=== PATIENT | male | born 1965 | race Caucasian/White ===

== ENCOUNTER 2019-04-28 17:11 | Inpatient (IN) | payer SELFPAY ==
[~2019-04-28] VITALS: Ht 162.6 cm; Wt 49.2 kg
[2019-04-28] MEDS ORDERED: NS IV 1000 ML 1,000 ML IV SCH (18:00)
--- NOTE | 2019-04-28 18:10 | ED Neurological Problem ---
General Chief Complaint: Neurological Problems Stated Complaint: GENERALIZED WEAKNESS/ ELEV BP Nursing Triage Note: Patient reports numbness and weakness bilaterally in legs since last , reports patient has had altered mental status since Sunday, states patient seems unable to find her in the house even when she is standing next to him. Nursing Sepsis Screen: No Definite Risk Source: patient, family Exam Limitations: no limitations History of Present Illness Date Seen by Provider: Apr 28, 2019 Time Seen by Provider: 17:35 Initial Comments Patient was brought into the emergency room with complaint of having numbness in both lower extremities along with weakness and also has numbness in his right hand with mild weakness of the right hand. All the symptoms started on . said he is also confused since Sunday. Patient is alert and oriented 3 in the emergency room. He is a chronic smoker. Patient denies having any headache, chest pain, shortness of breath, abdominal pain or symptoms of dysuria. He denies having any back pain and denies having any recent upper respiratory infection. His numbness in the lower extremities is mainly localized to both feet and in the right upper extremity to the hand. 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 Patient is to ablate before but was not able to ambulate for the past few days so was brought to the emergency room. Timing/Duration: other (5 days ago) Severity: mild Associated Symptoms: confusion, numbness in legs/feet, weakness (in both legs and rt arm) Allergies and Home Medications Allergies Coded Allergies: No Known Drug Allergies (Unverified , 04/28/19) Review of Systems Review of Systems Constitutional: see HPI Eyes: No Symptoms Reported Ears, Nose, Mouth, Throat: no symptoms reported Respiratory: no symptoms reported; No cough, No short of breath Cardiovascular: No no symptoms reported, No chest pain Gastrointestinal: no symptoms reported Genitourinary: No no symptoms reported Musculoskeletal: muscle weakness Skin: no symptoms reported Psychiatric/Neurological: Denies Depressed, Denies Headache; Numbness, Weakness Endocrine: See HPI Past Pdncxgq-Bracab-Sdljhn Hx Patient Social History Alcohol Use: Denies Use Recreational Drug Use: No Smoking Status: Current Everyday Smoker Type Used: Cigarettes 2nd Hand Smoke Exposure: No Recent Foreign Travel: No Contact w/Someone Who Travel: No Recent Infectious Disease Expo: No Recent Hopitalizations: No Physical Abuse: No Sexual Abuse: No Mistreated: No Fear: No Seasonal Allergies Seasonal Allergies: No Past Medical History Surgeries: Yes CABG Respiratory: No Cardiac: Yes Congenital Heart Disease Neurological: No Genitourinary: No Gastrointestinal: No Musculoskeletal: No Endocrine: No HEENT: No Cancer: No Psychosocial: No Integumentary: No Physical Exam Vital Signs Vital Signs - First Documented 04/28/19 17:20 Temp 36.7 Pulse 96 Resp 18 B/P (MAP) 127/88 (101) Pulse Ox 97 O2 Delivery Room Air Capillary Refill : Less Than 3 Seconds Height, Weight, BMI Height: '" Weight: lbs. oz. kg; 18.00 BMI Method: General Appearance: no apparent distress HEENT: PERRL/EOMI, normal ENT inspection, pharynx normal Neck: full range of motion, supple Respiratory: chest non-tender, lungs clear, normal breath sounds, no respiratory distress, no accessory muscle use Cardiovascular: normal peripheral pulses, regular rate, rhythm, no edema, no gallop, no JVD, no murmur Gastrointestinal: normal bowel sounds, non tender, soft, no organomegaly, no pulsatile mass Back: no CVA tenderness, no vertebral tenderness Extremities: normal range of motion, non-tender, normal inspection, no calf tenderness, pedal edema (1+) Neurologic/Psychiatric: 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-XII nml as tested, alert, normal mood/affect, oriented x 3, motor weakness Crainal Nerves: normal hearing, normal speech, PERRL Motor/Sensory: weak motor strength RUE, weak motor strength RLE, weak motor strength LLE Skin: normal color, warm/dry Stroke NIH Stroke Scale Assessment Select: Initial Level of Consciousness: 0=Alert (0), Level of Consciousness- Questions: 0=Answers both month/age (0), LOC Commands: 0=Performs both tasks (0), Gaze: Normal (0), Visual Pereyra: 0=No visual loss (0), Facial Movement (Facial Paresis): 0=Normal symmetrical mnt (0), Motor Function-Arms Right: 1 =Drift (1), Motor Function-Arms Left: 0=No drift (0), Motor Function-Legs Right: 1=Drift (1), Motor Function-Legs Left: 1=Drift (1), Limb Ataxia: 2=Present in two limbs (2), Sensory: 0=Normal:no loss (0), Best Language: 0=No aphasia (0), Dysarthria: 0=Normal (0), Extinction & Inattention: 0=No abnormality (0), Total: 5 IV - TPa Received IV - TPa Procedure Performed?: No Progress/Results/Core Measures Results/Orders Lab Results Laboratory Tests Test 04/28/19 18:10 Range/Units White Blood Count 12.1 H 4.3-11.0 10^3/uL Red Blood Count 4.88 4.35-5.85 10^6/uL Hemoglobin 13.8 13.3-17.7 G/DL Hematocrit 42 40-54 % Mean Corpuscular Volume 87 80-99 FL Mean Corpuscular Hemoglobin 28 25-34 PG Mean Corpuscular Hemoglobin Concent 33 32-36 G/DL Red Cell Distribution Width 14.9 H 10.0-14.5 % Platelet Count 338 130-400 10^3/uL Mean Platelet Volume 9.8 7.4-10.4 FL Neutrophils (%) (Auto) 62 42-75 % Lymphocytes (%) (Auto) 26 12-44 % Monocytes (%) (Auto) 9 0-12 % Eosinophils (%) (Auto) 12 H 0-10 % Basophils (%) (Auto) 1 0-10 % Neutrophils # (Auto) 7.5 1.8-7.8 X 10^3 Lymphocytes # (Auto) 3.2 1.0-4.0 X 10^3 Monocytes # (Auto) 1.1 H 0.0-1.0 X 10^3 Eosinophils # (Auto) 0.2 0.0-0.3 10^3/uL Basophils # (Auto) 0.1 0.0-0.1 10^3/uL Sodium Level 137 135-145 MMOL/L Potassium Level 3.6 3.6-5.0 MMOL/L Chloride Level 98 98-107 MMOL/L Carbon Dioxide Level 24 21-32 MMOL/L Anion Gap 15 H 5-14 MMOL/L Blood Urea Nitrogen 20 H 7-18 MG/DL Creatinine 0.92 0.60-1.30 MG/DL Estimat Glomerular Filtration Rate > 60 BUN/Creatinine Ratio 22 Glucose Level 105 70-105 MG/DL Calcium Level 9.6 8.5-10.1 MG/DL Corrected Calcium 9.4 8.5-10.1 MG/DL Total Bilirubin 0.3 0.1-1.0 MG/DL Aspartate Amino Transf (AST/SGOT) 14 5-34 U/L Alanine Aminotransferase (ALT/SGPT) 8 0-55 U/L Alkaline Phosphatase 64 40-136 U/L Total Protein 7.8 6.4-8.2 GM/DL Albumin 4.3 3.2-4.5 GM/DL Serum Alcohol < 10 <10 MG/DL My Orders Orders - WAYNE DIANE MD Ct Head Wo (04/28/19 17:49) Cbc With Automated Diff (04/28/19 17:49) Comprehensive Metabolic Panel (04/28/19 17:49) Urinalysis (04/28/19 17:49) Alcohol (04/28/19 17:49) Drug Screen Stat (Urine) (04/28/19 17:49) Chest 1 View Ap/Pa Only (04/28/19 17:49) Ns Iv 1000 Ml (Sodium Chloride 0.9%) (04/28/19 18:00) Ed Iv/Invasive Line Start (04/28/19 18:13) Ekg Tracing (04/28/19 18:58) Aspirin Tablet (Aspirin Tablet) (04/28/19 19:15) Medications Given in ED Current Medications Medications Dose Ordered Sig/Destiny Route Start Time Stop Time Status Last Admin Dose Admin Aspirin 325 mg ONCE ONCE PO 04/28/19 19:15 04/28/19 19:16 DC 04/28/19 19:25 325 MG Vital Signs/I&O 04/28/19 17:20 Temp 36.7 Pulse 96 Resp 18 B/P (MAP) 127/88 (101) Pulse Ox 97 O2 Delivery Room Air Blood Pressure Mean: 101 Initial ECG Rhythm: Normal Sinus Initial ECG Intervals: Normal Initial ECG Impression: Nonspecific Changes Diagnostic Imaging Diagonstic Imaging: Xray (neg), CT (left thalamic infarct; old basal ganglia infarct) Consults : Consulting Physician: CHRISTOPHER DANIELS DO Consults Notes Advised to give aspirin and admit to ICU for inpatient. Departure Impression Primary Impression: Left pontine cerebrovascular accident Condition: Improved Admissions Decision to Admit Reason: Admit from ER (General) Decision to Admit/Date: Apr 28, 2019 Time/Decision to Admit Time: 19:20 Departure-Patient Inst. Decision time for Depature: 19:39 Referrals: NO,LOCAL PHYSICIAN (PCP/Family) Primary Care Physician Patient Instructions: Left-Side Stroke (DC) WAYNE DIANE MD Apr 28, 2019 18:10
--- NOTE | 2019-04-28 18:13 | Diagnostic Imaging Report ---
PROCEDURE: CT head without contrast. TECHNIQUE: Multiple contiguous axial images were obtained through the brain without the use of intravenous contrast. Auto Exposure Controls were utilized during the CT exam to meet ALARA standards for radiation dose reduction. INDICATION: Numbness and weakness in the legs since , altered mental status. COMPARISON: I have no previous for comparison. FINDINGS: There are a few convincingly old lacunar infarcts in the right basal ganglia. There is extensive periventricular white matter hypodensity, nonspecific but suggestive of chronic small vessel disease although more advanced than would be typically encountered in a patient of this age; correlate with risk factors for vasculopathy. In addition, there is a lacunar infarct in the left thalamus superiorly of uncertain acuity that may be recent. There are intracranial atherosclerotic vascular calcifications. There is no hemorrhage. No findings of cortical edema. There is no hydrocephalus. The orbits, sinuses, and calvarium appear nonacute. IMPRESSION: 1. An acuity-indeterminate left thalamic lacunar infarct present. There are old right basal ganglia lacunar infarcts. There is substantial periventricular white matter disease and intracranial atherosclerosis. No evidence for hemorrhage. No cortical edema. 2. In light of the extensive background changes of persistent clinical suspicion for an acute or an evolving infarct, consider MRI as further evaluation. Dictated by: Dictated on workstation # [id number]
--- NOTE | 2019-04-28 18:15 | Diagnostic Imaging Report ---
INDICATION: Altered mental status. COMPARISON: None. FINDINGS: Single frontal view of the chest demonstrates normal heart size and pulmonary vascularity. The lungs are well aerated and clear. No large pleural effusion or pneumothorax is seen. The visualized osseous structures show no acute abnormalities. IMPRESSION: 1. No acute cardiopulmonary process. Dictated by: Dictated on workstation # [id number]
[2019-04-28 18:19] LABS: WHITE BLOOD COUNT 12.1 10^3/uL (4.3-11.0)
[2019-04-28 18:20] LABS: BASOPHILS % (AUTO) 1 % (0-10); EOSINOPHILS % (AUTO) 12 % (0-10); HEMATOCRIT 42 % (40-54); HEMOGLOBIN 13.8 G/DL (13.3-17.7); LYMPHOCYTES % (AUTO) 26 % (12-44); MEAN CORPUSCULAR HEMOGLOBIN 28 PG (25-34); MEAN CORPUSCULAR HGB CONC 33 G/DL (32-36); MEAN CORPUSCULAR VOLUME 87 FL (80-99); MEAN PLATELET VOLUME 9.8 FL (7.4-10.4); MONOCYTES % (AUTO) 9 % (0-12); NEUTROPHILS % (AUTO) 62 % (42-75); PLATELET COUNT 338 10^3/uL (130-400); RED CELL DISTRIBUTION WIDTH 14.9 % (10.0-14.5)
[2019-04-28 18:21] LABS: BASOPHILS # (AUTO) 0.1 10^3/uL (0.0-0.1); EOSINOPHILS # (AUTO) 0.2 10^3/uL (0.0-0.3); LYMPHOCYTES # (AUTO) 3.2 X 10^3 (1.0-4.0); MONOCYTES # (AUTO) 1.1 X 10^3 (0.0-1.0); NEUTROPHILS # (AUTO) 7.5 X 10^3 (1.8-7.8)
[2019-04-28 18:45] LABS: ALANINE AMINOTRANSFERASE 8 U/L (0-55); ALKALINE PHOSPHATASE 64 U/L (40-136); BILIRUBIN,TOTAL 0.3 MG/DL (0.1-1.0); BUN/CREATININE RATIO 22; CALCIUM 9.6 MG/DL (8.5-10.1); CARBON DIOXIDE 24 MMOL/L (21-32); CHLORIDE 98 MMOL/L (98-107); CREATININE SERUM 0.92 MG/DL (0.60-1.30); GFR ESTIMATED > 60; GLUCOSE 105 MG/DL (70-105); POTASSIUM 3.6 MMOL/L (3.6-5.0); SODIUM 137 MMOL/L (135-145)
[2019-04-28 18:46] LABS: ALBUMIN 4.3 GM/DL (3.2-4.5); TOTAL PROTEIN 7.8 GM/DL (6.4-8.2)
[2019-04-28] MEDS ORDERED: ASPIRIN 325 MG (5 GR) TABLET PO ONE (19:15)
--- NOTE | 2019-04-28 19:30 | NUR ---
Normal Saline that was ordered at 18:00 was given by Gabriela. Fluids were done and disconnected when this RN went in the room at 1925.
[2019-04-28 20:03] LABS: BACTERIA,URINE NEGATIVE /HPF; BILIRUBIN,URINE NEGATIVE (NEGATIVE); CLARITY,URINE CLEAR; COLOR,URINE YELLOW; GLUCOSE, URINE (UA) NEGATIVE (NEGATIVE); KETONES,URINE NEGATIVE (NEGATIVE); LEUKOCYTE ESTERASE ,URINE NEGATIVE (NEGATIVE); NITRITE,URINE NEGATIVE (NEGATIVE); PROTEIN,URINE NEGATIVE (NEGATIVE); RBC,URINE 0-2 /HPF
[2019-04-28 20:12] LABS: AMPHETAMINE SCREEN, URINE NEGATIVE (NEGATIVE); BARBITURATE SCREEN URINE NEGATIVE (NEGATIVE); BENZODIAZEPINES SCREEN URINE NEGATIVE (NEGATIVE); CANNABINOID SCREEN, URINE NEGATIVE (NEGATIVE); COCAINE SCREEN URINE NEGATIVE (NEGATIVE); METHADONE STAT NEGATIVE (NEGATIVE); METHAMPHETAMINE SCREEN URINE S NEGATIVE (NEGATIVE); OPIATE SCREEN URINE NEGATIVE (NEGATIVE); OXYCODONE STAT NEGATIVE (NEGATIVE); PROPOXYPHENE STAT NEGATIVE (NEGATIVE); TRICYCLIC ANTIDEPRESSANTS SCRE NEGATIVE (NEGATIVE)
[2019-04-28] MEDS ORDERED: CALCIUM CARBONATE 500 MG (TUMS) TAB.CHEW PO PRN (21:00)
[2019-04-28] MEDS ORDERED: ONDANSETRON 4 MG (ZOFRAN) ORAL DISSOLVE TAB PO PRN (21:00)
[2019-04-28] MEDS ORDERED: MELATONIN 3 MG TABLET PO PRN (21:00)
[2019-04-28] MEDS ORDERED: ALPRAZolam 0.25 MG (XANAX) TAB PO PRN (21:00)
[2019-04-28] MEDS ORDERED: ACETAMINOPHEN 500 MG TAB (TYLENOL) PO PRN (21:00)
[2019-04-28] MEDS ORDERED: diphenhydrAMINE 25 MG TAB (BENADRYL) PO PRN (21:00)
[2019-04-28] MEDS ORDERED: ENOXAPARIN 40 MG/0.4 ML (LOVENOX) SYR SC SCH (21:00)
[2019-04-28] MEDS ORDERED: ONDANSETRON 4 MG/2 ML (SDV) Z0FRAN IVP PRN (21:00)
[2019-04-28] MEDS ORDERED: NICOTINE 21 MG (NICODERM) PATCH TD PRN (21:00)
[2019-04-28] MEDS ORDERED: HYDROcodone/APAP 5 MG/325 MG (LORTAB) TAB PO PRN (21:00)
[2019-04-28] MEDS ORDERED: LOPERAMIDE 2 MG (IMODIUM) TABLET PO PRN (21:00)
[2019-04-28] MEDS ORDERED: DOCUSATE SODIUM 100 MG (COLACE) CAP PO PRN (21:00)
--- NOTE | 2019-04-28 21:45 | NUR ---
ISAIAH DUNCAN admitted to room 426-1, with an admitting diagnosis of LEFT SIDED CVA, on 04/28/19 from [facility] via AMBULANCE/GURNEY, accompanied by EMT.ISAIAH DUNCAN introduced to surroundings, call light, bed controls, phone, TV, temperature control, lights, meal times, smoking policy, visitor policy, side rail policy, bathrooms and showers. Patient Rights given to patient in the handbook. ISAIAH DUNCAN verbalizes understanding that [facility] is not responsible for the loss or damage to any personal effects or valuables that are kept in the patients posession during their hospitalization.
[2019-04-28 21:48] VITALS: BP 161/84
[2019-04-28] MEDS ORDERED: NS IV 1000 ML 1,000 ML ONE (22:01)
[2019-04-28] MEDS: SENNA W/DOCUSATE (SENOKOT S) TABLET PO SCH (22:10)
[2019-04-28] MEDS: NS IV 1000 ML 1,000 ML IV SCH (22:11)
[2019-04-28] MEDS ORDERED: RT-ALBUTEROL/IPRATROPIUM 3 ML (DUONEB) VIAL INH PRN (22:15)
[2019-04-28 22:48] VITALS: BP 167/81
[2019-04-29] VITALS (8 sets, daily range): BP systolic 134–190; BP diastolic 74–99
[2019-04-29] MEDS: NS IV 1000 ML 1,000 ML IV SCH ×4 (04:56→14:43)
[2019-04-29 05:05] LABS: BASOPHILS # (AUTO) 0.1 10^3/uL (0.0-0.1); BASOPHILS % (AUTO) 1 % (0-10); EOSINOPHILS # (AUTO) 0.2 10^3/uL (0.0-0.3); EOSINOPHILS % (AUTO) 3 % (0-10); HEMATOCRIT 37 % (40-54); HEMOGLOBIN 12.2 G/DL (13.3-17.7); LYMPHOCYTES # (AUTO) 2.5 X 10^3 (1.0-4.0); LYMPHOCYTES % (AUTO) 36 % (12-44); MEAN CORPUSCULAR HEMOGLOBIN 29 PG (25-34); MEAN CORPUSCULAR HGB CONC 33 G/DL (32-36); MEAN CORPUSCULAR VOLUME 87 FL (80-99); MONOCYTES # (AUTO) 0.8 X 10^3 (0.0-1.0); MONOCYTES % (AUTO) 12 % (0-12); NEUTROPHILS # (AUTO) 3.4 X 10^3 (1.8-7.8); NEUTROPHILS % (AUTO) 49 % (42-75); PLATELET COUNT 294 10^3/uL (130-400); RED CELL DISTRIBUTION WIDTH 15.2 % (10.0-14.5); WHITE BLOOD COUNT 6.9 10^3/uL (4.3-11.0)
[2019-04-29 05:37] LABS: ALANINE AMINOTRANSFERASE 6 U/L (0-55); ALBUMIN 3.6 GM/DL (3.2-4.5); ALKALINE PHOSPHATASE 53 U/L (40-136); BILIRUBIN,TOTAL 0.3 MG/DL (0.1-1.0); BUN/CREATININE RATIO 19; CARBON DIOXIDE 23 MMOL/L (21-32); CHLORIDE 107 MMOL/L (98-107); CHOLESTEROL 164 MG/DL (< 200); CREATININE SERUM 0.77 MG/DL (0.60-1.30); GFR ESTIMATED > 60; GLUCOSE 93 MG/DL (70-105); HDL CHOLESTEROL 51 MG/DL (40-60); POTASSIUM 3.4 MMOL/L (3.6-5.0); SODIUM 140 MMOL/L (135-145); TOTAL PROTEIN 6.1 GM/DL (6.4-8.2); TRIGLYCERIDES 100 MG/DL (<150); VLDL CHOLESTEROL 20 MG/DL (5-40)
[2019-04-29] MEDS ORDERED: FLU QUADRIvalent (5+ YOA) 2019-2020 (AFLURIA) 0.5 ML IM ONE (07:00)
--- NOTE | 2019-04-29 08:52 | Diagnostic Imaging Report ---
CLINICAL INDICATION: Patient with CVA. COMPARISON: Head CT without contrast dated 04/28/2019. EXAM: Real-time carotid Doppler duplex imaging is performed bilaterally. Peak systolic velocity, ICA/CCA peak systolic ratio, spectral analysis, and vascular morphology are studied. FINDINGS: ARTERY VELOCITY Right Left CCA 1.06 m/s 1.20 m/s ICA 1.12 m/s 1.34 m/s ECA 1.40 m/s 1.28 m/s ICA/CCA 1.06 1.15 VERT.ART Antegrade Antegrade There is bilateral carotid artery atherosclerotic disease. There are no abnormal ICA/CCA ratios. IMPRESSION: There is bilateral carotid artery atherosclerotic disease with no grayscale or Doppler evidence of significant vascular stenosis. Dictated by: Dictated on workstation # [id number]
--- NOTE | 2019-04-29 08:58 | NUR ---
Inpatient rehab evaluation Received order to evaluate patient for admission to the inpatient rehab unit. PT and OT evaluations have been ordered. Will reassess after patient has been seen by therapies. Thank you for the referral.
[2019-04-29] MEDS: SENNA W/DOCUSATE (SENOKOT S) TABLET PO SCH ×3 (10:27→21:59)
[2019-04-29] MEDS: ASPIRIN E.C. 325 MG (ECOTRIN) TABLET PO SCH (10:27)
--- NOTE | 2019-04-29 11:15 | History & Physical-Hospitalist ---
History of Present Illness HPI/Chief Complaint CC: CVA HPI: This is a 54yoWM with no regular physician who presented to the [facility] ER 4 days after suffering an abrupt onset of neurological deficit which included inability to walk and loss of fine motor skills and falls at home. CT confirmed presence of CVA and will have full w/u to evaluate the source and regain function in order to return home. He does smoker. Very difficult to understand the patient due to soft speaking and unsure if this is chronic. He cannot really tell me what type of work he used to do but he did tell him he does not work. Source: patient, RN/MD Exam Limitations: clinical condition Date Seen 04/29/19 Time Seen by a Provider: 10:00 Attending Physician Terrie Goldsmith DO PCP No,Local Physician Referring Physician TERRIE GOLDSMITH DO Date of Admission Apr 28, 2019 at 19:18 Home Medications & Allergies Home Medications Reviewed patient Home Medication Reconciliation performed by pharmacy medication reconciliations machines technician and/or nursing. Patients Allergies have been reviewed. Allergies Allergies Coded Allergies No Known Drug Allergies (Zilsouvrya55/23/19) Past Emietmt-Vztrnl-Eyvhvj Hx Past Med/Social Hx: Reviewed Nursing Past Med/Soc Hx, Reviewed and Corrections made Patient Social History Marrital Status: cohabiting Alcohol Use: Denies Use Recreational Drug Use: No Smoking Status: Current Everyday Smoker Type Used: Cigarettes 2nd Hand Smoke Exposure: No Recent Foreign Travel: No Contact w/other who traveled: No Recent Hopitalizations: No Recent Infectious Disease Expo: No Seasonal Allergies Seasonal Allergies: No Past Medical History Surgeries: CABG Cardiac: Congenital Heart Disease Review of Systems Constitutional: see HPI, malaise, weakness Psychiatric/Neurological: Numbness, Tingling, Tremors, Weakness Physical Exam Physical Exam Vital Signs Vital Signs - First Documented 04/28/19 04/28/19 17:20 21:59 Temp 36.7 Pulse 96 Resp 18 B/P (MAP) 127/88 (101) Pulse Ox 97 O2 Delivery Room Air FiO2 21 Capillary Refill : Greater Than 3 Seconds Height, Weight, BMI Height: '" Weight: lbs. oz. kg; 18.60 BMI Method: General Appearance: No Apparent Distress, Chronically ill Eyes: Right Eye Normal Inspection, Right Eye PERRL HEENT: PERRL/EOMI, Normal ENT Inspection, Pharynx Normal, Moist Mucous Membrane s Neck: Full Range of Motion, Normal Inspection, Non Tender Respiratory: Chest Non Tender, Lungs Clear, No Accessory Muscle Use, No Respiratory Distress, Decreased Breath Sounds Cardiovascular: Regular Rate, Rhythm, No Edema, No Gallop, No JVD, No Murmur, Normal Peripheral Pulses Gastrointestinal: Normal Bowel Sounds, No Organomegaly, No Pulsatile Mass, Non Tender, Soft Back: Normal Inspection, No CVA Tenderness, No Vertebral Tenderness Extremity: Normal Capillary Refill, Normal Inspection, Non Tender, No Calf Tenderness, No Pedal Edema, Other (minimal decreased ROM of all extremities) Neurologic/Psychiatric: Alert, Oriented x3, Normal Mood/Affect, level vial inspector II-XII Norm as Tested, Motor Weakness (standing is compromised and cannot walk unassisted) Skin: Normal Color, Warm/Dry Lymphatic: No Adenopathy Results Results/Procedures Labs Laboratory Tests 04/28/19 18:10 04/29/19 04:40 Patient resulted labs reviewed. Assessment/Plan Admission Diagnosis Assessment: CVA Smoker Confusion Plan: PT/OT IRF? Cardiology evaluation ECHO Carotid USG Lipid profile ASA Lovenox Admission Status: Inpatient Order (span 2 midnights) Reason for Inpatient Admission: CVA Diagnosis/Problems Diagnosis/Problems (1) Left pontine cerebrovascular accident Status: Acute Clinical Quality Measures DVT/VTE Risk/Contraindication: Risk Factor Score Per Nursin RFS Level Per Nursing on Admit: 4+=Very High TERRIE GOLDSMITH DO Apr 29, 2019 11:15
--- NOTE | 2019-04-29 11:38 | Physical Therapy Evaluation ---
PT Evaluation-General Medical Diagnosis Admission Date Apr 28, 2019 at 19:18 Medical Diagnosis: CVA Onset Date: Apr 28, 2019 Therapy Diagnosis Therapy Diagnosis: decreased mobility, general weakness Precautions Precautions/Isolations: Fall Prevention, Standard Precautions Weight Bear Status Right Lower Extremity: Right Full Weight Bearing Left Lower Extremity: Left Full Weight Bearing Referral Physician: Dr. Goldsmith Reason for Referral: Evaluation/Treatment Medical History Pertinent Medical History: CABG Additional Medical History heart disease, tobacco use Current History Presented to ER with c/o (B) LE numbness, confusion. Reviewed History: Yes Social History Home: Single Level Current Living Status: Significant Other Entry Into Home: Stairs Without Railing PT Steps Into Home: 1 Prior Prior Level of Function SCALE: Activities may be completed with or without assistive devices. 6-Gezikbzwtq-bpgoyyh completes the activity by him/herself with no assistance from a helper. 5-Set-up or Clean-up Assistance-helper sets up or cleans up; patient completes activity. [place] assists only prior to or following the activity. 4-Supervision or Touching Assistance-helper provides verbal cues and/or touching/steadying and/or contact guard assistance as patient completes a ctivity. Assistance may be provided throughout the activity or intermittently. 3-Partial/Moderate Assistance-helper does LESS THAN HALF the effort. [place] lifts, holds or supports trunk or limbs, but provides less than half the effort. 2-Substantial/Maximal Assistance-helper does MORE THAN HALF the effort. [place] lifts or holds trunk or limbs and provides more than half the effort. 4-Ekskfomjh-qvhotp does ALL the effort. Patient does none of the effort to complete the activity. Or, the assistance of 2 or more helpers is required for the patient to complete the activity. If activity was not attempted, code reason: 7-Patient Refused. 9-Not Applicable-not attempted and the patient did not perform the activity before the current illness, exacerbation or injury. 10-Not Attempted due to Environmental Limitations-(lack of equipment, weather restraints, etc.). 88-Not Attempted due to Medical Conditions or Safety Concerns. Bed Mobility: 6 Transfers (B,C,W/C): 6 Gait: 6 Indoor Mobility (Ambulation): Independent Stairs: Independent Prior Devices Use: None Prior Device Use: States he has a walker and a cane but does not use device pt. is mildly confused, unsure of answers to assistive device use PT Evaluation-Current Subjective Pt. in bed, states he needs to use the bathroom. He denies pain. States he fell earlier this AM, denies injury. Pt/Family Goals home with girlfriend Objective Patient Orientation: Person Attachments: IV ROM/Strength ROM Upper Extremities WFL ROM Lower Extremities WFL Strength Upper Extremities WFL Strength Lower Extremities Grossly 4-/5 (B) Integumentary/Posture Integumentary see nursing notes Bowel Incontinence: No Bladder Incontinence: No Posture kyphotic Neuromuscular (Tone, Coordination, Reflexes) delayed Sensory Vision: Wears Glasses Hearing: Functional Sensation Right Upper Extremit: Intact Sensation Left Upper Extremity: Intact Sensation Right Lower Extremit: Intact Sensation Left Lower Extremity: Intact Sensation Lower Extremities intact per report Transfers Sit to Lying (QC): 5 Lying to Sitting/Side of Bed(Q: 5 Sit to Stand (QC): 4 Gait Does the Patient Walk?: Yes Mode of Locomotion: Walk Anticipated Mode of Locomotion: Walk Walk 150 ft (QC): 4 Distance: 150 ft Gait Assistive Device: FWW Comments/Gait Description slow, shuffled steps; needs cues for walker management and safety Balance Sitting Static: Good Sitting Dynamic: Good Standing Static: Fair Standing Dynamic: Fair Assessment/Needs Pt. is a 54 y.o. male with decreased mobility and general weakness following a CVA. Pt. is slow with movements, currently SBA with bed transfers, CGA with out of bed activity. He does need cuing for safety. Pt. would benefit from skilled PT to restore PLOF for safe return home. Rehab Potential: Good PT [facility] Goals Fci Goals PT [facility]ci Goals Time Frame: May 06, 2019 Roll Left & Right (QC): 6 Sit to Lying (QC): 6 Lying-Sitting on Side/Bed(QC): 6 Sit to Stand (QC): 6 Does the Patient Walk: Yes Walk 150 ft (QC): 6 Does the Pt use WC or Scooter?: No PT Plan Problem List Problem List: Activity Tolerance, Functional Strength, Safety, Balance, Gait, Transfer, Bed Mobility, ROM Treatment/Plan Treatment Plan: Continue Plan of Care Treatment Plan: Bed Mobility, Education, Functional Activity Flory, Functional Strength, Gait, Safety, Therapeutic Exercise, Transfers Treatment Duration: May 06, 2019 Frequency: 6 times per week Estimated Hrs Per Day: .25 hour per day Patient and/or Family Agrees t: Yes Time/GCodes Time In: 1110 Time Out: 1130 Total Billed Treatment Time: 20 Total Billed Treatment 1, CARMITA, GT 10' KAY HUGHES PT Apr 29, 2019 11:38
--- NOTE | 2019-04-29 12:01 | Occupational Therapy Eval ---
OT Evaluation-General/PLF Medical Diagnosis Admission Date Apr 28, 2019 at 19:18 Medical Diagnosis: CVA Onset Date: Apr 28, 2019 Therapy Diagnosis Therapy Diagnosis: decreased ADL skills Precautions Precautions/Isolations: Fall Prevention, Standard Precautions Referral Physician: Dr. Goldsmith Medical History Pertinent Medical History: CABG Social History Home: Single Level Current Living Status: Significant Other Entry Into Home: Stairs Without Railing Steps Into Home: 1 ADL-Prior Level of Function SCALE: Activities may be completed with or without assistive devices. 8-Kuuxgvwenv-euiefhy completes the activity by him/herself with no assistance from a helper. 5-Set-up or Clean-up Assistance-helper sets up or cleans up; patient completes activity. [place] assists only prior to or following the activity. 4-Supervision or Touching Assistance-helper provides verbal cues and/or touching/steadying and/or contact guard assistance as patient completes activity. Assistance may be provided throughout the activity or intermittently. 3-Partial/Moderate Assistance-helper does LESS THAN HALF the effort. [place] lifts, holds or supports trunk or limbs, but provides less than half the effort. 2-Substantial/Maximal Assistance-helper does MORE THAN HALF the effort. [place] lifts or holds trunk or limbs and provides more than half the effort. 9-Bwfvrbdbh-kxrwsu does ALL the effort. Patient does none of the effort to compl ete the activity. Or, the assistance of 2 or more helpers is required for the patient to complete the activity. If activity was not attempted, code reason: 7-Patient Refused. 9-Not Applicable-not attempted and the patient did not perform the activity before the current illness, exacerbation or injury. 10-Not Attempted due to Environmental Limitations-(lack of equipment, weather restraints, etc.). 88-Not Attempted due to Medical Conditions or Safety Concerns. ADL PLOF Comments Pt states he is normally able to complete self care without assist. Uses FWW for mobility. DME/Equipment: Tub/Shower OT Current Status Subjective Pt in bed, agrees to therapy. No c/o pain Mental Status/Objective Patient Orientation: Person, Place Attachments: IV Current Glasses/Contacts: Yes Hearing Aids: No Dentures/Partials: No Hand Dominance: Right Upper Extremity ROM Grossly functional Upper Extremity Coordination decreased bilaterally ADL-Treatment ADL-Current Pt supine to sit with SBA and increased time. Pt sat EOB with CGA for balance during UE assessment. Pt washed face with set up. Pt doffed/donned sock with min assist for sitting balance. Pt moves slowly and has decreased coordination. Pt sit to supine with SBA. Education provided regarding role of OT and plan of care. Pt resting in bed with needs met, bed alarm on and nurse aide present after session. Education OT Patient Education: Rehab process Teaching Recipient: Patient Teaching Methods: Discussion Response to Teaching: Reinforcement Needed OT Chcf Goals Chcf Goals Time Frame: May 13, 2019 Eating (QC): 6 Oral Hygiene (QC): 6 Toileting Hygiene (QC): 6 Shower/Bathe Self (QC): 5 Upper Body Dressing (QC): 6 Lower Body Dressing (QC): 6 On/Off Footwear (QC): 6 Additional Goals: 1-Demonstrate ADL Tasks, 2-Verbalize Understanding, 3- ImproveStrength/Flory 1=Demonstrate adherence to instructed precautions during ADL tasks. 2=Patient will verbalize/demonstrate understanding of assistive devices/modifications for ADL. 3=Patient will improve strength/tolerance for activity to enable patient to perform ADL's. OT Education/Plan Problem List/Assessment Assessment: Decreased Activ Tolerance, Decreased UE Strength, Dependent Transfers, Impaired Coordination, Impaired Funct Balance, Impaired Self-Care Skills Pt to benefit from skilled OT intervention for ADL training, transfers, strengthening, and safety education to increase level of independence and allow safe discharge plan. Discharge Recommendations Plan/Recommendations: Continue POC Treatment Plan/Plan of Care Treatment,Training & Education: Yes Patient would benefit from OT for education, treatment and training to promote independence in ADL's, mobility, safety and/or upper extremity function for ADL's. Plan of Care: ADL Retraining, Functional Mobility, UE Funct Exercise/Act, UE Neuromus Re-Ed/Coord Treatment Duration: May 13, 2019 Frequency: 5 times per week Rehab Potential: Good Time/GCodes Start Time: 11:32 Stop Time: 11:50 Total Time Billed (hr/min): 18 Billed Treatment Time 1 visit, EVMika(18minutes) VI HOLLY OT Apr 29, 2019 12:01
--- NOTE | 2019-04-29 12:11 | NUR ---
Inpatient rehab evaluation Spoke with Dr. Goldsmith regarding this referral. Patient has been accepted to the inpatient rehab unit. Anticipate admission to ARU on , 05/01/19, as there will be no therapy services available on . Thank you for the referral.
[2019-04-29] MEDS ORDERED: ACET-2267 PO (13:04)
--- NOTE | 2019-04-29 13:04 | NUR ---
SPOKE WITH PT REGARDING HIS MEDS, HOWEVER HE WAS NOT ABLE TO COMMUNICATE WHAT HE TAKES. I REACHED OUT TO HIS NENO TO GET A LIST OF HIS MEDS SHE INDICATED THAT HE DID NOT TAKE ANY PRESCRIPTION MEDS AND THE ONLY THING HE TAKES IS TYLENOL
--- NOTE | 2019-04-29 15:56 | Consultation-Cardiology ---
HPI-Cardiology Cardiology Consultation: Date of Consultation 04/29/19 Date of Admission Attending Physician Terrie Goldsmith DO Admitting Physician Luba,Local Physician Consulting Physician Ramandeep RHODES MD HPI: Time Seen by a Provider: 12:00 Chief Complaint: Possible stroke This is a 54-year-old gentleman who presents with numbness of both lower extremities and weakness of the right hand. The symptoms started a few days ago. According to the family the patient has been confused since Sunday. He is a poor historian and is very difficult to understand what he is saying. He is an active smoker. He denies any significant family history. He denies any significant post cardiac history. He is found to have an acute thalamic stroke. Old basal ganglia infarct as well. Telemetry did not show atrial fibrillation. Carotid ultrasound does not show any significant carotid disease. Review of Systems-Cardiology Review of Systems Constitutional: As described under HPI; No As described under HPI, No no symptoms reported, No chills, No fever, No lightheadedness Eyes: No As described under HPI, No no symptoms reported, No blindness, No blurred vision, No contact lenses, No drainage, No decreased acuity, No foreign body sensation, No pain, No vision change Ears/Nose/Throat: No As described under HPI, No no symptoms reported, No chronic hearing loss, No ear discharge, No ear pain, No nasal drainage, No ulcerations Respiratory: No no symptoms reported; As described under HPI; No As described under HPI, No cough, No orthopnea, No shortness of breath, No SOB with excertion Cardiovascular: No no symptoms reported; As described under HPI; No As described under HPI, No chest pain, No edema, No irregular heart rate, No lighth eadedness, No palpitations Gastrointestinal: No no symptoms reported, No As described under HPI, No abdome n distended, No abdominal pain, No blood streaked bowels, No constipation, No diarrhea, No nausea, No vomiting, No stool coloration changes Genitourinary: No As described under HPI, No burning, No dysuria, No discharge, No frequency, No flank pain, No hematuria, No urgency Skin: No rash, No skin related problems, No ulcerations Psychiatric/Neurological: As described under HPI; No anxiety, No depression, No seizure, No focal weakness, No syncope Hematologic: No bleeding abnormalities NYO-Gfopbj-Eyojxt Hx Patient Social History Marrital Status: cohabiting Alcohol Use: Denies Use Recreational Drug Use: No Smoking Status: Current Everyday Smoker Type Used: Cigarettes 2nd Hand Smoke Exposure: No Recent Foreign Travel: No Recent Infectious Disease Expo: No Hospitalization with Isolation: Denies Past Medical History PMH As described under Assessment. Allergies and Home Medications Allergies Coded Allergies: No Known Drug Allergies (Unverified , 04/28/19) Home Medications Acetaminophen 500 Mg Tablet, 1,500 MG PO Q6H PRN for PAIN-MILD (1-4), (Reported) Patient Home Medication List Home Medication List Reviewed: Yes Physical Exam-Cardiology Physical Exam Vital Signs/I&O 04/29/19 04/29/19 04/29/19 04/29/19 04:00 07:00 08:00 08:17 Pulse 78 76 88 Resp 18 18 B/P (MAP) 158/80 183/76 Pulse Ox 97 100 92 O2 Delivery Room Air 04/29/19 04/29/19 04/29/19 10:43 12:00 13:00 Temp 36.0 Pulse 73 103 109 Resp 20 B/P (MAP) 169/99 Pulse Ox 97 95 FiO2 21 04/29/19 00:00 Intake Total 1000 ml Balance 1000 ml Capillary Refill : Greater Than 3 Seconds Constitutional: appears stated age, AAO x 3; No apparent distress; well- developed, well-nourished HEENT: PERRL; No discharge; hearing is well preserved, oral hygience is good; No ulceration, No xanthelasmas are seen Neck: No carotid bruit; carotid pulses are 2 + bilaterally Respiratory: chest is bilaterally symmetric, lungs clear to auscultation Cardiovascular: regular rate-rhythm, S1 and S2 Gastrointestinal: soft, audible bowel sounds; No spleenomegaly Rectal: deferred Extremities: normal range of motion, non-tender, normal inspection; No clubbing, No cyanosis; no lower extremity edema bilateral; No significant edema Neurologic/Psychiatric: alert, oriented x 3 Skin: normal color; No rash, No ulcerations Data Review Labs Laboratory Tests 04/28/19 18:10: White Blood Count 12.1H, Red Blood Count 4.88, Hemoglobin 13.8, Hematocrit 42, Mean Corpuscular Volume 87, Mean Corpuscular Hemoglobin 28, Mean Corpuscular Hemoglobin Concent 33, Red Cell Distribution Width 14.9H, Platelet Count 338, Mean Platelet Volume 9.8, Neutrophils (%) (Auto) 62, Lymphocytes (%) (Auto) 26, Monocytes (%) (Auto) 9, Eosinophils (%) (Auto) 12H, Basophils (%) (Auto) 1, Neutrophils # (Auto) 7.5, Lymphocytes # (Auto) 3.2, Monocytes # (Auto) 1.1H, Eosinophils # (Auto) 0.2, Basophils # (Auto) 0.1, Sodium Level 137, Potassium Level 3.6, Chloride Level 98, Carbon Dioxide Level 24, Anion Gap 15H, Blood Urea Nitrogen 20H, Creatinine 0.92, Estimat Glomerular Filtration Rate > 60, BUN/Creatinine Ratio 22, Glucose Level 105, Calcium Level 9.6, Corrected Calcium 9.4, Total Bilirubin 0.3, Aspartate Amino Transf (AST/SGOT) 14, Alanine Aminotransferase (ALT/SGPT) 8, Alkaline Phosphatase 64, Total Protein 7.8, Albumin 4.3, Serum Alcohol < 10 04/28/19 19:49: Urine Color YELLOW, Urine Clarity CLEAR, Urine pH 7.0, Urine Specific Triplett 10.15, Urine Protein NEGATIVE, Urine Glucose (UA) NEGATIVE, Urine Ketones NEGATIVE, Urine Nitrite NEGATIVE, Urine Bilirubin NEGATIVE, Urine Urobilinogen 0.2, Urine Leukocyte Esterase NEGATIVE, Urine RBC (Auto) 1+H, Urine RBC 0-2, Urine WBC NONE, Urine Squamous Epithelial Cells NONE, Urine Renal Epithelial Cells NONE, Urine Crystals NONE, Urine Bacteria NEGATIVE, Urine Casts NONE, Urine Mucus NONE, Urine Culture Indicated NO, Urine Opiates Screen NEGATIVE, Urine Oxycodone Screen NEGATIVE, Urine Methadone Screen NEGATIVE, Urine Propoxyphene Screen NEGATIVE, Urine Barbiturates Screen NEGATIVE, Ur Tricyclic Antidepressants Screen NEGATIVE, Urine Phencyclidine Screen NEGATIVE, Urine Amphetamines Screen NEGATIVE, Urine Methamphetamines Screen NEGATIVE, Urine Benzodiazepines Screen NEGATIVE, Urine Cocaine Screen NEGATIVE, Urine Cannabinoids Screen NEGATIVE 04/29/19 04:40: White Blood Count 6.9, Red Blood Count 4.22L, Hemoglobin 12.2L, Hematocrit 37L, Mean Corpuscular Volume 87, Mean Corpuscular Hemoglobin 29, Mean Corpuscular Hemoglobin Concent 33, Red Cell Distribution Width 15.2H, Platelet Count 294, Mean Platelet Volume 10.0, Neutrophils (%) (Auto) 49, Lymphocytes (%) (Auto) 36, Monocytes (%) (Auto) 12, Eosinophils (%) (Auto) 3, Basophils (%) (Auto) 1, Neutrophils # (Auto) 3.4, Lymphocytes # (Auto) 2.5, Monocytes # (Auto) 0.8, Eosinophils # (Auto) 0.2, Basophils # (Auto) 0.1, Sodium Level 140, Potassium Level 3.4L, Chloride Level 107, Carbon Dioxide Level 23, Anion Gap 10, Blood Urea Nitrogen 15, Creatinine 0.77, Estimat Glomerular Filtration Rate > 60, BUN/Creatinine Ratio 19, Glucose Level 93, Calcium Level 9.0, Corrected Calcium 9.3, Total Bilirubin 0.3, Aspartate Amino Transf (AST/SGOT) 12, Alanine Aminotransferase (ALT/SGPT) 6, Alkaline Phosphatase 53, Total Protein 6.1L, Albumin 3.6, Triglycerides Level 100, Cholesterol Level 164, LDL Cholesterol Direct 90, VLDL Cholesterol 20, HDL Cholesterol 51 ECG Impression ECG Initial ECG Rhythm: Normal Sinus, PAC Comment LVH. A/P-Cardiology Assessment/Admission Diagnosis Acute CVA, LVH, Active smoking Plan Acute CVA, unclear etiology. Negative carotid ultrasound for significant carotid disease. Echocardiogram shows mildly reduce LV systolic function with no clear evidence of intracardiac shunting. Telemetry for 24 hours is negative for atrial fibrillation. Continue telemetry for total of 48 hours if no atrial fibrillation consider implantable loop recorder. Due to mildly reduce LV systolic function, coronary evaluation is recommended however due to recent stroke, invasive cardiac procedures are deferred for at least 1 month. For now continue aspirin. OT/PT. Active smoking: Smoking cessation is strongly recommended. LVH, likely due to hypertensive heart disease. Thank you for your consultation. Please call me if you have any questions. Spenser Rhodes MD, FACP, FACC, FSCAI, FHRS, CCDS Interventional Cardiology Cardiac Electrophysiology Vascular Medicine and Endovascular Interventions Clinical Quality Measures DVT/VTE Risk/Contraindication: Risk Factor Score Per Nursin RFS Level Per Nursing on Admit: 4+=Very High Ramandeep RHODES MD Apr 29, 2019 15:56
[2019-04-29] MEDS ORDERED: lisINopril 40 MG (PRINIVIL) TABLET PO SCH (16:00)
[2019-04-29] MEDS: lisINopril 20 MG (PRINIVIL) TABLET PO SCH (16:26)
[2019-04-29] MEDS: ENOXAPARIN 30 MG/0.3 ML (LOVENOX) SYR SC SCH (21:51)
[2019-04-30] VITALS (7 sets, daily range): BP systolic 117–171; BP diastolic 57–85
[2019-04-30] MEDS ORDERED: NS IV 1000 ML 1,000 ML ONE ×2 (02:21→15:22)
[2019-04-30] MEDS: NS IV 1000 ML 1,000 ML IV SCH ×2 (02:28→15:31)
[2019-04-30 05:51] LABS: BASOPHILS % (AUTO) 0 % (0-10); EOSINOPHILS # (AUTO) 0.3 10^3/uL (0.0-0.3); EOSINOPHILS % (AUTO) 3 % (0-10); HEMATOCRIT 37 % (40-54); HEMOGLOBIN 12.2 G/DL (13.3-17.7); LYMPHOCYTES # (AUTO) 2.6 X 10^3 (1.0-4.0); LYMPHOCYTES % (AUTO) 29 % (12-44); MEAN CORPUSCULAR HEMOGLOBIN 29 PG (25-34); MEAN CORPUSCULAR HGB CONC 33 G/DL (32-36); MEAN CORPUSCULAR VOLUME 87 FL (80-99); MEAN PLATELET VOLUME 10.2 FL (7.4-10.4); MONOCYTES # (AUTO) 0.9 X 10^3 (0.0-1.0); MONOCYTES % (AUTO) 10 % (0-12); NEUTROPHILS # (AUTO) 5.3 X 10^3 (1.8-7.8); NEUTROPHILS % (AUTO) 58 % (42-75); PLATELET COUNT 290 10^3/uL (130-400); RED CELL DISTRIBUTION WIDTH 15.5 % (10.0-14.5); WHITE BLOOD COUNT 9.1 10^3/uL (4.3-11.0)
[2019-04-30 06:14] LABS: ALANINE AMINOTRANSFERASE 6 U/L (0-55); ALBUMIN 3.5 GM/DL (3.2-4.5); ALKALINE PHOSPHATASE 54 U/L (40-136); BILIRUBIN,TOTAL 0.4 MG/DL (0.1-1.0); BUN/CREATININE RATIO 14; CALCIUM 8.6 MG/DL (8.5-10.1); CARBON DIOXIDE 20 MMOL/L (21-32); CHLORIDE 107 MMOL/L (98-107); CREATININE SERUM 0.73 MG/DL (0.60-1.30); GFR ESTIMATED > 60; GLUCOSE 90 MG/DL (70-105); POTASSIUM 3.3 MMOL/L (3.6-5.0); SODIUM 138 MMOL/L (135-145); TOTAL PROTEIN 6.1 GM/DL (6.4-8.2)
[2019-04-30] MEDS: lisINopril 20 MG (PRINIVIL) TABLET PO SCH (11:01)
[2019-04-30] MEDS: SENNA W/DOCUSATE (SENOKOT S) TABLET PO SCH ×2 (11:01→21:29)
[2019-04-30] MEDS: ASPIRIN E.C. 325 MG (ECOTRIN) TABLET PO SCH (11:01)
--- NOTE | 2019-04-30 13:21 | Progress Note - Hospitalist ---
Subjective HPI/CC On Admission Date Seen by Provider: Apr 30, 2019 Time Seen by Provider: 09:45 CC: CVA HPI: This is a 54yoWM with no regular physician who presented to the [facility] ER 4 days after suffering an abrupt onset of neurological deficit which included inability to walk and loss of fine motor skills and falls at home. CT confirmed presence of CVA and will have full w/u to evaluate the source and regain functi on in order to return home. He does smoker. Very difficult to understand the patient due to soft speaking and unsure if this is chronic. He cannot really tell me what type of work he used to do but he did tell him he does not work. Subjective/Events-last exam Patient sleeps most of the time Difficult to understand him because he appears to have a speech impediment prior to CVA but unsure No pain is reported Review of Systems General: Fatigue Neurological: Change in speech, Confusion Objective Exam Vital Signs Vital Signs Date Time Temp Pulse Resp B/P (MAP) Pulse Ox O2 Delivery O2 Flow Rate FiO2 04/30/19 16:20 80 20 122/59 98 04/30/19 09:53 Room Air 04/29/19 10:43 36.0 21 Capillary Refill : Less Than 3 Seconds General Appearance: No Apparent Distress, WD/WN, Chronically ill Respiratory: Lungs Clear Cardiovascular: Regular Rate, Rhythm Results/Procedures Lab Laboratory Tests 04/30/19 05:20 Patient resulted labs reviewed. Assessment/Plan Assessment and Plan Assess & Plan/Chief Complaint Assessment: CVA Smoker Confusion Partial aphasia Plan: PT/OT IRF? Cardiology evaluation ECHO Carotid USG Lipid profile ASA Lovenox Diagnosis/Problems Diagnosis/Problems (1) Left pontine cerebrovascular accident Status: Acute (2) Aphasia (3) Smoker Clinical Quality Measures DVT/VTE Risk/Contraindication: Risk Factor Score Per Nursin RFS Level Per Nursing on Admit: 4+=Very High CHRISTOPHER DANIELS DO Apr 30, 2019 13:21
--- NOTE | 2019-04-30 13:57 | Cardiology Progress Note ---
Cardiology SOAP Progress Note Subjective: Not very communicative. Objective: I&O/Vital Signs 04/30/19 04/30/19 04/30/19 04/30/19 03:50 07:00 08:32 09:53 Pulse 74 59 89 Resp 18 20 B/P (MAP) 153/75 171/85 Pulse Ox 98 99 O2 Delivery Room Air 04/30/19 04/30/19 11:14 13:00 Pulse 70 63 Resp 20 B/P (MAP) 151/73 Pulse Ox 97 04/30/19 00:00 Intake Total 2020 ml Output Total 975 ml Balance 1045 ml Constitutional: appears stated age, AAO x 3; No apparent distress; well- developed, well-nourished Respiratory: chest is bilaterally symmetric, lungs clear to auscultation Cardiovascular: regular rate-rhythm, S1 and S2 Gastrointestional: soft, audible bowel sounds; No spleenomegaly Extremities: normal range of motion, non-tender, normal inspection; No clubbing, No cyanosis; no lower extremity edema bilateral; No significant edema Neurologic/Psychiatric: alert, oriented x 3 Skin: normal color; No rash, No ulcerations Results/Procedures: Labs Laboratory Tests 04/30/19 05:20: White Blood Count 9.1, Red Blood Count 4.21L, Hemoglobin 12.2L, Hematocrit 37L, Mean Corpuscular Volume 87, Mean Corpuscular Hemoglobin 29, Mean Corpuscular Hemoglobin Concent 33, Red Cell Distribution Width 15.5H, Platelet Count 290, Mean Platelet Volume 10.2, Neutrophils (%) (Auto) 58, Lymphocytes (%) (Auto) 29, Monocytes (%) (Auto) 10, Eosinophils (%) (Auto) 3, Basophils (%) (Auto) 0, Neutrophils # (Auto) 5.3, Lymphocytes # (Auto) 2.6, Monocytes # (Auto) 0.9, Eosinophils # (Auto) 0.3, Basophils # (Auto) 0.0, Sodium Level 138, Potassium Level 3.3L, Chloride Level 107, Carbon Dioxide Level 20L, Anion Gap 11, Blood Urea Nitrogen 10, Creatinine 0.73, Estimat Glomerular Filtration Rate > 60, BUN/Creatinine Ratio 14, Glucose Level 90, Calcium Level 8.6, Corrected Calcium 9.0, Total Bilirubin 0.4, Aspartate Amino Transf (AST/SGOT) 10, Alanine Aminotransferase (ALT/SGPT) 6, Alkaline Phosphatase 54, Total Protein 6.1L, Albumin 3.5 A/P: Assessment/Dx: Acute CVA, LVH, hypertensive heart disease. Active smoking, Cardiomyopathy. Plan: Acute CVA, unclear etiology. Negative carotid ultrasound for significant carotid disease. Echocardiogram shows mildly reduce LV systolic function with n o clear evidence of intracardiac shunting. Telemetry for 24 hours is negative for atrial fibrillation. Continue telemetry for total of 48 hours if no atrial fibrillation consider implantable loop recorder. Due to mildly reduce LV systolic function, coronary evaluation is recommended however due to recent stroke, invasive cardiac procedures are deferred for at least 1 month. We can proceed with nuclear stress testing for risk stratification. For now continue aspirin. OT/PT. Cardiomyopathy, unclear whether ischemic or nonischemic. Coronary angiography cannot be done in the setting of an acute stroke for at least 30 days. Active smoking: Smoking cessation is strongly recommended. LVH, likely due to hypertensive heart disease. On lisinopril. Thank you for your consultation. Please call me if you have any questions. Spenser Rhodes MD, FACP, FACC, FSCAI, FHRS, CCDS Interventional Cardiology Cardiac Electrophysiology Vascular Medicine and Endovascular Interventions Ramandeep RHODES MD Apr 30, 2019 13:57
[2019-04-30] MEDS ORDERED: REGADENOSON 0.4 MG/5 ML SYR (LEXISCAN) IV ONE (14:00)
[2019-04-30] MEDS: ENOXAPARIN 30 MG/0.3 ML (LOVENOX) SYR SC SCH (21:29)
[2019-05-01 04:00] VITALS: BP 144/74
[2019-05-01] MEDS ORDERED: NS IV 1000 ML 1,000 ML ONE (04:44)
[2019-05-01] MEDS: NS IV 1000 ML 1,000 ML IV SCH (04:52)
[2019-05-01] MEDS ORDERED: CATHETER FLUSH 10 ML SYR IV PRN (07:30)
[2019-05-01 08:00] VITALS: BP 176/82
[2019-05-01] MEDS ORDERED: REGADENOSON 0.4 MG/5 ML SYR (LEXISCAN) IV ONE (08:36)
[2019-05-01 09:07] VITALS: BP 188/84
[2019-05-01 09:10] VITALS: BP 119/86
[2019-05-01] MEDS ORDERED: FLU QUADRIvalent (5+ YOA) 2019-2020 (AFLURIA) 0.5 ML IM ONE (10:26)
[2019-05-01] MEDS: SENNA W/DOCUSATE (SENOKOT S) TABLET PO SCH (10:26)
[2019-05-01] MEDS: ASPIRIN E.C. 325 MG (ECOTRIN) TABLET PO SCH (10:27)
[2019-05-01] MEDS: lisINopril 20 MG (PRINIVIL) TABLET PO SCH (10:27)
[2019-05-01 11:05] VITALS: BP 176/82
--- NOTE | 2019-05-01 16:53 | Cardiology Progress Note ---
Cardiology SOAP Progress Note Subjective: No cardiac complaints. Objective: I&O/Vital Signs 05/01/19 05/01/19 05/01/19 05/01/19 07:00 08:00 08:00 09:07 Temp 37.0 Pulse 66 66 66 82 Resp 18 18 18 B/P (MAP) 176/82 176/82 (113) 188/84 (118) Pulse Ox 99 99 97 O2 Delivery Room Air Room Air 05/01/19 05/01/19 05/01/19 09:10 10:10 11:05 Temp 37.0 Pulse 126 66 Resp 18 18 B/P (MAP) 119/86 (97) 176/82 Pulse Ox 97 99 O2 Delivery Room Air Room Air Room Air 05/01/19 00:00 Intake Total 580 ml Output Total 620 ml Balance -40 ml Constitutional: appears stated age, AAO x 3; No apparent distress; well- developed, well-nourished Respiratory: chest is bilaterally symmetric, lungs clear to auscultation Cardiovascular: regular rate-rhythm, S1 and S2 Gastrointestional: soft, audible bowel sounds; No spleenomegaly Extremities: normal range of motion, non-tender, normal inspection; No clubbing, No cyanosis; no lower extremity edema bilateral; No significant edema Neurologic/Psychiatric: alert, oriented x 3 Skin: normal color; No rash, No ulcerations A/P: Assessment/Dx: Acute CVA, LVH, hypertensive heart disease. Active smoking, Cardiomyopathy. Plan: Acute CVA, unclear etiology. Negative carotid ultrasound for significant carotid disease. Echocardiogram shows mildly reduce LV systolic function with no clear evidence of intracardiac shunting. Telemetry for 24 hours is negative for atrial fibrillation. Continue telemetry for total of 48 hours if no atrial fibrillation consider implantable loop recorder. Due to mildly reduce LV systolic function, coronary evaluation is recommended however due to recent stroke, invasive cardiac procedures are deferred for at least 1 month. We can proceed with nuclear stress testing for risk stratification. For now continue aspirin. OT/PT. Cardiomyopathy, unclear whether ischemic or nonischemic. Coronary angiography cannot be done in the setting of an acute stroke for at least 30 days. Active smoking: Smoking cessation is strongly recommended. LVH, likely due to hypertensive heart disease. On lisinopril. Thank you for your consultation. Please call me if you have any questions. Spenser Rhodes MD, FACP, FACC, FSCAI, FHRS, CCDS Interventional Cardiology Cardiac Electrophysiology Vascular Medicine and Endovascular Interventions Ramandeep RHODES MD May 01, 2019 16:53
--- NOTE | 2019-05-01 17:36 | Discharge Summary ---
Discharge Summary Hospital Course Problems/Dx: (1) Acute ischemic stroke Status: Acute (2) Aphasia (3) Smoker Hospital Course Date of Admission: Apr 28, 2019 at 19:18 Admission Diagnosis : Acute ischemic stroke Family Physician/Provider: LubaLocal Physician Date of Discharge: 05/01/19 Discharge Diagnosis: Acute ischemic stroke Hospital Course: Delano Hwang is a 54-year-old male who presented with acute neurologic deficits and was found to have an acute ischemic stroke. He was started on an aspirin and statin. Further evaluation was unable to reveal a source for the stroke. Cardiology was consulted and may place an implantable loop recorder. He was discharged to the inpatient rehabilitation facility for ongoing therapy. Labs and Pending Lab Test: Home Meds Active Reported Tylenol Extra Strength (Acetaminophen) 500 Mg Tablet 1,500 Mg PO Q6H PRN Assessment/Pt Instructions Take medications as prescribed. Begin taking aspirin and Lipitor. Participate in therapies at rehabilitation. Discharge Planning: <30 minutes discharge planning Discharge Instructions Discharge Diet: No Restrictions Activity as Tolerated: Yes Consultations Cardiology Discharge Physical Examination Vital Signs Vital Signs Date Time Temp Pulse Resp B/P (MAP) Pulse Ox O2 Delivery O2 Flow Rate FiO2 05/01/19 11:05 37.0 66 18 176/82 99 Room Air 04/29/19 10:43 21 General Appearance: No Apparent Distress, WD/WN Respiratory: Chest Non Tender, Lungs Clear, No Respiratory Distress Cardiovascular: Regular Rate, Rhythm, No Edema, No Murmur Gastrointestinal: Normal Bowel Sounds, Non Tender, Soft Extremity: Normal Inspection, Non Tender, No Pedal Edema Skin: Warm/Dry Allergies: Coded Allergies: No Known Drug Allergies (Unverified , 04/28/19) Discharge Summary Date of Admission Apr 28, 2019 at 19:18 Date of Discharge May 01, 2019 at 11:05 Discharge Date: May 01, 2019 Discharge Time: 11:05 Admission Diagnosis Acute ischemic stroke Consults/Procedures Consulations Cardiology Discharge Diagnosis Acute ischemic stroke (1) Acute ischemic stroke Status: Acute (2) Aphasia (3) Smoker Clinical Quality Measures DVT/VTE Risk/Contraindication: Risk Factor Score Per Nursin RFS Level Per Nursing on Admit: 4+=Very High BATOOL COBB MD May 01, 2019 17:36
== END 2019-05-01 11:05 | DRG 65 ==
LOC: ER FS 17:14 → 4TH 19:18
PROVIDERS: ADMIT Internal Medicine; ATTEND Internal Medicine
DX: I63.9 Cerebral infarction, unspecified (principal); I42.9 Cardiomyopathy, unspecified; R47.01 Aphasia; I11.9 Hypertensive heart disease without heart failure; F17.210 Nicotine dependence, cigarettes, uncomplicated; R41.82 Altered mental status, unspecified; M62.81 Muscle weakness (generalized); Z95.1 Presence of aortocoronary bypass graft; Z23 Encounter for immunization
CPT/HCPCS: 36415; 70450; 71045; 78452; 80053; 80061; 80306; 80320; 81000; 85025; 93017; 93306; 93880; 94760

== ENCOUNTER 2019-05-01 11:10 | Inpatient (IN) | payer OTHER ==
[~2019-05-01] VITALS: Ht 157.5 cm; Wt 49.5 kg
--- NOTE | 2019-05-01 10:32 | NUR ---
REVIEWED MED REC IT WAS REPORTED UPON ADMISSION TO 4TH FLOOR. NO CHANGES WERE MADE WHEN THE PATIENT DISCHARGED TO REHAB.
[~2019-05-01 11:10] MED LIST: ACET-2267 PO; BISACODYL 10 MG SUPP (DULCOLAX) PR PRN; CALCIUM CARBONATE 500 MG (TUMS) TAB.CHEW PO PRN; DOCUSATE SODIUM 100 MG (COLACE) CAP PO PRN; ENOXAPARIN 40 MG/0.4 ML (LOVENOX) SYR SC SCH; FLEET ENEMA ADULT 1 EA BTL PR PRN; LACTULOSE SYRUP 10GM/15ML (ENULOSE) 30ML UDC PO PRN; LOPERAMIDE 2 MG (IMODIUM) TABLET PO PRN; ONDANSETRON 4 MG (ZOFRAN) ORAL DISSOLVE TAB PO PRN; diphenhydrAMINE 25 MG TAB (BENADRYL) PO PRN; guaiFENesin/CODEINE (ROBITUSSIN AC) 10ML UDC PO PRN
--- NOTE | 2019-05-01 11:10 | NUR ---
Pt admitted to room 232-1, with an admitting diagnosis of S/P CVA, on 05/01/19 from 4th floor, accompanied by PT. ISAIAH DUNCAN introduced to surroundings, call light, bed controls, phone, TV, temperature control, lights, meal times, smoking policy, visitor policy, side rail policy, bathrooms and showers. Patient Rights given to patient in the handbook. ISAIAH DUNCAN verbalizes understanding that [facility] is not responsible for the loss or damage to any personal effects or valuables that are kept in the patients posession during their hospitalization. The following Patient Care Plans were discussed with the pt: Discharge Planning, Self Care Deficit, Alteration in Mobility, Potential for fall/injury. ISAIAH DUNCAN verbalizes understanding of Interdisciplinary Patient Education. Patient and/or family were informed about the Rapid Response Team and its purpose. Patient received Patient Rights Booklet, which includes Privacy Act Statement and Data Collection Information Summary. Pt working w PT upon arrival to unit.
--- NOTE | 2019-05-01 11:36 | PM&R Post Admission Assessment ---
PM&R Date of Visit: May 01, 2019 Time of Visit: 11:30 History of Present Illness Chief complaint: CVA in need of inpatient rehabilitation History of present illness: This is a 54-year-old white male who does not see doctors on a regular basis who smokes presented at the [facility] after a neurological deficit that occurred 5 days prior to ER presentation patient was found to have stroke on CT scan and had significant a aphasia and generalized weakness from stroke residual. He suffered a fall trying to get to the bathroom shortly after he arrived here via [facility]. Patient has remained stable he did undergo stress test by cardiology today which results are pending at this current time. Blood pressure remained stable. Aspirin initiated and lisinopril given for LVH on EKG and echocardiogram. Smoking cessation was counseled nicotine patch provided and carotid ultrasound and other test revealed no source of the stroke. He is having a significant difficult time walking without falls and aphasia partial type has actually improved the last 3 days. He has been placed on high-dose Lipitor to minimize risk factors. Past Axxrwmv-Tfgzdf-Qkcbkb Hx Past Med/Social Hx: Reviewed Nursing Past Med/Soc Hx, Reviewed and Corrections made Patient Social History Marrital Status: cohabiting Alcohol Use: Denies Use Smoking Status: Current Everyday Smoker Type Used: Cigarettes 2nd Hand Smoke Exposure: No Recent Hopitalizations: No Seasonal Allergies Seasonal Allergies: No Past Medical History Surgeries: CABG Cardiac: Congenital Heart Disease Neurological: Stroke (04/24) PM&R Allergy/Meds/Data Review Allergies Coded Allergies: No Known Drug Allergies (Unverified , 04/28/19) Home Medications Scheduled PRN Acetaminophen (Tylenol Extra Strength), 1,500 MG PO Q6H PRN for PAIN-MILD (1-4), (Reported) Current Medications Current Medications Reviewed Review of Systems Constitutional: see HPI, dizziness, malaise, weakness Psychiatric/Neurological: Anxiety, Depressed, Tingling, Weakness All Other Systems Reviewed Negative Unless Noted: Yes Physical Exam Physical Exam Vital Signs Capillary Refill : Height, Weight, BMI Height: '" Weight: lbs. oz. kg; 18.60 BMI Method: General Appearance: No Apparent Distress, WD/WN, Chronically ill, Thin Eyes: Bilateral Eye Normal Inspection, Bilateral Eye PERRL HEENT: PERRL/EOMI, Normal ENT Inspection, Pharynx Normal Neck: Full Range of Motion, Normal Inspection, Non Tender, Supple, Carotid Bruit Respiratory: Chest Non Tender, Lungs Clear, Normal Breath Sounds, No Accessory Muscle Use, No Respiratory Distress Cardiovascular: Regular Rate, Rhythm, No Edema, No Gallop, No JVD, No Murmur, Normal Peripheral Pulses Gastrointestinal: Normal Bowel Sounds, No Organomegaly, No Pulsatile Mass, Non Tender, Soft Back: Normal Inspection, No CVA Tenderness, No Vertebral Tenderness Extremity: Normal Capillary Refill, Normal Inspection, Normal Range of Motion, Non Tender, No Calf Tenderness, No Pedal Edema Neurologic/Psychiatric: Alert, Oriented x3, Normal Mood/Affect, podiatric surgeon II-XII Norm as Tested, Abnormal Gait, Aphasia, Disoriented, Motor Weakness (generalized right greater than left upper and lower manzanares maneuvers) Skin: Normal Color, Warm/Dry Lymphatic: No Adenopathy PM&R Medical Assessment & Plan REHAB/MEDICAL ASSESSMENT AND PLAN: REHAB IMPAIRMENT GROUP: CVA ETIOLOGIC DIAGNOSIS: CVA The comorbidities that impact the patients function and/or functional outcome by: Noncompliance, smoker REHAB PLAN: The patient is being admitted to our comprehensive inpatient rehabilitation facility and can tolerate the intensity of service consisting of at least: 180 minutes of therapy a day, 5 out of 7 days a week Rehab treatment will consist of: PT and OT will focus on regaining function from stroke, ST will focus on cognition The patient/family has a good understanding of our discharge process and will benefit from an interdisciplinary inpatient rehabilitation program. The patient has potential to make improvement and is in need of at least two of the following multidisciplinary therapies including but not limited to physical, occupational, speech, and prosthetics and orthotics. Additionally the patient will need services from respiratory, nutritional services, wound care, psyc hology, etc. (Customize this to each patient). Given the patients complex condition and risk of further medical complications, rehabilitation services cannot be safely or effectively provided at a lower level of care such as a halfway facility. BARRIERS TO DISCHARGE: Noncompliant with medical treatments in the past ESTIMATED LOS: 7 days DISPOSITION: Home RELEVANT CHANGES SINCE PREADMISSION SCREENING: I have compared the patients medical and functional status at the time of the preadmission screening and there are: no changes PROGNOSIS: Good REHABILITATION GOALS: 1. PT OT ST will focus on regaining deficit from CVA while minimizing risk factors for recurrent CVA All the above goals were reviewed with the patient and he/she is in agreement. By signing this document, I acknowledge that I have personally performed a full physical examination on this patient within 24 hours of admission to this inpatient rehabilitation facility and have determined the patient to be able to tolerate the above course of treatment at an intensive level for a reasonable period of time. I will be completing a detailed individualized Plan of Care for this patient by day #4 of the patients stay based upon the Preadmission Screen, the Post-Admission Evaluation, and the therapy evaluations. Admission Dx/Comorbidities: (1) Left pontine cerebrovascular accident Status: Acute ICD Codes: I63.50 - Cerebral infarction due to unspecified occlusion or stenosis of unspecified cerebral artery (2) Aphasia ICD Codes: R47.01 - Aphasia (3) Smoker ICD Codes: F17.200 - Nicotine dependence, unspecified, uncomplicated CHRISTOPHER DANIELS DO May 01, 2019 11:36
[2019-05-01] MEDS ORDERED: RT-ALBUTEROL/IPRATROPIUM 3 ML (DUONEB) VIAL INH PRN (11:45)
[2019-05-01] MEDS ORDERED: ACETAMINOPHEN 500 MG TAB (TYLENOL) PO PRN (11:45)
[2019-05-01] MEDS ORDERED: diphenhydrAMINE 25 MG TAB (BENADRYL) PO PRN (11:45)
[2019-05-01] MEDS ORDERED: ALPRAZolam 0.25 MG (XANAX) TAB PO PRN (11:45)
[2019-05-01] MEDS ORDERED: DOCUSATE SODIUM 100 MG (COLACE) CAP PO PRN (11:45)
[2019-05-01] MEDS ORDERED: ONDANSETRON 4 MG/2 ML (SDV) Z0FRAN IVP PRN (11:45)
[2019-05-01] MEDS ORDERED: CATHETER FLUSH 10 ML SYR IV PRN (11:45)
[2019-05-01] MEDS ORDERED: CALCIUM CARBONATE 500 MG (TUMS) TAB.CHEW PO PRN (11:45)
[2019-05-01] MEDS ORDERED: MELATONIN 3 MG TABLET PO PRN (11:45)
[2019-05-01] MEDS ORDERED: ONDANSETRON 4 MG (ZOFRAN) ORAL DISSOLVE TAB PO PRN (11:45)
[2019-05-01] MEDS ORDERED: HYDROcodone/APAP 5 MG/325 MG (LORTAB) TAB PO PRN (11:45)
[2019-05-01] MEDS ORDERED: LOPERAMIDE 2 MG (IMODIUM) TABLET PO PRN (11:45)
[2019-05-01] MEDS ORDERED: NICOTINE 21 MG (NICODERM) PATCH TD PRN (11:45)
--- NOTE | 2019-05-01 11:55 | Physical Therapy Evaluation ---
PT Evaluation-General Medical Diagnosis Admission Date May 01, 2019 at 11:10 Medical Diagnosis: CVA Onset Date: Apr 28, 2019 Therapy Diagnosis Therapy Diagnosis: impaired mobility, strength, endurance, balance Referral Physician: Terrie Goldsmith DO Reason for Referral: Evaluation/Treatment Medical History Pertinent Medical History: CABG Additional Medical History heart disease, tobacco use Reviewed History: Yes Social History Home: Single Level Current Living Status: Significant Other Entry Into Home: Stairs With Railing PT Steps Into Home: 1 Prior Prior Level of Function SCALE: Activities may be completed with or without assistive devices. 8-Rpctckasln-xubgflb completes the activity by him/herself with no assistance from a helper. 5-Set-up or Clean-up Assistance-helper sets up or cleans up; patient completes activity. [place] assists only prior to or following the activity. 4-Supervision or Touching Assistance-helper provides verbal cues and/or touching/steadying and/or contact guard assistance as patient completes activity. Assistance may be provided throughout the activity or intermittently. 3-Partial/Moderate Assistance-helper does LESS THAN HALF the effort. [place] lifts, holds or supports trunk or limbs, but provides less than half the effort. 2-Substantial/Maximal Assistance-helper does MORE THAN HALF the effort. [place] lifts or holds trunk or limbs and provides more than half the effort. 1-Ncjwrgbls-ixphzr does ALL the effort. Patient does none of the effort to complete the activity. Or, the assistance of 2 or more helpers is required for the patient to complete the activity. If activity was not attempted, code reason: 7-Patient Refused. 9-Not Applicable-not attempted and the patient did not perform the activity before the current illness, exacerbation or injury. 10-Not Attempted due to Environmental Limitations-(lack of equipment, weather restraints, etc.). 88-Not Attempted due to Medical Conditions or Safety Concerns. Bed Mobility: 6 Transfers (B,C,W/C): 6 Gait: 6 Stairs: 6 Indoor Mobility (Ambulation): Independent Stairs: Independent Patient in confused, unsure of the accuracy of his home situation and prior level of function. PT Evaluation-Current Subjective Patient in bed pre tx, agrees to PT, has no complaints of pain. Pt/Family Goals to be independent at home Objective Patient Orientation: Person, Unable to Assess, Mumbles ROM/Strength ROM Lower Extremities WNL Strength Lower Extremities 4+/5 gross BLE Neuromuscular (Tone, Coordination, Reflexes) impaired coordination when ambulating, seems to have intact peripheral vision bilaterally but has trouble tracking on the left side Sensory Vision: Hearing: Functional Sensation Right Lower Extremit: Intact Sensation Left Lower Extremity: Intact Transfers Roll Left to Right (QC): 6 Sit to Lying (QC): 6 Lying to Sitting/Side of Bed(Q: 6 Sit to Stand (QC): 3 Chair/Nny-sa-Njswi Xfer(QC): 3 Toilet Transfer: 3 Car Transfer (QC): 3 Patient performs bed mobility with independence, supine <-> sit with independence, sit <-> stand min assist, transfers min assist, car transfer min assist. Patient has trouble with balance and is often retropusive with standing, needs many cues for positioning and safety. Very impulsive. Gait Does the Patient Walk?: Yes Mode of Locomotion: Walk Anticipated Mode of Locomotion: Walk Walk 10 feet (QC): 3 Walk 50 ft with 2 Turns(QC): 3 Walk 150 ft (QC): 3 Walking 10ft/uneven surface-QC: 3 Distance: 200', 150' Gait Assistive Device: FWW Comments/Gait Description Patient can ambulate 200' with a rolling walker with min assist (including 50' with at least 2 turns of 90 degrees and 10' over an uneven surface). Patient needs assist guiding walker and with balance, many cues for direction and safety. Wheelchair Training Does the Pt Use a Wheelchair?: No Stairs 1 Step (curb) (QC): 88 4 Steps (QC): 88 12 Steps (QC): 88 Not tested at this time due to severe patient safety impairments Balance Sitting Static: Normal Sitting Dynamic: Fair Standing Static: Poor Standing Dynamic: Poor Picking up an Object (QC): 88 Treatment seated exercises x20 (AP, hip abd/add, LAQ, marching), patient was also toileted once to urinate, standing, no undressing had gown on. Assessment/Needs Patient has impaired mobility, strength, endurance, balance. Patient has impaired safety awareness and is a high fall risk. Patient in recliner post tx with nurse call, phone, tray, chair alarm on, telesitter in room, legs elevated. Rehab Potential: Fair PT Short Term Goals Short Term Goals Time Frame: May 08, 2019 Roll Left & Right: 6 Sit to lyin Lying to sitting on side of be: 6 Sit to stand: 4 Chair/iiw-yc-znawv transfer: 4 Toilet transfer: 4 Car transfer: 4 Walk 10 feet: 4 Walk 50 feet with two turns: 4 Walk 150 feet: 4 PT Food Safety Specialist Goals Food Safety Specialist Goals PT Fpc Goals Time Frame: May 22, 2019 Roll Left & Right (QC): 6 Sit to Lying (QC): 6 Lying-Sitting on Side/Bed(QC): 6 Sit to Stand (QC): 4 (SBA) Chair/Tez-wg-Obxrc Xfer(QC): 4 (SBA) Toilet Transfer (QC): 4 (SBA) Car Transfer (QC): 4 (SBA) Walk 10 feet (QC): 4 (SBA) Walk 50ft with 2 Turns (QC): 4 (SBA) Walk 150 ft (QC): 4 (SBA) Walking 10ft on Uneven Surface: 4 (SBA) 1 Step (curb) (QC): 4 (CGA) 4 Steps (QC): 4 (CGA) 12 Steps (QC): 88 Picking up an Object (QC): 88 Does the Pt use WC or Scooter?: No Type: N/A Type: N/A PT Plan Problem List Problem List: Activity Tolerance, Functional Strength, Safety, Balance, Gait, Transfer, Bed Mobility Treatment/Plan Treatment Plan: Continue Plan of Care Treatment Plan: Bed Mobility, Concurrent Therapy, Education, Functional Activity Flory, Functional Strength, Group Therapy, Gait, Safety, Therapeutic Exercise, Transfers Treatment Duration: May 22, 2019 Frequency: At least 5 of 7 days/Wk (IRF) Estimated Hrs Per Day: 1.5 hours per day Patient and/or Family Agrees t: Yes Safety Risks/Education Patient Education: Gait Training, Transfer Techniques, Correct Positioning, Safety Issues Teaching Recipient: Patient Teaching Methods: Demonstration, Discussion Response to Teaching: Reinforcement Needed Discharge Recommendations Plan Patient will perform bed mobility and transfer training, balance and endurance training, functional strengthening, stair training, gait training, and education, to improve functional mobility and independence at home. Therapy Discharge Recommendati: Other, See Comments (NH) Time/GCodes Time In: 1100 Time Out: 1200 Total Billed Treatment Time: 60 Total Billed Treatment 1 visit EVM 30' FA 15' EX 15' SHANNA HARMON PT May 01, 2019 11:55
[2019-05-01 11:58] VITALS: BP 183/74
[2019-05-01] MEDS ORDERED: NICOTINE PATCH REMOVAL TP PRN (12:15)
--- NOTE | 2019-05-01 12:47 | Occupational Therapy Eval ---
OT Evaluation-General/PLF Medical Diagnosis Admission Date May 01, 2019 at 11:10 Medical Diagnosis: CVA Onset Date: Apr 28, 2019 Therapy Diagnosis Therapy Diagnosis: Decreased ADL and functional mobility Precautions Precautions/Isolations: Standard Precautions Weight Bear Status Weight Bearing Restriction: Weight Bearing/Tolerated Referral Physician: Terrie Goldsmith DO Referral Reason: Activity Tolerance, Self Care, Evaluation/Treatment, Strengthening/ROM Medical History Pertinent Medical History: CABG Additional Medical History CABG and congenital heart disease; everyday smoker. Current History Per H&P: "HPI: This is a 54yoWM with no regular physician who presented to the [facility] ER 4 days after suffering an abrupt onset of neurological deficit which included inability to walk and loss of fine motor skills and falls at home. CT confirmed presence of CVA and will have full w/u to evaluate the source and regain function in order to return home. He does smoker. Very difficult to understand the patient due to soft speaking and unsure if this is chronic. He cannot really tell me what type of work he used to do but he did tell him he does not work." Reviewed History: Yes Social History Home: Single Level Current Living Status: Significant Other Entry Into Home: Stairs With Railing Steps Into Home: 1 ADL-Prior Level of Function SCALE: Activities may be completed with or without assistive devices. 0-Wmzvwnzzgn-gmvdrlg completes the activity by him/herself with no assistance from a helper. 5-Set-up or Clean-up Assistance-helper sets up or cleans up; patient completes activity. [place] assists only prior to or following the activity. 4-Supervision or Touching Assistance-helper provides verbal cues and/or touching/steadying and/or contact guard assistance as patient completes activity. Assistance may be provided throughout the activity or intermittently. 3-Partial/Moderate Assistance-helper does LESS THAN HALF the effort. [place] lifts, holds or supports trunk or limbs, but provides less than half the effort. 2-Substantial/Maximal Assistance-helper does MORE THAN HALF the effort. [place] lifts or holds trunk or limbs and provides more than half the effort. 3-Nlhzasbem-mcntlq does ALL the effort. Patient does none of the effort to complete the activity. Or, the assistance of 2 or more helpers is required for the patient to complete the activity. If activity was not attempted, code reason: 7-Patient Refused. 9-Not Applicable-not attempted and the patient did not perform the activity before the current illness, exacerbation or injury. 10-Not Attempted due to Environmental Limitations-(lack of equipment, weather restraints, etc.). 88-Not Attempted due to Medical Conditions or Safety Concerns. ADL PLOF Comments Pt states he was IND with all ADLs with use of FWW at home. Self Care: Independent Functional Cognition: Independent DME/Equipment Comments walk in shower, shower chair, grab bars, standard toilet. Occupation: retired OT Current Status Subjective Pt seen in room, food set out in front of pt. Pt denies pain, agreeable to OT eval/ treat. Pt oriented to person and date. Mental Status/Objective Patient Orientation: Person, Time Current Glasses/Contacts: Yes Hearing Aids: No Dentures/Partials: No Hand Dominance: Right Upper Extremity ROM WFL BUE Upper Extremity Coordination Decreased bilaterally, finger opposition Upper Extremity Sensation Agrees to tingling/ numbness within past week of bilateral hands, states "I couldn't coil tier anything." Pt unable to state whether paresthesias present currently. Upper Extremity Strength WFL bilaterally ADL-Treatment Eating (QC): 6 Oral Hygiene (QC): 9 (Pt states he does not brush teeth due to breakage and sen sitivity ) Shower/Bathe Self (QC): 3 (Cues for progression, termination. ) Upper Body Dressing (QC): 3 (Cues for positioning) Lower Body Dressing (QC): 4 (CGA in stance.) On/Off Footwear (QC): 4 (SBA edge of chair.) Toileting Hygiene (QC): 3 (CGA and mod A for thoroughness ) Other Treatments OT evaluation: 3822-8016 Pt completes evaluation in chair. Agreeable to OT eval/ treat. Pt educated on OT role and ARU expectations, pt states he would like to go home and states his can take him home soon. ARU expectations addressed again. Pt soft-spoken and does not speak with clear pronunciation. Pt oriented to person and year, unable to state dx. Pt educated over CVA dx and effects it may have on body, vision, brain. Environmental hx unsure as previous evals state pt was IND without AE, though pt now states he utilizes FWW at home. Pt tracks finger in all planes, states correct number of fingers in far L and R plane of vision. Pt denies vision changes. Pt states he needs to work on going home, unable to state goals. Full AROM within recliner chair. Pt educated on today's plan of ADL assessments, pt agrees. Pt left in room with SHAKER OPERATOR and call light in reach, all needs met. OT treatment: [id number]: Pt completes ADLs in room. Cues for problem solving and sequencing tasks. Pt stands to urinate, post-urination pt requires mod A to right self and cues for proper use of walker. Pt states he is cold, requests to turn down temperature. Pt agrees to wear ARU clothing due to dirty clothes. OT/PT cotreat: [id number] Co-treat due to pt's functional mobility status, safety awareness and need to utilize two skilled therapists. OT addressed task complet ion as PT addressed functional mobility. Pt completes ambulation to laundry room, completes with cues for safety/ positioning/ and use of washer. Pt ambulates to therapy gym. Pt left with PT in gym. Education OT Patient Education: Correct positioning, Disease process, Modified ADL techniques, Purpose of tx/functional activities, Rehab process, Safety issues, Transfer techniques, Use of adapted equipment Teaching Recipient: Patient Teaching Methods: Demonstration, Discussion Response to Teaching: Verbalize Understanding, Return Demonstration, Reinforcement Needed OT Short Term Goals Short Term Goals Upper body dressin Lower body dressin OT Solutions Specialist Goals Care Home Goals Time Frame: May 15, 2019 Eating (QC): 6 Oral Hygiene (QC): 6 Toileting Hygiene (QC): 6 Shower/Bathe Self (QC): 6 Upper Body Dressing (QC): 6 Lower Body Dressing (QC): 6 On/Off Footwear (QC): 6 Additional Goals: 1-Demonstrate ADL Tasks, 2-Verbalize Understanding, 3- ImproveStrength/Flory 1=Demonstrate adherence to instructed precautions during ADL tasks. 2=Patient will verbalize/demonstrate understanding of assistive devices/modifications for ADL. 3=Patient will improve strength/tolerance for activity to enable patient to perform ADL's. OT Education/Plan Problem List/Assessment Assessment: Decreased Activ Tolerance, Decreased Safety Aware, Decreased UE Strength, Dependent Transfers, Impaired Cognition, Impaired Coordination, Impaired Funct Balance, Impaired I ADL's, Impaired Self-Care Skills Discharge Recommendations Plan/Recommendations: Continue POC Therapy Discharge Recommendati: 24 Hour Supervision, Post Acute OT Treatment Plan/Plan of Care Treatment,Training & Education: Yes Patient would benefit from OT for education, treatment and training to promote independence in ADL's, mobility, safety and/or upper extremity function for ADL's. Plan of Care: ADL Retraining, Caregiver Training, Cognitive Retraining, Concurrent Therapy, Functional Mobility, Group Exercise/Act as Ind, UE Funct Exercise/Act, UE Neuromus Re-Ed/Coord Treatment Duration: May 15, 2019 Frequency: At least 5 of 7 days/Wk (IRF) Estimated Hrs Per Day: 1.5 hours per day Agreement: Yes Rehab Potential: Fair Time/GCodes Start Time: 12:20 (1255) Stop Time: 12:35 (1410) Total Time Billed (hr/min): 90 Billed Treatment Time 1, EVM (15), ADL 5 (90) OT evaluation: [id number] OT treatment: 8311-3515: OT/PT cotreat: [id number] LIS MARTINEZ OTR May 01, 2019 12:47
--- NOTE | 2019-05-01 13:25 | ST Cognitive Linguistic Eval ---
Speech Evaluation-General Medical Diagnosis CVA Onset Date: Apr 28, 2019 Therapy Diagnosis Therapy Diagnosis: Aphasia Referral Referring Physician: Dr. Goldsmith Medical History Pertinent Medical History: CABG Reviewed History: Yes Social History Current Living Status: Significant Other Speech PLF-Current Status Prior Level of Function Patient lives at home with his significant other where he was independent for his daily needs. Subjective Patient was compliant with the cognitive assessment. Language Eval: Auditory Comprehends Simple Yes/No Ques: Mild Indent/Objects Multiple Pereyra: Functional Ident/Pics in Multiple Pereyra: Functional Follows 1-Step Commands: Mild Follows Complex Directions: Moderate Follows General Conversations: Mild Language Eval: Verbal Language Completes Spontaneous Greeting: Functional Produces Auto, Serial Info: Mild Imitates Simple Words/Phrases: Mild Word Finding: Mild Requests Basic Needs: Mild States Basic Personal Info: Functional Expresses Complex Ideas: Moderate Objective Cognitive Domain Attention: Mild Memory: Moderate Problem Solving: Moderate Executive Functions: Moderate Visuospatial Skills: Mild Composite Severity Rating: Moderate Clock Drawing Severity Rating: Moderate Objective Formal/Standardized Tests [facility] Mental Status ([facility]) Results 05/05, Moderate Dementia level of function Speech Patient Assess Expression of Ideas/Wants: Frequently (2) Understanding Verbal Content: Sometimes Understands(2) Brief Interview-Mental Status: Yes Repetition of Three Words: Three (3) Temporal Orientation: Year: Correct (3) Temporal Orientation: Month: Accurate within 5 days(2) Temporal Orientation: Day: Incorrect or No Answer(0) Recall : Wear to say "Sock": No, could not recall (0) Recall : Color: No, could not recall (0) Recall : Bed: No, could not recall (0) Memory/Recall Ability: That he or she is in a hsp/hsp unit Speech Short Term Goals Short Term Goals Short Term Goals 1) Patient will complete memory tasks related to his daily needs at 80% or greater with minimal cues. 2) Patient will complete safety awareness tasks related to his daily needs at 80% or greater with minimal cues. 3) Patient will complete problem solving tasks related to his daily needs at 80% or greater with minimal cues. 4) Patient will complete speech production tasks to increase intelligibility at 80% or greater with minimal cues. Speech Zipper Sewing Machine Operator Goals [facility] Goals Patient will improve cognitive-communication necessary for safety and daily living tasks with minimal assist. Patient will increase his speech intelligibility to be an effective communicator of wants/needs. Speech-Plan Patient/Family Goals Patient/Family Goals: Patient plans on returning to his home post rehab. Treatment Plan Speech Therapy Treatment Plan: Continue Plan of Care Patient will receive skilled aphasia and speech therapy. Treatment Duration: May 15, 2019 Frequency: 4 times per week Estimated Hrs Per Day: .5 hour per day Rehab Potential: Fair Barriers to Learning: Patient's new onset of CVA Pt/Family Agrees to Plan: Yes Safety Risks/Education Teaching Recipient: Patient Teaching Methods: Discussion Response to Teaching: Verbalize Understanding Education Topics Provided: Safety within his room and utilization of the call light as needed Time Speech Therapy Time In: 12:35 Speech Therapy Time Out: 12:50 Total Billed Time: 15 Billed Treatment Time 1, CHRIS Lowe May 01, 2019 13:25
--- NOTE | 2019-05-01 14:40 | Physical Therapy Daily Note ---
PT Daily Note-Current Subjective Patient in room pre tx, agrees to PT, already working with OT, will co-treat for part of treatment due to poor patient mobility, safety awareness, poor balance. Appearance Patient in recliner post tx with nurse call, phone, tray, legs elevated, chair alarm on. Mental Status Patient Orientation: Person, Confused, Mumbles Transfers SCALE: Activities may be completed with or without assistive devices. 1-Fcorewrfts-vldsfwq completes the activity by him/herself with no assistance from a helper. 5-Set-up or Clean-up Assistance-helper sets up or cleans up; patient completes activity. Darby assists only prior to or following the activity. 4-Supervision or Touching Assistance-helper provides verbal cues and/or touching/steadying and/or contact guard assistance as patient completes activity. Assistance may be provided throughout the activity or intermittently. 3-Partial/Moderate Assistance-helper does LESS THAN HALF the effort. Darby lifts, holds or supports trunk or limbs, but provides less than half the effort. 2-Substantial/Maximal Assistance-helper does MORE THAN HALF the effort. Darby lifts or holds trunk or limbs and provides more than half the effort. 5-Cmweatidj-mzeeoj does ALL the effort. Patient does none of the effort to complete the activity. Or, the assistance of 2 or more helpers is required for the patient to complete the activity. If activity was not attempted, code reason: 7-Patient Refused. 9-Not Applicable-not attempted and the patient did not perform the activity before the current illness, exacerbation or injury. 10-Not Attempted due to Environmental Limitations-(lack of equipment, weather restraints, etc.). 88-Not Attempted due to Medical Conditions or Safety Concerns. Sit to Stand (QC): 3 Chair/Kzo-hh-Xfgxn Xfer(QC): 3 min assist, cues for safety and positioning Gait Training Distance: 150', 100'x2 Walk 10 feet (QC): 3 Walk 50 ft with 2 Turns(QC): 3 Walk 150 ft (QC): 3 Gait Assistive Device: FWW min assist to guide walker and for balance Exercises min assist to keep patient balance while he is in the laundry room putting his dirty clothes in the washer NuStep Minutes: 10 NuStep Workload: 4 Treatments balance training, gait training, LE strengthening Assessment Current Status: Poor Progress patient has severely poor safety awareness, high fall risk PT Short Term Goals Short Term Goals Time Frame: May 08, 2019 Roll Left & Right: 6 Sit to lyin Lying to sitting on side of be: 6 Sit to stand: 4 Chair/ttf-dk-dihbp transfer: 4 Toilet transfer: 4 Car transfer: 4 Walk 10 feet: 4 Walk 50 feet with two turns: 4 Walk 150 feet: 4 PT Network Consultant Goals Penitentiary Goals PT Network Consultant Goals Time Frame: May 22, 2019 Roll Left & Right (QC): 6 Sit to Lying (QC): 6 Lying-Sitting on Side/Bed(QC): 6 Sit to Stand (QC): 4 (SBA) Chair/Gsv-qq-Zlhmx Xfer(QC): 4 (SBA) Toilet Transfer (QC): 4 (SBA) Car Transfer (QC): 4 (SBA) Walk 10 feet (QC): 4 (SBA) Walk 50ft with 2 Turns (QC): 4 (SBA) Walk 150 ft (QC): 4 (SBA) Walking 10ft on Uneven Surface: 4 (SBA) 1 Step (curb) (QC): 4 (CGA) 4 Steps (QC): 4 (CGA) 12 Steps (QC): 88 Picking up an Object (QC): 88 Does the Pt use WC or Scooter?: No Type: N/A Type: N/A PT Plan Problem List Problem List: Activity Tolerance, Functional Strength, Safety, Balance, Gait, Transfer Treatment/Plan Treatment Plan: Continue Plan of Care Treatment Plan: Bed Mobility, Concurrent Therapy, Education, Functional Activity Flory, Functional Strength, Group Therapy, Gait, Safety, Therapeutic Exercise, Transfers Treatment Duration: May 22, 2019 Frequency: At least 5 of 7 days/Wk (IRF) Estimated Hrs Per Day: 1.5 hours per day Patient and/or Family Agrees t: Yes Safety Risks/Education Patient Education: Gait Training, Transfer Techniques, Correct Positioning, Safety Issues Teaching Recipient: Patient Teaching Methods: Demonstration, Discussion Response to Teaching: Reinforcement Needed Time/GCodes Time In: 1355 Time Out: 1425 Total Billed Treatment Time: 30 Total Billed Treatment 1 visit EX 10' FA 20' Co-treated for 15 min, PT worked on transfers, standing balance, LE strengthening, ambulation, OT worked on UE activity, assist with transfers and ambulation SHANNA HARMON PT May 01, 2019 14:40
[2019-05-01 16:16] VITALS: BP 110/77
--- NOTE | 2019-05-01 16:31 | NUR ---
RD ASSESSMENT PMHx: CVA PT INTERACTION: Pt was awake and pleasant during nutrition assessment. Note pt has AMS, per chart review. Note pt is a poor historian. Pt states current appetite is pretty good and has been for some time. Note avg PO intake of 66% x1d, per chart review. Pt states following a regular diet at home and has no issues with chewing/swallowing food. Pt states no recent issues with n/v at this time. Pt states chronic issues with constipation/diarrhea: "I have it a bunch." Pt states no recent wt changes. Note unable to determine recent wt hx, per chart review. ABNORMAL NUTRITION-RELATED LAB VALUES LOW: K 3.3; Pro 6.1 HIGH: Est. kcal needs: 1100-2613 kcal | 30-35 kcal/kg Est. Pro needs: 48-57 g Pro | 1.0-1.2 g Pro/kg PES STATEMENT: Inadequate oral intake (NI-2.1) related to loss of appetite as evidenced by pt interview | avg PO intake 66% x1d INTERVENTION: Continue with current diet order of Regular diet. Add Ensure Enlive (vary) to meals BID, for increased kcal intake. Provides 350 kcal and 13 g Pro per serving. Will continue to follow and reassess as pt needs and status change. MONITOR/EVALUATE: PO Intake; Plan of Care; Hydration Status; Weight Status; Lab Values Matthew Sethi, MS, RD, LD
[2019-05-01 18:58] LABS: BILIRUBIN,URINE NEGATIVE (NEGATIVE); CLARITY,URINE CLEAR; COLOR,URINE YELLOW; GLUCOSE, URINE (UA) NEGATIVE (NEGATIVE); KETONES,URINE NEGATIVE (NEGATIVE); LEUKOCYTE ESTERASE ,URINE NEGATIVE (NEGATIVE); NITRITE,URINE NEGATIVE (NEGATIVE); PROTEIN,URINE NEGATIVE (NEGATIVE)
[2019-05-01 19:07] LABS: BACTERIA,URINE TRACE /HPF
[2019-05-01] MEDS: POLYETHYLENE GLYCOL 17 GM (MIRALAX) PACK PO SCH (20:45)
[2019-05-01] MEDS: SENNA W/DOCUSATE (SENOKOT S) TABLET PO SCH (20:45)
[2019-05-01] MEDS: ALPRAZolam 0.25 MG (XANAX) TAB PO PRN (20:45)
[2019-05-01] MEDS: HYDROcodone/APAP 5 MG/325 MG (LORTAB) TAB PO PRN (20:45)
[2019-05-01] MEDS: MELATONIN 3 MG TABLET PO PRN (20:45)
[2019-05-01] MEDS: ENOXAPARIN 30 MG/0.3 ML (LOVENOX) SYR SC SCH (20:46)
[2019-05-01] MEDS ORDERED: DOCUSATE SODIUM 100 MG (COLACE) CAP PO SCH (21:00)
[2019-05-01] MEDS ORDERED: SENNA W/DOCUSATE (SENOKOT S) TABLET PO SCH (21:00)
[2019-05-02 05:49] LABS: BASOPHILS # (AUTO) 0.1 10^3/uL (0.0-0.1); BASOPHILS % (AUTO) 1 % (0-10); EOSINOPHILS # (AUTO) 0.3 10^3/uL (0.0-0.3); EOSINOPHILS % (AUTO) 4 % (0-10); HEMATOCRIT 35 % (40-54); HEMOGLOBIN 11.4 G/DL (13.3-17.7); LYMPHOCYTES # (AUTO) 1.8 X 10^3 (1.0-4.0); LYMPHOCYTES % (AUTO) 28 % (12-44); MEAN CORPUSCULAR HEMOGLOBIN 29 PG (25-34); MEAN CORPUSCULAR HGB CONC 33 G/DL (32-36); MEAN CORPUSCULAR VOLUME 87 FL (80-99); MEAN PLATELET VOLUME 10.4 FL (7.4-10.4); MONOCYTES # (AUTO) 0.7 X 10^3 (0.0-1.0); MONOCYTES % (AUTO) 11 % (0-12); NEUTROPHILS # (AUTO) 3.7 X 10^3 (1.8-7.8); NEUTROPHILS % (AUTO) 56 % (42-75); PLATELET COUNT 254 10^3/uL (130-400); RED CELL DISTRIBUTION WIDTH 15.5 % (10.0-14.5); WHITE BLOOD COUNT 6.6 10^3/uL (4.3-11.0)
[2019-05-02 06:00] VITALS: BP 122/77
[2019-05-02 06:22] LABS: ALANINE AMINOTRANSFERASE 8 U/L (0-55); ALBUMIN 3.4 GM/DL (3.2-4.5); ALKALINE PHOSPHATASE 51 U/L (40-136); BILIRUBIN,TOTAL 0.5 MG/DL (0.1-1.0); BUN/CREATININE RATIO 13; CALCIUM 9.2 MG/DL (8.5-10.1); CARBON DIOXIDE 21 MMOL/L (21-32); CHLORIDE 104 MMOL/L (98-107); CREATININE SERUM 0.75 MG/DL (0.60-1.30); GFR ESTIMATED > 60; GLUCOSE 92 MG/DL (70-105); POTASSIUM 3.2 MMOL/L (3.6-5.0); SODIUM 137 MMOL/L (135-145); TOTAL PROTEIN 5.8 GM/DL (6.4-8.2)
[2019-05-02] MEDS: SENNA W/DOCUSATE (SENOKOT S) TABLET PO SCH ×2 (09:23→20:53)
[2019-05-02] MEDS: ASPIRIN E.C. 325 MG (ECOTRIN) TABLET PO SCH (09:23)
[2019-05-02] MEDS: lisINopril 20 MG (PRINIVIL) TABLET PO SCH (09:23)
[2019-05-02 09:24] VITALS: BP 173/69
[2019-05-02 09:31] VITALS: BP 173/69
[2019-05-02] MEDS: POLYETHYLENE GLYCOL 17 GM (MIRALAX) PACK PO SCH ×2 (09:42→20:59)
--- NOTE | 2019-05-02 09:43 | Individualized Plan of Care ---
Individualized Plan of Care Rehab Nursing IPOC Order Admission Date May 01, 2019 at 11:10 Current Orders Orders Admission Order(Inpt,Obs,Sdc) (05/01/19:26) Vital Signs: Per Unit Policy ( 08,16,00 (05/01/19 09:26) Sánchez Javier , (05/01/19:26) Sequential Compression Device Q4H (05/01/19:) Project Structural Engineer-Inpt Rehab Con (05/01/19:) Rehab Nursing Orders-Ipoc (05/01/19:26) Physical Therapy Rehab Orders (05/01/19:) Occupational Therapy Rehab Ord (05/01/19:) Speech Therapy Rehab Orders (05/01/19:) Cbc With Automated Diff (05/02/19 06:00) Comprehensive Metabolic Panel (05/02/19 06:00) General/Regular (05/01/19 Lunch) Precautions (Aru) (05/01/19:) Rehab-Intensity Of Therapy (05/01/19:26) Initiate Admission Nursing Pro .admission (05/01/19:26) Acetaminophen Tablet (Tylenol Tablet) (05/01/19 09:30) Alprazolam Tablet (Xanax Tablet) (05/01/19 09:30) Calcium Carbonate Chew Tablet (Antacid C (05/01/19 09:30) Diphenhydramine Tablet (Benadryl Tablet) (05/01/19 09:30) Docusate Sodium Capsule (Colace Capsule) (05/01/19 21:00) Docusate Sodium Capsule (Colace Capsule) (05/01/19 09:30) Bisacodyl Suppository (Dulcolax Supposit (05/01/19 09:30) Lactulose Oral Solution (Enulose Oral So (05/01/19 09:30) Na Phos/Na Biphos Enema (Fleet Enema Mark (05/01/19 09:30) Guaifenesin/Codeine Syrup (Robitussin Ac (05/01/19 09:30) Hydrocodone/Apap 5/325 Tablet (Lortab 5 (05/01/19 09:30) Loperamide Tablet (Imodium Tablet) (05/01/19 09:30) Enoxaparin Injection (Lovenox Injection) (05/01/19 09:30) Melatonin Tablet (Melatonin Tablet) (05/01/19 09:30) Polyethylene Glycol Powder Pkt (Miralax (05/01/19 21:00) Ondansetron Oral Dissolve Tab (Zofran (05/01/19 09:30) Senna S Tablet (Senokot S Tablet) (05/01/19 21:00) Initiate Admission Nursing Pro .admission (05/01/19 09:26) Code/Resuscitation (05/01/19 09:26) Code/Resuscitation (05/01/19 11:37) Activity (05/01/19 11:37) Telemetry (05/01/19 11:37) General/Regular (05/01/19 Dinner) Alprazolam Tablet (Xanax Tablet) (05/01/19 11:45) Acetaminophen Tablet (Tylenol Tablet) (05/01/19 11:45) Albuterol/Ipra Inhalation Soln (Duoneb I (05/01/19 11:45) Aspirin Enteric Coated Tablet (Ecotrin T (05/02/19 09:00) Atorvastatin Tablet (Lipitor Tablet) (05/01/19 21:00) Calcium Carbonate Chew Tablet (Antacid C (05/01/19 11:45) Docusate Sodium Capsule (Colace Capsule) (05/01/19 11:45) Enoxaparin Injection (Lovenox Injection) (05/01/19 22:00) Hydrocodone/Apap 5/325 Tablet (Lortab 5 (05/01/19 11:45) Loperamide Tablet (Imodium Tablet) (05/01/19 11:45) Melatonin Tablet (Melatonin Tablet) (05/01/19 11:45) Nicotine Patch (Nicoderm Patch) (05/01/19 11:45) Ondansetron Injection (Zofran Injectio (05/01/19 11:45) Ondansetron Oral Dissolve Tab (Zofran (05/01/19 11:45) Senna S Tablet (Senokot S Tablet) (05/01/19 21:00) Sodium Chloride Flush (Catheter Flush Sy (05/01/19 11:45) Diphenhydramine Tablet (Benadryl Tablet) (05/01/19 11:45) Lisinopril Tablet (Zestril Tablet) (05/02/19 09:00) Consult Cardiology (05/01/19 11:37) Svn Small Volume Nebulizer (05/01/19 11:37) Svn Small Volume Nebulizer (05/01/19 11:37) Telemetry (05/01/19 11:37) Patch Removal (Patch Removal) (05/01/19 12:15) Patient Visit (05/01/19 ) Speech Sound Lang Comp (05/01/19 ) Patient Visit (05/01/19 ) Pt Eval Moderate Complexity (05/01/19 ) Exercise Therap, Ea 15 Min (05/01/19 ) Functional Activities, Ea 15 (05/01/19 ) Ua Culture If Indicated (05/01/19 17:20) Post Void Residual Assessment (05/01/19 16:11) Albuterol/Ipra Inhalation Soln (Duoneb I (05/02/19 10:00) Mat Initiate Protocol (05/02/19 09:31) Potassium Chloride (Tablet) (Klor Con Ta (05/03/19 07:00) Rehab Nursing Orders: Ongoing Assess. of Cognitive Status, Ongoing Assess. of Function Status, Bladder Management, Bladder Scan, Bladder Training, Bowel Management, Bowel Training, Disease Management & Educaiton, DVT Prophylaxis, Fall Prevention, Fluid/Electrolyte/Nutrition Mgmt, Infection Prevention, Medication Management & Education, Management of Risks & Complications, Management of Skin Intergrity, Nutrition Management, Pain Management, Patient/Family Support, Safety Management Intensity of Therapy to be met Patient to be seen: Min.3h per day/5 of 7d PT IPOC Problem List: Activity Tolerance, Functional Strength, Safety, Balance, Gait, Transfer Treatment Plan: Continue Plan of Care Bed Mobility, Concurrent Therapy, Education, Functional Activity Flory, Functional Strength, Group Therapy, Gait, Safety, Therapeutic Exercise, Transfers Treatment Duration: May 22, 2019 Frequency: At least 5 of 7 days/Wk (IRF) Estimated Hrs Per Day: 1.5 hours per day OT IPOC Problems: Decreased Activ Tolerance, Decreased Safety Aware, Decreased UE Strength, Dependent Transfers, Impaired Cognition, Impaired Coordination, Impaired Funct Balance, Impaired I ADL's, Impaired Self-Care Skills OT Treatment, Training and Edu: Yes Plan of Care: ADL Retraining, Caregiver Training, Cognitive Retraining, Concurrent Therapy, Functional Mobility, Group Exercise/Act as Ind, UE Funct Exercise/Act, UE Neuromus Re-Ed/Coord Treatment Duration: May 15, 2019 Frequency: At least 5 of 7 days/Wk (IRF) Estimated Hrs Per Day: 1.5 hours per day [facility] Speech Therapy Treatment Plan: Continue Plan of Care Treatment Duration: May 15, 2019 Frequency: 4 times per week Estimated Hrs Per Day: .5 hour per day Project Structural Engineer/Case Mgmt Project Structural Engineer/Case Managemen: Discharge Planning Dietitian/Marble Mechanic Helper Dietitian/Marble Mechanic Helper to monitor nutritional status and make changes and/or recommendations as needed and work with speech pathology on dietary upgrades as the occur. Physician IP Medical Issues being managed closely and that require the 24 hour availability of a physician: Patient with recent stroke and cachexia and cognitive deficit with smoking history and labile blood pressure will require close monitoring to prevent recurrence of stroke Medical Issues: Bowel/Bladder Function, DVT Prophylaxis, Falls Precautions, Fluid/Electrolyte/Nutrition Balance, Infection Protection, Pain Management Brief Synthesis of Preadmission Screen, Post-Admission Evaluation, and Therapy Evaluations: Physical therapy will focus on regaining function to ambulate since stroke OT will focus on regaining independence and ADL function Speech therapy will work on cognition deficit Medical Prognosis: Good Anticipated Length of Stay: 10 days CHRISTOPHER DANIELS DO May 02, 2019 09:43
--- NOTE | 2019-05-02 09:43 | PM&R Progress Note ---
Subjective HPI/CC On Admission Date Seen by Provider: May 02, 2019 Time Seen by Provider: 09:45 Subjective/Events-last exam Patient about the same Nicotine patch maintained Slums score is 05/05 Patient appears to be very thin and cachectic and withdrawn Reviewed meds and labs Tolerating aspirin and statin therapy Bowel movement was last on 05/01/19 Conferred with film maker therapy notes Checked meds and labs Review of Systems General: Fatigue Pulmonary: Dyspnea Neurological: Confusion Objective Exam Vital Signs Vital Signs Date Time Temp Pulse Resp B/P (MAP) Pulse Ox O2 Delivery O2 Flow Rate FiO2 05/02/19 09:54 98 Room Air 05/02/19 09:37 05/02/19 09:31 36.8 84 21 05/02/19 06:00 16 Capillary Refill : Less Than 3 Seconds General Appearance: No Apparent Distress, WD/WN, Chronically ill, Thin HEENT: PERRL/EOMI, Normal ENT Inspection, Pharynx Normal Neck: Full Range of Motion, Normal Inspection, Non Tender, Supple, Carotid Bruit Respiratory: Chest Non Tender, Lungs Clear, Normal Breath Sounds, No Accessory Muscle Use, No Respiratory Distress Cardiovascular: Regular Rate, Rhythm, No Edema, No Gallop, No JVD, No Murmur, Normal Peripheral Pulses Gastrointestinal: Normal Bowel Sounds, No Organomegaly, No Pulsatile Mass, Non Tender, Soft Back: Normal Inspection, No CVA Tenderness, No Vertebral Tenderness Extremity: Normal Capillary Refill, Normal Inspection, Normal Range of Motion, Non Tender, No Calf Tenderness, No Pedal Edema Neurologic/Psychiatric: Alert, Oriented x3, Normal Mood/Affect, negative notcher II-XII Norm as Tested, Abnormal Gait, Aphasia, Disoriented, Motor Weakness (generalized right greater than left upper and lower manzanares maneuvers) Skin: Normal Color, Warm/Dry Lymphatic: No Adenopathy Results/Procedures Lab Laboratory Tests 05/02/19 05:35 Patient resulted labs reviewed. FIM Transfers Therapy Code Descriptions/Definitions Functional Armstrong Measure: 0=Not Assessed/NA 4=Minimal Assistance 1=Total Assistance 5=Supervision or Setup 2=Maximal Assistance 6=Modified Armstrong 3=Moderate Assistance 7=Complete IndependenceSCALE: Activities may be completed with or without assistive devices. 9-Pqkgwaftdt-pttmdln completes the activity by him/herself with no assistance from a helper. 5-Set-up or Clean-up Assistance-helper sets up or cleans up; patient completes activity. [place] assists only prior to or following the activity. 4-Supervision or Touching Assistance-helper provides verbal cues and/or touching/steadying and/or contact guard assistance as patient completes activity. Assistance may be provided throughout the activity or intermittently. 3-Partial/Moderate Assistance-helper does LESS THAN HALF the effort. [place] lifts, holds or supports trunk or limbs, but provides less than half the effort. 2-Substantial/Maximal Assistance-helper does MORE THAN HALF the effort. [place] l ifts or holds trunk or limbs and provides more than half the effort. 1-Fqepkhqvo-pazdso does ALL the effort. Patient does none of the effort to complete the activity. Or, the assistance of 2 or more helpers is required for the patient to complete the activity. If activity was not attempted, code reason: 7-Patient Refused. 9-Not Applicable-not attempted and the patient did not perform the activity before the current illness, exacerbation or injury. 10-Not Attempted due to Environmental Limitations-(lack of equipment, weather restraints, etc.). 88-Not Attempted due to Medical Conditions or Safety Concerns. Roll Left to Right (QC): 6 Sit to Lying (QC): 6 Sit to Stand (QC): 3 Chair/Ddv-av-Htulb Xfer(QC): 3 Car Transfer (QC): 3 Gait Training Does the Patient Walk?: Yes Distance: 150', 100'x2 Walk 10 feet (QC): 3 Walk 50 ft with 2 Turns(QC): 3 Walk 150 ft (QC): 3 Walking 10ft/uneven surface-QC: 3 Gait Assistive Device: FWW Wheelchair Training Does the Pt Use a Wheelchair?: No Stair Training 1 Step (curb) (QC): 88 4 Steps (QC): 88 12 Steps (QC): 88 Balance Picking up an Object (QC): 88 ADL-Treatment Eating (QC): 6 Oral Hygiene (QC): 9 (Pt states he does not brush teeth due to breakage and sensitivity ) Shower/Bathe Self (QC): 3 (Cues for progression, termination. ) Upper Body Dressing (QC): 3 (Cues for positioning) Lower Body Dressing (QC): 4 (CGA in stance.) On/Off Footwear (QC): 4 (SBA edge of chair.) Toileting Hygiene (QC): 3 (CGA and mod A for thoroughness ) Assessment/Plan Assessment and Plan Assess & Plan/Chief Complaint Assessment: Subacute stroke presented 5 days after neurological deficit Smoker Cachexia Cognitive deficit Plan: Incentive spirometer Mat protocol Statin Aspirin Cardiology evaluation is appreciated Inpatient rehabilitation protocol (1) Left pontine cerebrovascular accident Status: Acute (2) Aphasia (3) Smoker CHRISTOPHER DANIELS DO May 02, 2019 09:43
[2019-05-02] MEDS ORDERED: RT-ALBUTEROL/IPRATROPIUM 3 ML (DUONEB) VIAL INH PRN (10:00)
--- NOTE | 2019-05-02 10:08 | NUR ---
DR DANIELS HERE TO SEE PT
--- NOTE | 2019-05-02 10:59 | Physical Therapy Daily Note ---
PT Daily Note-Current Subjective Patient in bathroom with nurse aide pre tx, agrees to PT, has no complaints of pain. Ambulated with patient back to his recliner, patient needs dressed. Patient dressed with mod assist, very slow, many cues for direction and safety needed. Appearance Patient in recliner post tx with nurse call, phone, tray, legs elevated, has chair alarm on. Mental Status Patient Orientation: Person, Confused, Mumbles Transfers SCALE: Activities may be completed with or without assistive devices. 9-Hpkdnzjyih-bwfhryp completes the activity by him/herself with no assistance from a helper. 5-Set-up or Clean-up Assistance-helper sets up or cleans up; patient completes activity. [place] assists only prior to or following the activity. 4-Supervision or Touching Assistance-helper provides verbal cues and/or touching/steadying and/or contact guard assistance as patient completes activity. Assistance may be provided throughout the activity or intermittently. 3-Partial/Moderate Assistance-helper does LESS THAN HALF the effort. [place] lifts, holds or supports trunk or limbs, but provides less than half the effort. 2-Substantial/Maximal Assistance-helper does MORE THAN HALF the effort. [place] lifts or holds trunk or limbs and provides more than half the effort. 2-Dhgsaajpr-aereye does ALL the effort. Patient does none of the effort to complete the activity. Or, the assistance of 2 or more helpers is required for the patient to complete the activity. If activity was not attempted, code reason: 7-Patient Refused. 9-Not Applicable-not attempted and the patient did not perform the activity before the current illness, exacerbation or injury. 10-Not Attempted due to Environmental Limitations-(lack of equipment, weather restraints, etc.). 88-Not Attempted due to Medical Conditions or Safety Concerns. Sit to Stand (QC): 4 Chair/Uhe-kx-Yawmk Xfer(QC): 3 Toilet Transfer (QC): 3 Patient needs min assist for transfers due to help with managing walker and cues for safety. Gait Training Distance: 200'x2 Walk 10 feet (QC): 3 Walk 50 ft with 2 Turns(QC): 3 Walk 150 ft (QC): 3 Gait Assistive Device: FWW Patient needs min assist for help guiding walker and cues for safety. Patient ambulates very slowly, has trouble initiating movement on occasion, distracts easily. Exercises NuStep Minutes: 15 NuStep Workload: 4 Treatments dressing, ambulation, LE exercise Assessment Current Status: Poor Progress Patient is a high fall risk, drifts to left when ambulating, has poor use of walker with ambulation, poor safety awareness. PT Short Term Goals Short Term Goals Time Frame: May 08, 2019 Roll Left & Right: 6 Sit to lyin Lying to sitting on side of be: 6 Sit to stand: 4 Chair/oom-ha-oupmi transfer: 4 Toilet transfer: 4 Car transfer: 4 Walk 10 feet: 4 Walk 50 feet with two turns: 4 Walk 150 feet: 4 PT Snf Goals Palletiser Operator Goals PT Snf Goals Time Frame: May 22, 2019 Roll Left & Right (QC): 6 Sit to Lying (QC): 6 Lying-Sitting on Side/Bed(QC): 6 Sit to Stand (QC): 4 (SBA) Chair/Hjp-ef-Quyfc Xfer(QC): 4 (SBA) Toilet Transfer (QC): 4 (SBA) Car Transfer (QC): 4 (SBA) Walk 10 feet (QC): 4 (SBA) Walk 50ft with 2 Turns (QC): 4 (SBA) Walk 150 ft (QC): 4 (SBA) Walking 10ft on Uneven Surface: 4 (SBA) 1 Step (curb) (QC): 4 (CGA) 4 Steps (QC): 4 (CGA) 12 Steps (QC): 88 Picking up an Object (QC): 88 Does the Pt use WC or Scooter?: No Type: N/A Type: N/A PT Plan Problem List Problem List: Activity Tolerance, Functional Strength, Safety, Balance, Gait, Transfer, Bed Mobility Treatment/Plan Treatment Plan: Continue Plan of Care Treatment Plan: Bed Mobility, Concurrent Therapy, Education, Functional Activity Flory, Functional Strength, Group Therapy, Gait, Safety, Therapeutic Exercise, Transfers Treatment Duration: May 22, 2019 Frequency: At least 5 of 7 days/Wk (IRF) Estimated Hrs Per Day: 1.5 hours per day Patient and/or Family Agrees t: Yes Safety Risks/Education Patient Education: Gait Training, Transfer Techniques, Correct Positioning, Safety Issues Teaching Recipient: Patient Teaching Methods: Demonstration, Discussion Response to Teaching: Reinforcement Needed Time/GCodes Time In: 1000 Time Out: 1100 Total Billed Treatment Time: 60 Total Billed Treatment 1 visit FA 15' EX 15' GT 30' SHANNA HARMON PT May 02, 2019 10:59
--- NOTE | 2019-05-02 12:01 | Occupational Ther Daily Note ---
OT Current Status-Daily Note Subjective Pt seen in recliner chair, agreeable to OT tx session. Pt denies pain. ADL-Treatment Therapy Code Descriptions/Definitions Functional Left Hand Measure: 0=Not Assessed/NA 4=Minimal Assistance 1=Total Assistance 5=Supervision or Setup 2=Maximal Assistance 6=Modified Left Hand 3=Moderate Assistance 7=Complete IndependenceSCALE: Activities may be completed with or without assistive devices. 7-Hpzpqyknjv-xugbtwa completes the activity by him/herself with no assistance from a helper. 5-Set-up or Clean-up Assistance-helper sets up or cleans up; patient completes activity. [place] assists only prior to or following the activity. 4-Supervision or Touching Assistance-helper provides verbal cues and/or touching/steadying and/or contact guard assistance as patient completes activity. Assistance may be provided throughout the activity or intermittently. 3-Partial/Moderate Assistance-helper does LESS THAN HALF the effort. [place] lifts, holds or supports trunk or limbs, but provides less than half the effort. 2-Substantial/Maximal Assistance-helper does MORE THAN HALF the effort. [place] lifts or holds trunk or limbs and provides more than half the effort. 1-Xonyryrzs-jeyfim does ALL the effort. Patient does none of the effort to complete the activity. Or, the assistance of 2 or more helpers is required for the patient to complete the activity. If activity was not attempted, code reason: 7-Patient Refused. 9-Not Applicable-not attempted and the patient did not perform the activity before the current illness, exacerbation or injury. 10-Not Attempted due to Environmental Limitations-(lack of equipment, weather restraints, etc.). 88-Not Attempted due to Medical Conditions or Safety Concerns. Upper Body Dressing (QC): 6 Toileting Hygiene (QC): 4 (CGA in stance after urination.) Toilet Transfer (QC): 4 (CGA in stance at FWW) Other Treatment Pt was asked if pt's visited him last night, pt states no then states he doesn't remember even if she did. Pt completes standing tolerance/ balance a ctivity at tabletop. Pt stands with FWW and collects pegs in all planes with alternating hands and places in peg board. Pt requires added time for problem solving and intiation of tasks. Pt stands ~10 minutes with no interruption. Pt requests bathroom, stands to urinate. Pt washes hands with CGA. Pt ambulates with FWW to therapy gym, cues throughout ambulation to maintain feel inside FWW and for directionality. Pt completes 15 min arm bike exercise with 25 to 10 watt resistance. Pt requires cues throughout for continuation of task, distracted by environment. Pt sit to stand with SBA, ambulates back to room with continued cues for placement inside FWW. Pt returns to recliner, call light in reach, all needs met, chair alarm on. Education OT Patient Education: Correct positioning, Exercise program, Modified ADL techniques, Purpose of tx/functional activities, Safety issues, Transfer techniques, Use of adapted equipment Teaching Recipient: Patient Teaching Methods: Demonstration, Discussion Response to Teaching: Verbalize Understanding, Return Demonstration, Reinforcement Needed OT Short Term Goals Short Term Goals Upper body dressin (met) Lower body dressin OT [facility] Goals Waitstaff Goals Time Frame: May 15, 2019 Eating (QC): 6 Oral Hygiene (QC): 6 Toileting Hygiene (QC): 6 Shower/Bathe Self (QC): 6 Upper Body Dressing (QC): 6 (met) Lower Body Dressing (QC): 6 On/Off Footwear (QC): 6 Additional Goals: 1-Demonstrate ADL Tasks, 2-Verbalize Understanding, 3- ImproveStrength/Flory 1=Demonstrate adherence to instructed precautions during ADL tasks. 2=Patient will verbalize/demonstrate understanding of assistive devices/modifications for ADL. 3=Patient will improve strength/tolerance for activity to enable patient to perform ADL's. OT Education/Plan Problem List/Assessment Assessment: Decreased Activ Tolerance, Decreased Safety Aware, Decreased UE Strength, Dependent Transfers, Impaired Cognition, Impaired Coordination, Impaired Funct Balance, Impaired I ADL's, Impaired Self-Care Skills Discharge Recommendations Plan/Recommendations: Continue POC Treatment Plan/Plan of Care Treatment,Training & Education: Yes Patient would benefit from OT for education, treatment and training to promote independence in ADL's, mobility, safety and/or upper extremity function for ADL's. Plan of Care: ADL Retraining, Caregiver Training, Cognitive Retraining, Concurrent Therapy, Functional Mobility, Group Exercise/Act as Ind, UE Funct Exercise/Act, UE Neuromus Re-Ed/Coord Treatment Duration: May 15, 2019 Frequency: At least 5 of 7 days/Wk (IRF) Estimated Hrs Per Day: 1.5 hours per day Agreement: Yes Rehab Potential: Fair Time/GCodes Start Time: 11:00 Stop Time: 12:15 Total Time Billed (hr/min): 75 Billed Treatment Time 1, ADL, EX 4 (75) LIS MARTINEZ OTR May 02, 2019 12:01
--- NOTE | 2019-05-02 12:53 | NUR ---
DR ROSS HERE TO SEE PT TODAY. NEW ORDER FOR METOPROLOL 12.5MG BID TO START.
--- NOTE | 2019-05-02 13:41 | Speech Therapy Daily Note ---
Speech Daily Progress Note Subjective Date Seen by Provider: May 02, 2019 Time Seen by Provider: 00:30 Patient was resting in bed when I entered his room. Objective Patient completed a series of fill in the blank sentences with 70% given 30% verbal cues. Patient requires extra processing time before answering presented stimuli. Assessment Assessment Current Status: Fair Progress Treatment Plan Continue Plan of Care Speech Short Term Goals Short Term Goals Short Term Goals 1) Patient will complete memory tasks related to his daily needs at 80% or greater with minimal cues. 2) Patient will complete safety awareness tasks related to his daily needs at 80% or greater with minimal cues. 3) Patient will complete problem solving tasks related to his daily needs at 80% or greater with minimal cues. 4) Patient will complete speech production tasks to increase intelligibility at 80% or greater with minimal cues. Speech Mcfp Goals Vice President Digital Strategist Goals Patient will improve cognitive-communication necessary for safety and daily living tasks with minimal assist. Patient will increase his speech intelligibility to be an effective communicator of wants/needs. Speech-Plan Patient/Family Goals Patient/Family Goals: Patient plans on returning to his home where he lives with his girlfriend. Treatment Plan Speech Therapy Treatment Plan: Continue Plan of Care Patient was alert and participated with extra processing time. Treatment Duration: May 16, 2019 Frequency: 4 times per week Estimated Hrs Per Day: .5 hour per day Rehab Potential: Fair Barriers to Learning: Patient has cognitive deficits. Pt/Family Agrees to Plan: Yes Safety Risks/Education Teaching Recipient: Patient Teaching Methods: Demonstration, Discussion Response to Teaching: Verbalize Understanding, Return Demonstration, Reinforcement Needed Education Topics Provided: Continued safety within his room and communication of wants/needs Time Speech Therapy Time In: 09:30 Speech Therapy Time Out: 10:00 Total Billed Time: 30 Billed Treatment Time 1, CHRIS Nesbitt May 02, 2019 13:41
[2019-05-02 15:58] VITALS: BP 171/81
--- NOTE | 2019-05-02 16:01 | Physical Therapy Daily Note ---
PT Daily Note-Current Subjective Pt agreeable to PT session Pain Numeric Pain Scale: 0-No Pain Appearance Pt in bed attempting to sit up and stand up at end of bed around bed rail, alarm was activated. Pt requesting to use restroom sitting and standing during tx session. At end of session, pt supine in bed with alarm activated, call light, phone and bedside table within reach. Nurse present Mental Status Patient Orientation: Person, Time, Eyes Open, [place]umbles Transfers SCALE: Activities may be completed with or without assistive devices. 9-Aqipnoznef-fynrnlo completes the activity by him/herself with no assistance from a helper. 5-Set-up or Clean-up Assistance-helper sets up or cleans up; patient completes activity. [place] assists only prior to or following the activity. 4-Supervision or Touching Assistance-helper provides verbal cues and/or touching/steadying and/or contact guard assistance as patient completes activity. Assistance may be provided throughout the activity or intermittently. 3-Partial/Moderate Assistance-helper does LESS THAN HALF the effort. [place] lifts, holds or supports trunk or limbs, but provides less than half the effort. 2-Substantial/Maximal Assistance-helper does MORE THAN HALF the effort. [place] lifts or holds trunk or limbs and provides more than half the effort. 1-Pwbqftwgo-jaoysv does ALL the effort. Patient does none of the effort to complete the activity. Or, the assistance of 2 or more helpers is required for the patient to complete the activity. If activity was not attempted, code reason: 7-Patient Refused. 9-Not Applicable-not attempted and the patient did not perform the activity before the current illness, exacerbation or injury. 10-Not Attempted due to Environmental Limitations-(lack of equipment, weather restraints, etc.). 88-Not Attempted due to Medical Conditions or Safety Concerns. Sit to Lying (QC): 4 Lying to Sitting/Side of Bed(Q: 4 Sit to Stand (QC): 4 Toilet Transfer (QC): 4 CGA to steadying assist required for safety and balance, impulsive and unsteady, difficulty maneuvering walker without A Gait Training Does the Patient Walk?: Yes Distance: 15 x2 Walk 10 feet (QC): 4 Gait Assistive Device: FWW unsteady, impulsive, leaves walker behind, decreased safety awareness, physical assist at times to maneuver walker Treatments education, safety, bed mobility, transfers, gait, toileting sofie care, doffing and donning briefs and sweats with min to mod A, functional mobility Assessment Current Status: Poor Progress PT Short Term Goals Short Term Goals Time Frame: May 08, 2019 Roll Left & Right: 6 Sit to lyin Lying to sitting on side of be: 6 Sit to stand: 4 Chair/nah-gj-kpaqw transfer: 4 Toilet transfer: 4 Car transfer: 4 Walk 10 feet: 4 Walk 50 feet with two turns: 4 Walk 150 feet: 4 PT Retirement Goals Retirement Goals PT Inventory Worker Goals Time Frame: May 22, 2019 Roll Left & Right (QC): 6 Sit to Lying (QC): 6 Lying-Sitting on Side/Bed(QC): 6 Sit to Stand (QC): 4 (SBA) Chair/Iai-yu-Dmuua Xfer(QC): 4 (SBA) Toilet Transfer (QC): 4 (SBA) Car Transfer (QC): 4 (SBA) Walk 10 feet (QC): 4 (SBA) Walk 50ft with 2 Turns (QC): 4 (SBA) Walk 150 ft (QC): 4 (SBA) Walking 10ft on Uneven Surface: 4 (SBA) 1 Step (curb) (QC): 4 (CGA) 4 Steps (QC): 4 (CGA) 12 Steps (QC): 88 Picking up an Object (QC): 88 Does the Pt use WC or Scooter?: No Type: N/A Type: N/A PT Plan Treatment/Plan Treatment Plan: Continue Plan of Care Treatment Plan: Bed Mobility, Concurrent Therapy, Education, Functional Activity Flory, Functional Strength, Group Therapy, Gait, Safety, Therapeutic Exercise, Transfers Treatment Duration: May 22, 2019 Frequency: At least 5 of 7 days/Wk (IRF) Estimated Hrs Per Day: 1.5 hours per day Patient and/or Family Agrees t: Yes Safety Risks/Education Patient Education: Gait Training, Transfer Techniques, Safety Issues Teaching Recipient: Patient Teaching Methods: Demonstration, Discussion Response to Teaching: Verbalize Understanding, Return Demonstration, Reinforcement Needed Time/GCodes Time In: 1532 Time Out: 1552 Total Billed Treatment Time: 20 Total Billed Treatment 1 visit, FA x20 min HEIDI [address] CLEANER May 02, 2019 16:00
--- NOTE | 2019-05-02 16:05 | NUR ---
ALLEVYN PLACED ON BUTTOCKS/ REDDENED/BLANCHABLE/PREVENTION/SKIN INTACT
[2019-05-02] MEDS: meTOprolol TARTRATE 25 MG (LOPRESSOR) TABLET PO SCH (16:25)
[2019-05-02] MEDS ORDERED: meTOprolol TARTRATE 25 MG (LOPRESSOR) TABLET PO NR (16:30)
--- NOTE | 2019-05-02 16:30 | NUR ---
DR ROSS ORDERED METOPROLOL FOR PT BID EARLIER WITH VISIT. ORDER PUT IN FOR FIRST DOSE AT 2100 HOURS TODAY. BP TAKEN NOW AND WAS 171/81. DR ROSS STATED I COULD GIVE 12.5MG OF METOPROLOL NOW, AND NON ADMIN THE 2100 HOUR DOSING. ORDER DONE/MEDICATION GIVEN ORDERED. WILL CONTINUE TO MONITOR.
--- NOTE | 2019-05-02 16:32 | NUR ---
SW attempted to complete initial assessment with patient; however, patient is confused. SW contacted primary contact listed, Coty Lowry ([phone]). Coty is listed as a friend; however, states she is his common law . Patient admitted to ARU from internally following CVA. Prior to hospitalization, Coty and Delano resided in a one-level home in [place], [place]. The home has one step at the entrance without railing and one step within the the home without railing. Per Coyt, patient was independent prior to CVA until 04/26 when she noticed a significant decline. Neither Coty or Delano drive, but have reliable transportation from a pentecostal friend or neighbor. Coty reports patient is estranged from his family, but does have a sister in [place], but has not spoken with her in several years. Coty does not have the contact information for his sister. Coty's son, Aj is listed as a secondary contact at [phone]. Coty reports physical disabilities of her own and cannot provide assistance to Delano at discharge, she is unsure who would be able to provide assistance, if needed. Patient does not have a PCP and is currently uninsured. If medications are prescribed, patient previously has utilized [facility]. SW reviewed typical ARU length of stay and weekly team conferences, Coty expresses no questions or concerns at this time.
--- NOTE | 2019-05-02 17:26 | Cardiology Progress Note ---
Cardiology SOAP Progress Note Subjective: No cardiac complaints. Objective: I&O/Vital Signs 05/02/19 05/02/19 05/02/19 05/02/19 06:00 06:51 09:24 09:31 Temp 36.8 36.8 Pulse 72 80 84 Resp 16 B/P (MAP) 122/77 (92) 173/69 (103) Pulse Ox 98 98 O2 Delivery Room Air Room Air FiO2 21 05/02/19 05/02/19 05/02/19 05/02/19 09:36 09:37 09:54 15:58 Temp 36.5 Pulse 75 Resp 16 B/P (MAP) 171/81 (111) Pulse Ox 98 98 97 O2 Delivery Room Air Room Air Room Air 05/02/19 00:00 Intake Total 300 ml Output Total 200 ml Balance 100 ml Constitutional: AAO x 3 Respiratory: chest is bilaterally symmetric, lungs clear to auscultation Cardiovascular: regular rate-rhythm, S1 and S2 Gastrointestional: soft, audible bowel sounds Extremities: normal inspection, no lower extremity edema bilateral Neurologic/Psychiatric: no motor/sensory deficits, alert, oriented x 3 Skin: normal color Results/Procedures: Labs Laboratory Tests 05/02/19 05:35: White Blood Count 6.6, Red Blood Count 3.99L, Hemoglobin 11.4L, Hematocrit 35L, Mean Corpuscular Volume 87, Mean Corpuscular Hemoglobin 29, Mean Corpuscular Hemoglobin Concent 33, Red Cell Distribution Width 15.5H, Platelet Count 254, Mean Platelet Volume 10.4, Neutrophils (%) (Auto) 56, Lymphocytes (%) (Auto) 28, Monocytes (%) (Auto) 11, Eosinophils (%) (Auto) 4, Basophils (%) (Auto) 1, Neutrophils # (Auto) 3.7, Lymphocytes # (Auto) 1.8, Monocytes # (Auto) 0.7, Eosinophils # (Auto) 0.3, Basophils # (Auto) 0.1, Sodium Level 137, Potassium Level 3.2L, Chloride Level 104, Carbon Dioxide Level 21, Anion Gap 12, Blood Urea Nitrogen 10, Creatinine 0.75, Estimat Glomerular Filtration Rate > 60, BUN/Creatinine Ratio 13, Glucose Level 92, Calcium Level 9.2, Corrected Calcium 9.7, Total Bilirubin 0.5, Aspartate Amino Transf (AST/SGOT) 16, Alanine Aminotransferase (ALT/SGPT) 8, Alkaline Phosphatase 51, Total Protein 5.8L, Albumin 3.4 A/P: Assessment/Dx: Acute CVA, LVH, hypertensive heart disease. Active smoking, Cardiomyopathy. Plan: Acute CVA, unclear etiology. Negative carotid ultrasound for significant [place]ckeon tid disease. Echocardiogram shows mildly reduce LV systolic function with no clear evidence of intracardiac shunting. Telemetry for 24 hours is negative for atrial fibrillation. Continue telemetry for total of 48 hours if no atrial fibrillation consider implantable loop recorder. Due to mildly reduce LV systolic function, coronary evaluation is recommended however due to recent stroke, invasive cardiac procedures are deferred for at least 1 month. We can proceed with nuclear stress testing for risk stratification. For now continue aspirin. OT/PT. Cardiomyopathy, unclear whether ischemic or nonischemic. Coronary angiography cannot be done in the setting of an acute stroke for at least 30 days. Active smoking: Smoking cessation is strongly recommended. LVH, likely due to hypertensive heart disease. On lisinopril. Plan: Plan: Acute CVA, unclear etiology. Negative carotid ultrasound for significant carotid disease. Echocardiogram shows mildly reduce LV systolic function with no clear evidence of intracardiac shunting. Telemetry for 24 hours is negative for atrial fibrillation. Continue telemetry for total of 48 hours if no atrial fibrillation consider implantable loop recorder. Due to mildly reduce LV syst olic function, coronary evaluation is recommended however due to recent stroke, invasive cardiac procedures are deferred for at least 1 month. We can proceed with nuclear stress testing for risk stratification. Nuclear stress test was done on 05/01/2019 which showed small area of apical ischemia. Patient will likely require coronary angiography probably in a month. For now continue aspirin. OT/PT. Cardiomyopathy, unclear whether ischemic or nonischemic. Coronary angiography cannot be done in the setting of an acute stroke for at least 30 days. Treat with lisinopril and beta brad. Active smoking: Smoking cessation is strongly recommended. LVH, likely due to hypertensive heart disease. On lisinopril. Thank you for your consultation. Please call me if you have any questions. Spenser Ross MD, FACP, FACC, FSCAI, FHRS, CCDS Interventional Cardiology Cardiac Electrophysiology Vascular Medicine and Endovascular Interventions Ramandeep ROSS MD May 02, 2019 17:26
--- NOTE | 2019-05-02 19:15 | NUR ---
bedside report received from VALERIO SONG, assume care of pt
[2019-05-02] MEDS: MELATONIN 3 MG TABLET PO PRN (20:53)
--- NOTE | 2019-05-02 20:55 | NUR ---
pt took Senokot 2 tabs but refused miralax, takes pills without difficulty one at a time & hob elevated, side rails up x4, bed alarm on, tele sitter on
--- NOTE | 2019-05-02 21:30 | NUR ---
had large semi formed brown stool
[2019-05-02] MEDS: ENOXAPARIN 30 MG/0.3 ML (LOVENOX) SYR SC SCH (22:10)
[2019-05-03 05:38] VITALS: BP 163/68
[2019-05-03] MEDS: KCL 10 MEQ TAB (MICRO K) PO SCH (06:51)
[2019-05-03] MEDS: POLYETHYLENE GLYCOL 17 GM (MIRALAX) PACK PO SCH ×2 (07:50→21:19)
[2019-05-03 07:58] VITALS: BP 143/73
[2019-05-03] MEDS: SENNA W/DOCUSATE (SENOKOT S) TABLET PO SCH ×2 (08:01→21:19)
[2019-05-03] MEDS: meTOprolol TARTRATE 25 MG (LOPRESSOR) TABLET PO SCH ×2 (08:01→21:13)
[2019-05-03] MEDS: lisINopril 20 MG (PRINIVIL) TABLET PO SCH (08:01)
[2019-05-03] MEDS: ASPIRIN E.C. 325 MG (ECOTRIN) TABLET PO SCH (08:01)
--- NOTE | 2019-05-03 09:00 | NUR ---
PT HAD BED BATH/BEDDING CHANGED/CLOTHES CHANGED/HAIR WASHED. IV SITE CLEAN/DRY/INTACT/PATENT/FLUSHED. PT TOLERATED WELL.
--- NOTE | 2019-05-03 09:23 | Physical Therapy Daily Note ---
PT Daily Note-Current Subjective Pt agreeable to PT session. Very quiet, not talkative, minimal answers, requiring repeat of questions at times Pain Numeric Pain Scale: 0-No Pain Appearance Pt in bed with nursing present upon arrival. At end of session, pt requesting and assisted to bed, alarm activated, call light, phone and bedside table within reach Mental Status Patient Orientation: Person, Confused, Eyes Open Attachments: [place] Transfers SCALE: Activities may be completed with or without assistive devices. 8-Lmztekhjyu-cohsvrl completes the activity by him/herself with no assistance from a helper. 5-Set-up or Clean-up Assistance-helper sets up or cleans up; patient completes activity. [place] assists only prior to or following the activity. 4-Supervision or Touching Assistance-helper provides verbal cues and/or touching/steadying and/or contact guard assistance as patient completes activity. Assistance may be provided throughout the activity or intermittently. 3-Partial/Moderate Assistance-helper does LESS THAN HALF the effort. [place] lifts, holds or supports trunk or limbs, but provides less than half the effort. 2-Substantial/Maximal Assistance-helper does MORE THAN HALF the effort. [place] lifts or holds trunk or limbs and provides more than half the effort. 9-Ikgmefxlv-nrvjfi does ALL the effort. Patient does none of the effort to complete the activity. Or, the assistance of 2 or more helpers is required for the patient to complete the activity. If activity was not attempted, code reason: 7-Patient Refused. 9-Not Applicable-not attempted and the patient did not perform the activity before the current illness, exacerbation or injury. 10-Not Attempted due to Environmental Limitations-(lack of equipment, weather restraints, etc.). 88-Not Attempted due to Medical Conditions or Safety Concerns. Roll Left & Right (QC): 6 Sit to Lying (QC): 4 Lying to Sitting/Side of Bed(Q: 4 Sit to Stand (QC): 4 very slow movements although occasional impulsiveness standing without walker and decreased safety awareness, unsteadiness upon initial stance, CGA provided for safety Gait Training Does the Patient Walk?: Yes Distance: 150 x2 Walk 10 feet (QC): 3 Walk 50 ft with 2 Turns(QC): 3 Walk 150 ft (QC): 3 Gait Persons Needed: 1 Gait Assistive Device: FWW Pt requiring assist to maneuver walker around objects to avoid running into them, unsteady at times, slow pace, skilled verb inst to increase step length Wheelchair Training Does the Pt Use a Wheelchair?: No Exercises NuStep Minutes: 10 (very slow pace, inst to improve ux engineer with RUE) NuStep Workload: 4 (seat and arms 5) Treatments education, safety, bed mobility, transfers, gait, balance, strength, functional mobility, activity tolerance Assessment slow, impulsive, decreased safety awareness, following inst ~50% of time, unsteady PT Short Term Goals Short Term Goals Time Frame: May 08, 2019 Roll Left & Right: 6 Sit to lyin Lying to sitting on side of be: 6 Sit to stand: 4 Chair/twn-cp-juuya transfer: 4 Toilet transfer: 4 Car transfer: 4 Walk 10 feet: 4 Walk 50 feet with two turns: 4 Walk 150 feet: 4 PT Care Home Goals Sharepoint Engineer Goals PT Care Home Goals Time Frame: May 22, 2019 Roll Left & Right (QC): 6 Sit to Lying (QC): 6 Lying-Sitting on Side/Bed(QC): 6 Sit to Stand (QC): 4 (SBA) Chair/Geh-ws-Aollm Xfer(QC): 4 (SBA) Toilet Transfer (QC): 4 (SBA) Car Transfer (QC): 4 (SBA) Walk 10 feet (QC): 4 (SBA) Walk 50ft with 2 Turns (QC): 4 (SBA) Walk 150 ft (QC): 4 (SBA) Walking 10ft on Uneven Surface: 4 (SBA) 1 Step (curb) (QC): 4 (CGA) 4 Steps (QC): 4 (CGA) 12 Steps (QC): 88 Picking up an Object (QC): 88 Does the Pt use WC or Scooter?: No Type: N/A Type: N/A PT Plan Treatment/Plan Treatment Plan: Continue Plan of Care Treatment Plan: Bed Mobility, Concurrent Therapy, Education, Functional Activity Flory, Functional Strength, Group Therapy, Gait, Safety, Therapeutic Exercise, Transfers Treatment Duration: May 22, 2019 Frequency: At least 5 of 7 days/Wk (IRF) Estimated Hrs Per Day: 1.5 hours per day Patient and/or Family Agrees t: Yes Safety Risks/Education Patient Education: Gait Training, Transfer Techniques, Safety Issues Teaching Recipient: Patient Teaching Methods: Demonstration, Discussion Response to Teaching: Verbalize Understanding, Return Demonstration, Reinforcement Needed Time/GCodes Time In: 838 Time Out: 901 Total Billed Treatment Time: 23 Total Billed Treatment 1 visit, GT x1 unit, EX x1 unit HEIDI HURST PTA May 03, 2019 09:23
--- NOTE | 2019-05-03 11:00 | NUR ---
DR ROSS HERE TO SEE PT. NOTIFIED HIM OF DISCREPANCY OF BP FROM RIGHT TO LEFT ARM. NO NEW ORDERS AT THIS TIME.
--- NOTE | 2019-05-03 11:48 | Cardiology Progress Note ---
Cardiology SOAP Progress Note Subjective: No cardiac complaints. Objective: I&O/Vital Signs 05/03/19 05/03/19 05/03/19 05/03/19 05:38 07:58 09:15 09:19 Temp 36.8 Pulse 73 83 Resp 18 B/P (MAP) 163/68 (99) 143/73 (96) Pulse Ox 98 98 O2 Delivery Room Air Room Air Room Air 05/03/19 00:00 Intake Total 500 ml Balance 500 ml Constitutional: AAO x 3 Respiratory: chest is bilaterally symmetric, lungs clear to auscultation Cardiovascular: regular rate-rhythm, S1 and S2 Gastrointestional: soft, audible bowel sounds Extremities: normal inspection, no lower extremity edema bilateral Neurologic/Psychiatric: no motor/sensory deficits, alert, oriented x 3 Skin: normal color A/P: Assessment/Dx: Acute CVA, LVH, hypertensive heart disease. Active smoking, Cardiomyopathy. Plan: Acute CVA, unclear etiology. Negative carotid ultrasound for significant carotid disease. Echocardiogram shows mildly reduce LV systolic function with no clear evidence of intracardiac shunting. Telemetry for 24 hours is negative for atrial fibrillation. Continue telemetry for total of 48 hours if no atrial fibrillation consider implantable loop recorder. Due to mildly reduce LV systolic function, coronary evaluation is recommended however due to recent stroke, invasive cardiac procedures are deferred for at least 1 month. We can proceed with nuclear stress testing for risk stratification. For now continue aspirin. OT/PT. Cardiomyopathy, unclear whether ischemic or nonischemic. Coronary angiography cannot be done in the setting of an acute stroke for at least 30 days. Active smoking: Smoking cessation is strongly recommended. LVH, likely due to hypertensive heart disease. On lisinopril. Plan: Plan: Acute CVA, unclear etiology. Negative carotid ultrasound for significant carotid disease. Echocardiogram shows mildly reduce LV systolic function with no clear evidence of intracardiac shunting. Telemetry for 24 hours is negative for atrial fibrillation. Continue telemetry for total of 48 hours if no atrial fibrillation consider implantable loop recorder. Due to mildly reduce LV systolic function, coronary evaluation is recommended however due to recent stroke, invasive cardiac procedures are deferred for at least 1 month. We can proceed with nuclear stress testing for risk stratification. Nuclear stress test was done on 05/01/2019 which showed small area of apical ischemia. Patient will likely require coronary angiography probably in a month. For now continue aspirin. OT/PT. Cardiomyopathy, unclear whether ischemic or nonischemic. Coronary angiography cannot be done in the setting of an acute stroke for at least 30 days. Treat with lisinopril and beta brad. Active smoking: Smoking cessation is strongly recommended. LVH, likely due to hypertensive heart disease. On lisinopril. Thank you for your consultation. Please call me if you have any questions. Spenser Rhodes MD, FACP, FACC, FSCAI, FHRS, CCDS Interventional Cardiology Cardiac Electrophysiology Vascular Medicine and Endovascular Interventions Ramandeep RHODES MD May 03, 2019 11:48
--- NOTE | 2019-05-03 12:51 | PM&R Progress Note ---
Subjective HPI/CC On Admission Date Seen by Provider: May 03, 2019 Time Seen by Provider: 13:00 Subjective/Events-last exam Patient about the same Nicotine patch maintained which seems to be helping with smoking cessation Slums score is 05/05 Patient appears to be very thin and cachectic and withdrawn Reviewed meds and labs Tolerating aspirin and statin therapy Bowel movement was last on 05/02/19 Wants to go home to his mother's Cardiology appreciated Conferred with property claims adjuster therapy notes Checked meds and labs Review of Systems General: Fatigue Neurological: Weakness, Numbness, Incoordination, Confusion Objective Exam Vital Signs Vital Signs Date Time Temp Pulse Resp B/P (MAP) Pulse Ox O2 Delivery O2 Flow Rate FiO2 05/03/19 09:19 Room Air 05/03/19 09:15 98 05/03/19 07:58 83 143/73 (96) 05/03/19 05:38 36.8 18 05/02/19 09:31 21 Capillary Refill : Less Than 3 Seconds General Appearance: No Apparent Distress, WD/WN, Chronically ill, Thin HEENT: PERRL/EOMI, Normal ENT Inspection, Pharynx Normal Neck: Full Range of Motion, Normal Inspection, Non Tender, Supple, Carotid Bruit Respiratory: Chest Non Tender, Lungs Clear, Normal Breath Sounds, No Accessory Muscle Use, No Respiratory Distress Cardiovascular: Regular Rate, Rhythm, No Edema, No Gallop, No JVD, Normal Peripheral Pulses, Systolic Murmur Gastrointestinal: Normal Bowel Sounds, No Organomegaly, No Pulsatile Mass, Non Tender, Soft Back: Normal Inspection, No CVA Tenderness, No Vertebral Tenderness Extremity: Normal Capillary Refill, Normal Inspection, Normal Range of Motion, Non Tender, No Calf Tenderness, No Pedal Edema Neurologic/Psychiatric: Alert, Oriented x3, engineering faculty member II-XII Norm as Tested, Abnormal Gait, Aphasia, Depressed Affect, Disoriented, Motor Weakness (generalized right greater than left upper and lower manzanares maneuvers) Skin: Normal Color, Warm/Dry Lymphatic: No Adenopathy Results/Procedures Lab Patient resulted labs reviewed. FIM Transfers Therapy Code Descriptions/Definitions Functional [place] Measure: 0=Not Assessed/NA 4=Minimal Assistance 1=Total Assistance 5=Supervision or Setup 2=Maximal Assistance 6=Modified [place] 3=Moderate Assistance 7=Complete IndependenceSCALE: Activities may be completed with or without assistive devices. 1-Nzohnxdovb-oxaudnu completes the activity by him/herself with no assistance from a helper. 5-Set-up or Clean-up Assistance-helper sets up or cleans up; patient completes activity. [place] assists only prior to or following the activity. 4-Supervision or Touching Assistance-helper provides verbal cues and/or touching/steadying and/or contact guard assistance as patient completes activity. Assistance may be provided throughout the activity or intermittently. 3-Partial/Moderate Assistance-helper does LESS THAN HALF the effort. [place] lifts, holds or supports trunk or limbs, but provides less than half the effort. 2-Substantial/Maximal Assistance-helper does MORE THAN HALF the effort. [place] lifts or holds trunk or limbs and provides more than half the effort. 5-Grkmjbazm-jymdej does ALL the effort. Patient does none of the effort to complete the activity. Or, the assistance of 2 or more helpers is required for the patient to complete the activity. If activity was not attempted, code reason: 7-Patient Refused. 9-Not Applicable-not attempted and the patient did not perform the activity before the current illness, exacerbation or injury. 10-Not Attempted due to Environmental Limitations-(lack of equipment, weather restraints, etc.). 88-Not Attempted due to Medical Conditions or Safety Concerns. Roll Left to Right (QC): 6 Sit to Lying (QC): 4 Sit to Stand (QC): 4 Chair/Aas-sl-Fjrrf Xfer(QC): 3 Car Transfer (QC): 3 Gait Training Does the Patient Walk?: Yes Distance: 150 x2 Walk 10 feet (QC): 3 Walk 50 ft with 2 Turns(QC): 3 Walk 150 ft (QC): 3 Walking 10ft/uneven surface-QC: 3 Gait Persons Needed: 1 Gait Assistive Device: FWW Wheelchair Training Does the Pt Use a Wheelchair?: No Stair Training 1 Step (curb) (QC): 88 4 Steps (QC): 88 12 Steps (QC): 88 Balance Picking up an Object (QC): 88 ADL-Treatment Eating (QC): 6 Oral Hygiene (QC): 9 (Pt states he does not brush teeth due to breakage and sensitivity ) Shower/Bathe Self (QC): 3 (Cues for progression, termination. ) Upper Body Dressing (QC): 6 Lower Body Dressing (QC): 4 (CGA in stance.) On/Off Footwear (QC): 4 (SBA edge of chair.) Toileting Hygiene (QC): 4 (CGA in stance after urination.) Toilet Transfer (QC): 4 (CGA in stance at FWW) Assessment/Plan Assessment and Plan Assess & Plan/Chief Complaint Assessment: Subacute stroke presented 5 days after neurological deficit Smoker Cachexia Cognitive deficit Plan: Incentive spirometer Mat protocol Statin Aspirin Cardiology evaluation is appreciated Inpatient rehabilitation protocol (1) Left pontine cerebrovascular accident Status: Acute (2) Aphasia (3) Smoker CHRISTOPHER DANIELS DO May 03, 2019 12:51
--- NOTE | 2019-05-03 13:02 | NUR ---
DR DANIELS HERE TO SEE PT
[2019-05-03 18:30] VITALS: BP 181/83
[2019-05-03 18:32] VITALS: BP 160/80
--- NOTE | 2019-05-03 19:10 | NUR ---
bedside report received from VALERIO SONG, assume care of pt
[2019-05-03 21:00] VITALS: BP 160/78
--- NOTE | 2019-05-03 21:13 | NUR ---
pt refused miralax & Senokot had 2 stools today, c/o headache pain level 5/10 on numeric scale, Tylenol 500mg given
[2019-05-03] MEDS: ACETAMINOPHEN 500 MG TAB (TYLENOL) PO PRN (21:14)
[2019-05-03] MEDS: MELATONIN 3 MG TABLET PO PRN (21:14)
--- NOTE | 2019-05-03 22:05 | NUR ---
resting quietly in bed, pain level 0/10 on flacc scale
[2019-05-03] MEDS: ENOXAPARIN 30 MG/0.3 ML (LOVENOX) SYR SC SCH (22:14)
[2019-05-04 05:51] VITALS: BP 158/70
[2019-05-04] MEDS: KCL 10 MEQ TAB (MICRO K) PO SCH (06:55)
[2019-05-04 08:00] VITALS: BP_SYST 106; BP_SYST 156; BP_DIAS 73; BP_DIAS 82
[2019-05-04] MEDS: SENNA W/DOCUSATE (SENOKOT S) TABLET PO SCH ×2 (08:40→21:06)
[2019-05-04] MEDS: ASPIRIN E.C. 325 MG (ECOTRIN) TABLET PO SCH (08:40)
[2019-05-04] MEDS: meTOprolol TARTRATE 25 MG (LOPRESSOR) TABLET PO SCH ×2 (08:40→21:06)
[2019-05-04] MEDS: lisINopril 20 MG (PRINIVIL) TABLET PO SCH (08:40)
[2019-05-04] MEDS: POLYETHYLENE GLYCOL 17 GM (MIRALAX) PACK PO SCH ×2 (08:43→21:05)
--- NOTE | 2019-05-04 11:00 | NUR ---
ORIENTED TO NAME ONLY. MAIN CONCERN HAS BEEN WORRYING ABOUT [employer] NENO. STATES SHE HAS NOT GOT IN TOUCH WITH HIM FOR A WEEK. NURSE ABLE TO TALK TO NENO'S SON TYSHAWN AND HE GOT IN TOUCH WITH NENO AND NENO CALLED PATIENT. NO OTHER CONCERNS. BP IN LEFT ARM REMAINS GREATER THAN RIGHT. SEE VITAL SIGN INTERVENTION.
--- NOTE | 2019-05-04 14:37 | Cardiology Progress Note ---
Cardiology SOAP Progress Note Subjective: No cardiac complaints. Objective: I&O/Vital Signs 05/04/19 05/04/19 05/04/19 03:16 05:51 09:00 Temp 36.8 Pulse 65 Resp 18 B/P (MAP) 158/70 (99) Pulse Ox 94 O2 Delivery Room Air Room Air Room Air 05/04/19 00:00 Intake Total 760 ml Balance 760 ml Constitutional: AAO x 3 Respiratory: chest is bilaterally symmetric, lungs clear to auscultation Cardiovascular: regular rate-rhythm, S1 and S2 Gastrointestional: soft, audible bowel sounds Extremities: normal inspection, no lower extremity edema bilateral Neurologic/Psychiatric: no motor/sensory deficits, alert, oriented x 3 Skin: normal color A/P: Assessment/Dx: Acute CVA, LVH, hypertensive heart disease. Active smoking, Cardiomyopathy. Plan: Acute CVA, unclear etiology. Negative carotid ultrasound for significant carotid disease. Echocardiogram shows mildly reduce LV systolic function with no clear evidence of intracardiac shunting. Telemetry for 24 hours is negative for atrial fibrillation. Continue telemetry for total of 48 hours if no atrial fibrillation consider implantable loop recorder. Due to mildly reduce LV systolic function, coronary evaluation is recommended however due to recent stroke, invasive cardiac procedures are deferred for at least 1 month. We can proceed with nuclear stress testing for risk stratification. For now continue aspirin. OT/PT. Cardiomyopathy, unclear whether ischemic or nonischemic. Coronary angiography cannot be done in the setting of an acute stroke for at least 30 days. Active smoking: Smoking cessation is strongly recommended. LVH, likely due to hypertensive heart disease. On lisinopril. Plan: Plan: Acute CVA, unclear etiology. Negative carotid ultrasound for significant carotid disease. Echocardiogram shows mildly reduce LV systolic function with no clear evidence of intracardiac shunting. Telemetry for 24 hours is negative for atrial fibrillation. Continue telemetry for total of 48 hours if no atrial fibrillation consider implantable loop recorder. Due to mildly reduce LV systolic function, coronary evaluation is recommended however due to recent stroke, invasive cardiac procedures are deferred for at least 1 month. We can proceed with nuclear stress testing for risk stratification. Nuclear stress test was done on 05/01/2019 which showed small area of apical ischemia. Patient will likely require coronary angiography probably in a month. For now continue aspirin. OT/PT. Cardiomyopathy, unclear whether ischemic or nonischemic. Coronary angiography cannot be done in the setting of an acute stroke for at least 30 days. Treat with lisinopril and beta brad. Active smoking: Smoking cessation is strongly recommended. LVH, likely due to hypertensive heart disease. On lisinopril. Thank you for your consultation. Please call me if you have any questions. Spenser Rhodes MD, FACP, FACC, FSCAI, FHRS, CCDS Interventional Cardiology Cardiac Electrophysiology Vascular Medicine and Endovascular Interventions Ramandeep RHODES MD May 04, 2019 14:37
--- NOTE | 2019-05-04 14:53 | PM&R Progress Note ---
Subjective HPI/CC On Admission Date Seen by Provider: May 04, 2019 Time Seen by Provider: 12:15 Subjective/Events-last exam Patient about the same, oriented x name only Nicotine patch maintained which seems to be helping with smoking cessation Slums score is 05/05 which seems to be accurate Patient appears to be very thin and cachectic and withdrawn Reviewed meds and labs Tolerating aspirin and statin therapy Bowel movements regular Wants to go home to his common-law [place] Cardiology appreciated Conferred with clam shucker therapy notes Checked meds and labs Review of Systems General: Fatigue Neurological: Confusion Objective Exam Vital Signs Vital Signs Date Time Temp Pulse Resp B/P (MAP) Pulse Ox O2 Delivery O2 Flow Rate FiO2 05/04/19 09:00 Room Air 05/04/19 08:00 88 156/82 (106) 106/73 (84) 05/04/19 05:51 36.8 18 94 05/02/19 09:31 21 Capillary Refill : Less Than 3 Seconds General Appearance: No Apparent Distress, WD/WN, Chronically ill, Thin HEENT: PERRL/EOMI, Normal ENT Inspection, Pharynx Normal Neck: Full Range of Motion, Normal Inspection, Non Tender, Supple, Carotid B ruit Respiratory: Chest Non Tender, Lungs Clear, Normal Breath Sounds, No Accessory Muscle Use, No Respiratory Distress Cardiovascular: Regular Rate, Rhythm, No Edema, No Gallop, No JVD, Normal Peripheral Pulses, Systolic Murmur Gastrointestinal: Normal Bowel Sounds, No Organomegaly, No Pulsatile Mass, Non Tender, Soft Back: Normal Inspection, No CVA Tenderness, No Vertebral Tenderness Extremity: Normal Capillary Refill, Normal Inspection, Normal Range of Motion, Non Tender, No Calf Tenderness, No Pedal Edema Neurologic/Psychiatric: Alert, Oriented x3, ad trafficker II-XII Norm as Tested, Abnormal Gait, Aphasia, Depressed Affect, Disoriented, Motor Weakness (generalized right greater than left upper and lower manzanares maneuvers) Skin: Normal Color, Warm/Dry Lymphatic: No Adenopathy Results/Procedures Lab Patient resulted labs reviewed. FIM Transfers Therapy Code Descriptions/Definitions Functional [place] Measure: 0=Not Assessed/NA 4=Minimal Assistance 1=Total Assistance 5=Supervision or Setup 2=Maximal Assistance 6=Modified [place] 3=Moderate Assistance 7=Complete IndependenceSCALE: Activities may be completed with or without assistive devices. 3-Smndyenzao-yfjcmym completes the activity by him/herself with no assistance from a helper. 5-Set-up or Clean-up Assistance-helper sets up or cleans up; patient completes activity. [place] assists only prior to or following the activity. 4-Supervision or Touching Assistance-helper provides verbal cues and/or touching/steadying and/or contact guard assistance as patient completes activity. Assistance may be provided throughout the activity or intermittently. 3-Partial/Moderate Assistance-helper does LESS THAN HALF the effort. [place] li fts, holds or supports trunk or limbs, but provides less than half the effort. 2-Substantial/Maximal Assistance-helper does MORE THAN HALF the effort. [place] lifts or holds trunk or limbs and provides more than half the effort. 8-Evnkuftzg-emtcvz does ALL the effort. Patient does none of the effort to complete the activity. Or, the assistance of 2 or more helpers is required for the patient to complete the activity. If activity was not attempted, code reason: 7-Patient Refused. 9-Not Applicable-not attempted and the patient did not perform the activity before the current illness, exacerbation or injury. 10-Not Attempted due to Environmental Limitations-(lack of equipment, weather restraints, etc.). 88-Not Attempted due to Medical Conditions or Safety Concerns. Roll Left to Right (QC): 6 Sit to Lying (QC): 4 Sit to Stand (QC): 4 Chair/Rmk-ln-Djiyn Xfer(QC): 3 Car Transfer (QC): 3 Gait Training Does the Patient Walk?: Yes Distance: 150 x2 Walk 10 feet (QC): 3 Walk 50 ft with 2 Turns(QC): 3 Walk 150 ft (QC): 3 Walking 10ft/uneven surface-QC: 3 Gait Persons Needed: 1 Gait Assistive Device: FWW Wheelchair Training Does the Pt Use a Wheelchair?: No Stair Training 1 Step (curb) (QC): 88 4 Steps (QC): 88 12 Steps (QC): 88 Balance Picking up an Object (QC): 88 ADL-Treatment Eating (QC): 6 Oral Hygiene (QC): 9 (Pt states he does not brush teeth due to breakage and sensitivity ) Shower/Bathe Self (QC): 3 (Cues for progression, termination. ) Upper Body Dressing (QC): 6 Lower Body Dressing (QC): 4 (CGA in stance.) On/Off Footwear (QC): 4 (SBA edge of chair.) Toileting Hygiene (QC): 4 (CGA in stance after urination.) Toilet Transfer (QC): 4 (CGA in stance at FWW) Assessment/Plan Assessment and Plan Assess & Plan/Chief Complaint Assessment: Subacute stroke presented 5 days after neurological deficit Smoker Cachexia Cognitive deficit Plan: Incentive spirometer Mat protocol Statin Aspirin Cardiology evaluation is appreciated Inpatient rehabilitation protocol (1) Left pontine cerebrovascular accident Status: Acute (2) Aphasia (3) Smoker (4) Cognitive deficit as late effect of cerebrovascular accident (CVA) (5) Intellectual disability CHRISTOPHER DANIELS DO May 04, 2019 14:53
--- NOTE | 2019-05-04 15:53 | NUR ---
SALINE LOCK INFILTRATED WHEN ATTEMPTED TO FLUSH. NOT ON IV MEDS OR TELEMETRY AND IV DC'D.
[2019-05-04 18:00] VITALS: BP 116/80
[2019-05-04 21:03] VITALS: BP 160/77
[2019-05-04] MEDS: MELATONIN 3 MG TABLET PO PRN (21:06)
[2019-05-04] MEDS: ENOXAPARIN 30 MG/0.3 ML (LOVENOX) SYR SC SCH (21:06)
[2019-05-04] MEDS: ACETAMINOPHEN 500 MG TAB (TYLENOL) PO PRN (21:06)
[2019-05-04] MEDS ORDERED: CATHETER FLUSH 10 ML SYR IV SCH (22:00)
[2019-05-05 03:47] VITALS: BP 109/76
[2019-05-05] MEDS: ALPRAZolam 0.25 MG (XANAX) TAB PO PRN (05:53)
[2019-05-05] MEDS: KCL 10 MEQ TAB (MICRO K) PO SCH (05:53)
[2019-05-05 07:08] LABS: BASOPHILS % (AUTO) 1 % (0-10); EOSINOPHILS # (AUTO) 0.3 10^3/uL (0.0-0.3); EOSINOPHILS % (AUTO) 5 % (0-10); HEMATOCRIT 37 % (40-54); HEMOGLOBIN 12.2 G/DL (13.3-17.7); LYMPHOCYTES # (AUTO) 1.5 X 10^3 (1.0-4.0); LYMPHOCYTES % (AUTO) 26 % (12-44); MEAN CORPUSCULAR HEMOGLOBIN 28 PG (25-34); MEAN CORPUSCULAR HGB CONC 33 G/DL (32-36); MEAN CORPUSCULAR VOLUME 86 FL (80-99); MONOCYTES # (AUTO) 0.6 X 10^3 (0.0-1.0); MONOCYTES % (AUTO) 10 % (0-12); NEUTROPHILS # (AUTO) 3.5 X 10^3 (1.8-7.8); NEUTROPHILS % (AUTO) 59 % (42-75); PLATELET COUNT 269 10^3/uL (130-400); RED CELL DISTRIBUTION WIDTH 15.5 % (10.0-14.5); WHITE BLOOD COUNT 5.9 10^3/uL (4.3-11.0)
[2019-05-05 07:29] LABS: ALANINE AMINOTRANSFERASE 21 U/L (0-55); ALBUMIN 3.7 GM/DL (3.2-4.5); ALKALINE PHOSPHATASE 55 U/L (40-136); BILIRUBIN,TOTAL 0.3 MG/DL (0.1-1.0); BUN/CREATININE RATIO 27; CALCIUM 9.3 MG/DL (8.5-10.1); CARBON DIOXIDE 21 MMOL/L (21-32); CHLORIDE 103 MMOL/L (98-107); CREATININE SERUM 0.79 MG/DL (0.60-1.30); GFR ESTIMATED > 60; GLUCOSE 97 MG/DL (70-105); POTASSIUM 3.9 MMOL/L (3.6-5.0); SODIUM 136 MMOL/L (135-145); TOTAL PROTEIN 6.5 GM/DL (6.4-8.2)
[2019-05-05] MEDS: ASPIRIN E.C. 325 MG (ECOTRIN) TABLET PO SCH (08:36)
[2019-05-05] MEDS: SENNA W/DOCUSATE (SENOKOT S) TABLET PO SCH ×2 (08:38→20:30)
[2019-05-05] MEDS: meTOprolol TARTRATE 25 MG (LOPRESSOR) TABLET PO SCH ×2 (08:40→20:31)
[2019-05-05] MEDS: lisINopril 20 MG (PRINIVIL) TABLET PO SCH (08:41)
[2019-05-05] MEDS: POLYETHYLENE GLYCOL 17 GM (MIRALAX) PACK PO SCH ×2 (09:00→20:29)
--- NOTE | 2019-05-05 09:03 | Occupational Ther Daily Note ---
OT Current Status-Daily Note Subjective Pt seen in bed, agreeable to OT tx session. Pt slow to awake, slow to speak, has slight cough this morning. Pt's nurse notified. ADL-Treatment Therapy Code Descriptions/Definitions Functional [place] Measure: 0=Not Assessed/NA 4=Minimal Assistance 1=Total Assistance 5=Supervision or Setup 2=Maximal Assistance 6=Modified [place] 3=Moderate Assistance 7=Complete IndependenceSCALE: Activities may be completed with or without assistive devices. 5-Zeupumybtb-abyzttb completes the activity by him/herself with no assistance from a helper. 5-Set-up or Clean-up Assistance-helper sets up or cleans up; patient completes activity. [place] assists only prior to or following the activity. 4-Supervision or Touching Assistance-helper provides verbal cues and/or touching/steadying and/or contact guard assistance as patient completes activity. Assistance may be provided throughout the activity or intermittently. 3-Partial/Moderate Assistance-helper does LESS THAN HALF the effort. [place] lifts, holds or supports trunk or limbs, but provides less than half the effort. 2-Substantial/Maximal Assistance-helper does MORE THAN HALF the effort. [place] lifts or holds trunk or limbs and provides more than half the effort. 7-Kiemfisla-obulor does ALL the effort. Patient does none of the effort to complete the activity. Or, the assistance of 2 or more helpers is required for the patient to complete the activity. If activity was not attempted, code reason: 7-Patient Refused. 9-Not Applicable-not attempted and the patient did not perform the activity before the current illness, exacerbation or injury. 10-Not Attempted due to Environmental Limitations-(lack of equipment, weather restraints, etc.). 88-Not Attempted due to Medical Conditions or Safety Concerns. Eating (QC): 6 Oral Hygiene (QC): 7 Bathing Location: L Arm, R Arm, L Upper Leg, R Upper Leg, L Lower Leg (including foot), R Lower Leg (including foot), Chest, Abdomen, Perineal Area Shower/Bathe Self (QC): 4 (CGA in stance, cues for sequencing and termination of task, and bottom hygiene assist) Upper Body Dressing (QC): 4 (intermittent cueing for problem solving/ placement of shirt.) Lower Body Dressing (QC): 4 (SUP due to decreased balance and ROM) On/Off Footwear: 4 (cues for positioning for easier donning/ doffing of socks. ) Toileting Hygiene (QC): 4 (CGA for urination) Toilet Transfer (QC): 3 (mod A for FWW use and righting self during transfer) Other Treatment [id number]: Pt completes awakening/ participating with mod cues. Pt supine to sit and to EOB with encouragement- increased time. Pt reaches EOB and sit to stand with CGA. Pt sits in recliner chair to complete ADLs this morning. Pt completes sponge bath, cues for initiation/ termination due to perseveration of body parts necessary. Pt completes LB dressing/ washing, will complete UB later this afternoon. Pt sits up to eat, food in front of pt, call light in reach, all needs met. [id number]: Pt completes UB bathing/ dressing task. Pt completed shower cap, cues for washing arm pits, and cues for donning of shirt. Pt perseverances on brushing hair, cues for termination. Pt completes toileting with cues for use of FWW, pt returns to recliner chair, call light in reach, all needs met, chair alarm on. Education OT Patient Education: Correct positioning, Modified ADL techniques, Rehab process, Transfer techniques Teaching Recipient: Patient Teaching Methods: Demonstration, Discussion Response to Teaching: Verbalize Understanding, Return Demonstration, Reinforcement Needed OT Short Term Goals Short Term Goals Upper body dressin (met) Lower body dressin OT Director Enterprise Sales Goals Director Enterprise Sales Goals Time Frame: May 15, 2019 Eating (QC): 6 Oral Hygiene (QC): 6 Toileting Hygiene (QC): 6 Shower/Bathe Self (QC): 6 Upper Body Dressing (QC): 6 (met) Lower Body Dressing (QC): 6 On/Off Footwear (QC): 6 Additional Goals: 1-Demonstrate ADL Tasks, 2-Verbalize Understanding, 3-Impro veStrength/Flory 1=Demonstrate adherence to instructed precautions during ADL tasks. 2=Patient will verbalize/demonstrate understanding of assistive devices/modifications for ADL. 3=Patient will improve strength/tolerance for activity to enable patient to perform ADL's. OT Education/Plan Problem List/Assessment Assessment: Decreased Activ Tolerance, Decreased Safety Aware, Decreased UE Strength, Impaired Cognition, Impaired Funct Balance, Impaired I ADL's, Impaired Self-Care Skills Discharge Recommendations Plan/Recommendations: Continue POC Treatment Plan/Plan of Care Treatment,Training & Education: Yes Patient would benefit from OT for education, treatment and training to promote independence in ADL's, mobility, safety and/or upper extremity function for ADL's. Plan of Care: ADL Retraining, Caregiver Training, Cognitive Retraining, Concurrent Therapy, Functional Mobility, Group Exercise/Act as Ind, UE Funct Exercise/Act, UE Neuromus Re-Ed/Coord Treatment Duration: May 15, 2019 Frequency: At least 5 of 7 days/Wk (IRF) Estimated Hrs Per Day: 1.5 hours per day Agreement: Yes Rehab Potential: Fair Time/GCodes Start Time: 08:00 (1050) Stop Time: 09:00 (1120) Total Time Billed (hr/min): 90 Billed Treatment Time 1, ADL 6 (90) LIS MARTINEZ OTR May 05, 2019 09:03
[2019-05-05 09:14] VITALS: BP 109/76
--- NOTE | 2019-05-05 10:50 | NUR ---
Pastoral care visit, pt provided limited response.
--- NOTE | 2019-05-05 10:53 | Physical Therapy Daily Note ---
PT Daily Note-Current Subjective Patient in recliner pre tx, agrees to PT, has no complaints of pain. Appearance Patient in recliner post tx with nurse call, phone, tray, all needs met, has legs elevated, chair alarm on, telesitter in room. Mental Status Patient Orientation: Person, Confused Transfers SCALE: Activities may be completed with or without assistive devices. 2-Pwtcfsxqst-chglgpc completes the activity by him/herself with no assistance from a helper. 5-Set-up or Clean-up Assistance-helper sets up or cleans up; patient completes activity. [place] assists only prior to or following the activity. 4-Supervision or Touching Assistance-helper provides verbal cues and/or touching/steadying and/or contact guard assistance as patient completes activity. Assistance may be provided throughout the activity or intermittently. 3-Partial/Moderate Assistance-helper does LESS THAN HALF the effort. [place] lifts, holds or supports trunk or limbs, but provides less than half the effort. 2-Substantial/Maximal Assistance-helper does MORE THAN HALF the effort. [place] lifts or holds trunk or limbs and provides more than half the effort. 9-Jlrnfpjqo-csddvd does ALL the effort. Patient does none of the effort to complete the activity. Or, the assistance of 2 or more helpers is required for the patient to complete the activity. If activity was not attempted, code reason: 7-Patient Refused. 9-Not Applicable-not attempted and the patient did not perform the activity before the current illness, exacerbation or injury. 10-Not Attempted due to Environmental Limitations-(lack of equipment, weather restraints, etc.). 88-Not Attempted due to Medical Conditions or Safety Concerns. Sit to Stand (QC): 4 Chair/Maa-hm-Acnff Xfer(QC): 4 [place] due to the need to assist with guiding walker, patient needs constant cues for safety and positioning Gait Training Does the Patient Walk?: Yes Distance: 200', 150'x2 Walk 10 feet (QC): 3 Walk 50 ft with 2 Turns(QC): 3 Walk 150 ft (QC): 3 Gait Assistive Device: FWW min assist, patient need occasional help guiding walker, constant cues for positioning in walker, safety, and direction Exercises NuStep Minutes: 15 NuStep Workload: 5 Treatments transfers, ambulation, LE strengthening Assessment Current Status: Poor Progress Patient ambulates very slowly, has poor safety awareness, fall risk. PT Short Term Goals Short Term Goals Time Frame: May 08, 2019 Roll Left & Right: 6 Sit to lyin Lying to sitting on side of be: 6 Sit to stand: 4 Chair/kqq-pb-vscev transfer: 4 Toilet transfer: 4 Car transfer: 4 Walk 10 feet: 4 Walk 50 feet with two turns: 4 Walk 150 feet: 4 PT Mcc Goals Mcc Goals PT Mcc Goals Time Frame: May 22, 2019 Roll Left & Right (QC): 6 Sit to Lying (QC): 6 Lying-Sitting on Side/Bed(QC): 6 Sit to Stand (QC): 4 (SBA) Chair/Qfc-zr-Vwviq Xfer(QC): 4 (SBA) Toilet Transfer (QC): 4 (SBA) Car Transfer (QC): 4 (SBA) Walk 10 feet (QC): 4 (SBA) Walk 50ft with 2 Turns (QC): 4 (SBA) Walk 150 ft (QC): 4 (SBA) Walking 10ft on Uneven Surface: 4 (SBA) 1 Step (curb) (QC): 4 (CGA) 4 Steps (QC): 4 (CGA) 12 Steps (QC): 88 Picking up an Object (QC): 88 Does the Pt use WC or Scooter?: No Type: N/A Type: N/A PT Plan Problem List Problem List: Activity Tolerance, Functional Strength, Safety, Balance, Gait, Transfer, Bed Mobility Treatment/Plan Treatment Plan: Continue Plan of Care Treatment Plan: Bed Mobility, Concurrent Therapy, Education, Functional Activity Flory, Functional Strength, Group Therapy, Gait, Safety, Therapeutic Exercise, Transfers Treatment Duration: May 22, 2019 Frequency: At least 5 of 7 days/Wk (IRF) Estimated Hrs Per Day: 1.5 hours per day Patient and/or Family Agrees t: Yes Safety Risks/Education Patient Education: Gait Training, Transfer Techniques, Correct Positioning, Safety Issues Teaching Recipient: Patient Teaching Methods: Demonstration, Discussion Response to Teaching: Reinforcement Needed Time/GCodes Time In: 1000 Time Out: 1100 Total Billed Treatment Time: 60 Total Billed Treatment 1 visit ex 15' GT GT 35' FA 10' SHANNA HARMON PT May 05, 2019 10:53
--- NOTE | 2019-05-05 11:05 | PM&R Progress Note ---
Subjective HPI/CC On Admission Date Seen by Provider: May 05, 2019 Time Seen by Provider: 09:00 Subjective/Events-last exam Potassium okay at 3.9 with supplement Speech therapy eval for dysphagia but nut it appears to be an intellectual in focus Will increase oral fluids since we feel he is not drinking enough Cardiology appreciated Conferred with pediatric surgeon therapy notes Checked meds and labs Review of Systems General: Fatigue Neurological: Confusion Objective Exam Vital Signs Vital Signs Date Time Temp Pulse Resp B/P (MAP) Pulse Ox O2 Delivery O2 Flow Rate FiO2 05/05/19 20:38 68 144/75 (98) 05/05/19 17:37 36.2 18 97 Room Air 05/05/19 09:14 21 Capillary Refill : Less Than 3 Seconds General Appearance: No Apparent Distress, WD/WN, Chronically ill, Thin HEENT: PERRL/EOMI, Normal ENT Inspection, Pharynx Normal Neck: Full Range of Motion, Normal Inspection, Non Tender, Supple, Carotid Bruit Respiratory: Chest Non Tender, Lungs Clear, Normal Breath Sounds, No Accessory Muscle Use, No Respiratory Distress Cardiovascular: Regular Rate, Rhythm, No Edema, No Gallop, No JVD, Normal Peripheral Pulses, Systolic Murmur Gastrointestinal: Normal Bowel Sounds, No Organomegaly, No Pulsatile Mass, Non Tender, Soft Back: Normal Inspection, No CVA Tenderness, No Vertebral Tenderness Extremity: Normal Capillary Refill, Normal Inspection, Normal Range of Motion, Non Tender, No Calf Tenderness, No Pedal Edema Neurologic/Psychiatric: Alert, Oriented x3, set and exhibit designer II-XII Norm as Tested, Abnormal Gait, Aphasia, Depressed Affect, Disoriented, Motor Weakness (generalized right greater than left upper and lower manzanares maneuvers) Skin: Normal Color, Warm/Dry Lymphatic: No Adenopathy Results/Procedures Lab Laboratory Tests 05/05/19 06:52 Patient resulted labs reviewed. FIM Transfers Therapy Code Descriptions/Definitions Functional [place] Measure: 0=Not Assessed/NA 4=Minimal Assistance 1=Total Assistance 5=Supervision or Setup 2=Maximal Assistance 6=Modified [place] 3=Moderate Assistance 7=Complete IndependenceSCALE: Activities may be completed with or without assistive devices. 3-Punqvzzbrs-xukcqqk completes the activity by him/herself with no assistance from a helper. 5-Set-up or Clean-up Assistance-helper sets up or cleans up; patient completes activity. [place] assists only prior to or following the activity. 4-Supervision or Touching Assistance-helper provides verbal cues and/or touching/steadying and/or contact guard assistance as patient completes activity. Assistance may be provided throughout the activity or intermittently. 3-Partial/Moderate Assistance-helper does LESS THAN HALF the effort. [place] lifts, holds or supports trunk or limbs, but provides less than half the effort. 2-Substantial/Maximal Assistance-helper does MORE THAN HALF the effort. [place] lifts or holds trunk or limbs and provides more than half the effort. 5-Akfxlesnu-kqtvbc does ALL the effort. Patient does none of the effort to complete the activity. Or, the assistance of 2 or more helpers is required for the patient to complete the activity. If activity was not attempted, code reason: 7-Patient Refused. 9-Not Applicable-not attempted and the patient did not perform the activity before the current illness, exacerbation or injury. 10-Not Attempted due to Environmental Limitations-(lack of equipment, weather restraints, etc.). 88-Not Attempted due to Medical Conditions or Safety Concerns. Roll Left to Right (QC): 6 Sit to Lying (QC): 4 Sit to Stand (QC): 4 Chair/Zpd-je-Sbxzw Xfer(QC): 4 Car Transfer (QC): 3 Gait Training Does the Patient Walk?: Yes Distance: 200', 150'x2 Walk 10 feet (QC): 3 Walk 50 ft with 2 Turns(QC): 3 Walk 150 ft (QC): 3 Walking 10ft/uneven surface-QC: 3 Gait Persons Needed: 1 Gait Assistive Device: FWW Wheelchair Training Does the Pt Use a Wheelchair?: No Stair Training 1 Step (curb) (QC): 88 4 Steps (QC): 88 12 Steps (QC): 88 Balance Picking up an Object (QC): 88 ADL-Treatment Eating (QC): 6 Oral Hygiene (QC): 7 Bathing Location: L Arm, R Arm, L Upper Leg, R Upper Leg, L Lower Leg (including foot), R Lower Leg (including foot), Chest, Abdomen, Perineal Area Shower/Bathe Self (QC): 4 (CGA in stance, cues for sequencing, and bottom hygiene assist) Upper Body Dressing (QC): 6 Lower Body Dressing (QC): 4 (SUP due to decreased balance and ROM) On/Off Footwear (QC): 4 (cues for positioning for easier donning/ doffing of socks. ) Toileting Hygiene (QC): 4 (CGA in stance after urination.) Toilet Transfer (QC): 4 (CGA in stance at FWW) Assessment/Plan Assessment and Plan Assess & Plan/Chief Complaint Assessment: Subacute stroke presented 5 days after neurological deficit Smoker Cachexia Cognitive deficit Plan: Incentive spirometer Mat protocol Statin Aspirin Cardiology evaluation is appreciated Inpatient rehabilitation protocol (1) Left pontine cerebrovascular accident Status: Acute (2) Aphasia (3) Smoker (4) Cognitive deficit as late effect of cerebrovascular accident (CVA) (5) Intellectual disability CHRISTOPHER DANIELS DO May 05, 2019 11:05
--- NOTE | 2019-05-05 12:28 | Speech Therapy Daily Note ---
Speech Daily Progress Note Subjective Date Seen by Provider: May 05, 2019 Time Seen by Provider: 00:30 Patient exhibited significantly improved alert level today. Objective Patient demo answering simple questions with 90% accuracy given 10% verbal cues and/or repetitions. Assessment Assessment Current Status: Good Progress Treatment Plan Continue Plan of Care Speech Short Term Goals Short Term Goals Short Term Goals 1) Patient will complete memory tasks related to his daily needs at 80% or greater with minimal cues. 2) Patient will complete safety awareness tasks related to his daily needs at 80% or greater with minimal cues. 3) Patient will complete problem solving tasks related to his daily needs at 80% or greater with minimal cues. 4) Patient will complete speech production tasks to increase intelligibility at 80% or greater with minimal cues. Speech Coding Analyst Goals Usp Goals Patient will improve cognitive-communication necessary for safety and daily living tasks with minimal assist. Patient will increase his speech intelligibility to be an effective communicator of wants/needs. Speech-Plan Patient/Family Goals Patient/Family Goals: Patient plans on returning to his home post rehab. Treatment Plan Speech Therapy Treatment Plan: Continue Plan of Care Patient's response time to questions was significantly improved today. Treatment Duration: May 16, 2019 Frequency: 4 times per week Estimated Hrs Per Day: .5 hour per day Rehab Potential: Fair Barriers to Learning: Patient's residual affects of his recent CVA Pt/Family Agrees to Plan: Yes Safety Risks/Education Teaching Recipient: Patient Teaching Methods: Demonstration, Discussion Response to Teaching: Verbalize Understanding, Return Demonstration Education Topics Provided: Continued utilization of his call light as needed Time Speech Therapy Time In: 09:30 Speech Therapy Time Out: 10:00 Total Billed Time: 30 Billed Treatment Time 1[address] May 05, 2019 12:28
--- NOTE | 2019-05-05 14:18 | Physical Therapy Daily Note ---
PT Daily Note-Current Subjective Patient in recliner pre tx, agrees to PT, has no complaints of pain. Appearance Patient in recliner post tx with nurse call, phone, tray, chair alarm on, telesitter in room. Mental Status Patient Orientation: Person, Confused, Mumbles Transfers SCALE: Activities may be completed with or without assistive devices. 2-Aefvsaqqew-nitbdzq completes the activity by him/herself with no assistance from a helper. 5-Set-up or Clean-up Assistance-helper sets up or cleans up; patient completes activity. [place] assists only prior to or following the activity. 4-Supervision or Touching Assistance-helper provides verbal cues and/or touching/steadying and/or contact guard assistance as patient completes activity. Assistance may be provided throughout the activity or intermittently. 3-Partial/Moderate Assistance-helper does LESS THAN HALF the effort. [place] li fts, holds or supports trunk or limbs, but provides less than half the effort. 2-Substantial/Maximal Assistance-helper does MORE THAN HALF the effort. [place] lifts or holds trunk or limbs and provides more than half the effort. 5-Dzvckhvzp-eipjpn does ALL the effort. Patient does none of the effort to complete the activity. Or, the assistance of 2 or more helpers is required for the patient to complete the activity. If activity was not attempted, code reason: 7-Patient Refused. 9-Not Applicable-not attempted and the patient did not perform the activity before the current illness, exacerbation or injury. 10-Not Attempted due to Environmental Limitations-(lack of equipment, weather restraints, etc.). 88-Not Attempted due to Medical Conditions or Safety Concerns. Sit to Stand (QC): 4 Chair/Mgb-cs-Yjdzi Xfer(QC): 3 assist guiding walker and cues for safety Gait Training Distance: 150'x2 Walk 10 feet (QC): 3 Walk 50 ft with 2 Turns(QC): 3 Walk 150 ft (QC): 3 Gait Assistive Device: FWW Patient ambulates very slowly, needs cues for safety and positioning, help guiding walker, tends to ambulate with walker too far in front. Treatments ambulation Assessment Current Status: Fair Progress improved ambulation this afternoon, not as slow and less assist needed to help guide walker PT Short Term Goals Short Term Goals Time Frame: May 08, 2019 Roll Left & Right: 6 Sit to lyin Lying to sitting on side of be: 6 Sit to stand: 4 Chair/jee-fi-veuji transfer: 4 Toilet transfer: 4 Car transfer: 4 Walk 10 feet: 4 Walk 50 feet with two turns: 4 Walk 150 feet: 4 PT Commissioning Editor Goals Commissioning Editor Goals PT Commissioning Editor Goals Time Frame: May 22, 2019 Roll Left & Right (QC): 6 Sit to Lying (QC): 6 Lying-Sitting on Side/Bed(QC): 6 Sit to Stand (QC): 4 (SBA) Chair/Obl-gs-Qorxu Xfer(QC): 4 (SBA) Toilet Transfer (QC): 4 (SBA) Car Transfer (QC): 4 (SBA) Walk 10 feet (QC): 4 (SBA) Walk 50ft with 2 Turns (QC): 4 (SBA) Walk 150 ft (QC): 4 (SBA) Walking 10ft on Uneven Surface: 4 (SBA) 1 Step (curb) (QC): 4 (CGA) 4 Steps (QC): 4 (CGA) 12 Steps (QC): 88 Picking up an Object (QC): 88 Does the Pt use WC or Scooter?: No Type: N/A Type: N/A PT Plan Problem List Problem List: Activity Tolerance, Functional Strength, Safety, Balance, Gait, Transfer, Bed Mobility Treatment/Plan Treatment Plan: Continue Plan of Care Treatment Plan: Bed Mobility, Concurrent Therapy, Education, Functional Activity Flory, Functional Strength, Group Therapy, Gait, Safety, Therapeutic Exercise, Transfers Treatment Duration: May 22, 2019 Frequency: At least 5 of 7 days/Wk (IRF) Estimated Hrs Per Day: 1.5 hours per day Patient and/or Family Agrees t: Yes Safety Risks/Education Patient Education: Gait Training, Transfer Techniques, Correct Positioning, Safety Issues Teaching Recipient: Patient Teaching Methods: Demonstration, Discussion Response to Teaching: Reinforcement Needed Time/GCodes Time In: 1350 Time Out: 1410 Total Billed Treatment Time: 20 Total Billed Treatment 1 visit GT 20' SHANNA HARMON PT May 05, 2019 14:18
[2019-05-05 16:17] VITALS: BP 133/69
--- NOTE | 2019-05-05 17:24 | Cardiology Progress Note ---
Cardiology SOAP Progress Note Subjective: No cardiac complaints. Objective: I&O/Vital Signs 05/05/19 05/05/19 05/05/19 05/05/19 08:23 09:00 09:14 16:17 Temp 36.2 36.6 Pulse 63 70 Resp 16 B/P (MAP) 133/69 (90) Pulse Ox 97 98 O2 Delivery Room Air Room Air Room Air FiO2 21 05/05/19 00:00 Intake Total 1210 ml Balance 1210 ml Constitutional: AAO x 3 Respiratory: chest is bilaterally symmetric, lungs clear to auscultation Cardiovascular: regular rate-rhythm, S1 and S2, systolic murmur Gastrointestional: soft, audible bowel sounds Extremities: normal inspection, no lower extremity edema bilateral Neurologic/Psychiatric: no motor/sensory deficits, alert, oriented x 3 Skin: normal color Results/Procedures: Labs Laboratory Tests 05/05/19 06:52: White Blood Count 5.9, Red Blood Count 4.29L, Hemoglobin 12.2L, Hematocrit 37L, Mean Corpuscular Volume 86, Mean Corpuscular Hemoglobin 28, Mean Corpuscular Hemoglobin Concent 33, Red Cell Distribution Width 15.5H, Platelet Count 269, Mean Platelet Volume 11.0H, Neutrophils (%) (Auto) 59, Lymphocytes (%) (Auto) 26, Monocytes (%) (Auto) 10, Eosinophils (%) (Auto) 5, Basophils (%) (Auto) 1, Neutrophils # (Auto) 3.5, Lymphocytes # (Auto) 1.5, Monocytes # (Auto) 0.6, Eosinophils # (Auto) 0.3, Basophils # (Auto) 0.0, Sodium Level 136, Potassium Level 3.9, Chloride Level 103, Carbon Dioxide Level 21, Anion Gap 12, Blood Urea Nitrogen 21H, Creatinine 0.79, Estimat Glomerular Filtration Rate > 60, BUN/Creatinine Ratio 27, Glucose Level 97, Calcium Level 9.3, Corrected Calcium 9.5, Total Bilirubin 0.3, Aspartate Amino Transf (AST/SGOT) 19, Alanine Aminotransferase (ALT/SGPT) 21, Alkaline Phosphatase 55, Total Protein 6.5, Albumin 3.7 A/P: Assessment/Dx: Acute CVA, LVH, hypertensive heart disease. Active smoking, Cardiomyopathy. Abnormal nuclear stress test. Plan: Plan: Acute CVA, unclear etiology. Negative carotid ultrasound for significant carotid disease. Echocardiogram shows mildly reduce LV systolic function with no clear evidence of intracardiac shunting. Telemetry for 24 hours is negative for atrial fibrillation. Continue telemetry for total of 48 hours if no atrial fibrillation consider implantable loop recorder. Due to mildly reduce LV systolic function, coronary evaluation is recommended however due to recent stroke, invasive cardiac procedures are deferred for at least 1 month. We can proceed with nuclear stress testing for risk stratification. Nuclear stress test was done on 05/01/2019 which showed small area of apical ischemia. Patient will likely require coronary angiography probably in a month. For now continue aspirin. OT/PT. Cardiomyopathy, unclear whether ischemic or nonischemic. Coronary angiography cannot be done in the setting of an acute stroke for at least 30 days. Treat with lisinopril and beta brad. Active smoking: Smoking cessation is strongly recommended. LVH, likely due to hypertensive heart disease. On lisinopril. Thank you for your consultation. Please call me if you have any questions. Spenser Rhodes MD, FACP, FACC, FSCAI, FHRS, CCDS Interventional Cardiology Cardiac Electrophysiology Vascular Medicine and Endovascular Interventions Ramandeep RHODES MD May 05, 2019 17:24
[2019-05-05 17:37] VITALS: BP 103/72
[2019-05-05] MEDS: ENOXAPARIN 30 MG/0.3 ML (LOVENOX) SYR SC SCH (20:31)
[2019-05-05 20:38] VITALS: BP 144/75
[2019-05-06 04:35] VITALS: BP_SYST 105; BP_SYST 162; BP_DIAS 70; BP_DIAS 80
[2019-05-06] MEDS: KCL 10 MEQ TAB (MICRO K) PO SCH (06:03)
[2019-05-06] MEDS: POLYETHYLENE GLYCOL 17 GM (MIRALAX) PACK PO SCH ×2 (07:43→21:03)
[2019-05-06] MEDS: SENNA W/DOCUSATE (SENOKOT S) TABLET PO SCH ×2 (07:44→21:03)
[2019-05-06] MEDS: meTOprolol TARTRATE 25 MG (LOPRESSOR) TABLET PO SCH ×2 (08:26→20:48)
[2019-05-06] MEDS: ASPIRIN E.C. 325 MG (ECOTRIN) TABLET PO SCH (08:26)
[2019-05-06] MEDS: lisINopril 20 MG (PRINIVIL) TABLET PO SCH (08:26)
--- NOTE | 2019-05-06 08:53 | Physical Therapy Daily Note ---
PT Daily Note-Current Subjective Patient in bed pre tx, agrees to PT, has no complaints of pain. Appearance Patient in recliner post tx with nurse call, phone, tray, chair alarm on, all needs met. Mental Status Patient Orientation: Person, Confused, Mumbles Transfers SCALE: Activities may be completed with or without assistive devices. 0-Laobzwljio-alxiich completes the activity by him/herself with no assistance from a helper. 5-Set-up or Clean-up Assistance-helper sets up or cleans up; patient completes activity. [place] assists only prior to or following the activity. 4-Supervision or Touching Assistance-helper provides verbal cues and/or touching/steadying and/or contact guard assistance as patient completes activity. Assistance may be provided throughout the activity or intermittently. 3-Partial/Moderate Assistance-helper does LESS THAN HALF the effort. [place] lifts, holds or supports trunk or limbs, but provides less than half the effort. 2-Substantial/Maximal Assistance-helper does MORE THAN HALF the effort. [place] lifts or holds trunk or limbs and provides more than half the effort. 5-Kiuinioeq-nxlbel does ALL the effort. Patient does none of the effort to complete the activity. Or, the assistance of 2 or more helpers is required for the patient to complete the activity. If activity was not attempted, code reason: 7-Patient Refused. 9-Not Applicable-not attempted and the patient did not perform the activity before the current illness, exacerbation or injury. 10-Not Attempted due to Environmental Limitations-(lack of equipment, weather restraints, etc.). 88-Not Attempted due to Medical Conditions or Safety Concerns. Roll Left & Right (QC): 6 Sit to Lying (QC): 6 Lying to Sitting/Side of Bed(Q: 6 Sit to Stand (QC): 4 Chair/Tgg-uh-Rzjjo Xfer(QC): 4 Gait Training Distance: 200', 150'x2 Walk 10 feet (QC): 4 Walk 50 ft with 2 Turns(QC): 4 Walk 150 ft (QC): 4 Gait Assistive Device: FWW Exercises LAQ alternating for 5 min, sit to stands 3 sets of 10 NuStep Minutes: 15 NuStep Workload: 5 Treatments bed mobility and transfers, ambulation, LE strengthening Assessment Current Status: Fair Progress improved ambulation and transfers, less help guiding walker, CGA with transfers and ambulation PT Short Term Goals Short Term Goals Time Frame: May 08, 2019 Roll Left & Right: 6 Sit to lyin Lying to sitting on side of be: 6 Sit to stand: 4 Chair/mlk-qw-fdxnn transfer: 4 Toilet transfer: 4 Car transfer: 4 Walk 10 feet: 4 Walk 50 feet with two turns: 4 Walk 150 feet: 4 PT Director Marketing Communications Goals Director Marketing Communications Goals PT Director Marketing Communications Goals Time Frame: May 22, 2019 Roll Left & Right (QC): 6 Sit to Lying (QC): 6 Lying-Sitting on Side/Bed(QC): 6 Sit to Stand (QC): 4 (SBA) Chair/Asz-eh-Vukwv Xfer(QC): 4 (SBA) Toilet Transfer (QC): 4 (SBA) Car Transfer (QC): 4 (SBA) Walk 10 feet (QC): 4 (SBA) Walk 50ft with 2 Turns (QC): 4 (SBA) Walk 150 ft (QC): 4 (SBA) Walking 10ft on Uneven Surface: 4 (SBA) 1 Step (curb) (QC): 4 (CGA) 4 Steps (QC): 4 (CGA) 12 Steps (QC): 88 Picking up an Object (QC): 88 Does the Pt use WC or Scooter?: No Type: N/A Type: N/A PT Plan Problem List Problem List: Activity Tolerance, Functional Strength, Safety, Balance, Gait, Transfer, Bed Mobility Treatment/Plan Treatment Plan: Continue Plan of Care Treatment Plan: Bed Mobility, Concurrent Therapy, Education, Functional Activity Flory, Functional Strength, Group Therapy, Gait, Safety, Therapeutic Exercise, Transfers Treatment Duration: May 22, 2019 Frequency: At least 5 of 7 days/Wk (IRF) Estimated Hrs Per Day: 1.5 hours per day Patient and/or Family Agrees t: Yes Safety Risks/Education Patient Education: Gait Training, Transfer Techniques, Correct Positioning, Safety Issues Teaching Recipient: Patient Teaching Methods: Demonstration, Discussion Response to Teaching: Reinforcement Needed Time/GCodes Time In: 0800 Time Out: 0900 Total Billed Treatment Time: 60 Total Billed Treatment 1 visit EX 30' FA 30' SHANNA HARMON PT May 06, 2019 08:53
--- NOTE | 2019-05-06 10:47 | Occupational Ther Daily Note ---
OT Current Status-Daily Note Subjective Pt seen in recliner chair, agreeable to OT tx session. Pt denies pain, later at end of session pt states pain in R hip while moving. ADL-Treatment Therapy Code Descriptions/Definitions Functional [place] Measure: 0=Not Assessed/NA 4=Minimal Assistance 1=Total Assistance 5=Supervision or Setup 2=Maximal Assistance 6=Modified [place] 3=Moderate Assistance 7=Complete IndependenceSCALE: Activities may be completed with or without assistive devices. 8-Egbqavqjqj-rljaoba completes the activity by him/herself with no assistance from a helper. 5-Set-up or Clean-up Assistance-helper sets up or cleans up; patient completes activity. [place] assists only prior to or following the activity. 4-Supervision or Touching Assistance-helper provides verbal cues and/or touching/steadying and/or contact guard assistance as patient completes activity. Assistance may be provided throughout the activity or intermittently. 3-Partial/Moderate Assistance-helper does LESS THAN HALF the effort. [place] lifts, holds or supports trunk or limbs, but provides less than half the effort. 2-Substantial/Maximal Assistance-helper does MORE THAN HALF the effort. [place] lifts or holds trunk or limbs and provides more than half the effort. 8-Oreixhfvh-trridi does ALL the effort. Patient does none of the effort to complete the activity. Or, the assistance of 2 or more helpers is required for the patient to complete the activity. If activity was not attempted, code reason: 7-Patient Refused. 9-Not Applicable-not attempted and the patient did not perform the activity before the current illness, exacerbation or injury. 10-Not Attempted due to Environmental Limitations-(lack of equipment, weather restraints, etc.). 88-Not Attempted due to Medical Conditions or Safety Concerns. Eating (QC): 6 Oral Hygiene (QC): 7 Shower/Bathe Self (QC): 7 Upper Body Dressing (QC): 7 Lower Body Dressing (QC): 7 Toilet Transfer (QC): 4 (CGA, pt utilizes FWW to stand over toilet. Pt stands without hands on walker, able to maintain balance wihtout OT assist, pt requires min A to maintain balance while walking backwards with FWW. Pt practices walking forward/ backward with FWW during session toward EOM. Pt completes toileting at end of session again, requires min A once more to ambulate safely from toilet backwards with FWW.) Other Treatment Pt denies showering/ dressing tasks on this date. Pt completes sit to stand with FWW with SBA, ambulates to gym with cues to maintain feet inside walker as pt tends to push walker forward, bending at back to reach as he walks. With cues (~4x to gym) pt able to correct self, does not correct without cueing. Pt completes standing/ pinch/ balance exercise by gathering clothes pins from forwa rd flexion, rotating trunk to place on either side of pt on mat. Pt then completes walking forward/ backward with FWW ~3-4 steps to practice safe toilet transfer. Pt completes 5x, 2/5 times without cues safely (CGA throughout). Pt rests EOM. Pt completes rotation of trunk to gather additional pins and place on rings with cues for initiation. Pt practices fine motor/ problem solving with theraputty, pinches beads and takes from putty while in standing, both hands manipulating/ off of walker. Pt leans backwards, requires min A to right self and cues to take break. Pt questioned what he believes he needs to work on to return home safely, pt states he goes to the bathroom IND at home; pt educated on goal of previous exercise and benefits of balance activities. Pt nods. Pt sit to stand with SBA, ambulates and attempts to find room with cues for room number. Pt able to find room with max verbal/ min gestural cues. Pt completes toileting and returns to chair, chair alarm on, all needs met, call light in reach. Education OT Patient Education: Exercise program, Home exercise program, Modified ADL techniques, Purpose of tx/functional activities, Safety issues, Transfer techniques Teaching Recipient: Patient Teaching Methods: Demonstration, Discussion Response to Teaching: Verbalize Understanding, Return Demonstration, Reinforcement Needed OT Short Term Goals Short Term Goals Upper body dressin (met) Lower body dressin OT Senior Care Goals Senior Care Goals Time Frame: May 15, 2019 Eating (QC): 6 Oral Hygiene (QC): 6 Toileting Hygiene (QC): 6 Shower/Bathe Self (QC): 6 Upper Body Dressing (QC): 6 (met) Lower Body Dressing (QC): 6 On/Off Footwear (QC): 6 Additional Goals: 1-Demonstrate ADL Tasks, 2-Verbalize Understanding, 3- ImproveStrength/Flory 1=Demonstrate adherence to instructed precautions during ADL tasks. 2=Patient will verbalize/demonstrate understanding of assistive devices/modifi cations for ADL. 3=Patient will improve strength/tolerance for activity to enable patient to perform ADL's. OT Education/Plan Problem List/Assessment Assessment: Decreased Activ Tolerance, Decreased Safety Aware, Decreased UE Strength, Dependent Transfers, Impaired Cognition, Impaired Funct Balance, Impaired I ADL's, Impaired Self-Care Skills Discharge Recommendations Plan/Recommendations: Continue POC Treatment Plan/Plan of Care Treatment,Training & Education: Yes Patient would benefit from OT for education, treatment and training to promote independence in ADL's, mobility, safety and/or upper extremity function for ADL's. Plan of Care: ADL Retraining, Caregiver Training, Cognitive Retraining, Concurrent Therapy, Functional Mobility, Group Exercise/Act as Ind, UE Funct Exercise/Act, UE Neuromus Re-Ed/Coord Treatment Duration: May 15, 2019 Frequency: At least 5 of 7 days/Wk (IRF) Estimated Hrs Per Day: 1.5 hours per day Agreement: Yes Rehab Potential: Fair Time/GCodes Start Time: 09:30 Stop Time: 10:45 Total Time Billed (hr/min): 75 Billed Treatment Time 1, ADL 2 (30), EX 3 (45)= 75 LIS MARTINEZ OTR May 06, 2019 10:47
--- NOTE | 2019-05-06 11:29 | PM&R Progress Note ---
Subjective HPI/CC On Admission Date Seen by Provider: May 06, 2019 Time Seen by Provider: 10:30 Subjective/Events-last exam Patient very impulsive when walking and major fall risk Needs group home placement Recheck next week but start finding disposition location Cardiology appreciated Conferred with voip network technician therapy notes Checked meds and labs Review of Systems General: Fatigue Neurological: Confusion Objective Exam Vital Signs Vital Signs Date Time Temp Pulse Resp B/P (MAP) Pulse Ox O2 Delivery O2 Flow Rate FiO2 05/06/19 08:30 Room Air 05/06/19 04:35 36.8 69 18 162/80 (107) 99 05/05/19 09:14 21 Capillary Refill : Less Than 3 Seconds General Appearance: No Apparent Distress, WD/WN, Chronically ill, Thin HEENT: PERRL/EOMI, Normal ENT Inspection, Pharynx Normal Neck: Full Range of Motion, Normal Inspection, Non Tender, Supple, Carotid Bruit Respiratory: Chest Non Tender, Lungs Clear, Normal Breath Sounds, No Accessory Muscle Use, No Respiratory Distress Cardiovascular: Regular Rate, Rhythm, No Edema, No Gallop, No JVD, Normal Peripheral Pulses, Systolic Murmur Gastrointestinal: Normal Bowel Sounds, No Organomegaly, No Pulsatile Mass, Non Tender, Soft Back: Normal Inspection, No CVA Tenderness, No Vertebral Tenderness Extremity: Normal Capillary Refill, Normal Inspection, Normal Range of Motion, Non Tender, No Calf Tenderness, No Pedal Edema Neurologic/Psychiatric: Alert, Oriented x3, human resources coordinator II-XII Norm as Tested, Abnormal Gait, Aphasia, Depressed Affect, Disoriented, Motor Weakness (generalized right greater than left upper and lower manzanares maneuvers) Skin: Normal Color, Warm/Dry Lymphatic: No Adenopathy Results/Procedures Lab Patient resulted labs reviewed. FIM Transfers Therapy Code Descriptions/Definitions Functional [place] Measure: 0=Not Assessed/NA 4=Minimal Assistance 1=Total Assistance 5=Supervision or Setup 2=Maximal Assistance 6=Modified [place] 3=Moderate Assistance 7=Complete IndependenceSCALE: Activities may be completed with or without assistive devices. 4-Lugekeudwe-nufsusa completes the activity by him/herself with no assistance from a helper. 5-Set-up or Clean-up Assistance-helper sets up or cleans up; patient completes activity. [place] assists only prior to or following the activity. 4-Supervision or Touching Assistance-helper provides verbal cues and/or touching/steadying and/or contact guard assistance as patient completes activity. Assistance may be provided throughout the activity or intermittently. 3-Partial/Moderate Assistance-helper does LESS THAN HALF the effort. [place] lifts, holds or supports trunk or limbs, but provides less than half the effort. 2-Substantial/Maximal Assistance-helper does MORE THAN HALF the effort. [place] lifts or holds trunk or limbs and provides more than half the effort. 8-Irafepocs-fqxhrd does ALL the effort. Patient does none of the effort to complete the activity. Or, the assistance of 2 or more helpers is required for the patient to complete the activity. If activity was not attempted, code reason: 7-Patient Refused. 9-Not Applicable-not attempted and the patient did not perform the activity before the current illness, exacerbation or injury. 10-Not Attempted due to Environmental Limitations-(lack of equipment, weather restraints, etc.). 88-Not Attempted due to Medical Conditions or Safety Concerns. Roll Left to Right (QC): 6 Sit to Lying (QC): 6 Sit to Stand (QC): 4 Chair/Eub-ym-Rgwqz Xfer(QC): 4 Car Transfer (QC): 3 Gait Training Does the Patient Walk?: Yes Distance: 200', 150'x2 Walk 10 feet (QC): 4 Walk 50 ft with 2 Turns(QC): 4 Walk 150 ft (QC): 4 Walking 10ft/uneven surface-QC: 3 Gait Persons Needed: 1 Gait Assistive Device: FWW Wheelchair Training Does the Pt Use a Wheelchair?: No Type of Wheelchair: N/A Stair Training 1 Step (curb) (QC): 88 4 Steps (QC): 88 12 Steps (QC): 88 Balance Picking up an Object (QC): 88 ADL-Treatment Eating (QC): 6 Oral Hygiene (QC): 7 Bathing Location: L Arm, R Arm, L Upper Leg, R Upper Leg, L Lower Leg (including foot), R Lower Leg (including foot), Chest, Abdomen, Perineal Area Shower/Bathe Self (QC): 7 Upper Body Dressing (QC): 7 Lower Body Dressing (QC): 7 On/Off Footwear (QC): 4 (cues for positioning for easier donning/ doffing of socks. ) Toileting Hygiene (QC): 4 (CGA for urination) Toilet Transfer (QC): 4 (CGA, pt utilizes FWW to stand over toilet. Pt stands without hands on walker, able to maintain balance wihtout OT assist, pt requires min A to maintain balance while walking backwards with FWW. Pt practices walking forward/ backward with FWW during session toward EOM. Pt completes toileting at end of session again, requires min A once more to ambulate safely from toilet backwards with FWW.) Assessment/Plan Assessment and Plan Assess & Plan/Chief Complaint Assessment: Subacute stroke presented 5 days after neurological deficit Smoker Cachexia Cognitive deficit Plan: Incentive spirometer Mat protocol Statin Aspirin Cardiology evaluation is appreciated Inpatient rehabilitation protocol Needs group home at discharge (1) Left pontine cerebrovascular accident Status: Acute (2) Aphasia (3) Smoker (4) Cognitive deficit as late effect of cerebrovascular accident (CVA) (5) Intellectual disability CHRISTOPHER DANIELS DO May 06, 2019 11:29
--- NOTE | 2019-05-06 12:38 | Speech Therapy Daily Note ---
Speech Daily Progress Note Subjective Date Seen by Provider: May 06, 2019 Time Seen by Provider: 00:30 Patient was resting in his recliner after finishing his PT session. Objective Patient completed a series of general information questions with 75% given 25% verbal cuing. Assessment Assessment Current Status: Fair Progress Treatment Plan Continue Plan of Care Speech Short Term Goals Short Term Goals Short Term Goals 1) Patient will complete memory tasks related to his daily needs at 80% or greater with minimal cues. 2) Patient will complete safety awareness tasks related to his daily needs at 80% or greater with minimal cues. 3) Patient will complete problem solving tasks related to his daily needs at 80% or greater with minimal cues. 4) Patient will complete speech production tasks to increase intelligibility at 80% or greater with minimal cues. Speech Installation And Service Technician Goals Installation And Service Technician Goals Patient will improve cognitive-communication necessary for safety and daily living tasks with minimal assist. Patient will increase his speech intelligibility to be an effective communicator of wants/needs. Speech-Plan Patient/Family Goals Patient/Family Goals: Patient plans on returning to his home upon discharge. Treatment Plan Speech Therapy Treatment Plan: Continue Plan of Care Patient's delay in responses has progressed. Treatment Duration: May 16, 2019 Frequency: 4 times per week Estimated Hrs Per Day: .5 hour per day Rehab Potential: Fair Barriers to Learning: Patient's cognitive deficits Pt/Family Agrees to Plan: Yes Safety Risks/Education Teaching Recipient: Patient Teaching Methods: Demonstration, Discussion Response to Teaching: Verbalize Understanding, Return Demonstration Education Topics Provided: Continued safety within his room. Time Speech Therapy Time In: 09:00 Speech Therapy Time Out: 09:30 Total Billed Time: 30 Billed Treatment Time 1, CHRIS Nesbitt May 06, 2019 12:38
--- NOTE | 2019-05-06 14:10 | Physical Therapy Daily Note ---
PT Daily Note-Current Subjective Patient in recliner pre tx, agrees to PT, has no complaints of pain. Appearance Patient in recliner post tx with nurse call, phone, tray, chair alarm on. Mental Status Patient Orientation: Person, Confused, Mumbles Transfers SCALE: Activities may be completed with or without assistive devices. 3-Qrnoynkiqg-wwgqrxy completes the activity by him/herself with no assistance from a helper. 5-Set-up or Clean-up Assistance-helper sets up or cleans up; patient completes activity. [place] assists only prior to or following the activity. 4-Supervision or Touching Assistance-helper provides verbal cues and/or t ouching/steadying and/or contact guard assistance as patient completes activity. Assistance may be provided throughout the activity or intermittently. 3-Partial/Moderate Assistance-helper does LESS THAN HALF the effort. [place] lifts, holds or supports trunk or limbs, but provides less than half the effort. 2-Substantial/Maximal Assistance-helper does MORE THAN HALF the effort. [place] lifts or holds trunk or limbs and provides more than half the effort. 3-Pthyrnemv-obsnim does ALL the effort. Patient does none of the effort to complete the activity. Or, the assistance of 2 or more helpers is required for the patient to complete the activity. If activity was not attempted, code reason: 7-Patient Refused. 9-Not Applicable-not attempted and the patient did not perform the activity before the current illness, exacerbation or injury. 10-Not Attempted due to Environmental Limitations-(lack of equipment, weather restraints, etc.). 88-Not Attempted due to Medical Conditions or Safety Concerns. Sit to Stand (QC): 4 Chair/Uoa-ha-Huqoy Xfer(QC): 3 Min assist with transfers, needs help guiding walker, festinates worse with transfers this afternoon, trouble initiating movement. Gait Training Distance: 200'x2 Walk 10 feet (QC): 3 Walk 50 ft with 2 Turns(QC): 3 Walk 150 ft (QC): 33 Gait Assistive Device: FWW Min assist to help guide walker around turns, cues for safety and direction, very slow ambulation. Treatments transfers, ambulation Assessment Current Status: Fair Progress poor safety awareness PT Short Term Goals Short Term Goals Time Frame: May 08, 2019 Roll Left & Right: 6 Sit to lyin Lying to sitting on side of be: 6 Sit to stand: 4 Chair/ilm-kn-bjwps transfer: 4 Toilet transfer: 4 Car transfer: 4 Walk 10 feet: 4 Walk 50 feet with two turns: 4 Walk 150 feet: 4 PT Longterm Goals Farm Reporter Goals PT Farm Reporter Goals Time Frame: May 22, 2019 Roll Left & Right (QC): 6 Sit to Lying (QC): 6 Lying-Sitting on Side/Bed(QC): 6 Sit to Stand (QC): 4 (SBA) Chair/Swu-xw-Vruqx Xfer(QC): 4 (SBA) Toilet Transfer (QC): 4 (SBA) Car Transfer (QC): 4 (SBA) Walk 10 feet (QC): 4 (SBA) Walk 50ft with 2 Turns (QC): 4 (SBA) Walk 150 ft (QC): 4 (SBA) Walking 10ft on Uneven Surface: 4 (SBA) 1 Step (curb) (QC): 4 (CGA) 4 Steps (QC): 4 (CGA) 12 Steps (QC): 88 Picking up an Object (QC): 88 Does the Pt use WC or Scooter?: No Type: N/A Type: N/A PT Plan Problem List Problem List: Activity Tolerance, Functional Strength, Safety, Balance, Gait, Transfer, Bed Mobility Treatment/Plan Treatment Plan: Continue Plan of Care Treatment Plan: Bed Mobility, Concurrent Therapy, Education, Functional Activity Flory, Functional Strength, Group Therapy, Gait, Safety, Therapeutic Exercise, Transfers Treatment Duration: May 22, 2019 Frequency: At least 5 of 7 days/Wk (IRF) Estimated Hrs Per Day: 1.5 hours per day Patient and/or Family Agrees t: Yes Safety Risks/Education Patient Education: Gait Training, Transfer Techniques, Correct Positioning, Safety Issues Teaching Recipient: Patient Teaching Methods: Demonstration, Discussion Response to Teaching: Reinforcement Needed Time/GCodes Time In: 1355 Time Out: 1410 Total Billed Treatment Time: 15 Total Billed Treatment 1 visit GT 15' SHANNA HARMON PT May 06, 2019 14:10
--- NOTE | 2019-05-06 15:14 | Cardiology Progress Note ---
Cardiology SOAP Progress Note Subjective: No cardiac complaints. Objective: I&O/Vital Signs 05/06/19 05/06/19 04:35 08:30 Temp 36.8 Pulse 69 Resp 18 B/P (MAP) 162/80 (107) Pulse Ox 99 O2 Delivery Room Air Room Air 05/06/19 00:00 Intake Total 600 ml Balance 600 ml Constitutional: AAO x 3 Respiratory: chest is bilaterally symmetric, lungs clear to auscultation Cardiovascular: regular rate-rhythm, S1 and S2, systolic murmur Gastrointestional: soft, audible bowel sounds Extremities: normal inspection, no lower extremity edema bilateral Neurologic/Psychiatric: no motor/sensory deficits, alert, oriented x 3 Skin: normal color A/P: Assessment/Dx: Acute CVA, LVH, hypertensive heart disease. Active smoking, Cardiomyopathy. Abnormal nuclear stress test. Plan: Plan: Acute CVA, unclear etiology. Negative carotid ultrasound for significant ca rotid disease. Echocardiogram shows mildly reduce LV systolic function with no clear evidence of intracardiac shunting. Telemetry for 24 hours is negative for atrial fibrillation. Continue telemetry for total of 48 hours if no atrial fibrillation consider implantable loop recorder. Due to mildly reduce LV systolic function, coronary evaluation is recommended however due to recent stroke, invasive cardiac procedures are deferred for at least 1 month. We can proceed with nuclear stress testing for risk stratification. Nuclear stress test was done on 05/01/2019 which showed small area of apical ischemia. Patient will likely require coronary angiography probably in a month. For now continue aspirin. OT/PT. Cardiomyopathy, unclear whether ischemic or nonischemic. Coronary angiography cannot be done in the setting of an acute stroke for at least 30 days. Treat with lisinopril and beta brad. Active smoking: Smoking cessation is strongly recommended. LVH, likely due to hypertensive heart disease. On lisinopril. Thank you for your consultation. Please call me if you have any questions. Spenser Rhodes MD, FACP, FACC, FSCAI, FHRS, CCDS Interventional Cardiology Cardiac Electrophysiology Vascular Medicine and Endovascular Interventions Ramandeep RHODES MD May 06, 2019 15:14
--- NOTE | 2019-05-06 16:58 | NUR ---
WEEKLY TEAM CONFERENCE SUMMARY Reviewed with patient and he is in agreement to a continued stay with review 05/14/19. He states he will return home with his significant other, Coty Lowry, that they have been together 25 years and he considers her his common law . Initial assessment completed by colleague, will explore what is needed regarding post hospital care plan. Indications are that Coty has her own health issues and will not be of assistance to patient. Additionally, patient is uninsured, difficult regarding in-home services of any kind like [facility] and certainly not SNF without at least Medicaid pending. They reside in [place]. Much exploring left to do.
[2019-05-06 18:00] VITALS: BP_SYST 106; BP_SYST 147; BP_DIAS 72; BP_DIAS 73
[2019-05-06] MEDS: MELATONIN 3 MG TABLET PO PRN (20:48)
[2019-05-06] MEDS: ENOXAPARIN 30 MG/0.3 ML (LOVENOX) SYR SC SCH (21:03)
[2019-05-07 05:58] VITALS: BP 165/73
[2019-05-07] MEDS: KCL 10 MEQ TAB (MICRO K) PO SCH (06:36)
--- NOTE | 2019-05-07 07:56 | Physical Therapy Daily Note ---
PT Daily Note-Current Subjective Pt agreeable to PT session. States doing "ok" this morning. Pain Numeric Pain Scale: 0-No Pain Appearance Pt sitting up in bed finishing breakfast upon arrival. Pt requesting and assisted to bathroom, min A with balance as pt unbuttoned/buttoned and unzipped/zipped jeans and while standing to urinate. At end of session, pt sitting upon in recliner with alarm activated, call light, phone and bedside table within reach. Mental Status Patient Orientation: Person, Time, Eyes Open, Mumbles (and very quiet speech) Pt stating he thinks he is in someone else's home and doesn't know why. Pt was oriented to place and situation. Transfers SCALE: Activities may be completed with or without assistive devices. 7-Bqrlssqkkz-dbunrsv completes the activity by him/herself with no assistance from a helper. 5-Set-up or Clean-up Assistance-helper sets up or cleans up; patient completes activity. [place] assists only prior to or following the activity. 4-Supervision or Touching Assistance-helper provides verbal cues and/or touching/steadying and/or contact guard assistance as patient completes activity. Assistance may be provided throughout the activity or intermittently. 3-Partial/Moderate Assistance-helper does LESS THAN HALF the effort. [place] lifts, holds or supports trunk or limbs, but provides less than half the effort. 2-Substantial/Maximal Assistance-helper does MORE THAN HALF the effort. [place] lifts or holds trunk or limbs and provides more than half the effort. 7-Dsseqwgfi-vjhmah does ALL the effort. Patient does none of the effort to complete the activity. Or, the assistance of 2 or more helpers is required for the patient to complete the activity. If activity was not attempted, code reason: 7-Patient Refused. 9-Not Applicable-not attempted and the patient did not perform the activity before the current illness, exacerbation or injury. 10-Not Attempted due to Environmental Limitations-(lack of equipment, weather restraints, etc.). 88-Not Attempted due to Medical Conditions or Safety Concerns. Sit to Stand (QC): 4 (CGA with skilled verb inst for safety and hand placement) Toilet Transfer (QC): 3 (min A for retro LOB, skilled verb inst for safety, balance correction and hand placement) Gait Training Does the Patient Walk?: Yes Distance: 200 x2 Walk 10 feet (QC): 4 Walk 50 ft with 2 Turns(QC): 4 Walk 150 ft (QC): 4 Gait Persons Needed: 1 Gait Assistive Device: FWW easily distracted requiring redirection, able to self correct and increase awareness to avoid running into objects with walker although requiring verb inst Exercises Standing: Marching (unilat UE support alt LE's touching bar with each knee), Sit to Stand, Side steps, Stepping over objects, Unilateral stance, Weight shifts Standing Reps: 10 (x2) LOB during standing ex's and NM [id number] requiring min A to correct NuStep Minutes: 11 NuStep Workload: 5 (seat 5, arms 6) Neuromuscular standing dynamic balance activities at EOB, toilet, sink and // bars Treatments education, safety, bed mobility, donning jeans at EOB, transfers, gait, dynamic standing balance at EOB, in front of toilet, at sink, strength, balance, functional mobility, activity tolerance Assessment easily distracted requiring redirection, improving on self correction avoiding objects with walker during gait with verb inst PT Short Term Goals Short Term Goals Time Frame: May 08, 2019 Roll Left & Right: 6 Sit to lyin Lying to sitting on side of be: 6 Sit to stand: 4 Chair/zrk-hl-aejrk transfer: 4 Toilet transfer: 4 Car transfer: 4 Walk 10 feet: 4 Walk 50 feet with two turns: 4 Walk 150 feet: 4 PT Skilled Nursing Goals Vulcanizing Press Operator Goals PT Skilled Nursing Goals Time Frame: May 22, 2019 Roll Left & Right (QC): 6 Sit to Lying (QC): 6 Lying-Sitting on Side/Bed(QC): 6 Sit to Stand (QC): 4 (SBA) Chair/Cyr-il-Hziye Xfer(QC): 4 (SBA) Toilet Transfer (QC): 4 (SBA) Car Transfer (QC): 4 (SBA) Walk 10 feet (QC): 4 (SBA) Walk 50ft with 2 Turns (QC): 4 (SBA) Walk 150 ft (QC): 4 (SBA) Walking 10ft on Uneven Surface: 4 (SBA) 1 Step (curb) (QC): 4 (CGA) 4 Steps (QC): 4 (CGA) 12 Steps (QC): 88 Picking up an Object (QC): 88 Does the Pt use WC or Scooter?: No Type: N/A Type: N/A PT Plan Treatment/Plan Treatment Plan: Continue Plan of Care Treatment Plan: Bed Mobility, Concurrent Therapy, Education, Functional Activity Flory, Functional Strength, Group Therapy, Gait, Safety, Therapeutic Exercise, Transfers Treatment Duration: May 22, 2019 Frequency: At least 5 of 7 days/Wk (IRF) Estimated Hrs Per Day: 1.5 hours per day Patient and/or Family Agrees t: Yes Safety Risks/Education Patient Education: Gait Training, Transfer Techniques, Correct Positioning, Safety Issues Teaching Recipient: Patient Teaching Methods: Demonstration, Discussion Response to Teaching: Unable to Return Demonstration, Return Demonstration, Reinforcement Needed Time/GCodes Time In: 750 Time Out: 850 Total Billed Treatment Time: 60 Total Billed Treatment 1 visit, EX x15 min, GT x10 min, FA x15 min, NM x20 min HEIDI HURST PTA May 07, 2019 07:56
[2019-05-07 09:44] VITALS: BP 152/76
[2019-05-07] MEDS: POLYETHYLENE GLYCOL 17 GM (MIRALAX) PACK PO SCH ×3 (09:45→21:20)
[2019-05-07] MEDS: ASPIRIN E.C. 325 MG (ECOTRIN) TABLET PO SCH (09:45)
[2019-05-07] MEDS: SENNA W/DOCUSATE (SENOKOT S) TABLET PO SCH ×3 (09:45→10:13)
[2019-05-07] MEDS: lisINopril 20 MG (PRINIVIL) TABLET PO SCH (09:46)
[2019-05-07] MEDS: meTOprolol TARTRATE 25 MG (LOPRESSOR) TABLET PO SCH ×2 (09:46→21:20)
--- NOTE | 2019-05-07 11:57 | PM&R Progress Note ---
Subjective HPI/CC On Admission Date Seen by Provider: May 07, 2019 Time Seen by Provider: 12:00 Subjective/Events-last exam Patient very impulsive when walking and major fall risk Needs intermediate placement at DC Recheck next week but start finding disposition location Cardiology appreciated Conferred with motor vehicles inspector therapy notes Checked meds and labs Review of Systems Neurological: Confusion Objective Exam Vital Signs Vital Signs Date Time Temp Pulse Resp B/P (MAP) Pulse Ox O2 Delivery O2 Flow Rate FiO2 05/07/19 16:00 36.2 85 20 113/70 (84) 97 Room Air 05/05/19 09:14 21 Capillary Refill : Less Than 3 Seconds General Appearance: No Apparent Distress, WD/WN, Chronically ill, Thin HEENT: PERRL/EOMI, Normal ENT Inspection, Pharynx Normal Neck: Full Range of Motion, Normal Inspection, Non Tender, Supple, Carotid Bruit Respiratory: Chest Non Tender, Lungs Clear, Normal Breath Sounds, No Accessory Muscle Use, No Respiratory Distress Cardiovascular: Regular Rate, Rhythm, No Edema, No Gallop, No JVD, Normal Peripheral Pulses, Systolic Murmur Gastrointestinal: Normal Bowel Sounds, No Organomegaly, No Pulsatile Mass, Non Tender, Soft Back: Normal Inspection, No CVA Tenderness, No Vertebral Tenderness Extremity: Normal Capillary Refill, Normal Inspection, Normal Range of Motion, Non Tender, No Calf Tenderness, No Pedal Edema Neurologic/Psychiatric: Alert, Oriented x3, press hand II-XII Norm as Tested, Abnormal Gait, Aphasia, Depressed Affect, Disoriented, Motor Weakness (generalized right greater than left upper and lower manzanares maneuvers) Skin: Normal Color, Warm/Dry Lymphatic: No Adenopathy Results/Procedures Lab Patient resulted labs reviewed. FIM Transfers Therapy Code Descriptions/Definitions Functional [place] Measure: 0=Not Assessed/NA 4=Minimal Assistance 1=Total Assistance 5=Supervision or Setup 2=Maximal Assistance 6=Modified [place] 3=Moderate Assistance 7=Complete IndependenceSCALE: Activities may be completed with or without assistive devices. 8-Ktwfewowev-kpxjzta completes the activity by him/herself with no assistance from a helper. 5-Set-up or Clean-up Assistance-helper sets up or cleans up; patient completes activity. [place] assists only prior to or following the activity. 4-Supervision or Touching Assistance-helper provides verbal cues and/or touching/steadying and/or contact guard assistance as patient completes activity. Assistance may be provided throughout the activity or intermittently. 3-Partial/Moderate Assistance-helper does LESS THAN HALF the effort. [place] lifts, holds or supports trunk or limbs, but provides less than half the effort. 2-Substantial/Maximal Assistance-helper does MORE THAN HALF the effort. [place] lifts or holds trunk or limbs and provides more than half the effort. 3-Vchkmigme-qjlkfe does ALL the effort. Patient does none of the effort to complete the activity. Or, the assistance of 2 or more helpers is required for the patient to complete the activity. If activity was not attempted, code reason: 7-Patient Refused. 9-Not Applicable-not attempted and the patient did not perform the activity before the current illness, exacerbation or injury. 10-Not Attempted due to Environmental Limitations-(lack of equipment, weather restraints, etc.). 88-Not Attempted due to Medical Conditions or Safety Concerns. Roll Left to Right (QC): 6 Sit to Lying (QC): 6 Sit to Stand (QC): 4 Chair/Ywl-bg-Kbczd Xfer(QC): 3 Car Transfer (QC): 3 Gait Training Does the Patient Walk?: Yes Distance: 200'x2 Walk 10 feet (QC): 3 Walk 50 ft with 2 Turns(QC): 3 Walk 150 ft (QC): 33 Walking 10ft/uneven surface-QC: 3 Gait Persons Needed: 1 Gait Assistive Device: FWW Wheelchair Training Does the Pt Use a Wheelchair?: No Type of Wheelchair: N/A Stair Training 1 Step (curb) (QC): 88 4 Steps (QC): 88 12 Steps (QC): 88 Balance Picking up an Object (QC): 88 ADL-Treatment Eating (QC): 6 Oral Hygiene (QC): 7 Bathing Location: L Arm, R Arm, L Upper Leg, R Upper Leg, L Lower Leg (including foot), R Lower Leg (including foot), Chest, Abdomen, Perineal Area Shower/Bathe Self (QC): 7 Upper Body Dressing (QC): 7 Lower Body Dressing (QC): 7 On/Off Footwear (QC): 4 (cues for positioning for easier donning/ doffing of socks. ) Toileting Hygiene (QC): 4 (CGA for urination) Toilet Transfer (QC): 4 (CGA, pt utilizes FWW to stand over toilet. Pt stands without hands on walker, able to maintain balance wihtout OT assist, pt requires min A to maintain balance while walking backwards with FWW. Pt practices walking forward/ backward with FWW during session toward EOM. Pt completes toileting at end of session again, requires min A once more to ambulate safely from toilet backwards with FWW.) Assessment/Plan Assessment and Plan Assess & Plan/Chief Complaint Assessment: Subacute stroke presented 5 days after neurological deficit Smoker Cachexia Cognitive deficit Plan: Incentive spirometer Mat protocol Statin Aspirin Cardiology evaluation is appreciated Inpatient rehabilitation protocol Needs intermediate at discharge (1) Left pontine cerebrovascular accident Status: Acute (2) Aphasia (3) Smoker (4) Cognitive deficit as late effect of cerebrovascular accident (CVA) (5) Intellectual disability CHRISTOPHER DANIELS DO May 07, 2019 11:57
--- NOTE | 2019-05-07 12:14 | Occupational Ther Daily Note ---
OT Current Status-Daily Note Subjective Pt sitting in chair, agrees to treatment. Pt has no c/o pain. ADL-Treatment Pt refused shower this morning, but agrees to sponge bath. Gait to restroom with FWW, cues for safety and walker use. Pt sat at sink for ADL tasks. Pt doffed shirt with SBA. Upper body bathing completed with SBA and increased time. Cues for sequencing and task completion. Pt donned shirt with SBA and increased time. Pt partially washed lower body. Refused to doff socks or underwear for hygiene. Requires CGA for balance during clothing management. Pt combed hair with SBA. Pt moves slowly and requires increased time for ADL completion. Therapy Code Descriptions/Definitions Functional [place] Measure: 0=Not Assessed/NA 4=Minimal Assistance 1=Total Assistance 5=Supervision or Setup 2=Maximal Assistance 6=Modified [place] 3=Moderate Assistance 7=Complete IndependenceSCALE: Activities may be completed with or without assistive devices. 8-Gykxtbsurq-vtqwdhq completes the activity by him/herself with no assistance from a helper. 5-Set-up or Clean-up Assistance-helper sets up or cleans up; patient completes activity. [place] assists only prior to or following the activity. 4-Supervision or Touching Assistance-helper provides verbal cues and/or touching/steadying and/or contact guard assistance as patient completes activity. Assistance may be provided throughout the activity or intermittently. 3-Partial/Moderate Assistance-helper does LESS THAN HALF the effort. [place] lifts, holds or supports trunk or limbs, but provides less than half the effort. 2-Substantial/Maximal Assistance-helper does MORE THAN HALF the effort. [place] lifts or holds trunk or limbs and provides more than half the effort. 8-Ovyothifp-ulfggm does ALL the effort. Patient does none of the effort to complete the activity. Or, the assistance of 2 or more helpers is required for the patient to complete the activity. If activity was not attempted, code reason: 7-Patient Refused. 9-Not Applicable-not attempted and the patient did not perform the activity before the current illness, exacerbation or injury. 10-Not Attempted due to Environmental Limitations-(lack of equipment, weather restraints, etc.). 88-Not Attempted due to Medical Conditions or Safety Concerns. Upper Body Dressing (QC): 4 Other Treatment Gait to therapy gym with FWW. Pt requires cues for safety. Pt completed UE activity while standing to increase balance and activity tolerance for f unctional tasks. Pt requires supervision for balance. One seated rest break taken during activity. Pt completed fine motor task with bilateral hands to increase coordination/manipulation skills. Pt completed task with increased time. Pt returned to room, sitting in chair with needs met, chair alarm in place, and telesitter in room after session. Education OT Patient Education: Safety issues Teaching Recipient: Patient Teaching Methods: Discussion Response to Teaching: Reinforcement Needed OT Short Term Goals Short Term Goals Upper body dressin (met) Lower body dressin OT Nursing Home Goals Nursing Home Goals Time Frame: May 15, 2019 Eating (QC): 6 Oral Hygiene (QC): 6 Toileting Hygiene (QC): 6 Shower/Bathe Self (QC): 6 Upper Body Dressing (QC): 6 (met) Lower Body Dressing (QC): 6 On/Off Footwear (QC): 6 Additional Goals: 1-Demonstrate ADL Tasks, 2-Verbalize Understanding, 3-Im proveStrength/Flory 1=Demonstrate adherence to instructed precautions during ADL tasks. 2=Patient will verbalize/demonstrate understanding of assistive devices/modifications for ADL. 3=Patient will improve strength/tolerance for activity to enable patient to perform ADL's. OT Education/Plan Discharge Recommendations Plan/Recommendations: Continue POC Treatment Plan/Plan of Care Patient would benefit from OT for education, treatment and training to promote independence in ADL's, mobility, safety and/or upper extremity function for ADL's. Plan of Care: ADL Retraining, Caregiver Training, Cognitive Retraining, Concurrent Therapy, Functional Mobility, Group Exercise/Act as Ind, UE Funct Exercise/Act, UE Neuromus Re-Ed/Coord Treatment Duration: May 15, 2019 Frequency: At least 5 of 7 days/Wk (IRF) Estimated Hrs Per Day: 1.5 hours per day Agreement: Yes Rehab Potential: Fair Time/GCodes Start Time: 09:00 Stop Time: 10:00 Total Time Billed (hr/min): 60 Billed Treatment Time 1 visit, ADLx2(30minutes), FAx2(30minutes) VI HOLLY OT May 07, 2019 12:14
--- NOTE | 2019-05-07 14:14 | Therapy Group Daily Note ---
Therapy Daily Group Note Patient Education Topic Exercises Exercises LE Seated Exercise, UE Exercise Session Ratio (pt:therapist): 4:1 Goal of Session: UE/LE Strengthing Goal Met for this Session: Yes Pt Benefit of Group: Contributions to Others, Increased Functional Strength, Improved Cognition, Recognition of Peers, Socialization Other/Notes Pt ambulated to therapy gym using FWW for OT/PT group. Group consisted of introductions (name, place living, longest kept resolution), socialization, UE/LE seated exercises, B UE activity working on critical thinking and problem solving. Pt introduced self with verbal cues appropriately and actively listened to peers. Pt was able to follow directions to complete UE/LE seated exercises. Pt was able to read and follow directions on B UE activity. Pt did required minimal cues to complete instructions. After therapy, pt sitting in recliner with call [facility]/phone in reach. All needs met in room. Start Time: 12:30 Stop Time: 13:45 Total Billed Treatment Time: 75 Total Billed Treatment 1-DEMETRIUS ARELLANO May 07, 2019 14:14
[2019-05-07 16:00] VITALS: BP 113/70
--- NOTE | 2019-05-07 16:26 | Cardiology Progress Note ---
Cardiology SOAP Progress Note Subjective: No cardiac complaints. Objective: I&O/Vital Signs 05/07/19 05/07/19 05/07/19 05:58 08:45 09:44 Temp 36.3 Pulse 75 78 Resp 16 20 B/P (MAP) 165/73 (103) 152/76 (101) Pulse Ox 98 99 O2 Delivery Room Air Room Air Room Air 05/07/19 00:00 Intake Total 860 ml Balance 860 ml Constitutional: AAO x 3 Respiratory: chest is bilaterally symmetric, lungs clear to auscultation Cardiovascular: regular rate-rhythm, S1 and S2, systolic murmur Gastrointestional: soft, audible bowel sounds Extremities: normal inspection, no lower extremity edema bilateral Neurologic/Psychiatric: no motor/sensory deficits, alert, oriented x 3 Skin: normal color A/P: Assessment/Dx: Acute CVA, LVH, hypertensive heart disease. Active smoking, Cardiomyopathy. Abnormal nuclear stress test. Plan: Plan: Acute CVA, unclear etiology. Negative carotid ultrasound for significant carotid disease. Echocardiogram shows mildly reduce LV systolic function with no clear evidence of intracardiac shunting. Telemetry for 24 hours is negative for atrial fibrillation. Continue telemetry for total of 48 hours if no atrial fibrillation consider implantable loop recorder. Due to mildly reduce LV systolic function, coronary evaluation is recommended however due to recent stroke, invasive cardiac procedures are deferred for at least 1 month. We can proceed with nuclear stress testing for risk stratification. Nuclear stress test was done on 05/01/2019 which showed small area of apical ischemia. Patient will likely require coronary angiography probably in a month. For now continue aspirin. OT/PT. Cardiomyopathy, unclear whether ischemic or nonischemic. Coronary angiography cannot be done in the setting of an acute stroke for at least 30 days. Treat with lisinopril and beta brad. Active smoking: Smoking cessation is strongly recommended. LVH, likely due to hypertensive heart disease. On lisinopril. Thank you for your consultation. Please call me if you have any questions. Spenser Rhodes MD, FACP, FACC, FSCAI, FHRS, CCDS Interventional Cardiology Cardiac Electrophysiology Vascular Medicine and Endovascular Interventions Ramandeep RHODES MD May 07, 2019 16:26
[2019-05-07 18:00] VITALS: BP 113/70
[2019-05-07] MEDS: ENOXAPARIN 30 MG/0.3 ML (LOVENOX) SYR SC SCH (21:20)
[2019-05-08 06:01] VITALS: BP 137/71
[2019-05-08] MEDS: KCL 10 MEQ TAB (MICRO K) PO SCH (06:16)
[2019-05-08 09:15] VITALS: BP_SYST 165; BP_SYST 94; BP_DIAS 69; BP_DIAS 75
[2019-05-08] MEDS: lisINopril 20 MG (PRINIVIL) TABLET PO SCH (09:23)
[2019-05-08] MEDS: meTOprolol TARTRATE 25 MG (LOPRESSOR) TABLET PO SCH ×2 (09:23→20:25)
[2019-05-08] MEDS: ASPIRIN E.C. 325 MG (ECOTRIN) TABLET PO SCH (09:23)
[2019-05-08] MEDS: POLYETHYLENE GLYCOL 17 GM (MIRALAX) PACK PO SCH ×2 (09:24→20:26)
[2019-05-08] MEDS: SENNA W/DOCUSATE (SENOKOT S) TABLET PO SCH ×2 (09:24→20:27)
--- NOTE | 2019-05-08 10:08 | NUR ---
Telesitter alarmed as pt was attempting to stand unassisted. Assisted pt to toilet w gait belt, FWW, re-direction w ambulation. Pt gets distracted very easily when ambulating, stops walking, looks around, to his sides, then proceeds. Walks slowly, loses balance when backing up from the toilet. Nursing staff spent 15 minutes w pt at this time. Asked pt if he wanted Nicotine patch on, as was ordered prn ? Pt states, "yeh, if that would help keep me from wanting to smoke." Pt states that he does not plan on stopping smoking when he is discharged. Pt states that, "smoking didn't have anything to do w my heart." Attempted to provide instructions re: smoking to pt, pt states that he didn't want to hear it. Notified Dr. Goldsmith that Nicotine patch was ordered prn, that pt is receptive to using it. Rec'd order to schedule it daily.
--- NOTE | 2019-05-08 10:56 | Occupational Ther Daily Note ---
OT Current Status-Daily Note Subjective Pt seen in bed, hesitantly agreeable to OT tx session this morning. Pt denies ADLs, stating he showered previous day. Pt agreeable to exercises within gym, denies pain. ADL-Treatment Therapy Code Descriptions/Definitions Functional [place] Measure: 0=Not Assessed/NA 4=Minimal Assistance 1=Total Assistance 5=Supervision or Setup 2=Maximal Assistance 6=Modified [place] 3=Moderate Assistance 7=Complete IndependenceSCALE: Activities may be completed with or without assistive devices. 6-Gzbpyequzb-mkrygta completes the activity by him/herself with no assistance from a helper. 5-Set-up or Clean-up Assistance-helper sets up or cleans up; patient completes activity. [place] assists only prior to or following the activity. 4-Supervision or Touching Assistance-helper provides verbal cues and/or touching/steadying and/or contact guard assistance as patient completes activity. Assistance may be provided throughout the activity or intermittently. 3-Partial/Moderate Assistance-helper does LESS THAN HALF the effort. [place] lifts, holds or supports trunk or limbs, but provides less than half the effort. 2-Substantial/Maximal Assistance-helper does MORE THAN HALF the effort. [place] lifts or holds trunk or limbs and provides more than half the effort. 5-Sheizejdt-bhgvbz does ALL the effort. Patient does none of the effort to complete the activity. Or, the assistance of 2 or more helpers is required for the patient to complete the activity. If activity was not attempted, code reason: 7-Patient Refused. 9-Not Applicable-not attempted and the patient did not perform the activity before the current illness, exacerbation or injury. 10-Not Attempted due to Environmental Limitations-(lack of equipment, weather restraints, etc.). 88-Not Attempted due to Medical Conditions or Safety Concerns. Eating (QC): 6 Oral Hygiene (QC): 7 Shower/Bathe Self (QC): 7 Upper Body Dressing (QC): 7 Lower Body Dressing (QC): 7 On/Off Footwear: 7 Toileting Hygiene (QC): 4 (CGA in stance at FWW over toilet.) Toilet Transfer (QC): 4 (CGA) Other Treatment Pt completes bed mob with IND, sit to stand to FWW with SBA. Pt gathers clothing from closet to complete laundry routine. Pt remembers direction to get to laundry room, min cues for correct room once down correct corridor. Pt compeltes laundry task with min A for problem solving. Ambulates to gym with FWW and cues to maintain feet inside FWW as pt tends to forward flex and push FWW in front of him. Pt corrects self, requires an additional cue later through session. Pt completes standing and sitting balance tasks EOM. Pt reaches in different planes and utilizes BUE to gather objects while in standing. CGA due to decreased balance with ~2 instances of OT assisting pt's posture/ center of gravity. Pt completes UE/ core exercises EOM with weighted bar (2# with 4# weights attached). Pt completes forward shoulder flexion, bicep curls, and trunk rotations. Pt completes 10 min of arm bike with 2 breaks (25 watt resistance). Pt able to manipulate packages for coffee (creamer and sugar) with minimal spillage, pt states hands cramping post-fine motor activity. Pt sit to stand and ambulates to room, requests bathroom. Cues for safety with use of FWW at toilet. Pt completes, sits in recliner chair end of session with all needs met, call light in reach, chair alarm on. Education OT Patient Education: Correct positioning, Exercise program, Modified ADL techniques, Purpose of tx/functional activities, Safety issues, Transfer techniques Teaching Recipient: Patient Teaching Methods: Demonstration, Discussion Response to Teaching: Verbalize Understanding, Return Demonstration, Reinforcement Needed OT Short Term Goals Short Term Goals Upper body dressin (met) Lower body dressin OT [place] Goals [place] Goals Time Frame: May 15, 2019 Eating (QC): 6 Oral Hygiene (QC): 6 Toileting Hygiene (QC): 6 Shower/Bathe Self (QC): 6 Upper Body Dressing (QC): 6 (met) Lower Body Dressing (QC): 6 On/Off Footwear (QC): 6 Additional Goals: 1-Demonstrate ADL Tasks, 2-Verbalize Understanding, 3-ImproveStrength/Fl[place] 1=Demonstrate adherence to instructed precautions during ADL tasks. 2=Patient will verbalize/demonstrate understanding of assistive devices/modifications for ADL. 3=Patient will improve strength/tolerance for activity to enable patient to perform ADL's. OT Education/Plan Problem List/Assessment Assessment: Decreased Activ Tolerance, Decreased Safety Aware, Decreased UE Strength, Impaired Cognition, Impaired Funct Balance, Impaired I ADL's, Impaired Self-Care Skills Discharge Recommendations Plan/Recommendations: Continue POC Treatment Plan/Plan of Care Treatment,Training & Education: Yes Patient would benefit from OT for education, treatment and training to promote independence in ADL's, mobility, safety and/or upper extremity function for ADL's. Plan of Care: ADL Retraining, Caregiver Training, Cognitive Retraining, Concurrent Therapy, Functional Mobility, Group Exercise/Act as Ind, UE Funct Exercise/Act, UE Neuromus Re-Ed/Coord Treatment Duration: May 15, 2019 Frequency: At least 5 of 7 days/Wk (IRF) Estimated Hrs Per Day: 1.5 hours per day Agreement: Yes Rehab Potential: Fair Time/GCodes Start Time: 08:00 Stop Time: 09:15 Total Time Billed (hr/min): 75 Billed Treatment Time 1, ADL (15), EX 4 (60)= 75 LIS MARTINEZ OTR May 08, 2019 10:56
--- NOTE | 2019-05-08 11:02 | PM&R Progress Note ---
Subjective HPI/CC On Admission Date Seen by Provider: May 08, 2019 Time Seen by Provider: 10:30 Subjective/Events-last exam Bladder scan okay but he goes to the bathroom about every hour at night Nicotine patch maintained Needs senior care at [place] angiogram obtained due to BP differences in arms Conferred with residential interior designer therapy notes Checked meds and labs Review of Systems General: Fatigue Objective Exam Vital Signs Vital Signs Date Time Temp Pulse Resp B/P (MAP) Pulse Ox O2 Delivery O2 Flow Rate FiO2 05/08/19 16:48 36.4 81 20 163/79 (107) 99 Room Air 05/05/19 09:14 21 Capillary Refill : Less Than 3 Seconds General Appearance: No Apparent Distress, WD/WN, Chronically ill, Thin HEENT: PERRL/EOMI, Normal ENT Inspection, Pharynx Normal Neck: Full Range of Motion, Normal Inspection, Non Tender, Supple, Carotid Bruit Respiratory: Chest Non Tender, Lungs Clear, Normal Breath Sounds, No Accessory Muscle Use, No Respiratory Distress Cardiovascular: Regular Rate, Rhythm, No Edema, No Gallop, No JVD, Normal Peripheral Pulses, Systolic Murmur Gastrointestinal: Normal Bowel Sounds, No Organomegaly, No Pulsatile Mass, Non Tender, Soft Back: Normal Inspection, No CVA Tenderness, No Vertebral Tenderness Extremity: Normal Capillary Refill, Normal Inspection, Normal Range of Motion, Non Tender, No Calf Tenderness, No Pedal Edema Neurologic/Psychiatric: Alert, Oriented x3, chief deputy court clerk II-XII Norm as Tested, Abnormal Gait, Aphasia, Depressed Affect, Disoriented, Motor Weakness (generalized right greater than left upper and lower manzanares maneuvers) Skin: Normal Color, Warm/Dry Lymphatic: No Adenopathy Results/Procedures Lab Patient resulted labs reviewed. FIM Transfers Therapy Code Descriptions/Definitions Functional [place] Measure: 0=Not Assessed/NA 4=Minimal Assistance 1=Total Assistance 5=Supervision or Setup 2=Maximal Assistance 6=Modified [place] 3=Moderate Assistance 7=Complete IndependenceSCALE: Activities may be completed with or without assistive devices. 8-Ylitysnvdf-yxriftr completes the activity by him/herself with no assistance from a helper. 5-Set-up or Clean-up Assistance-helper sets up or cleans up; patient completes activity. [place] assists only prior to or following the activity. 4-Supervision or Touching Assistance-helper provides verbal cues and/or touching/steadying and/or contact guard assistance as patient completes activity. Assistance may be provided throughout the activity or intermittently. 3-Partial/Moderate Assistance-helper does LESS THAN HALF the effort. [place] lifts, holds or supports trunk or limbs, but provides less than half the effort. 2-Substantial/Maximal Assistance-helper does MORE THAN HALF the effort. [place] lifts or holds trunk or limbs and provides more than half the effort. 7-Kkppsihgq-ouvxed does ALL the effort. Patient does none of the effort to complete the activity. Or, the assistance of 2 or more helpers is required for the patient to complete the activity. If activity was not attempted, code reason: 7-Patient Refused. 9-Not Applicable-not attempted and the patient did not perform the activity before the current illness, exacerbation or injury. 10-Not Attempted due to Environmental Limitations-(lack of equipment, weather restraints, etc.). 88-Not Attempted due to Medical Conditions or Safety Concerns. Roll Left to Right (QC): 6 Sit to Lying (QC): 6 Sit to Stand (QC): 4 (CGA with skilled verb inst for safety and hand placement) Chair/Vty-fd-Xfllf Xfer(QC): 3 Car Transfer (QC): 3 Gait Training Does the Patient Walk?: Yes Distance: 200 x2 Walk 10 feet (QC): 4 Walk 50 ft with 2 Turns(QC): 4 Walk 150 ft (QC): 4 Walking 10ft/uneven surface-QC: 3 Gait Persons Needed: 1 Gait Assistive Device: FWW Wheelchair Training Does the Pt Use a Wheelchair?: No Type of Wheelchair: N/A Stair Training 1 Step (curb) (QC): 88 4 Steps (QC): 88 12 Steps (QC): 88 Balance Picking up an Object (QC): 88 ADL-Treatment Eating (QC): 6 Oral Hygiene (QC): 7 Bathing Location: L Arm, R Arm, L Upper Leg, R Upper Leg, L Lower Leg (including foot), R Lower Leg (including foot), Chest, Abdomen, Perineal Area Shower/Bathe Self (QC): 7 Upper Body Dressing (QC): 7 Lower Body Dressing (QC): 7 On/Off Footwear (QC): 7 Toileting Hygiene (QC): 4 (CGA in stance at W over toilet.) Toilet Transfer (QC): 4 (CGA) Assessment/Plan Assessment and Plan Assess & Plan/Chief Complaint Assessment: Subacute stroke presented 5 days after neurological deficit Smoker Cachexia Cognitive deficit Plan: Incentive spirometer Mat protocol Statin Aspirin CT scan Cardiology evaluation is appreciated Inpatient rehabilitation protocol Needs senior care at discharge (1) Left pontine cerebrovascular accident Status: Acute (2) Aphasia (3) Smoker (4) Cognitive deficit as late effect of cerebrovascular accident (CVA) (5) Intellectual disability CHRISTOPHER DANIELS DO May 08, 2019 11:02
--- NOTE | 2019-05-08 12:33 | Speech Therapy Daily Note ---
Speech Daily Progress Note Subjective Date Seen by Provider: May 08, 2019 Time Seen by Provider: 00:30 Patient was resting in his recliner following his OT session this am. Objective Patient completed a series of problem tasks with scenario cards at 80% with 20% cues. Assessment Assessment Current Status: Good Progress Treatment Plan Continue Plan of Care Speech Short Term Goals Short Term Goals Short Term Goals 1) Patient will complete memory tasks related to his daily needs at 80% or greater with minimal cues. 2) Patient will complete safety awareness tasks related to his daily needs at 80% or greater with minimal cues. 3) Patient will complete problem solving tasks related to his daily needs at 80% or greater with minimal cues. 4) Patient will complete speech production tasks to increase intelligibility at 80% or greater with minimal cues. Speech Pediatric Licensed Practical Nurse Goals Pediatric Licensed Practical Nurse Goals Patient will improve cognitive-communication necessary for safety and daily living tasks with minimal assist. Patient will increase his speech intelligibility to be an effective communicator of wants/needs. Speech-Plan Patient/Family Goals Patient/Family Goals: Patient plans on returning to his home where he lives with his girlfriend. Treatment Plan Speech Therapy Treatment Plan: Continue Plan of Care Patient's level of function has increased. Treatment Duration: May 16, 2019 Frequency: 4 times per week Estimated Hrs Per Day: .5 hour per day Rehab Potential: Fair Barriers to Learning: Patient's cognitive deficits, recent CVA Pt/Family Agrees to Plan: Yes Safety Risks/Education Teaching Recipient: Patient Teaching Methods: Demonstration, Discussion Response to Teaching: Verbalize Understanding, Return Demonstration Education Topics Provided: Continued safety and communication of wants/needs Time Speech Therapy Time In: 10:00 Speech Therapy Time Out: 10:30 Total Billed Time: 30 Billed Treatment Time 1ANNELISE BETHANIA ST May 08, 2019 12:33
--- NOTE | 2019-05-08 14:19 | NUR ---
"RD ASSESSMENT PMHx: CVA PT INTERACTION: Pt was awake and pleasant during nutrition follow-up. Pt states he has been eating well since last assessment. Note avg PO intake of 59% x4d, per chart review. Pt states tolerating current supplement order of Ensure Enlive with meals BID. Pt states no recent issues with n/v/c/d since last assessment. Note last BM was 05/06 and pt currently on bowel regimen of senna BID; and miralax BID, per chart review. ABNORMAL NUTRITION-RELATED LAB VALUES TAKEN 05/05/19 LOW: HIGH: BUN 21 Est. kcal needs: 1381-4219 kcal | 30-35 kcal/kg Est. Pro needs: 58-67 g Pro | 1.2-1.4 g Pro/kg PES STATEMENT: Inadequate oral intake (NI-2.1) related to loss of appetite as evidenced by pt interview | avg PO intake 59% x4d INTERVENTION: Continue with current diet order of Regular diet. Continue with current supplementation order of Ensure Enlive with meals BID. Provides 350 kcal and 13 g Pro per serving. Will continue to follow and reassess as pt needs and status change. MONITOR/EVALUATE: PO Intake; Plan of Care; Hydration Status; Weight Status; Lab Values Matthew Sethi, MS, RD, LD"
[2019-05-08 15:03] VITALS: BP 94/69
--- NOTE | 2019-05-08 15:20 | Cardiology Progress Note ---
Cardiology SOAP Progress Note Subjective: No cardiac complaints Objective: I&O/Vital Signs 05/08/19 05/08/19 05/08/19 05/08/19 06:01 08:36 09:15 13:40 Temp 36.6 Pulse 69 98 Resp 18 20 B/P (MAP) 137/71 (93) 165/75 (105) 94/69 (77) Pulse Ox 99 99 O2 Delivery Room Air Room Air Room Air Room Air 05/08/19 15:03 Temp 36.6 Pulse 97 Pulse Ox 98 05/07/19 23:59 Intake Total 1050 ml Balance 1050 ml Constitutional: AAO x 3 Respiratory: chest is bilaterally symmetric, lungs clear to auscultation Cardiovascular: regular rate-rhythm, S1 and S2, systolic murmur Gastrointestional: soft, audible bowel sounds Extremities: normal inspection, no lower extremity edema bilateral Neurologic/Psychiatric: no motor/sensory deficits, alert, oriented x 3 Skin: normal color A/P: Assessment/Dx: Acute CVA, LVH, hypertensive heart disease. Active smoking, Cardiomyopathy. Abnormal nuclear stress test. Differential BP in upper extremities Plan: Plan: Acute CVA, unclear etiology. Negative carotid ultrasound for significant carotid disease. Echocardiogram shows mildly reduce LV systolic function with no clear evidence of intracardiac shunting. Telemetry for 24 hours is negative for atrial fibrillation. Continue telemetry for total of 48 hours if no atrial fibrillation consider implantable loop recorder. Due to mildly reduce LV systol ic function, coronary evaluation is recommended however due to recent stroke, invasive cardiac procedures are deferred for at least 1 month. We can proceed with nuclear stress testing for risk stratification. Nuclear stress test was done on 05/01/2019 which showed small area of apical ischemia. Patient will likely require coronary angiography probably in a month. For now continue aspirin. OT/PT. Cardiomyopathy, unclear whether ischemic or nonischemic. Coronary angiography cannot be done in the setting of an acute stroke for at least 30 days. Treat with lisinopril and beta brad. Active smoking: Smoking cessation is strongly recommended. LVH, likely due to hypertensive heart disease. On lisinopril. Right UE systolic BP 95mmhg, Left UE systolic BP 165 mmhg - r/o subclavian stenosis with CTA Chest. Thank you for your consultation. Please call me if you have any questions. Spenser Rhodes MD, FACP, FACC, FSCAI, FHRS, CCDS Interventional Cardiology Cardiac Electrophysiology Vascular Medicine and Endovascular Interventions Ramandeep RHODES MD May 08, 2019 3:20 pm
--- NOTE | 2019-05-08 15:22 | Physical Therapy Daily Note ---
PT Daily Note-Current Subjective Pt agreeable to PT session but requiring encouragement. Pain Numeric Pain Scale: 0-No Pain Appearance 1st session: Pt sitting up in recliner awake and alert upon arrival. Pt requesting and assisted to bathroom. At end of session, pt sitting up in chair with alarm activated, call light, phone and bedside table within reach. 2nd session: Pt sitting up in recliner awake and alert upon arrival. At end of session, pt sitting up in chair with alarm activated, call light, phone and bedside table within reach. Mental Status Patient Orientation: Person, Time, Situation Transfers SCALE: Activities may be completed with or without assistive devices. 3-Eiztbhpstf-mnzysmn completes the activity by him/herself with no assistance from a helper. 5-Set-up or Clean-up Assistance-helper sets up or cleans up; patient completes a ctivity. [place] assists only prior to or following the activity. 4-Supervision or Touching Assistance-helper provides verbal cues and/or touching/steadying and/or contact guard assistance as patient completes activity. Assistance may be provided throughout the activity or intermittently. 3-Partial/Moderate Assistance-helper does LESS THAN HALF the effort. [place] lifts, holds or supports trunk or limbs, but provides less than half the effort. 2-Substantial/Maximal Assistance-helper does MORE THAN HALF the effort. [place] lifts or holds trunk or limbs and provides more than half the effort. 6-Kgcpcqbaf-apjdop does ALL the effort. Patient does none of the effort to complete the activity. Or, the assistance of 2 or more helpers is required for the patient to complete the activity. If activity was not attempted, code reason: 7-Patient Refused. 9-Not Applicable-not attempted and the patient did not perform the activity before the current illness, exacerbation or injury. 10-Not Attempted due to Environmental Limitations-(lack of equipment, weather restraints, etc.). 88-Not Attempted due to Medical Conditions or Safety Concerns. Sit to Stand (QC): 4 Gait Training Does the Patient Walk?: Yes Distance: 200 x2 Walk 10 feet (QC): 4 Walk 50 ft with 2 Turns(QC): 4 Walk 150 ft (QC): 4 Gait Persons Needed: 1 Gait Assistive Device: FWW slow pace, decreased step length and height, able to improve only briefly with skilled inst, path deviation and decreased safety awareness, requires verb inst and occasional guiding of walker to avoid furniture and objects Exercises Seated Therapy Exercises: Ankle pumps, Sit to stand, Long arc quads, Chair press-ups, Hip flexion, Kicking activity, Hamstring Curls, Hip abd/add Seated Reps: 20 Standing: Heel/toe raises, Marching, Mini squats, Sit to Stand Standing Reps: 20 NuStep Minutes: 15 NuStep Workload: 5 Neuromuscular standing on Airex: static stance x1 min x2, march x1 min x2, squat x1 min, heel toe raises x1 min Treatments 1st session: education, safety, transfers, toileting, sofie care, standing balance in front of chair/toilet/sink, standing balance in // bars, gait, strength, activity tolerance, functional mobility. 2nd session: education, safety, transfers, standing balance in front of chair, strength, activity tolerance, functional mobility Assessment Pt continues with decreased safety awareness, decreased alertness, occasional unsafe impulsiveness PT Short Term Goals Short Term Goals Time Frame: May 08, 2019 Roll Left & Right: 6 Sit to lyin Lying to sitting on side of be: 6 Sit to stand: 4 Chair/nkc-vz-masxp transfer: 4 Toilet transfer: 4 Car transfer: 4 Walk 10 feet: 4 Walk 50 feet with two turns: 4 Walk 150 feet: 4 PT [facility] Goals [facility] Goals PT [place] Goals Time Frame: May 22, 2019 Roll Left & Right (QC): 6 Sit to Lying (QC): 6 Lying-Sitting on Side/Bed(QC): 6 Sit to Stand (QC): 4 (SBA) Chair/Lhz-kn-Uwsbm Xfer(QC): 4 (SBA) Toilet Transfer (QC): 4 (SBA) Car Transfer (QC): 4 (SBA) Walk 10 feet (QC): 4 (SBA) Walk 50ft with 2 Turns (QC): 4 (SBA) Walk 150 ft (QC): 4 (SBA) Walking 10ft on Uneven Surface: 4 (SBA) 1 Step (curb) (QC): 4 (CGA) 4 Steps (QC): 4 (CGA) 12 Steps (QC): 88 Picking up an Object (QC): 88 Does the Pt use WC or Scooter?: No Type: N/A Type: N/A PT Plan Treatment/Plan Treatment Plan: Continue Plan of Care Treatment Plan: Bed Mobility, Concurrent Therapy, Education, Functional Activity Flory, Functional Strength, Group Therapy, Gait, Safety, Therapeutic Exercise, Transfers Treatment Duration: May 22, 2019 Frequency: At least 5 of 7 days/Wk (IRF) Estimated Hrs Per Day: 1.5 hours per day Patient and/or Family Agrees t: Yes Safety Risks/Education Patient Education: Gait Training, Transfer Techniques, Safety Issues Teaching Recipient: Patient Teaching Methods: Demonstration, Discussion Response to Teaching: Verbalize Understanding, Return Demonstration, Reinforcement Needed Time/GCodes Time In: 1100 (2nd session: 1430) Time Out: 1200 (2nd session: 1415) Total Billed Treatment Time: 60 (2nd session: 15) Total Billed Treatment 1st session: 1 visit, GT x15 min, EX x15 min, NM x20 min, FA x10 min. 2nd session: 1 visit, EX x15 min HEIDI HURST PTA May 08, 2019 15:22
[2019-05-08 16:48] VITALS: BP 163/79
--- NOTE | 2019-05-08 17:55 | NUR ---
Son in law, Aj & pt's are here, & Aj states that he missed a few calls today from the Teacher Assistant. Aj states that the best time to call him is after work after 3:00. Aj states that pt was actually taking care of his prior to stroke. [phone]
[2019-05-08] MEDS: ACETAMINOPHEN 500 MG TAB (TYLENOL) PO PRN (18:03)
[2019-05-08] MEDS ORDERED: IOHEXOL 350 MG/ML 100 ML (OMNIPAQUE 350) VIAL IV ONE (18:15)
[2019-05-08] MEDS ORDERED: NS 100 ML (IVPB) BAG IV ONE (18:15)
[2019-05-08] MEDS ORDERED: HOLD METFORMIN - RECEIVED CONTRAST 20 ML VIAL IV SCH (18:15)
--- NOTE | 2019-05-08 18:51 | NUR ---
Have attempted to start IV for CT scan x2. unsuccessfully. Vein blows. [place] [facility] [place] disk quality control [place] [phone] for attempt.
--- NOTE | 2019-05-08 20:12 | Diagnostic Imaging Report ---
PROCEDURE: CT angiography of the chest with contrast. TECHNIQUE: Multiple contiguous axial images were obtained through the chest after uneventful bolus administration of intravenous contrast. 3D reconstructed CTA MIP acquisitions were also performed. Auto Exposure Controls were utilized during the CT exam to meet ALARA standards for radiation dose reduction. INDICATION: Right subclavian stenosis. COMPARISON: None. FINDINGS: There is atherosclerosis throughout the thoracic aorta without aneurysm. There is some atherosclerotic disease of the origin of the great vessels. There is a focal high-grade stenosis involving the proximal right subclavian artery just distal to the right carotid takeoff from the brachycephalic. The stenosis is nearly occlusive. There is moderate poststenotic dilatation. Mild multifocal areas of stenosis are seen involving the left subclavian artery. Lobe is poorly visualized. Both vertebral artery origins appear patent. There is no pericardial effusion or lymphadenopathy within the mediastinum. There is chronic rib fractures on the left. There is a benign-appearing nodule in the lingula, likely atelectasis. Follow-up is recommended. No mass, nodule or suspicious infiltrate is seen. Osseous structures are age appropriate. Visualized solid abdominal organs are grossly unremarkable. There is cholelithiasis. IMPRESSION: 1. 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 2. Mild multifocal areas of stenosis in the left subclavian artery. 3. No suspicious infiltrate identified. 4. Not mentioned above, coronary artery disease. 5. Cholelithiasis without cholecystitis. 6. Benign-appearing nodule of lingula. Recommend followup in three months to assure stability. Dictated by: Dictated on workstation # [id number]
[2019-05-08] MEDS: MELATONIN 3 MG TABLET PO PRN (20:26)
[2019-05-08] MEDS: ENOXAPARIN 30 MG/0.3 ML (LOVENOX) SYR SC SCH (21:18)
[2019-05-09 05:43] VITALS: BP 115/69
[2019-05-09] MEDS: ASPIRIN E.C. 325 MG (ECOTRIN) TABLET PO SCH (07:52)
[2019-05-09] MEDS: POLYETHYLENE GLYCOL 17 GM (MIRALAX) PACK PO SCH ×2 (07:52→20:46)
[2019-05-09] MEDS: SENNA W/DOCUSATE (SENOKOT S) TABLET PO SCH ×2 (07:52→20:47)
[2019-05-09 08:23] VITALS: BP_SYST 128; BP_SYST 85; BP_DIAS 63; BP_DIAS 81
[2019-05-09] MEDS: lisINopril 20 MG (PRINIVIL) TABLET PO SCH (08:25)
[2019-05-09] MEDS: meTOprolol TARTRATE 25 MG (LOPRESSOR) TABLET PO SCH ×2 (08:26→20:35)
[2019-05-09] MEDS ORDERED: NICOTINE 21 MG (NICODERM) PATCH TD PRN (09:00)
--- NOTE | 2019-05-09 09:29 | NUR ---
CONFUSED THIS AM. THINKS HE IS AT [facility]. DR. DANIELS TO THE FLOOR AND NOTIFIED.
--- NOTE | 2019-05-09 10:38 | Occupational Ther Daily Note ---
OT Current Status-Daily Note Subjective Pt seen in recliner chair, alert and talking with increased verbage. Pt agreeable to OT tx session, stating he is "going crazy" as he is bored and has watvhed everything on TV. Pt states he needs a cigarette and to go home. Pt oriented to person, place. Mental Status/Objective Patient Orientation: Person, Place ADL-Treatment Therapy Code Descriptions/Definitions Functional [place] Measure: 0=Not Assessed/NA 4=Minimal Assistance 1=Total Assistance 5=Supervision or Setup 2=Maximal Assistance 6=Modified [place] 3=Moderate Assistance 7=Complete IndependenceSCALE: Activities may be completed with or without assistive devices. 3-Jjwkpwqgcd-svmreiv completes the activity by him/herself with no assistance from a helper. 5-Set-up or Clean-up Assistance-helper sets up or cleans up; patient completes activity. [place] assists only prior to or following the activity. 4-Supervision or Touching Assistance-helper provides verbal cues and/or touching/steadying and/or contact guard assistance as patient completes activity. Assistance may be provided throughout the activity or intermittently. 3-Partial/Moderate Assistance-helper does LESS THAN HALF the effort. [place] lifts, holds or supports trunk or limbs, but provides less than half the effort. 2-Substantial/Maximal Assistance-helper does MORE THAN HALF the effort. [place] lifts or holds trunk or limbs and provides more than half the effort. 7-Qtglbmptu-bodpzy does ALL the effort. Patient does none of the effort to complete the activity. Or, the assistance of 2 or more helpers is required for the patient to complete the activity. If activity was not attempted, code reason: 7-Patient Refused. 9-Not Applicable-not attempted and the patient did not perform the activity before the current illness, exacerbation or injury. 10-Not Attempted due to Environmental Limitations-(lack of equipment, weather restraints, etc.). 88-Not Attempted due to Medical Conditions or Safety Concerns. Eating (QC): 6 Oral Hygiene (QC): 7 Shower/Bathe Self (QC): 4 (CGA in stance, able to reach all areas excluding back. Pt declines full shower and requires encouragement for sponge bath. ) Upper Body Dressing (QC): 6 Lower Body Dressing (QC): 4 (SBA in stance. ) On/Off Footwear: 4 (SBA EOB) Toilet Transfer (QC): 3 (min A to guide bottom to toilet due to poor positioning and decreased safety with walker. ) Other Treatment Pt agreeable to OT tx session, agrees to bathe. Pt amblates with FWW to laundry room, OT gathers clean clothing items and returns to room. Pt sits in recliner chair to complete UB bathing, gets up at FWW and begins walking. Pt asked where going, states he needs to have a bowel movement. Pt ambulates with FWW, poor safety with walker in small spaces, able to reach toilet with min physical and verbal assist. Pt attempts BM, does not have success. Completes LB washing/ dressing on toilet with cues for sequencing. Pt sit to stand from toilet with CGA, ambulates to EOB to complete shoe donning. Pt ambulates with FWW to coffee station, able to pour coffee with increased time and concentration. Pt gathers creamers/ sugars, pours in with IND while in recliner chair. Pt asked if needed anything else, all needs met. As OT walks out pt states, "Where are you going?" Pt expresses boredom and would like to sit within [place], pt ambulates to [place], nursing present at next table. Pt left with all needs met, coffee in front of pt. Pt begins getting up from table post-session and states he needs to go toward OT to "Jes (niece)" nursing educates of OT's name and no Nisha leungin his room this morning. Pt nods and returns to sit. Left in [place] with nursing present. Education OT Patient Education: Correct positioning, Modified ADL techniques, Purpose of tx/functional activities, Rehab process, Safety issues, Transfer techniques Teaching Recipient: Patient Teaching Methods: Demonstration, Discussion Response to Teaching: Verbalize Understanding, Return Demonstration, Reinforcement Needed OT Short Term Goals Short Term Goals Upper body dressin (met) Lower body dressin (met) OT Assisted Goals Assisted Goals Time Frame: May 15, 2019 Eating (QC): 6 (met) Oral Hygiene (QC): 6 Toileting Hygiene (QC): 6 Shower/Bathe Self (QC): 6 Upper Body Dressing (QC): 6 (met) Lower Body Dressing (QC): 6 On/Off Footwear (QC): 6 Additional Goals: 1-Demonstrate ADL Tasks, 2-Verbalize Understanding, 3- ImproveStrength/Flory 1=Demonstrate adherence to instructed precautions during ADL tasks. 2=Patient will verbalize/demonstrate understanding of assistive devices/modifications for ADL. 3=Patient will improve strength/tolerance for activity to enable patient to perform ADL's. OT Education/Plan Problem List/Assessment Assessment: Decreased Activ Tolerance, Decreased Safety Aware, Decreased UE Strength, Impaired Cognition, Impaired Funct Balance, Impaired I ADL's, Impaired Self-Care Skills Discharge Recommendations Plan/Recommendations: Continue POC Therapy Discharge Recommendati: 24 Hour Supervision Treatment Plan/Plan of Care Treatment,Training & Education: Yes Patient would benefit from OT for education, treatment and training to promote independence in ADL's, mobility, safety and/or upper extremity function for ADL's. Plan of Care: ADL Retraining, Caregiver Training, Cognitive Retraining, Concurrent Therapy, Functional Mobility, Group Exercise/Act as Ind, UE Funct Exercise/Act, UE Neuromus Re-Ed/Coord Treatment Duration: May 15, 2019 Frequency: At least 5 of 7 days/Wk (IRF) Estimated Hrs Per Day: 1.5 hours per day Agreement: Yes Rehab Potential: Fair Time/GCodes Start Time: 09:15 Stop Time: 10:30 Total Time Billed (hr/min): 75 Billed Treatment Time 1, ADL 4 (60), FA (15)= 75 LIS MARTINEZ OTR May 09, 2019 10:38
--- NOTE | 2019-05-09 11:17 | PM&R Progress Note ---
Subjective HPI/CC On Admission Date Seen by Provider: May 09, 2019 Time Seen by Provider: 09:30 Subjective/Events-last exam Needs constant supervision 27/11 Feels like he is confused today I tried to reassure him Telesitter in place Nicotine patch maintained Needs halfway at DC CT angiogram obtained due to BP differences in arms and right carotid stenosis noted Conferred with gusset ripper therapy notes Checked meds and labs Review of Systems General: Fatigue Neurological: Weakness, Numbness, Incoordination, Confusion Objective Exam Vital Signs Vital Signs Date Time Temp Pulse Resp B/P (MAP) Pulse Ox O2 Delivery O2 Flow Rate FiO2 05/09/19 17:30 37.1 117 18 107/90 (96) 99 Room Air 05/05/19 09:14 21 Capillary Refill : Less Than 3 Seconds General Appearance: No Apparent Distress, WD/WN, Chronically ill, Thin HEENT: PERRL/EOMI, Normal ENT Inspection, Pharynx Normal Neck: Full Range of Motion, Normal Inspection, Non Tender, Supple, Carotid Bruit Respiratory: Chest Non Tender, Lungs Clear, Normal Breath Sounds, No Accessory Muscle Use, No Respiratory Distress Cardiovascular: Regular Rate, Rhythm, No Edema, No Gallop, No JVD, Normal Peripheral Pulses, Systolic Murmur Gastrointestinal: Normal Bowel Sounds, No Organomegaly, No Pulsatile Mass, Non Tender, Soft Back: Normal Inspection, No CVA Tenderness, No Vertebral Tenderness Extremity: Normal Capillary Refill, Normal Inspection, Normal Range of Motion, Non Tender, No Calf Tenderness, No Pedal Edema Neurologic/Psychiatric: Alert, Oriented x3, 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 FIM Transfers Therapy Code Descriptions/Definitions Functional [place] Measure: 0=Not Assessed/NA 4=Minimal Assistance 1=Total Assistance 5=Supervision or Setup 2=Maximal Assistance 6=Modified [place] 3=Moderate Assistance 7=Complete IndependenceSCALE: Activities may be completed with or without assistive devices. 2-Edmoyrcxff-nqgumru completes the activity by him/herself with no assistance from a helper. 5-Set-up or Clean-up Assistance-helper sets up or cleans up; patient completes activity. [place] assists only prior to or following the activity. 4-Supervision or Touching Assistance-helper provides verbal cues and/or touching/steadying and/or contact guard assistance as patient completes activity. Assistance may be provided throughout the activity or intermittently. 3-Partial/Moderate Assistance-helper does LESS THAN HALF the effort. [place] lifts, holds or supports trunk or limbs, but provides less than half the effort. 2-Substantial/Maximal Assistance-helper does MORE THAN HALF the effort. [place] lifts or holds trunk or limbs and provides more than half the effort. 8-Mdbombwqu-jiwrbu does ALL the effort. Patient does none of the effort to complete the activity. Or, the assistance of 2 or more helpers is required for the patient to complete the activity. If activity was not attempted, code reason: 7-Patient Refused. 9-Not Applicable-not attempted and the patient did not perform the activity before the current illness, exacerbation or injury. 10-Not Attempted due to Environmental Limitations-(lack of equipment, weather restraints, etc.). 88-Not Attempted due to Medical Conditions or Safety Concerns. Roll Left to Right (QC): 6 Sit to Lying (QC): 6 Sit to Stand (QC): 4 Chair/Ila-wa-Cqlge Xfer(QC): 3 Car Transfer (QC): 3 Gait Training Does the Patient Walk?: Yes Distance: 200 x2 Walk 10 feet (QC): 4 Walk 50 ft with 2 Turns(QC): 4 Walk 150 ft (QC): 4 Walking 10ft/uneven surface-QC: 3 Gait Persons Needed: 1 Gait Assistive Device: FWW Wheelchair Training Does the Pt Use a Wheelchair?: No Type of Wheelchair: N/A Stair Training 1 Step (curb) (QC): 88 4 Steps (QC): 88 12 Steps (QC): 88 Balance Picking up an Object (QC): 88 ADL-Treatment Eating (QC): 6 Oral Hygiene (QC): 7 Bathing Location: L Arm, R Arm, L Upper Leg, R Upper Leg, L Lower Leg (including foot), R Lower Leg (including foot), Chest, Abdomen, Perineal Area Shower/Bathe Self (QC): 7 Upper Body Dressing (QC): 7 Lower Body Dressing (QC): 7 On/Off Footwear (QC): 7 Toileting Hygiene (QC): 4 (CGA in stance at FWW over toilet.) Toilet Transfer (QC): 4 (CGA) Assessment/Plan Assessment and Plan Assess & Plan/Chief Complaint Assessment: Subacute stroke presented 5 days after neurological deficit Smoker Cachexia Cognitive deficit Plan: Incentive spirometer Mat protocol Statin Aspirin CT scan Cardiology evaluation is appreciated Inpatient rehabilitation protocol Needs halfway at discharge (1) Left pontine cerebrovascular accident Status: Acute (2) Aphasia (3) Smoker (4) Cognitive deficit as late effect of cerebrovascular accident (CVA) (5) Intellectual disability CHRISTOPHER DANIELS DO May 09, 2019 11:17
--- NOTE | 2019-05-09 11:56 | Physical Therapy Daily Note ---
PT Daily Note-Current Subjective Patient in restroom with nursing pre tx, gets done shortly, agrees to PT, no complaints of pain. Appearance Patient in recliner post tx with nurse call, phone, tray, chair alarm on, telesitter in room. Mental Status Patient Orientation: Person, Confused Transfers SCALE: Activities may be completed with or without assistive devices. 8-Iqnzsxfyto-psdnkzw completes the activity by him/herself with no assistance from a helper. 5-Set-up or Clean-up Assistance-helper sets up or cleans up; patient completes activity. [place] assists only prior to or following the activity. 4-Supervision or Touching Assistance-helper provides verbal cues and/or touching/steadying and/or contact guard assistance as patient completes activity. Assistance may be provided throughout the activity or intermittently. 3-Partial/Moderate Assistance-helper does LESS THAN HALF the effort. [place] lifts, holds or supports trunk or limbs, but provides less than half the effort. 2-Substantial/Maximal Assistance-helper does MORE THAN HALF the effort. [place] lifts or holds trunk or limbs and provides more than half the effort. 8-Rcnckyqbw-takmse does ALL the effort. Patient does none of the effort to complete the activity. Or, the assistance of 2 or more helpers is required for the patient to complete the activity. If activity was not attempted, code reason: 7-Patient Refused. 9-Not Applicable-not attempted and the patient did not perform the activity before the current illness, exacerbation or injury. 10-Not Attempted due to Environmental Limitations-(lack of equipment, weather restraints, etc.). 88-Not Attempted due to Medical Conditions or Safety Concerns. Sit to Stand (QC): 4 Chair/Ctt-yr-Sasdr Xfer(QC): 4 CGA, cues for safety and positioning Gait Training Distance: 200'x3, 150' Walk 10 feet (QC): 4 Walk 50 ft with 2 Turns(QC): 4 Walk 150 ft (QC): 4 Gait Assistive Device: FWW CGA, slow but steady, gets outside of walker when turning, poor safety Exercises LAQ alternating for 5 min with 2# ankle weights NuStep Minutes: 15 NuStep Workload: 5 Treatments transfers, ambulation, LE strengthening Assessment Current Status: Fair Progress slightly improved ambulation but still has poor safety awareness, seemed more impulsive today PT Short Term Goals Short Term Goals Time Frame: May 08, 2019 Roll Left & Right: 6 Sit to lyin Lying to sitting on side of be: 6 Sit to stand: 4 Chair/lxz-hu-atzwj transfer: 4 Toilet transfer: 4 Car transfer: 4 Walk 10 feet: 4 Walk 50 feet with two turns: 4 Walk 150 feet: 4 PT Pick And Shovel Man Goals Pick And Shovel Man Goals PT Pick And Shovel Man Goals Time Frame: May 22, 2019 Roll Left & Right (QC): 6 Sit to Lying (QC): 6 Lying-Sitting on Side/Bed(QC): 6 Sit to Stand (QC): 4 (SBA) Chair/Nhk-mz-Exsdw Xfer(QC): 4 (SBA) Toilet Transfer (QC): 4 (SBA) Car Transfer (QC): 4 (SBA) Walk 10 feet (QC): 4 (SBA) Walk 50ft with 2 Turns (QC): 4 (SBA) Walk 150 ft (QC): 4 (SBA) Walking 10ft on Uneven Surface: 4 (SBA) 1 Step (curb) (QC): 4 (CGA) 4 Steps (QC): 4 (CGA) 12 Steps (QC): 88 Picking up an Object (QC): 88 Does the Pt use WC or Scooter?: No Type: N/A Type: N/A PT Plan Problem List Problem List: Activity Tolerance, Functional Strength, Safety, Balance, Gait, Transfer, Bed Mobility Treatment/Plan Treatment Plan: Continue Plan of Care Treatment Plan: Bed Mobility, Concurrent Therapy, Education, Functional Activity Flory, Functional Strength, Group Therapy, Gait, Safety, Therapeutic Exercise, Transfers Treatment Duration: May 22, 2019 Frequency: At least 5 of 7 days/Wk (IRF) Estimated Hrs Per Day: 1.5 hours per day Patient and/or Family Agrees t: Yes Safety Risks/Education Patient Education: Gait Training, Transfer Techniques, Correct Positioning, Safety Issues Teaching Recipient: Patient Teaching Methods: Demonstration, Discussion Response to Teaching: Reinforcement Needed Time/GCodes Time In: 1100 Time Out: 1200 Total Billed Treatment Time: 60 Total Billed Treatment 1 visit EX 20' GT 40' SHANNA HARMON PT May 09, 2019 11:56
--- NOTE | 2019-05-09 12:52 | Cardiology Progress Note ---
Cardiology SOAP Progress Note Subjective: No cardiac issues. Objective: I&O/Vital Signs 05/10/19 05/10/19 05/10/19 05/10/19 05:50 08:14 09:41 15:55 Temp 36.3 36.6 Pulse 76 98 117 Resp 16 20 16 B/P (MAP) 134/72 (92) 104/72 (83) 128/73 (91) 92/65 (74) Pulse Ox 99 99 99 O2 Delivery Room Air Room Air Room Air Room Air 05/10/19 00:00 Intake Total 1790 ml Balance 1790 ml Constitutional: AAO x 3 Respiratory: chest is bilaterally symmetric, lungs clear to auscultation Cardiovascular: regular rate-rhythm, S1 and S2, systolic murmur Gastrointestional: soft, audible bowel sounds Extremities: normal inspection, no lower extremity edema bilateral Neurologic/Psychiatric: no motor/sensory deficits, alert, oriented x 3 Skin: normal color A/P: Assessment/Dx: Acute CVA, LVH, hypertensive heart disease. Active smoking, Cardiomyopathy. Abnormal nuclear stress test. Occluded right subclavian artery. Plan: Plan: Acute CVA, unclear etiology. Negative carotid ultrasound for significant carotid disease. Echocardiogram shows mildly reduce LV systolic function with no clear evidence of intracardiac shunting. Telemetry for 24 hours is negative for atrial fibrillation. Continue telemetry for total of 48 hours if no atrial fibrillation consider implantable loop recorder. Due to mildly reduce LV systolic function, coronary evaluation is recommended however due to recent stroke, invasive cardiac procedures are deferred for at least 1 month. We can proceed with nuclear stress testing for risk stratification. Nuclear stress test was done on 05/01/2019 which showed small area of apical ischemia. Patient will likely require coronary angiography probably in a month. For now continue aspirin. OT/PT. Cardiomyopathy, unclear whether ischemic or nonischemic. Coronary angiography cannot be done in the setting of an acute stroke for at least 30 days. Treat with lisinopril and beta brad. Active smoking: Smoking cessation is strongly recommended. LVH, likely due to hypertensive heart disease. On lisinopril. Right UE systolic BP 95mmhg, Left UE systolic BP 165 mmhg -CTA chest showed occluded right subclavian artery. Significant disease in the left subclavian artery as well. I discussed with the patient and recommended peripheral angiogram and possible intervention. This will be done in addition to the coronary angiography which has been delayed to one month after his initial stroke. Thank you for your consultation. Please call me if you have any questions. Spenser Rhodes MD, FACP, FACC, FSCAI, FHRS, CCDS Interventional Cardiology Cardiac Electrophysiology Vascular Medicine and Endovascular Interventions Ramandeep RHODES MD May 09, 2019 12:52
--- NOTE | 2019-05-09 13:35 | NUR ---
DR. ROSS HERE TO SEE PATIENT. INFORMED OF TACHYCARDIA AND REVIEWED CT RESULTS. NO NEW ORDERS REC'D.
[2019-05-09] MEDS: ACETAMINOPHEN 500 MG TAB (TYLENOL) PO PRN (13:56)
--- NOTE | 2019-05-09 14:52 | Physical Therapy Daily Note ---
PT Daily Note-Current Subjective Patient in recliner pre tx, agrees to PT, has no complaints of pain. After ambulation patient needs to urinate, ambulates to the bathroom and stands to urinate in the toilet with SBA. Appearance Patient in recliner post tx with nurse call, phone, tray, chair alarm on, telesitter in room. Mental Status Patient Orientation: Person, Confused Transfers SCALE: Activities may be completed with or without assistive devices. 9-Gwijjaoymi-iramuuc completes the activity by him/herself with no assistance from a helper. 5-Set-up or Clean-up Assistance-helper sets up or cleans up; patient completes activity. [place] assists only prior to or following the activity. 4-Supervision or Touching Assistance-helper provides verbal cues and/or to uching/steadying and/or contact guard assistance as patient completes activity. Assistance may be provided throughout the activity or intermittently. 3-Partial/Moderate Assistance-helper does LESS THAN HALF the effort. [place] lifts, holds or supports trunk or limbs, but provides less than half the effort. 2-Substantial/Maximal Assistance-helper does MORE THAN HALF the effort. [place] lifts or holds trunk or limbs and provides more than half the effort. 1-Owuhcette-zblnhd does ALL the effort. Patient does none of the effort to complete the activity. Or, the assistance of 2 or more helpers is required for the patient to complete the activity. If activity was not attempted, code reason: 7-Patient Refused. 9-Not Applicable-not attempted and the patient did not perform the activity before the current illness, exacerbation or injury. 10-Not Attempted due to Environmental Limitations-(lack of equipment, weather restraints, etc.). 88-Not Attempted due to Medical Conditions or Safety Concerns. Sit to Stand (QC): 4 Chair/Dyw-rh-Xyqfn Xfer(QC): 4 cues for safety, needs cues for hand placement with almost every sit <-> stand Gait Training Distance: 200'x2 Walk 10 feet (QC): 4 Walk 50 ft with 2 Turns(QC): 4 Walk 150 ft (QC): 4 Gait Assistive Device: FWW CGA, cues for direction, poor safety awareness. Treatments ambulation Assessment Current Status: Fair Progress improving ambulation but patient continues to display poor safety awareness PT Short Term Goals Short Term Goals Time Frame: May 08, 2019 Roll Left & Right: 6 Sit to lyin Lying to sitting on side of be: 6 Sit to stand: 4 Chair/bqv-zk-zpjlu transfer: 4 Toilet transfer: 4 Car transfer: 4 Walk 10 feet: 4 Walk 50 feet with two turns: 4 Walk 150 feet: 4 PT Cash Application Representative Goals Cash Application Representative Goals PT Detention Goals Time Frame: May 22, 2019 Roll Left & Right (QC): 6 Sit to Lying (QC): 6 Lying-Sitting on Side/Bed(QC): 6 Sit to Stand (QC): 4 (SBA) Chair/Pjs-kh-Dzezq Xfer(QC): 4 (SBA) Toilet Transfer (QC): 4 (SBA) Car Transfer (QC): 4 (SBA) Walk 10 feet (QC): 4 (SBA) Walk 50ft with 2 Turns (QC): 4 (SBA) Walk 150 ft (QC): 4 (SBA) Walking 10ft on Uneven Surface: 4 (SBA) 1 Step (curb) (QC): 4 (CGA) 4 Steps (QC): 4 (CGA) 12 Steps (QC): 88 Picking up an Object (QC): 88 Does the Pt use WC or Scooter?: No Type: N/A Type: N/A PT Plan Problem List Problem List: Activity Tolerance, Functional Strength, Safety, Balance, Gait, Transfer, Bed Mobility, ROM Treatment/Plan Treatment Plan: Continue Plan of Care Treatment Plan: Bed Mobility, Concurrent Therapy, Education, Functional Activity Flory, Functional Strength, Group Therapy, Gait, Safety, Therapeutic Exercise, Transfers Treatment Duration: May 22, 2019 Frequency: At least 5 of 7 days/Wk (IRF) Estimated Hrs Per Day: 1.5 hours per day Patient and/or Family Agrees t: Yes Safety Risks/Education Patient Education: Gait Training, Transfer Techniques, Correct Positioning, Safety Issues Teaching Recipient: Patient Teaching Methods: Demonstration, Discussion Response to Teaching: Reinforcement Needed Time/GCodes Time In: 1430 Time Out: 1445 Total Billed Treatment Time: 15 Total Billed Treatment 1 visit GT 15' SHANNA HARMON PT May 09, 2019 14:52
--- NOTE | 2019-05-09 14:58 | Speech Therapy Daily Note ---
Speech Daily Progress Note Subjective Date Seen by Provider: May 09, 2019 Time Seen by Provider: 00:30 Patient states he is ready to go home, he is tired of being here. Objective Patient completed safety awareness tasks with 80% given 20% cues. Assessment Assessment Current Status: Good Progress Treatment Plan Continue Plan of Care Speech Short Term Goals Short Term Goals Short Term Goals 1) Patient will complete memory tasks related to his daily needs at 80% or greater with minimal cues. 2) Patient will complete safety awareness tasks related to his daily needs at 80% or greater with minimal cues. 3) Patient will complete problem solving tasks related to his daily needs at 80% or greater with minimal cues. 4) Patient will complete speech production tasks to increase intelligibility at 80% or greater with minimal cues. Speech Cow Tester Goals Nursing Home Goals Patient will improve cognitive-communication necessary for safety and daily living tasks with minimal assist. Patient will increase his speech intelligibility to be an effective communicator of wants/needs. Speech-Plan Patient/Family Goals Patient/Family Goals: Patient plans on returning to his home where he lives with his girlfriend. Treatment Plan Speech Therapy Treatment Plan: Continue Plan of Care Patient is progressing on ST goals. Treatment Duration: May 16, 2019 Frequency: 4 times per week Estimated Hrs Per Day: .5 hour per day Rehab Potential: Fair Barriers to Learning: Patient's recent CVA affects Pt/Family Agrees to Plan: Yes Safety Risks/Education Teaching Recipient: Patient Teaching Methods: Demonstration, Discussion Response to Teaching: Verbalize Understanding, Return Demonstration Education Topics Provided: Continued safety and communication Time Speech Therapy Time In: 14:00 Speech Therapy Time Out: 14:30 Total Billed Time: 30 Billed Treatment Time 1, CHRIS Nesbitt May 09, 2019 14:58
--- NOTE | 2019-05-09 15:45 | NUR ---
SW CONCURRENT NOTE Observed patient working with PT today and visited with him. He visits as though he believes he is oriented but his thoughts are not accurate to current situation at times. Attempted to call SO/Coty Lowry, busy signal at all times. Attempted to call son/Aj Alen, got voice mail and left contact information for return call. Patient remains uninsured. [facility] Financial Services staff have initiated financial assistance for patient but can not complete it without supportive documentation. They, too, have tried to call Coty at the home number and get busy signal. Patient will likely not be able to be placed in a SNF without a payment source. Need to speak with his support system for next steps, continue to pursue. 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
[2019-05-09 17:30] VITALS: BP 107/90
[2019-05-09] MEDS: MELATONIN 3 MG TABLET PO PRN (20:35)
[2019-05-09] MEDS: ENOXAPARIN 30 MG/0.3 ML (LOVENOX) SYR SC SCH (20:35)
[2019-05-09] MEDS: FLUTICASONE NASAL SPRAY (FLONASE) 16 GM BTL NS SCH (20:36)
[2019-05-10] MEDS: ALPRAZolam 0.25 MG (XANAX) TAB PO PRN ×3 (00:21→21:11)
[2019-05-10] MEDS: ACETAMINOPHEN 500 MG TAB (TYLENOL) PO PRN ×2 (00:22→15:50)
[2019-05-10 05:50] VITALS: BP 134/72
--- NOTE | 2019-05-10 07:57 | Physical Therapy Daily Note ---
PT Daily Note-Current Subjective Pt confused but willing to get out of bed. Pain Numeric Pain Scale: 0-No Pain Appearance Upon arrival, pt in bed rattling bedrails trying to move them. Pt requesting and assisted to bathroom. At end of session, pt sitting up in recliner, alarm acti vated, with family/visitors present, call light, phone and bedside table within reach. Mental Status Patient Orientation: Person, Confused, Time, Eyes Open, [place] Transfers SCALE: Activities may be completed with or without assistive devices. 9-Btyzgdmnxb-kuarrqw completes the activity by him/herself with no assistance from a helper. 5-Set-up or Clean-up Assistance-helper sets up or cleans up; patient completes activity. [place] assists only prior to or following the activity. 4-Supervision or Touching Assistance-helper provides verbal cues and/or touching/steadying and/or contact guard assistance as patient completes activity. Assistance may be provided throughout the activity or intermittently. 3-Partial/Moderate Assistance-helper does LESS THAN HALF the effort. [place] lifts, holds or supports trunk or limbs, but provides less than half the effort. 2-Substantial/Maximal Assistance-helper does MORE THAN HALF the effort. [place] lifts or holds trunk or limbs and provides more than half the effort. 0-Rgxxazrvt-dbhkzf does ALL the effort. Patient does none of the effort to complete the activity. Or, the assistance of 2 or more helpers is required for the patient to complete the activity. If activity was not attempted, code reason: 7-Patient Refused. 9-Not Applicable-not attempted and the patient did not perform the activity before the current illness, exacerbation or injury. 10-Not Attempted due to Environmental Limitations-(lack of equipment, weather restraints, etc.). 88-Not Attempted due to Medical Conditions or Safety Concerns. Roll Left & Right (QC): 4 Lying to Sitting/Side of Bed(Q: 4 Sit to Stand (QC): 4 increased confusion and impulsivity and decreased safety awareness requiring increased verb inst, tactile cuing and guiding Gait Training Does the Patient Walk?: Yes Distance: 200 Walk 10 feet (QC): 4 Walk 50 ft with 2 Turns(QC): 3 Walk 150 ft (QC): 3 Gait Persons Needed: 1 Gait Assistive Device: FWW increased confustion requiring increased verb inst, tactile cuing and guiding, increased path deviation, decreased step length and height occasionally briefly following skilled instructing to improved gait, decreased safety awareness and increased impulsivity Treatments education, safety, life skills with balance training, Gait, transfers, activity tolerance, bed mobility, functional mobility Assessment impulsivity, difficulty following inst and redirection, easily distracted by people and surroundings PT Short Term Goals Short Term Goals Time Frame: May 08, 2019 Roll Left & Right: 6 Sit to lyin Lying to sitting on side of be: 6 Sit to stand: 4 Chair/iqw-kp-tptiq transfer: 4 Toilet transfer: 4 Car transfer: 4 Walk 10 feet: 4 Walk 50 feet with two turns: 4 Walk 150 feet: 4 PT Animal Services Officer Goals Mcfp Goals PT Animal Services Officer Goals Time Frame: May 22, 2019 Roll Left & Right (QC): 6 Sit to Lying (QC): 6 Lying-Sitting on Side/Bed(QC): 6 Sit to Stand (QC): 4 (SBA) Chair/Dxl-ff-Ddqzc Xfer(QC): 4 (SBA) Toilet Transfer (QC): 4 (SBA) Car Transfer (QC): 4 (SBA) Walk 10 feet (QC): 4 (SBA) Walk 50ft with 2 Turns (QC): 4 (SBA) Walk 150 ft (QC): 4 (SBA) Walking 10ft on Uneven Surface: 4 (SBA) 1 Step (curb) (QC): 4 (CGA) 4 Steps (QC): 4 (CGA) 12 Steps (QC): 88 Picking up an Object (QC): 88 Does the Pt use WC or Scooter?: No Type: N/A Type: N/A PT Plan Treatment/Plan Treatment Plan: Continue Plan of Care Treatment Plan: Bed Mobility, Concurrent Therapy, Education, Functional Activity Flory, Functional Strength, Group Therapy, Gait, Safety, Therapeutic Exercise, Transfers Treatment Duration: May 22, 2019 Frequency: At least 5 of 7 days/Wk (IRF) Estimated Hrs Per Day: 1.5 hours per day Patient and/or Family Agrees t: Yes Safety Risks/Education Patient Education: Gait Training, Transfer Techniques, Safety Issues Teaching Recipient: Patient Teaching Methods: Demonstration, Discussion Response to Teaching: Verbalize Understanding, Return Demonstration, Reinforcement Needed Time/GCodes Time In: 752 Time Out: 815 Total Billed Treatment Time: 23 Total Billed Treatment 1 visit, NM x1 unit, GT x1 unit HEIDI HURST PTA May 10, 2019 07:57
[2019-05-10 09:41] VITALS: BP_SYST 104; BP_SYST 92; BP_DIAS 65; BP_DIAS 72
[2019-05-10] MEDS: lisINopril 20 MG (PRINIVIL) TABLET PO SCH ×2 (09:44→11:21)
[2019-05-10] MEDS: NICOTINE 21 MG (NICODERM) PATCH TD SCH (09:44)
[2019-05-10] MEDS: ASPIRIN E.C. 325 MG (ECOTRIN) TABLET PO SCH (09:44)
[2019-05-10] MEDS: meTOprolol TARTRATE 25 MG (LOPRESSOR) TABLET PO SCH ×3 (09:45→21:11)
[2019-05-10] MEDS: FLUTICASONE NASAL SPRAY (FLONASE) 16 GM BTL NS SCH (09:52)
[2019-05-10] MEDS: PATCH REMOVAL TP SCH (09:58)
[2019-05-10] MEDS: POLYETHYLENE GLYCOL 17 GM (MIRALAX) PACK PO SCH ×2 (11:05→21:24)
[2019-05-10] MEDS: SENNA W/DOCUSATE (SENOKOT S) TABLET PO SCH ×2 (11:10→20:49)
--- NOTE | 2019-05-10 12:04 | NUR ---
Pt had family visitors earlier this morning; his sister, Cortney, phone #[phone], left her phone # written for pt. Pt currently eating lunch, requires assistance w opening items, setting up food. Pt remains impulsive, confused. Sets off alarm, or tele-sitter frequently, as previously, stating that he needs to go to toilet. Bladder scan after voiding was 0 cc. Pt has hesitancy at beginning of stream, pt denies burning or pain when voiding. Attempts at bladder training done, but, pt becomes insistent, & agitated. Offered to assist pt to sit in w/c out in the commons/dining area, pt refused.
--- NOTE | 2019-05-10 12:10 | NUR ---
Notified Dr. Rhodes earlier of decreased B/P, rec'd orders to hold Lopressor & Zestril.
--- NOTE | 2019-05-10 12:25 | NUR ---
Pt set off chair alarm & tele-sitter, standing up from chair. Pt had thrown his hamburger, & rest of his food from lunch tray, along w silverware in the trash can. Pt becoming agitated, raising his hand in a fist to the tele-sitter. Assisted to the toilet, & then back to recliner. Pt fidgety & restless w his pants. Offered something else to eat, pt declined. Addendum: 05/10/19 at 1320 by NOREEN ARMENDARIZ RN Pt had also thrown the gait belts in the trash can next to him, along w his I/S
--- NOTE | 2019-05-10 12:39 | NUR ---
Call made to tele-sitter, & asked them to not use the verbal prompt, d/t pt becoming agitated w the robotic voice of the tele-sitter, raising his fist at them, & pt verbalizing that it is aggravating him.
--- NOTE | 2019-05-10 12:42 | PM&R Progress Note ---
Subjective HPI/CC On Admission Date Seen by Provider: May 10, 2019 Time Seen by Provider: 12:45 Subjective/Events-last exam Needs constant supervision 27/11 Urinary frequency is a behavior so I started Pyridium Telesitter in place Nicotine patch maintained Needs fci at DC May need SBH evaluation before DC to [place] Conferred with manager account management therapy notes Checked meds and labs Review of Systems General: Fatigue Neurological: Confusion Objective Exam Vital Signs Vital Signs Date Time Temp Pulse Resp B/P (MAP) Pulse Ox O2 Delivery O2 Flow Rate FiO2 05/10/19 09:41 98 20 104/72 (83) 99 Room Air 92/65 (74) 05/10/19 05:50 36.3 05/05/19 09:14 21 Capillary Refill : Less Than 3 Seconds General Appearance: No Apparent Distress, WD/WN, Chronically ill, Thin HEENT: PERRL/EOMI, Normal ENT Inspection, Pharynx Normal Neck: Full Range of Motion, Normal Inspection, Non Tender, Supple, Carotid Bruit Respiratory: Chest Non Tender, Lungs Clear, Normal Breath Sounds, No Accessory Muscle Use, No Respiratory Distress Cardiovascular: Regular Rate, Rhythm, No Edema, No Gallop, No JVD, Normal Peripheral Pulses, Systolic Murmur Gastrointestinal: Normal Bowel Sounds, No Organomegaly, No Pulsatile Mass, Non Tender, Soft Back: Normal Inspection, No CVA Tenderness, No Vertebral Tenderness Extremity: Normal Capillary Refill, Normal Inspection, Normal Range of Motion, Non Tender, No Calf Tenderness, No Pedal Edema Neurologic/Psychiatric: Alert, Oriented x3, authorization rep II-XII Norm as Tested, Abnormal Gait, Aphasia, Depressed Affect, Disoriented, Motor Weakness (generalized right greater than left upper and lower manz[place] maneuvers) Skin: Normal Color, Warm/Dry Lymphatic: No Adenopathy Results/Procedures Lab Patient resulted labs reviewed. FIM Transfers Therapy Code Descriptions/Definitions Functional [place] Measure: 0=Not Assessed/NA 4=Minimal Assistance 1=Total Assistance 5=Supervision or Setup 2=Maximal Assistance 6=Modified [place] 3=Moderate Assistance 7=Complete IndependenceSCALE: Activities may be completed with or without assistive devices. 1-Xecygndntq-gyeowav completes the activity by him/herself with no assistance from a helper. 5-Set-up or Clean-up Assistance-helper sets up or cleans up; patient completes activity. [place] assists only prior to or following the activity. 4-Supervision or Touching Assistance-helper provides verbal cues and/or touching/steadying and/or contact guard assistance as patient completes activity. Assistance may be provided throughout the activity or intermittently. 3-Partial/Moderate Assistance-helper does LESS THAN HALF the effort. [place] lifts, holds or supports trunk or limbs, but provides less than half the effort. 2-Substantial/Maximal Assistance-helper does MORE THAN HALF the effort. [place] lifts or holds trunk or limbs and provides more than half the effort. 1-Loxywjlwv-nxggri does ALL the effort. Patient does none of the effort to complete the activity. Or, the assistance of 2 or more helpers is required for the patient to complete the activity. If activity was not attempted, code reason: 7-Patient Refused. 9-Not Applicable-not attempted and the patient did not perform the activity before the current illness, exacerbation or injury. 10-Not Attempted due to Environmental Limitations-(lack of equipment, weather restraints, etc.). 88-Not Attempted due to Medical Conditions or Safety Concerns. Roll Left to Right (QC): 6 Sit to Lying (QC): 6 Sit to Stand (QC): 4 Chair/Wvp-mv-Zvywh Xfer(QC): 4 Car Transfer (QC): 3 Gait Training Does the Patient Walk?: Yes Distance: 200'x2 Walk 10 feet (QC): 4 Walk 50 ft with 2 Turns(QC): 4 Walk 150 ft (QC): 4 Walking 10ft/uneven surface-QC: 3 Gait Persons Needed: 1 Gait Assistive Device: FWW Wheelchair Training Does the Pt Use a Wheelchair?: No Type of Wheelchair: N/A Stair Training 1 Step (curb) (QC): 88 4 Steps (QC): 88 12 Steps (QC): 88 Balance Picking up an Object (QC): 88 ADL-Treatment Eating (QC): 6 Oral Hygiene (QC): 7 Bathing Location: L Arm, R Arm, L Upper Leg, R Upper Leg, L Lower Leg (including foot), R Lower Leg (including foot), Chest, Abdomen, Perineal Area Shower/Bathe Self (QC): 4 (CGA in stance, able to reach all areas excluding back. Pt declines full shower and requires encouragement for sponge bath. ) Upper Body Dressing (QC): 6 Lower Body Dressing (QC): 4 (SBA in stance. ) On/Off Footwear (QC): 4 (SBA EOB) Toileting Hygiene (QC): 4 (CGA in stance at FWW over toilet.) Toilet Transfer (QC): 3 (min A to guide bottom to toilet due to poor positioning and decreased safety with walker. ) Assessment/Plan Assessment and Plan Assess & Plan/Chief Complaint Assessment: Subacute stroke presented 5 days after neurological deficit Smoker Cachexia Cognitive deficit Plan: Incentive spirometer Mat protocol Statin Aspirin CT scan reviewed Cardiology evaluation is appreciated Inpatient rehabilitation protocol Needs fci at discharge (1) Left pontine cerebrovascular accident Status: Acute (2) Aphasia (3) Smoker (4) Cognitive deficit as late effect of cerebrovascular accident (CVA) (5) Intellectual disability CHRISTOPHER DANIELS DO May 10, 2019 12:42
[2019-05-10 15:55] VITALS: BP 128/73
--- NOTE | 2019-05-10 18:56 | NUR ---
Pyridium not given, as pt has not ate supper yet, has been sleeping ~ the past hour approx. Did not want to awaken pt, as he has been restless prior to taking Tylenol. Will inform next shift so can be given.
[2019-05-10] MEDS: PHENAZOPYRIDINE 100 MG (PYRIDIUM) TABLET PO SCH (18:58)
[2019-05-10] MEDS: ENOXAPARIN 30 MG/0.3 ML (LOVENOX) SYR SC SCH (20:49)
[2019-05-11 06:48] VITALS: BP 137/80
--- NOTE | 2019-05-11 08:14 | NUR ---
Have walked around the loop on the floor 3 x's w pt, using FWW, gait belt, re-direction cues as to turns, & to step in to the walker, not get far away from it. Pt had been anxious, restless, & fidgety; getting OOB unassisted, setting off alarm. Pt sitting in recliner now, drinking coffee. Chair alarm on.
--- NOTE | 2019-05-11 08:37 | NUR ---
Pt sat & drank coffee, ate 1/2 donut until 0825, then stood, set off alarm, pt heading towards door. Declined needing to toilet. Walked w pt w gait belt, FWW around the loop 2 more times, PCT now walking w pt in halls. Offered shower to pt, pt nods his head no. When walking, pt gets away from the walker, to the sides, & behind, requiring staff to remind to stay in the walker. Pt sat down now at dining area table w PCT at side.
[2019-05-11 09:26] VITALS: BP_SYST 117; BP_SYST 73; BP_DIAS 42; BP_DIAS 71
[2019-05-11] MEDS: ASPIRIN E.C. 325 MG (ECOTRIN) TABLET PO SCH (09:33)
[2019-05-11] MEDS: ALPRAZolam 0.25 MG (XANAX) TAB PO PRN ×2 (09:33→20:44)
[2019-05-11] MEDS: PHENAZOPYRIDINE 100 MG (PYRIDIUM) TABLET PO SCH ×3 (09:33→17:08)
[2019-05-11] MEDS: SENNA W/DOCUSATE (SENOKOT S) TABLET PO SCH ×2 (09:33→20:44)
[2019-05-11] MEDS: POLYETHYLENE GLYCOL 17 GM (MIRALAX) PACK PO SCH ×3 (09:34→20:44)
[2019-05-11] MEDS: PATCH REMOVAL TP SCH (09:35)
[2019-05-11] MEDS: FLUTICASONE NASAL SPRAY (FLONASE) 16 GM BTL NS SCH (09:35)
[2019-05-11] MEDS: meTOprolol TARTRATE 25 MG (LOPRESSOR) TABLET PO SCH ×2 (09:36→20:44)
[2019-05-11] MEDS: NICOTINE 21 MG (NICODERM) PATCH TD SCH (09:43)
[2019-05-11] MEDS: lisINopril 20 MG (PRINIVIL) TABLET PO SCH (09:45)
--- NOTE | 2019-05-11 10:09 | NUR ---
Pt walking in halls w PCT, d/t restlessness.
[2019-05-11] MEDS: ACETAMINOPHEN 500 MG TAB (TYLENOL) PO PRN (11:36)
--- NOTE | 2019-05-11 12:03 | NUR ---
DR. DANIELS HAS BEEN IN, & SPOKE W PT. PT RESTLESS, STANDING FROM RECLINER, SETTING OFF CHAIR ALARM, ASSISTED TO TOILET, PT VOIDED, PT ASKED TO TALK TO SISTER. SISTER WAS CALLED, & PT TALKING W HER NOW
--- NOTE | 2019-05-11 12:49 | NUR ---
Pt sat in chair & ate lunch fairly well. Pt stood from chair causing chair alarm to go off, assisted to toilet by PCT.
--- NOTE | 2019-05-11 13:38 | PM&R Progress Note ---
Subjective HPI/CC On Admission Date Seen by Provider: May 11, 2019 Time Seen by Provider: 12:10 Subjective/Events-last exam Needs constant supervision 27/11 Urinary frequency is a behavior so I started Pyridium yesterday but does not appear to be helping much Telesitter in place Nicotine patch maintained Needs usp at DC May need SBH evaluation before DC to OR Conferred with teacher hearing impaired therapy notes Checked meds and labs Review of Systems Genitourinary: Frequency Neurological: Weakness, Numbness, Incoordination, Confusion Objective Exam Vital Signs Vital Signs Date Time Temp Pulse Resp B/P (MAP) Pulse Ox O2 Delivery O2 Flow Rate FiO2 05/11/19 18:21 36.0 94 20 155/82 (106) 99 Room Air 108/75 (86) 05/05/19 09:14 21 Capillary Refill : Less Than 3 Seconds General Appearance: No Apparent Distress, WD/WN, Chronically ill, Thin HEENT: PERRL/EOMI, Normal ENT Inspection, Pharynx Normal Neck: Full Range of Motion, Normal Inspection, Non Tender, Supple, Carotid Bruit Respiratory: Chest Non Tender, Lungs Clear, Normal Breath Sounds, No Accessory Muscle Use, No Respiratory Distress Cardiovascular: Regular Rate, Rhythm, No Edema, No Gallop, No JVD, Normal Peripheral Pulses, Systolic Murmur Gastrointestinal: Normal Bowel Sounds, No Organomegaly, No Pulsatile Mass, Non Tender, Soft Back: Normal Inspection, No CVA Tenderness, No Vertebral Tenderness Extremity: Normal Capillary Refill, Normal Inspection, Normal Range of Motion, Non Tender, No Calf Tenderness, No Pedal Edema Neurologic/Psychiatric: Alert, Oriented x3, corporate legal manager II-XII Norm as Tested, Abnormal Gait, Aphasia, Depressed Affect, Disoriented, Motor Weakness (generalized right greater than left upper and lower manzanares maneuvers) Skin: Normal Color, Warm/Dry Lymphatic: No Adenopathy Results/Procedures Lab Patient resulted labs reviewed. FIM Transfers Therapy Code Descriptions/Definitions Functional [place] Measure: 0=Not Assessed/NA 4=Minimal Assistance 1=Total Assistance 5=Supervision or Setup 2=Maximal Assistance 6=Modified [place] 3=Moderate Assistance 7=Complete IndependenceSCALE: Activities may be completed with or without assistive devices. 0-Exolxpesfw-fczzzlh completes the activity by him/herself with no assistance from a helper. 5-Set-up or Clean-up Assistance-helper sets up or cleans up; patient completes activity. [place] assists only prior to or following the activity. 4-Supervision or Touching Assistance-helper provides verbal cues and/or touching/steadying and/or contact guard assistance as patient completes activity. Assistance may be provided throughout the activity or intermittently. 3-Partial/Moderate Assistance-helper does LESS THAN HALF the effort. [place] lifts, holds or supports trunk or limbs, but provides less than half the effort. 2-Substantial/Maximal Assistance-helper does MORE THAN HALF the effort. [place] lifts or holds trunk or limbs and provides more than half the effort. 9-Bpwmynahw-qzxsbk does ALL the effort. Patient does none of the effort to complete the activity. Or, the assistance of 2 or more helpers is required for the patient to complete the activity. If activity was not attempted, code reason: 7-Patient Refused. 9-Not Applicable-not attempted and the patient did not perform the activity before the current illness, exacerbation or injury. 10-Not Attempted due to Environmental Limitations-(lack of equipment, weather restraints, etc.). 88-Not Attempted due to Medical Conditions or Safety Concerns. Roll Left to Right (QC): 4 Sit to Lying (QC): 6 Sit to Stand (QC): 4 Chair/Csb-zv-Ifsqr Xfer(QC): 4 Car Transfer (QC): 3 Gait Training Does the Patient Walk?: Yes Distance: 200 Walk 10 feet (QC): 4 Walk 50 ft with 2 Turns(QC): 3 Walk 150 ft (QC): 3 Walking 10ft/uneven surface-QC: 3 Gait Persons Needed: 1 Gait Assistive Device: FWW Wheelchair Training Does the Pt Use a Wheelchair?: No Type of Wheelchair: N/A Stair Training 1 Step (curb) (QC): 88 4 Steps (QC): 88 12 Steps (QC): 88 Balance Picking up an Object (QC): 88 ADL-Treatment Eating (QC): 6 Oral Hygiene (QC): 7 Bathing Location: L Arm, R Arm, L Upper Leg, R Upper Leg, L Lower Leg (including foot), R Lower Leg (including foot), Chest, Abdomen, Perineal Area Shower/Bathe Self (QC): 4 (CGA in stance, able to reach all areas excluding back. Pt declines full shower and requires encouragement for sponge bath. ) Upper Body Dressing (QC): 6 Lower Body Dressing (QC): 4 (SBA in stance. ) On/Off Footwear (QC): 4 (SBA EOB) Toileting Hygiene (QC): 4 (CGA in stance at FWW over toilet.) Toilet Transfer (QC): 3 (min A to guide bottom to toilet due to poor positionin g and decreased safety with walker. ) Assessment/Plan Assessment and Plan Assess & Plan/Chief Complaint Assessment: Subacute stroke presented 5 days after neurological deficit Smoker Cachexia Cognitive deficit Plan: Incentive spirometer Mat protocol Statin Aspirin CT scan reviewed Cardiology evaluation is appreciated Inpatient rehabilitation protocol Needs usp at discharge (1) Left pontine cerebrovascular accident Status: Acute (2) Aphasia (3) Smoker (4) Cognitive deficit as late effect of cerebrovascular accident (CVA) (5) Intellectual disability CHRISTOPHER DANIELS DO May 11, 2019 13:38
--- NOTE | 2019-05-11 13:43 | NUR ---
Dr. Rhodes in to see pt, instructed pt that he needs to have a heart cath as an out-patient basis in 1 month.
--- NOTE | 2019-05-11 15:39 | Cardiology Progress Note ---
Cardiology SOAP Progress Note Subjective: No cardiac complaints. Objective: I&O/Vital Signs 05/11/19 05/11/19 05/11/19 06:48 08:46 09:26 Temp 36.0 Pulse 94 111 Resp 16 20 B/P (MAP) 137/80 (99) 117/71 (86) 73/42 (52) Pulse Ox 99 98 O2 Delivery Room Air Room Air Room Air 05/11/19 00:00 Intake Total 900 ml Balance 900 ml Constitutional: AAO x 3 Respiratory: chest is bilaterally symmetric, lungs clear to auscultation Cardiovascular: regular rate-rhythm, S1 and S2, systolic murmur Gastrointestional: soft, audible bowel sounds Extremities: normal inspection, no lower extremity edema bilateral Neurologic/Psychiatric: no motor/sensory deficits, alert, oriented x 3 Skin: normal color A/P: Assessment/Dx: Acute CVA, LVH, hypertensive heart disease. Active smoking, Cardiomyopathy. Abnormal nuclear stress test. Occluded right subclavian artery. Plan: Plan: Acute CVA, unclear etiology. Negative carotid ultrasound for significant carotid disease. Echocardiogram shows mildly reduce LV systolic function with no clear evidence of intracardiac shunting. Telemetry for 24 hours is negative for atrial fibrillation. Continue telemetry for total of 48 hours if no atrial fibrillation consider implantable loop recorder. Due to mildly reduce LV systolic function, coronary evaluation is recommended however due to recent stroke, invasive cardiac procedures are deferred for at least 1 month. We can proceed with nuclear stress testing for risk stratification. Nuclear stress test was done on 05/01/2019 which showed small area of apical ischemia. Patient will likely require coronary angiography probably in a month from the stroke. For now continue aspirin. OT/PT. Cardiomyopathy, unclear whether ischemic or nonischemic. Coronary angiography cannot be done in the setting of an acute stroke for at least 30 days. Treat with lisinopril and beta brad. Active smoking: Smoking cessation is strongly recommended. LVH, likely due to hypertensive heart disease. On lisinopril. Right UE systolic BP 95mmhg, Left UE systolic BP 165 mmhg -CTA chest showed occluded right subclavian artery. Significant disease in the left subclavian artery as well. I discussed with the patient and recommended peripheral angiogram and possible intervention. This will be done in addition to the coronary angiography which has been delayed to one month after his initial stroke. Patient is not to keen for the procedure. Since it's not urgent I have not emphasized a lot. Thank you for your consultation. Please call me if you have any questions. Spenser Rhodes MD, FACP, FACC, FSCAI, FHRS, CCDS Interventional Cardiology Cardiac Electrophysiology Vascular Medicine and Endovascular Interventions Ramandeep RHODES MD May 11, 2019 15:39
[2019-05-11 18:21] VITALS: BP_SYST 108; BP_SYST 155; BP_DIAS 75; BP_DIAS 82
[2019-05-11] MEDS: ENOXAPARIN 30 MG/0.3 ML (LOVENOX) SYR SC SCH (22:07)
[2019-05-12 06:00] VITALS: BP 90/59
[2019-05-12 06:03] LABS: BASOPHILS # (AUTO) 0.1 10^3/uL (0.0-0.1); BASOPHILS % (AUTO) 1 % (0-10); EOSINOPHILS # (AUTO) 0.3 10^3/uL (0.0-0.3); EOSINOPHILS % (AUTO) 3 % (0-10); HEMATOCRIT 37 % (40-54); HEMOGLOBIN 12.1 G/DL (13.3-17.7); LYMPHOCYTES # (AUTO) 2.5 X 10^3 (1.0-4.0); LYMPHOCYTES % (AUTO) 27 % (12-44); MEAN CORPUSCULAR HEMOGLOBIN 28 PG (25-34); MEAN CORPUSCULAR HGB CONC 32 G/DL (32-36); MEAN CORPUSCULAR VOLUME 87 FL (80-99); MEAN PLATELET VOLUME 10.6 FL (7.4-10.4); MONOCYTES # (AUTO) 1.3 X 10^3 (0.0-1.0); MONOCYTES % (AUTO) 14 % (0-12); NEUTROPHILS # (AUTO) 5.3 X 10^3 (1.8-7.8); NEUTROPHILS % (AUTO) 56 % (42-75); PLATELET COUNT 393 10^3/uL (130-400); RED CELL DISTRIBUTION WIDTH 15.8 % (10.0-14.5); WHITE BLOOD COUNT 9.4 10^3/uL (4.3-11.0)
[2019-05-12 06:24] LABS: ALANINE AMINOTRANSFERASE 20 U/L (0-55); ALBUMIN 3.7 GM/DL (3.2-4.5); ALKALINE PHOSPHATASE 56 U/L (40-136); BILIRUBIN,TOTAL 0.2 MG/DL (0.1-1.0); BUN/CREATININE RATIO 20; CALCIUM 9.5 MG/DL (8.5-10.1); CARBON DIOXIDE 21 MMOL/L (21-32); CHLORIDE 100 MMOL/L (98-107); CREATININE SERUM 0.75 MG/DL (0.60-1.30); GFR ESTIMATED > 60; GLUCOSE 92 MG/DL (70-105); POTASSIUM 4.5 MMOL/L (3.6-5.0); SODIUM 133 MMOL/L (135-145); TOTAL PROTEIN 6.6 GM/DL (6.4-8.2)
[2019-05-12] MEDS: meTOprolol TARTRATE 25 MG (LOPRESSOR) TABLET PO SCH ×2 (07:57→21:26)
[2019-05-12] MEDS: POLYETHYLENE GLYCOL 17 GM (MIRALAX) PACK PO SCH ×2 (07:57→21:27)
--- NOTE | 2019-05-12 08:53 | Physical Therapy Daily Note ---
PT Daily Note-Current Subjective Patient in recliner pre tx, agrees to PT, has no complaints of pain. Patient doesn't seem to be talking this morning and seems more confused than normal. Patient wants to wear his shoes, has a very hard time but is able to get them on himself with extra time. Appearance Patient in recliner post tx with nurse call, phone, tray, chair alarm on, telesitter in room. Mental Status Patient Orientation: Person, Confused Transfers SCALE: Activities may be completed with or without assistive devices. 7-Ghcdbhneae-kfgxxcd completes the activity by him/herself with no assistance from a helper. 5-Set-up or Clean-up Assistance-helper sets up or cleans up; patient completes activity. [place] assists only prior to or following the activity. 4-Supervision or Touching Assistance-helper provides verbal cues and/or touching/steadying and/or contact guard assistance as patient completes activity. Assistance may be provided throughout the activity or intermittently. 3-Partial/Moderate Assistance-helper does LESS THAN HALF the effort. [place] lifts, holds or supports trunk or limbs, but provides less than half the effort. 2-Substantial/Maximal Assistance-helper does MORE THAN HALF the effort. [place] lifts or holds trunk or limbs and provides more than half the effort. 9-Rbnymuwnz-mddwvt does ALL the effort. Patient does none of the effort to complete the activity. Or, the assistance of 2 or more helpers is required for the patient to complete the activity. If activity was not attempted, code reason: 7-Patient Refused. 9-Not Applicable-not attempted and the patient did not perform the activity before the current illness, exacerbation or injury. 10-Not Attempted due to Environmental Limitations-(lack of equipment, weather restraints, etc.). 88-Not Attempted due to Medical Conditions or Safety Concerns. Sit to Stand (QC): 4 Chair/Jsi-oz-Cwyad Xfer(QC): 4 CGA, patient needs cues for safety and hand positioning but he ignores them, therapist has to guard patient during transfers for safety. Gait Training Distance: 200'x3 Walk 10 feet (QC): 4 Walk 50 ft with 2 Turns(QC): 4 Walk 150 ft (QC): 4 Gait Assistive Device: FWW CGA, cues for safety but again patient ignores them. Patient needs occasional assist getting walker closer to him (he lets it drift forward too far) and very close guarding during ambulation. Patient ambulates slowly, shuffles. Easily distracted. Exercises LAQ alternating for 5 min NuStep Minutes: 15 NuStep Workload: 5 Treatments transfers, ambulation, LE strengthening Assessment Current Status: Poor Progress Patient more confused, resistant to safety cues, high fall risk. PT Short Term Goals Short Term Goals Time Frame: May 08, 2019 Roll Left & Right: 6 Sit to lyin Lying to sitting on side of be: 6 Sit to stand: 4 Chair/nqw-fe-ikadi transfer: 4 Toilet transfer: 4 Car transfer: 4 Walk 10 feet: 4 Walk 50 feet with two turns: 4 Walk 150 feet: 4 PT Locks Tender Goals Locks Tender Goals PT Locks Tender Goals Time Frame: May 22, 2019 Roll Left & Right (QC): 6 Sit to Lying (QC): 6 Lying-Sitting on Side/Bed(QC): 6 Sit to Stand (QC): 4 (SBA) Chair/Ahi-wl-Frzip Xfer(QC): 4 (SBA) Toilet Transfer (QC): 4 (SBA) Car Transfer (QC): 4 (SBA) Walk 10 feet (QC): 4 (SBA) Walk 50ft with 2 Turns (QC): 4 (SBA) Walk 150 ft (QC): 4 (SBA) Walking 10ft on Uneven Surface: 4 (SBA) 1 Step (curb) (QC): 4 (CGA) 4 Steps (QC): 4 (CGA) 12 Steps (QC): 88 Picking up an Object (QC): 88 Does the Pt use WC or Scooter?: No Type: N/A Type: N/A PT Plan Problem List Problem List: Activity Tolerance, Functional Strength, Safety, Balance, Gait, Transfer, Bed Mobility, ROM Treatment/Plan Treatment Plan: Continue Plan of Care Treatment Plan: Bed Mobility, Concurrent Therapy, Education, Functional Activity Fl[place], Functional Strength, Group Therapy, Gait, Safety, Therapeutic Exercise, Transfers Treatment Duration: May 22, 2019 Frequency: At least 5 of 7 days/Wk (IRF) Estimated Hrs Per Day: 1.5 hours per day Patient and/or Family Agrees t: Yes Safety Risks/Education Patient Education: Gait Training, Transfer Techniques, Correct Positioning, Safety Issues Teaching Recipient: Patient Teaching Methods: Demonstration, Discussion Response to Teaching: Reinforcement Needed Time/GCodes Time In: 0800 Time Out: 0900 Total Billed Treatment Time: 60 Total Billed Treatment 1 visit EX 20' FA 10' GT 30' SHANNA HARMON PT May 12, 2019 08:53
[2019-05-12] MEDS: PHENAZOPYRIDINE 100 MG (PYRIDIUM) TABLET PO SCH ×3 (09:35→18:36)
[2019-05-12] MEDS: ASPIRIN E.C. 325 MG (ECOTRIN) TABLET PO SCH (09:35)
[2019-05-12] MEDS: SENNA W/DOCUSATE (SENOKOT S) TABLET PO SCH ×2 (09:35→21:27)
[2019-05-12] MEDS: lisINopril 20 MG (PRINIVIL) TABLET PO SCH (09:35)
[2019-05-12] MEDS: PATCH REMOVAL TP SCH (09:35)
[2019-05-12] MEDS: NICOTINE 21 MG (NICODERM) PATCH TD SCH (09:35)
[2019-05-12] MEDS: FLUTICASONE NASAL SPRAY (FLONASE) 16 GM BTL NS SCH (09:38)
--- NOTE | 2019-05-12 09:42 | PM&R Progress Note ---
Subjective HPI/CC On Admission Date Seen by Provider: May 12, 2019 Time Seen by Provider: 08:45 Subjective/Events-last exam Psych consult possibility but he does not have insurance and will not be an option at multiple facilities. flour worker talked to his , unsure if he can get Medicaid application filed, he definitely needs a senior living or 24/7 care with his family. Conferred with area field worker therapy notes Checked meds and labs Review of Systems Neurological: Confusion Objective Exam Vital Signs Vital Signs Date Time Temp Pulse Resp B/P (MAP) Pulse Ox O2 Delivery O2 Flow Rate FiO2 05/12/19 20:00 Room Air 05/12/19 16:00 36.8 112 16 103/51 (68) 96 Capillary Refill : Less Than 3 Seconds General Appearance: No Apparent Distress, WD/WN, Chronically ill, Thin HEENT: PERRL/EOMI, Normal ENT Inspection, Pharynx Normal Neck: Full Range of Motion, Normal Inspection, Non Tender, Supple, Carotid Bruit Respiratory: Chest Non Tender, Lungs Clear, Normal Breath Sounds, No Accessory Muscle Use, No Respiratory Distress Cardiovascular: Regular Rate, Rhythm, No Edema, No Gallop, No JVD, Normal Per ipheral Pulses, Systolic Murmur Gastrointestinal: Normal Bowel Sounds, No Organomegaly, No Pulsatile Mass, Non Tender, Soft Back: Normal Inspection, No CVA Tenderness, No Vertebral Tenderness Extremity: Normal Capillary Refill, Normal Inspection, Normal Range of Motion, Non Tender, No Calf Tenderness, No Pedal Edema Neurologic/Psychiatric: Alert, Oriented x3, hospice case manager II-XII Norm as Tested, Abnormal Gait, Aphasia, Depressed Affect, Disoriented, Motor Weakness (generalized right greater than left upper and lower manzanares maneuvers) Skin: Normal Color, Warm/Dry Lymphatic: No Adenopathy Results/Procedures Lab Patient resulted labs reviewed. FIM Transfers Therapy Code Descriptions/Definitions Functional [place] Measure: 0=Not Assessed/NA 4=Minimal Assistance 1=Total Assistance 5=Supervision or Setup 2=Maximal Assistance 6=Modified [place] 3=Moderate Assistance 7=Complete IndependenceSCALE: Activities may be completed with or without assistive devices. 8-Bqqtlqgezd-lwbhdmd completes the activity by him/herself with no assistance from a helper. 5-Set-up or Clean-up Assistance-helper sets up or cleans up; patient completes activity. [place] assists only prior to or following the activity. 4-Supervision or Touching Assistance-helper provides verbal cues and/or touching/steadying and/or contact guard assistance as patient completes activity. Assistance may be provided throughout the activity or intermittently. 3-Partial/Moderate Assistance-helper does LESS THAN HALF the effort. [place] lifts, holds or supports trunk or limbs, but provides less than half the effort. 2-Substantial/Maximal Assistance-helper does MORE THAN HALF the effort. [place] lifts or holds trunk or limbs and provides more than half the effort. 5-Qhgtzljtv-xdpyrm does ALL the effort. Patient does none of the effort to complete the activity. Or, the assistance of 2 or more helpers is required for the patient to complete the activity. If activity was not attempted, code reason: 7-Patient Refused. 9-Not Applicable-not attempted and the patient did not perform the activity before the current illness, exacerbation or injury. 10-Not Attempted due to Environmental Limitations-(lack of equipment, weather restraints, etc.). 88-Not Attempted due to Medical Conditions or Safety Concerns. Roll Left to Right (QC): 4 Sit to Lying (QC): 6 Sit to Stand (QC): 4 Chair/Moy-nt-Trnme Xfer(QC): 4 Car Transfer (QC): 3 Gait Training Does the Patient Walk?: Yes Distance: 200'x3 Walk 10 feet (QC): 4 Walk 50 ft with 2 Turns(QC): 4 Walk 150 ft (QC): 4 Walking 10ft/uneven surface-QC: 3 Gait Persons Needed: 1 Gait Assistive Device: FWW Wheelchair Training Does the Pt Use a Wheelchair?: No Type of Wheelchair: N/A Stair Training 1 Step (curb) (QC): 88 4 Steps (QC): 88 12 Steps (QC): 88 Balance Picking up an Object (QC): 88 ADL-Treatment Eating (QC): 6 Oral Hygiene (QC): 7 Bathing Location: L Arm, R Arm, L Upper Leg, R Upper Leg, L Lower Leg (including foot), R Lower Leg (including foot), Chest, Abdomen, Perineal Area Shower/Bathe Self (QC): 4 (CGA in stance, able to reach all areas excluding back. Pt declines full shower and requires encouragement for sponge bath. ) Upper Body Dressing (QC): 6 Lower Body Dressing (QC): 4 (SBA in stance. ) On/Off Footwear (QC): 4 (SBA EOB) Toileting Hygiene (QC): 4 (CGA in stance at FWW over toilet.) Toilet Transfer (QC): 3 (min A to guide bottom to toilet due to poor positioning and decreased safety with walker. ) Assessment/Plan Assessment and Plan Assess & Plan/Chief Complaint Assessment: Subacute stroke presented 5 days after neurological deficit Smoker Cachexia Cognitive deficit Plan: Incentive spirometer Mat protocol Statin Aspirin CT scan reviewed Cardiology evaluation is appreciated Inpatient rehabilitation protocol Needs senior living at discharge (1) Left pontine cerebrovascular accident Status: Acute (2) Aphasia (3) Smoker (4) Cognitive deficit as late effect of cerebrovascular accident (CVA) (5) Intellectual disability CHRISTOPHER DANIELS DO May 12, 2019 09:42
--- NOTE | 2019-05-12 09:52 | Occupational Ther Daily Note ---
OT Current Status-Daily Note Subjective Pt seen in recliner chair, pt states he didn't have a busy weekend but was "Okay." Pt agreeable to OT tx session, no c/o pain. ADL-Treatment Therapy Code Descriptions/Definitions Functional [place] Measure: 0=Not Assessed/NA 4=Minimal Assistance 1=Total Assistance 5=Supervision or Setup 2=Maximal Assistance 6=Modified [place] 3=Moderate Assistance 7=Complete IndependenceSCALE: Activities may be completed with or without assistive devices. 0-Oaryrfhfkh-pszkzix completes the activity by him/herself with no assistance from a helper. 5-Set-up or Clean-up Assistance-helper sets up or cleans up; patient completes activity. [place] assists only prior to or following the activity. 4-Supervision or Touching Assistance-helper provides verbal cues and/or touching/steadying and/or contact guard assistance as patient completes activity. Assistance may be provided throughout the activity or intermittently. 3-Partial/Moderate Assistance-helper does LESS THAN HALF the effort. [place] lifts, holds or supports trunk or limbs, but provides less than half the effort. 2-Substantial/Maximal Assistance-helper does MORE THAN HALF the effort. [place] lifts or holds trunk or limbs and provides more than half the effort. 0-Gfbdjsyyh-atztwy does ALL the effort. Patient does none of the effort to complete the activity. Or, the assistance of 2 or more helpers is required for the patient to complete the activity. If activity was not attempted, code reason: 7-Patient Refused. 9-Not Applicable-not attempted and the patient did not perform the activity before the current illness, exacerbation or injury. 10-Not Attempted due to Environmental Limitations-(lack of equipment, weather restraints, etc.). 88-Not Attempted due to Medical Conditions or Safety Concerns. Eating (QC): 6 Oral Hygiene (QC): 7 Shower/Bathe Self (QC): 7 Upper Body Dressing (QC): 7 Lower Body Dressing (QC): 7 On/Off Footwear: 7 Toileting Hygiene (QC): 4 Toilet Transfer (QC): 4 Other Treatment Pt denies ADLs on this date, pt states he took a shower, does not want a sponge bath, and that he just changed clothes. Pt's clothes clean, pt agrees to work in gym today. Pt ambulates to coffee with direction, pt stands in front of coffee pot and pours with fair coordination/ strength with L hand into cup. Pt requires additional time to place cream/ sugars into coffee. Pt ambulates to gym, completes 10 minutes of 25 watt resistance arm bike exercises with minimal breaks. Pt stands at tabletop, completes reaching for graded clothes pins with 2# wrist weights bilaterally. Pt completes with good endurance and fair standing balance. Pt ambulates to coffee once more for additional coffee, requires max cues for positioning with FWW, pt completes with increased time and focus. Pt requires max directional cues for room direction, requires 3 cues from gym to room for maintenance of feet inside FWW. Pt completes urination with FWW straddling toilet, cues for positioning. Backs up with FWW with good control from stance at toilet. Pt returns to recliner chair, all needs met, call light in reach, chair alarm on. Education OT Patient Education: Exercise program, Home exercise program, Modified ADL techniques, Purpose of tx/functional activities, Safety issues, Transfer techniques Teaching Recipient: Patient Teaching Methods: Demonstration, Discussion Response to Teaching: Verbalize Understanding, Return Demonstration, Reinforcement Needed OT Short Term Goals Short Term Goals Upper body dressin (met) Lower body dressin (met) OT Tractor Operator Helper Goals Tractor Operator Helper Goals Time Frame: May 15, 2019 Eating (QC): 6 (met) Oral Hygiene (QC): 6 Toileting Hygiene (QC): 6 Shower/Bathe Self (QC): 6 Upper Body Dressing (QC): 6 (met) Lower Body Dressing (QC): 6 On/Off Footwear (QC): 6 Additional Goals: 1-Demonstrate ADL Tasks, 2-Verbalize Understanding, 3- ImproveStrength/[place] 1=Demonstrate adherence to instructed precautions during ADL tasks. 2=Patient will verbalize/demonstrate understanding of assistive devices/modifications for ADL. 3=Patient will improve strength/tolerance for activity to enable patient to perform ADL's. OT Education/Plan Problem List/Assessment Assessment: Decreased Activ Tolerance, Decreased Safety Aware, Decreased UE Strength, Impaired Cognition, Impaired Funct Balance, Impaired I ADL's, Impaired Self-Care Skills Discharge Recommendations Plan/Recommendations: Continue POC Treatment Plan/Plan of Care Treatment,Training & Education: Yes Patient would benefit from OT for education, treatment and training to promote independence in ADL's, mobility, safety and/or upper extremity function for ADL 's. Plan of Care: ADL Retraining, Caregiver Training, Cognitive Retraining, Concurrent Therapy, Functional Mobility, Group Exercise/Act as Ind, UE Funct Exercise/Act, UE Neuromus Re-Ed/Coord Treatment Duration: May 15, 2019 Frequency: At least 5 of 7 days/Wk (IRF) Estimated Hrs Per Day: 1.5 hours per day Agreement: Yes Rehab Potential: Fair Time/GCodes Start Time: 09:15 Stop Time: 10:30 Total Time Billed (hr/min): 75 Billed Treatment Time 1, FA 2 (30), EX 2 (30), ADL (15)= 75 LIS MARTINEZ OTR May 12, 2019 09:52
[2019-05-12] MEDS: ALPRAZolam 0.25 MG (XANAX) TAB PO PRN ×2 (12:08→21:26)
[2019-05-12 13:11] VITALS: BP 90/59
[2019-05-12] MEDS: HYDROcodone/APAP 5 MG/325 MG (LORTAB) TAB PO PRN ×2 (13:22→21:27)
--- NOTE | 2019-05-12 13:30 | Physical Therapy Daily Note ---
PT Daily Note-Current Subjective Patient sitting EOB pre tx, agrees to PT, has no complaints of pain. Appearance Patient sitting EOB post tx with nurse call, phone, tray, bed alarm on, telesitter in room. Mental Status Patient Orientation: Person, Confused, [place] Transfers SCALE: Activities may be completed with or without assistive devices. 0-Psivpsrijq-qqxaoqe completes the activity by him/herself with no assistance from a helper. 5-Set-up or Clean-up Assistance-helper sets up or cleans up; patient completes activity. [place] assists only prior to or following the activity. 4-Supervision or Touching Assistance-helper provides verbal cues and/or touching/steadying and/or contact guard assistance as patient completes activity. Assistance may be provided throughout the activity or intermittently. 3-Partial/Moderate Assistance-helper does LESS THAN HALF the effort. [place] lift s, holds or supports trunk or limbs, but provides less than half the effort. 2-Substantial/Maximal Assistance-helper does MORE THAN HALF the effort. [place] lifts or holds trunk or limbs and provides more than half the effort. 5-Pkpqebket-bfsxea does ALL the effort. Patient does none of the effort to complete the activity. Or, the assistance of 2 or more helpers is required for the patient to complete the activity. If activity was not attempted, code reason: 7-Patient Refused. 9-Not Applicable-not attempted and the patient did not perform the activity before the current illness, exacerbation or injury. 10-Not Attempted due to Environmental Limitations-(lack of equipment, weather restraints, etc.). 88-Not Attempted due to Medical Conditions or Safety Concerns. Sit to Stand (QC): 4 Chair/Whx-ku-Ctgvq Xfer(QC): 4 CGA, cues for safety and positioning, assist with guiding walker Gait Training Distance: 200'x2 Walk 10 feet (QC): 3 Walk 50 ft with 2 Turns(QC): 3 Walk 150 ft (QC): 3 Gait Assistive Device: FWW Min assist to help guide walker, leans heavily on walker, walker too far in front of patient, festinating gait Treatments transfers, ambulation Assessment Current Status: Poor Progress poor safety awareness, follows safety cues poorly PT Short Term Goals Short Term Goals Time Frame: May 08, 2019 Roll Left & Right: 6 Sit to lyin Lying to sitting on side of be: 6 Sit to stand: 4 Chair/bhi-um-uopfd transfer: 4 Toilet transfer: 4 Car transfer: 4 Walk 10 feet: 4 Walk 50 feet with two turns: 4 Walk 150 feet: 4 PT [employer] Goals [employer] Goals PT Longterm Goals Time Frame: May 22, 2019 Roll Left & Right (QC): 6 Sit to Lying (QC): 6 Lying-Sitting on Side/Bed(QC): 6 Sit to Stand (QC): 4 (SBA) Chair/Lhw-wt-Ofdde Xfer(QC): 4 (SBA) Toilet Transfer (QC): 4 (SBA) Car Transfer (QC): 4 (SBA) Walk 10 feet (QC): 4 (SBA) Walk 50ft with 2 Turns (QC): 4 (SBA) Walk 150 ft (QC): 4 (SBA) Walking 10ft on Uneven Surface: 4 (SBA) 1 Step (curb) (QC): 4 (CGA) 4 Steps (QC): 4 (CGA) 12 Steps (QC): 88 Picking up an Object (QC): 88 Does the Pt use WC or Scooter?: No Type: N/A Type: N/A PT Plan Problem List Problem List: Activity Tolerance, Functional Strength, Safety, Balance, Gait, Transfer, Bed Mobility Treatment/Plan Treatment Plan: Continue Plan of Care Treatment Plan: Bed Mobility, Concurrent Therapy, Education, Functional Activity Flory, Functional Strength, Group Therapy, Gait, Safety, Therapeutic E xercise, Transfers Treatment Duration: May 22, 2019 Frequency: At least 5 of 7 days/Wk (IRF) Estimated Hrs Per Day: 1.5 hours per day Patient and/or Family Agrees t: Yes Safety Risks/Education Patient Education: Gait Training, Transfer Techniques, Correct Positioning, Safety Issues Teaching Recipient: Patient Teaching Methods: Demonstration, Discussion Response to Teaching: Reinforcement Needed Time/GCodes Time In: 1315 Time Out: 1330 Total Billed Treatment Time: 15 Total Billed Treatment 1 visit GT 15' SHANNA HARMON PT May 12, 2019 13:30
--- NOTE | 2019-05-12 15:40 | Speech Therapy Daily Note ---
Speech Daily Progress Note Subjective Date Seen by Provider: May 12, 2019 Time Seen by Provider: 00:30 Patient was talking on the phone to his sister when we entered his room for our ST session. Objective Patient completed a series of questions related to his daily needs at 80% with min to mod cues. Assessment Assessment Current Status: Good Progress Treatment Plan Continue Plan of Care Speech Short Term Goals Short Term Goals Short Term Goals 1) Patient will complete memory tasks related to his daily needs at 80% or greater with minimal cues. 2) Patient will complete safety awareness tasks related to his daily needs at 80% or greater with minimal cues. 3) Patient will complete problem solving tasks related to his daily needs at 80% or greater with minimal cues. 4) Patient will complete speech production tasks to increase intelligibility at 80% or greater with minimal cues. Speech Weapons Engineer Goals Fpc Goals Patient will improve cognitive-communication necessary for safety and daily living tasks with minimal assist. Patient will increase his speech intelligibility to be an effective communicator of wants/needs. Speech-Plan Patient/Family Goals Patient/Family Goals: Patient plans on returning home where he lives with his girlfriend. Treatment Plan Speech Therapy Treatment Plan: Continue Plan of Care Patient is progressing well with speech therapy. Treatment Duration: May 16, 2019 Frequency: 5 times per week Estimated Hrs Per Day: .5 hour per day Rehab Potential: Fair Barriers to Learning: Patient's recent CVA Pt/Family Agrees to Plan: Yes Safety Risks/Education Teaching Recipient: Patient Teaching Methods: Demonstration, Discussion Response to Teaching: Verbalize Understanding, Return Demonstration Education Topics Provided: Continued safety within his room and utilization of the call light Time Speech Therapy Time In: 14:30 Speech Therapy Time Out: 15:00 Total Billed Time: 30 Billed Treatment Time 1, SLCHRIS Hoover May 12, 2019 15:40
--- NOTE | 2019-05-12 15:44 | Speech Therapy Daily Note ---
Speech Daily Progress Note Subjective Date Seen by Provider: May 12, 2019 Time Seen by Provider: 00:30 Patient was resting in her bed with her daughter present. Objective Patient completed a series of memory tasks at 75% with moderate verbal cues. Assessment Assessment Current Status: Fair Progress Treatment Plan Continue Plan of Care Speech Short Term Goals Short Term Goals Short Term Goals 1) Patient will complete memory tasks related to his daily needs at 80% or greater with minimal cues. 2) Patient will complete safety awareness tasks related to his daily needs at 80% or greater with minimal cues. 3) Patient will complete problem solving tasks related to his daily needs at 80% or greater with minimal cues. 4) Patient will complete speech production tasks to increase intelligibility at 80% or greater with minimal cues. Speech Fdc Goals Fdc Goals Patient will improve cognitive-communication necessary for safety and daily living tasks with minimal assist. Patient will increase his speech intelligibility to be an effective communicator of wants/needs. Speech-Plan Patient/Family Goals Patient/Family Goals: Patient plans on returning home with her upon discharge. Treatment Plan Speech Therapy Treatment Plan: Continue Plan of Care The patient is making slight progress with recall of information. Treatment Duration: May 16, 2019 Frequency: 5 times per week Estimated Hrs Per Day: .5 hour per day Rehab Potential: Fair Barriers to Learning: Patient has dementia Pt/Family Agrees to Plan: Yes Safety Risks/Education Teaching Recipient: Patient, Family Teaching Methods: Demonstration, Discussion Response to Teaching: Verbalize Understanding, Return Demonstration Education Topics Provided: Continued safety and communication of wants/needs. Time Speech Therapy Time In: 15:00 Speech Therapy Time Out: 15:30 Total Billed Time: 30 Billed Treatment Time 1ANNELISE BETHANIA ST May 12, 2019 15:44
[2019-05-12 16:00] VITALS: BP 103/51
--- NOTE | 2019-05-12 17:00 | Cardiology Progress Note ---
Cardiology SOAP Progress Note Subjective: Denies any cardiac complaints. Objective: I&O/Vital Signs 05/12/19 05/12/19 05/12/19 05/12/19 06:00 09:00 09:15 13:11 Temp 36.9 36.9 Pulse 78 124 Resp 16 B/P (MAP) 90/59 (69) Pulse Ox 97 98 O2 Delivery Room Air Room Air Room Air 05/12/19 16:00 Temp 36.8 Pulse 112 Resp 16 B/P (MAP) 103/51 (68) Pulse Ox 96 O2 Delivery Room Air 05/12/19 00:00 Intake Total 1800 ml Balance 1800 ml Constitutional: AAO x 3 Respiratory: chest is bilaterally symmetric, lungs clear to auscultation Cardiovascular: regular rate-rhythm, S1 and S2, systolic murmur Gastrointestional: soft, audible bowel sounds Extremities: normal inspection, no lower extremity edema bilateral Neurologic/Psychiatric: no motor/sensory deficits, alert, oriented x 3 Skin: normal color Results/Procedures: Labs Laboratory Tests 05/12/19 05:03: White Blood Count 9.4, Red Blood Count 4.30L, Hemoglobin 12.1L, Hematocrit 37L, Mean Corpuscular Volume 87, Mean Corpuscular Hemoglobin 28, Mean Corpuscular Hemoglobin Concent 32, Red Cell Distribution Width 15.8H, Platelet Count 393, Mean Platelet Volume 10.6H, Neutrophils (%) (Auto) 56, Lymphocytes (%) (Auto) 27, Monocytes (%) (Auto) 14H, Eosinophils (%) (Auto) 3, Basophils (%) (Auto) 1, Neutrophils # (Auto) 5.3, Lymphocytes # (Auto) 2.5, Monocytes # (Auto) 1.3H, E osinophils # (Auto) 0.3, Basophils # (Auto) 0.1, Sodium Level 133L, Potassium Level 4.5, Chloride Level 100, Carbon Dioxide Level 21, Anion Gap 12, Blood Urea Nitrogen 15, Creatinine 0.75, Estimat Glomerular Filtration Rate > 60, BUN/C reatinine Ratio 20, Glucose Level 92, Calcium Level 9.5, Corrected Calcium 9.7, Total Bilirubin 0.2, Aspartate Amino Transf (AST/SGOT) 17, Alanine Aminotransferase (ALT/SGPT) 20, Alkaline Phosphatase 56, Total Protein 6.6, Albumin 3.7 A/P: Assessment/Dx: Acute CVA, LVH, hypertensive heart disease. Active smoking, Cardiomyopathy. Abnormal nuclear stress test. Occluded right subclavian artery. Plan: Plan: Acute CVA, unclear etiology. Negative carotid ultrasound for significant carotid disease. Echocardiogram shows mildly reduce LV systolic function with no clear evidence of intracardiac shunting. Telemetry for 24 hours is negative for atrial fibrillation. Continue telemetry for total of 48 hours if no atrial fibrillation consider implantable loop recorder. Due to mildly reduce LV systolic function, coronary evaluation is recommended however due to recent stroke, invasive cardiac procedures are deferred for at least 1 month. We can proceed with nuclear stress testing for risk stratification. Nuclear stress test was done on 05/01/2019 which showed small area of apical ischemia. Patient will likely require coronary angiography probably in a month from the stroke; stroke was on 04/29/2019. For now continue aspirin. OT/PT. Cardiomyopathy, unclear whether ischemic or nonischemic. Coronary angiography cannot be done in the setting of an acute stroke for at least 30 days. Treat with lisinopril and beta brad. Active smoking: Smoking cessation is strongly recommended. The patient told me very clearly that as soon as he is out of the hospital he will start smoking again. LVH, likely due to hypertensive heart disease. On lisinopril. Right UE systolic BP 95mmhg, Left UE systolic BP 165 mmhg -CTA chest showed occluded right subclavian artery. Significant disease in the left subclavian a rtery as well. I discussed with the patient and recommended peripheral angiogram and possible intervention. This will be done in addition to the coronary angiography which has been delayed to one month after his initial stroke. Patient is not to keen for the procedure. Since it's not urgent I have not emphasized a lot. Thank you for your consultation. Please call me if you have any questions. Spenser Rhodes MD, FACP, FACC, FSCAI, FHRS, CCDS Interventional Cardiology Cardiac Electrophysiology Vascular Medicine and Endovascular Interventions Ramandeep RHODES MD May 12, 2019 17:00
--- NOTE | 2019-05-12 21:10 | NUR ---
Pt appears restless, reports tooth ache and headache, remains A/O x 3, moving all extremities able to walk to the bathroom with assistance. Tele sitter and bed exit alarm have been activated multiple times. Will medicate with pain pills PRN. Will continue to monitor closely.
[2019-05-12] MEDS: MELATONIN 3 MG TABLET PO PRN (21:26)
[2019-05-12] MEDS: ACETAMINOPHEN 500 MG TAB (TYLENOL) PO PRN (21:26)
[2019-05-12] MEDS: ENOXAPARIN 30 MG/0.3 ML (LOVENOX) SYR SC SCH (21:27)
[2019-05-13 06:40] VITALS: BP 93/67
[2019-05-13 07:58] VITALS: BP 124/71
[2019-05-13] MEDS: meTOprolol TARTRATE 25 MG (LOPRESSOR) TABLET PO SCH ×2 (08:01→20:33)
[2019-05-13] MEDS: PHENAZOPYRIDINE 100 MG (PYRIDIUM) TABLET PO SCH ×3 (08:01→18:20)
[2019-05-13] MEDS: PATCH REMOVAL TP SCH (08:01)
[2019-05-13] MEDS: ASPIRIN E.C. 325 MG (ECOTRIN) TABLET PO SCH (08:01)
[2019-05-13] MEDS: lisINopril 20 MG (PRINIVIL) TABLET PO SCH (08:01)
[2019-05-13] MEDS: NICOTINE 21 MG (NICODERM) PATCH TD SCH (08:01)
[2019-05-13] MEDS: POLYETHYLENE GLYCOL 17 GM (MIRALAX) PACK PO SCH ×2 (08:03→20:35)
[2019-05-13] MEDS: SENNA W/DOCUSATE (SENOKOT S) TABLET PO SCH ×2 (08:03→20:33)
[2019-05-13] MEDS: FLUTICASONE NASAL SPRAY (FLONASE) 16 GM BTL NS SCH (08:06)
--- NOTE | 2019-05-13 09:06 | Physical Therapy Daily Note ---
PT Daily Note-Current Subjective Patient in recliner pre tx, has no complaints of pain. Patient is very agitated this morning needs max encouragement to participate, needs max redirection and calming speech to decrease agitation. Appearance Patient in recliner post tx with nurse call, phone, tray, chair alarm on, telesitter in room. Mental Status Patient Orientation: Confused, Unable to Assess Transfers SCALE: Activities may be completed with or without assistive devices. 1-Tcsdoxgqkd-tlfarch completes the activity by him/herself with no assistance from a helper. 5-Set-up or Clean-up Assistance-helper sets up or cleans up; patient completes activity. [place] assists only prior to or following the activity. 4-Supervision or Touching Assistance-helper provides verbal cues and/or touching/steadying and/or contact guard assistance as patient completes activity. Assistance may be provided throughout the activity or intermittently. 3-Partial/Moderate Assistance-helper does LESS THAN HALF the effort. [place] lifts, holds or supports trunk or limbs, but provides less than half the effort. 2-Substantial/Maximal Assistance-helper does MORE THAN HALF the effort. [place] lifts or holds trunk or limbs and provides more than half the effort. 6-Albdwwcno-blcbfp does ALL the effort. Patient does none of the effort to complete the activity. Or, the assistance of 2 or more helpers is required for the patient to complete the activity. If activity was not attempted, code reason: 7-Patient Refused. 9-Not Applicable-not attempted and the patient did not perform the activity before the current illness, exacerbation or injury. 10-Not Attempted due to Environmental Limitations-(lack of equipment, weather restraints, etc.). 88-Not Attempted due to Medical Conditions or Safety Concerns. Sit to Stand (QC): 4 Chair/Icj-nk-Wxmta Xfer(QC): 3 Min assist occasionally to guide walker during transfers but he did do a better job at staying behind the walker when turning. Gait Training Distance: 200'x3 Walk 10 feet (QC): 4 Walk 50 ft with 2 Turns(QC): 4 Walk 150 ft (QC): 4 Gait Assistive Device: FWW CGA, very slow, less festinating gait Exercises NuStep Minutes: 20 NuStep Workload: 5 Treatments transfers, ambulation, LE exercise Assessment Current Status: Fair Progress improved ambulation, better safety with walker but needed education after starting with significant safety issues PT Short Term Goals Short Term Goals Time Frame: May 08, 2019 Roll Left & Right: 6 Sit to lyin Lying to sitting on side of be: 6 Sit to stand: 4 Chair/uyn-sp-yhdie transfer: 4 Toilet transfer: 4 Car transfer: 4 Walk 10 feet: 4 Walk 50 feet with two turns: 4 Walk 150 feet: 4 PT [facility] Goals [place] Goals PT [facility] Goals Time Frame: May 22, 2019 Roll Left & Right (QC): 6 Sit to Lying (QC): 6 Lying-Sitting on Side/Bed(QC): 6 Sit to Stand (QC): 4 (SBA) Chair/Alq-tu-Ittww Xfer(QC): 4 (SBA) Toilet Transfer (QC): 4 (SBA) Car Transfer (QC): 4 (SBA) Walk 10 feet (QC): 4 (SBA) Walk 50ft with 2 Turns (QC): 4 (SBA) Walk 150 ft (QC): 4 (SBA) Walking 10ft on Uneven Surface: 4 (SBA) 1 Step (curb) (QC): 4 (CGA) 4 Steps (QC): 4 (CGA) 12 Steps (QC): 88 Picking up an Object (QC): 88 Does the Pt use WC or Scooter?: No Type: N/A Type: N/A PT Plan Problem List Problem List: Activity Tolerance, Functional Strength, Safety, Balance, Gait, Transfer, Bed Mobility Treatment/Plan Treatment Plan: Continue Plan of Care Treatment Plan: Bed Mobility, Concurrent Therapy, Education, Functional Activity Flory, Functional Strength, Group Therapy, Gait, Safety, Therapeutic Exercise, Transfers Treatment Duration: May 22, 2019 Frequency: At least 5 of 7 days/Wk (IRF) Estimated Hrs Per Day: 1.5 hours per day Patient and/or Family Agrees t: Yes Safety Risks/Education Patient Education: Gait Training, Transfer Techniques, Correct Positioning, Safety Issues Teaching Recipient: Patient Teaching Methods: Demonstration, Discussion Response to Teaching: Reinforcement Needed Time/GCodes Time In: 814 Time Out: 914 Total Billed Treatment Time: 60 Total Billed Treatment 1 visit EX 20' GT 40' SHANNA HARMON PT May 13, 2019 09:06
--- NOTE | 2019-05-13 09:20 | PM&R Progress Note ---
Subjective HPI/CC On Admission Date Seen by Provider: May 13, 2019 Time Seen by Provider: 08:45 Subjective/Events-last exam Bowels moved yesterday A little bit irritable with the therapist today No pain is reported Continues to be a fall risk, he is very impulsive Conferred with typing office worker therapy notes Checked meds and labs Objective Exam Vital Signs Vital Signs Date Time Temp Pulse Resp B/P (MAP) Pulse Ox O2 Delivery O2 Flow Rate FiO2 05/13/19 20:35 Room Air 05/13/19 16:44 36.4 104 20 153/83 (106) 97 Capillary Refill : Less Than 3 Seconds General Appearance: No Apparent Distress, WD/WN, Chronically ill, Thin HEENT: PERRL/EOMI, Normal ENT Inspection, Pharynx Normal Neck: Full Range of Motion, Normal Inspection, Non Tender, Supple, Carotid Bruit Respiratory: Chest Non Tender, Lungs Clear, Normal Breath Sounds, No Accessory Muscle Use, No Respiratory Distress Cardiovascular: Regular Rate, Rhythm, No Edema, No Gallop, No JVD, Normal Peripheral Pulses, Systolic Murmur Gastrointestinal: Normal Bowel Sounds, No Organomegaly, No Pulsatile Mass, Non Tender, Soft Back: Normal Inspection, No CVA Tenderness, No Vertebral Tenderness Extremity: Normal Capillary Refill, Normal Inspection, Normal Range of Motion, Non Tender, No Calf Tenderness, No Pedal Edema Neurologic/Psychiatric: Alert, Oriented x3, mail handler sorter II-XII Norm as Tested, Abnormal Gait, Aphasia, Depressed Affect, Disoriented, Motor Weakness (generalized right greater than left upper and lower manzanares maneuvers) Skin: Normal Color, Warm/Dry Lymphatic: No Adenopathy Results/Procedures Lab Patient resulted labs reviewed. FIM Transfers Therapy Code Descriptions/Definitions Functional [place] Measure: 0=Not Assessed/NA 4=Minimal Assistance 1=Total Assistance 5=Supervision or Setup 2=Maximal Assistance 6=Modified [place] 3=Moderate Assistance 7=Complete IndependenceSCALE: Activities may be completed with or without assistive devices. 5-Xuiykacksq-npjefgr completes the activity by him/herself with no assistance from a helper. 5-Set-up or Clean-up Assistance-helper sets up or cleans up; patient completes activity. [place] assists only prior to or following the activity. 4-Supervision or Touching Assistance-helper provides verbal cues and/or touching/steadying and/or contact guard assistance as patient completes activity. Assistance may be provided throughout the activity or intermittently. 3-Partial/Moderate Assistance-helper does LESS THAN HALF the effort. [place] lifts, holds or supports trunk or limbs, but provides less than half the effort. 2-Substantial/Maximal Assistance-helper does MORE THAN HALF the effort. [place] lifts or holds trunk or limbs and provides more than half the effort. 8-Voyvzfrjk-kxvhxf does ALL the effort. Patient does none of the effort to complete the activity. Or, the assistance of 2 or more helpers is required for the patient to complete the activity. If activity was not attempted, code reason: 7-Patient Refused. 9-Not Applicable-not attempted and the patient did not perform the activity before the current illness, exacerbation or injury. 10-Not Attempted due to Environmental Limitations-(lack of equipment, weather restraints, etc.). 88-Not Attempted due to Medical Conditions or Safety Concerns. Roll Left to Right (QC): 4 Sit to Lying (QC): 6 Sit to Stand (QC): 4 Chair/Vlc-cm-Kvyks Xfer(QC): 3 Car Transfer (QC): 3 Gait Training Does the Patient Walk?: Yes Distance: 200'x3 Walk 10 feet (QC): 4 Walk 50 ft with 2 Turns(QC): 4 Walk 150 ft (QC): 4 Walking 10ft/uneven surface-QC: 3 Gait Persons Needed: 1 Gait Assistive Device: FWW Wheelchair Training Does the Pt Use a Wheelchair?: No Type of Wheelchair: N/A Stair Training 1 Step (curb) (QC): 88 4 Steps (QC): 88 12 Steps (QC): 88 Balance Picking up an Object (QC): 88 ADL-Treatment Eating (QC): 6 Oral Hygiene (QC): 7 Bathing Location: L Arm, R Arm, L Upper Leg, R Upper Leg, L Lower Leg (including foot), R Lower Leg (including foot), Chest, Abdomen, Perineal Area Shower/Bathe Self (QC): 7 Upper Body Dressing (QC): 7 Lower Body Dressing (QC): 7 On/Off Footwear (QC): 7 Toileting Hygiene (QC): 4 Toilet Transfer (QC): 4 Assessment/Plan Assessment and Plan Assess & Plan/Chief Complaint Assessment: Subacute stroke presented 5 days after neurological deficit Smoker Cachexia Cognitive deficit Plan: Incentive spirometer Mat protocol Statin Aspirin CT scan reviewed Cardiology evaluation is appreciated Inpatient rehabilitation protocol Needs intermediate at discharge (1) Left pontine cerebrovascular accident Status: Acute (2) Aphasia (3) Smoker (4) Cognitive deficit as late effect of cerebrovascular accident (CVA) (5) Intellectual disability CHRISTOPHER DANIELS DO May 13, 2019 09:20
--- NOTE | 2019-05-13 10:45 | Occupational Ther Daily Note ---
OT Current Status-Daily Note Subjective Pt seen in recliner chair, pt hesitantly agreeable to OT tx session. Pt denies pain. ADL-Treatment Therapy Code Descriptions/Definitions Functional Tillman Measure: 0=Not Assessed/NA 4=Minimal Assistance 1=Total Assistance 5=Supervision or Setup 2=Maximal Assistance 6=Modified [place] 3=Moderate Assistance 7=Complete IndependenceSCALE: Activities may be completed with or without assistive devices. 3-Xshourxrkf-qmwipew completes the activity by him/herself with no assistance from a helper. 5-Set-up or Clean-up Assistance-helper sets up or cleans up; patient completes activity. [place] assists only prior to or following the activity. 4-Supervision or Touching Assistance-helper provides verbal cues and/or touching/steadying and/or contact guard assistance as patient completes activity. Assistance may be provided throughout the activity or intermittently. 3-Partial/Moderate Assistance-helper does LESS THAN HALF the effort. [place] lifts, holds or supports trunk or limbs, but provides less than half the effort. 2-Substantial/Maximal Assistance-helper does MORE THAN HALF the effort. [place] lifts or holds trunk or limbs and provides more than half the effort. 0-Facscgyyb-ysspfq does ALL the effort. Patient does none of the effort to complete the activity. Or, the assistance of 2 or more helpers is required for the patient to complete the activity. If activity was not attempted, code reason: 7-Patient Refused. 9-Not Applicable-not attempted and the patient did not perform the activity before the current illness, exacerbation or injury. 10-Not Attempted due to Environmental Limitations-(lack of equipment, weather restraints, etc.). 88-Not Attempted due to Medical Conditions or Safety Concerns. Eating (QC): 6 Oral Hygiene (QC): 7 Shower/Bathe Self (QC): 4 (Pt completes sponge bath with wipes, able to reach all areas excluding back, completes with CGA in stance and cues for sequencing.) Upper Body Dressing (QC): 5 (s/u and cues for initation.) Lower Body Dressing (QC): 4 (cues for safety as pt begins to don while in stance, pt dons in recliner chair post-cueing, able to complete with CGA.) On/Off Footwear: 6 (self-corrects wrong foot) Toileting Hygiene (QC): 7 Toilet Transfer (QC): 7 Other Treatment Pt completes bathing while in chair, fixates on hair and brushes for over 5 minutes. Pt requires cues for termination, dons clothes near chair. Pt requires constant cues for safe sit to stand. Pt does not complete correctly wihtout cues. Pt gets up from washing UB and walks without walker (CGA throughout) to counter top, pt asked what he needed,"To put glasses on the sink." Pt educated on safety of use of walker and decreased balance, pt does not verbally respond but utilizes walker when placed in front of pt. Pt returns to chair and completes washing, denies use of bathroom, ambulates to therapy gym with no cues for feet/ walker placement. Pt sits EOM, completes standing and sitting reaching exercises, gathering items from either side of pt/ reaching across midline with CGA and one hand on walker. Pt completes 10 minutes of light resistance arm bike, requires cues 5x through 10 minutes for use of BUE, pt states R UE needed break. Pt completes, requires cues for safety while standing/ reaching for FWW. Pt ambulates to room with mod A for directions, sits in recliner chair, coffee brought to pt and pt able to manipulate sugar/ cream packages with fair motor control. pt left in room with call light in reach, all needs met, chair alarm on. Pt's chair alarm goes off ~2 min post-session. OT educates pt of call light use, presses call light and educates on remaining seated until assist comes. Pt nods. Left in room in recliner chair, chair alarm on. Education OT Patient Education: Correct positioning, Exercise program, Modified ADL techniques, Purpose of tx/functional activities, Safety issues, Transfer techniques Teaching Recipient: Patient Teaching Methods: Demonstration, Discussion Response to Teaching: Verbalize Understanding, Return Demonstration, Reinforcement Needed OT Short Term Goals Short Term Goals Upper body dressin (met) Lower body dressin (met) OT Creative Arts Therapist Goals [facility] Goals Time Frame: May 15, 2019 Eating (QC): 6 (met) Oral Hygiene (QC): 6 Toileting Hygiene (QC): 6 Shower/Bathe Self (QC): 6 Upper Body Dressing (QC): 6 (met) Lower Body Dressing (QC): 6 On/Off Footwear (QC): 6 Additional Goals: 1-Demonstrate ADL Tasks, 2-Verbalize Understanding, 3-ImproveStrength/Flory 1=Demonstrate adherence to instructed precautions during ADL tasks. 2=Patient will verbalize/demonstrate understanding of assistive devices/modifications for ADL. 3=Patient will improve strength/tolerance for activity to enable patient to perform ADL's. OT Education/Plan Problem List/Assessment Assessment: Decreased Activ Tolerance, Decreased Safety Aware, Decreased UE Strength, Dependent Transfers, Impaired Cognition, Impaired Funct Balance, Impaired I ADL's, Impaired Self-Care Skills Discharge Recommendations Plan/Recommendations: Continue POC Therapy Discharge Recommendati: 24 Hour Supervision Treatment Plan/Plan of Care Treatment,Training & Education: Yes Patient would benefit from OT for education, treatment and training to promote independence in ADL's, mobility, safety and/or upper extremity function for ADL's. Plan of Care: ADL Retraining, Caregiver Training, Cognitive Retraining, Concurrent Therapy, Functional Mobility, Group Exercise/Act as Ind, UE Funct Exercise/Act, UE Neuromus Re-Ed/Coord Treatment Duration: May 15, 2019 Frequency: At least 5 of 7 days/Wk (IRF) Estimated Hrs Per Day: 1.5 hours per day Agreement: Yes Rehab Potential: Fair Time/GCodes Start Time: 09:15 Stop Time: 10:30 Total Time Billed (hr/min): 75 Billed Treatment Time 1, ADL 3 (45), EX 2 (30)= 75 LIS MARTINEZ OTR May 13, 2019 10:45
--- NOTE | 2019-05-13 13:33 | NUR ---
DR. ROSS HERE TO SEE PATIENT.
--- NOTE | 2019-05-13 13:48 | NUR ---
DR. ROSS SPOKE WITH PATIENT ABOUT HEART CATH OPTIONS. PATIENT REFUSING HEART CATH AT THIS... BUT ASKED THIS RN TO TALK WITH NENO (S/O) AND SANJUANA (SISTER) ABOUT IT. SPOKE WITH NENO... WHO DIDN'T REALLY UNDERSTAND ANY OF CONVERSATION. SPOKE WITH SANJUANA WHO SAYS THAT NENO IS "VERY SLOW". SANJUANA FEELS LIKE PATIENT ISN'T COGNITIVELY AWARE ENOUGH AT THIS TIME TO MAKE DECISION. SANJUANA STATES THAT FAMILY WILL CONTINUE TO TALK WITH PATIENT ABOUT OPTIONS AND WILL DECIDE AT A LATER DATE. DR. ROSS INFORMED OF ABOVE. Addendum: 05/13/19 at 1433 by LOWELL BONNER RN PATIENT REFUSING HEART CATH AT THIS TIME*
--- NOTE | 2019-05-13 13:51 | NUR ---
1000a-Based on team discussion, KENDRA reached out to patient's SO, Coty and her son, Aj to inquire about their ability to attend family training. Arranging this will allow family and team to determine if a home plan can be achieved safely vs the need for alternative arrangements. FRANCIA unable to reach Aj. Coty states she knows that she is not capable of assisting the patient due to her own limitations. Addendum: 05/13/19 at 1619 by DAKOTAH [place]OY SS [id number]-FRANCIA met with Mita in Financial Services to request submission of [place] and Disability application. If patient is unable to have support and supervision in a home setting, patient will likely need mcc placement for 24hour supervision due to impulsivity. Mita will submit applications today. 130p-FRANCIA received contact information for patient's sister of whom he has spoken with several times since admission, per staff. FRANCIA reached out to patient's sister, Cortney ([phone]). Cortney resides in [place], [place] and has spoken with the patient about him staying with her. Per Cortney, patient is agreeable to this; however, she is aware of his impulsivity and is unsure if he will agree to reside with her for long. She is willing to complete family training and pursue this living arrangement. FRANCIA mentioned the alternative of mcc placement, if she feels that she is unable to provide necessary supervision. Cortney states she is home part time and has family support as well. She will speak with her family in regards to coming for family training and potential discharge. This worker provided Betina TERRAZAS's contact number to coordinate further.
--- NOTE | 2019-05-13 14:04 | Speech Therapy Daily Note ---
Speech Daily Progress Note Subjective Date Seen by Provider: May 13, 2019 Time Seen by Provider: 00:30 Patient was sitting in his chair drinking coffee when we entered his room for therapy. Objective Patient was given the SLUMS with a score of 3/30, which shows regression. However it is of the clinical observation that the patient was not wanting to do this activity. His responses to tasks most days are indicative of improvement. Today, however patient is reported to be somewhat agitated and not participating well with all therapies. Assessment Assessment Current Status: Fair Progress Treatment Plan Continue Plan of Care Speech Short Term Goals Short Term Goals Short Term Goals 1) Patient will complete memory tasks related to his daily needs at 80% or greater with minimal cues. 2) Patient will complete safety awareness tasks related to his daily needs at 80% or greater with minimal cues. 3) Patient will complete problem solving tasks related to his daily needs at 80% or greater with minimal cues. 4) Patient will complete speech production tasks to increase intelligibility at 80% or greater with minimal cues. Speech Finish Machine Tender Goals Finish Machine Tender Goals Patient will improve cognitive-communication necessary for safety and daily living tasks with minimal assist. Patient will increase his speech inte lligibility to be an effective communicator of wants/needs. Speech-Plan Patient/Family Goals Patient/Family Goals: Patient is wanting to go home as soon as possible. Treatment Plan Speech Therapy Treatment Plan: Continue Plan of Care He is resistant to therapy this date. Treatment Duration: May 16, 2019 Frequency: 5 times per week Estimated Hrs Per Day: .5 hour per day Rehab Potential: Fair Barriers to Learning: Patient's recent CVA. Patient is expected to have had some pre-existing cognitive deficits. Pt/Family Agrees to Plan: Yes Safety Risks/Education Teaching Recipient: Patient Teaching Methods: Demonstration, Discussion Response to Teaching: Verbalize Understanding, Return Demonstration, Reinforcement Needed Education Topics Provided: Continued effective communication of wants/needs Time Speech Therapy Time In: 11:30 Speech Therapy Time Out: 12:00 Total Billed Time: 30 Billed Treatment Time 1ANNELISE BETHANIA ST May 13, 2019 14:04
--- NOTE | 2019-05-13 14:17 | Physical Therapy Daily Note ---
PT Daily Note-Current Subjective Patient sitting EOB pre tx, agrees to PT, has no complaints of pain. Appearance Patient sitting EOB post tx with bed alarm on, has nurse call, phone, tray, all needs met. Mental Status Patient Orientation: Person, Confused Transfers SCALE: Activities may be completed with or without assistive devices. 9-Rpowxhiwjh-qrnjzpj completes the activity by him/herself with no assistance from a helper. 5-Set-up or Clean-up Assistance-helper sets up or cleans up; patient completes activity. [place] assists only prior to or following the activity. 4-Supervision or Touching Assistance-helper provides verbal cues and/or touching/steadying and/or contact guard assistance as patient completes activity. Assistance may be provided throughout the activity or intermittently. 3-Partial/Moderate Assistance-helper does LESS THAN HALF the effort. [place] lifts, holds or supports trunk or limbs, but provides less than half the effort. 2-Substantial/Maximal Assistance-helper does MORE THAN HALF the effort. [place] lifts or holds trunk or limbs and provides more than half the effort. 8-Dzdkcgkzl-ohiozo does ALL the effort. Patient does none of the effort to complete the activity. Or, the assistance of 2 or more helpers is required for the patient to complete the activity. If activity was not attempted, code reason: 7-Patient Refused. 9-Not Applicable-not attempted and the patient did not perform the activity before the current illness, exacerbation or injury. 10-Not Attempted due to Environmental Limitations-(lack of equipment, weather restraints, etc.). 88-Not Attempted due to Medical Conditions or Safety Concerns. Sit to Stand (QC): 4 Chair/Mom-ev-Fxtci Xfer(QC): 4 SBA Gait Training Distance: 200'x2 Walk 10 feet (QC): 3 Walk 50 ft with 2 Turns(QC): 3 Walk 150 ft (QC): 3 Gait Assistive Device: FWW Mostly SBA but needs min assist to help guide walker when turning, very slow ambulation, did a better job at staying close to the walker. Assessment Current Status: Fair Progress improved ambulation PT Short Term Goals Short Term Goals Time Frame: May 08, 2019 Roll Left & Right: 6 Sit to lyin Lying to sitting on side of be: 6 Sit to stand: 4 Chair/qgr-fa-pnfqk transfer: 4 Toilet transfer: 4 Car transfer: 4 Walk 10 feet: 4 Walk 50 feet with two turns: 4 Walk 150 feet: 4 PT Fci Goals Fci Goals PT Fci Goals Time Frame: May 22, 2019 Roll Left & Right (QC): 6 Sit to Lying (QC): 6 Lying-Sitting on Side/Bed(QC): 6 Sit to Stand (QC): 4 (SBA) Chair/Tga-dr-Czbil Xfer(QC): 4 (SBA) Toilet Transfer (QC): 4 (SBA) Car Transfer (QC): 4 (SBA) Walk 10 feet (QC): 4 (SBA) Walk 50ft with 2 Turns (QC): 4 (SBA) Walk 150 ft (QC): 4 (SBA) Walking 10ft on Uneven Surface: 4 (SBA) 1 Step (curb) (QC): 4 (CGA) 4 Steps (QC): 4 (CGA) 12 Steps (QC): 88 Picking up an Object (QC): 88 Does the Pt use WC or Scooter?: No Type: N/A Type: N/A PT Plan Problem List Problem List: Activity Tolerance, Functional Strength, Safety, Balance, Gait, Transfer, Bed Mobility Treatment/Plan Treatment Plan: Continue Plan of Care Treatment Plan: Bed Mobility, Concurrent Therapy, Education, Functional Activity Flory, Functional Strength, Group Therapy, Gait, Safety, Therapeutic Ex ercise, Transfers Treatment Duration: May 22, 2019 Frequency: At least 5 of 7 days/Wk (IRF) Estimated Hrs Per Day: 1.5 hours per day Patient and/or Family Agrees t: Yes Safety Risks/Education Patient Education: Gait Training, Transfer Techniques, Correct Positioning, Safety Issues Teaching Recipient: Patient Teaching Methods: Demonstration, Discussion Response to Teaching: Reinforcement Needed Time/GCodes Time In: 1400 Time Out: 1415 Total Billed Treatment Time: 15 Total Billed Treatment 1 visit GT 15' SHANNA HARMON PT May 13, 2019 14:17
[2019-05-13 16:44] VITALS: BP 153/83
--- NOTE | 2019-05-13 18:42 | Cardiology Progress Note ---
Cardiology SOAP Progress Note Subjective: No cardiac complaints Objective: I&O/Vital Signs 05/13/19 05/13/19 05/13/19 07:58 09:20 16:44 Temp 36.4 Pulse 106 104 Resp 20 B/P (MAP) 124/71 (88) 153/83 (106) Pulse Ox 97 O2 Delivery Room Air Room Air 05/13/19 00:00 Intake Total 1240 ml Balance 1240 ml Constitutional: AAO x 3 Respiratory: chest is bilaterally symmetric, lungs clear to auscultation Cardiovascular: regular rate-rhythm, S1 and S2, systolic murmur Gastrointestional: soft, audible bowel sounds Extremities: normal inspection, no lower extremity edema bilateral Neurologic/Psychiatric: no motor/sensory deficits, alert, oriented x 3 Skin: normal color A/P: Assessment/Dx: Acute CVA, LVH, hypertensive heart disease. Active smoking, Cardiomyopathy. Abnormal nuclear stress test. Occluded right subclavian artery. Plan: Plan: Acute CVA, unclear etiology. Negative carotid ultrasound for significant carotid disease. Echocardiogram shows mildly reduce LV systolic function with no clear evidence of intracardiac shunting. Telemetry for 24 hours is negative for atrial fibrillation. Continue telemetry for total of 48 hours if no atrial fibrillation consider implantable loop recorder. Due to mildly reduce LV systolic function, coronary evaluation is recommended however due to recent stroke, invasive cardiac procedures are deferred for at least 1 month. We can proceed with nuclear stress testing for risk stratification. Nuclear stress test was done on 05/01/2019 which showed small area of apical ischemia. Patient will likely require coronary angiography probably in a month from the stroke; stroke was on 04/29/2019. For now continue aspirin. OT/PT. Cardiomyopathy, unclear whether ischemic or nonischemic. Coronary angiography cannot be done in the setting of an acute stroke for at least 30 days. Treat with lisinopril and beta brad. Active smoking: Smoking cessation is strongly recommended. The patient told me very clearly that as soon as he is out of the hospital he will start smoking again. LVH, likely due to hypertensive heart disease. On lisinopril. Right UE systolic BP 95mmhg, Left UE systolic BP 165 mmhg -CTA chest showed occluded right subclavian artery. Significant disease in the left subclavian artery as well. I discussed with the patient and recommended peripheral angiogram and possible intervention. This will be done in addition to the coronary angiography which has been delayed to one month after his initial stroke. Patient is not to keen for the procedure. Since it's not urgent I have not emphasized a lot. Thank you for your consultation. Please call me if you have any questions. Spenser Rhodes MD, FACP, FACC, FSCAI, FHRS, CCDS Interventional Cardiology Cardiac Electrophysiology Vascular Medicine and Endovascular Interventions Ramandeep RHODES MD May 13, 2019 18:42
--- NOTE | 2019-05-13 19:08 | NUR ---
BEDSIDE REPORT RECEIVED FROM LOWELL SONG, ASSUME CARE OF PT
[2019-05-13] MEDS: MELATONIN 3 MG TABLET PO PRN (20:33)
[2019-05-13] MEDS: HYDROcodone/APAP 5 MG/325 MG (LORTAB) TAB PO PRN (20:34)
--- NOTE | 2019-05-13 20:34 | NUR ---
PT IS UP & DOWN ALOT, OUT TO OPEN DINING AREA THEN BACK TO BED, BED/CHAIR ALARM & TELE SITTER IN PLACE, PT C/O HEADACHE, PAIN LEVEL 6/10 ON NUMERIC SCALE, LORTAB 5 1 TAB GIVEN, V/S 98-18-97%-142/78
--- NOTE | 2019-05-13 21:20 | NUR ---
STATES HEADACHE BETTER, PAIN LEVEL 3/10 ON NUMERIC SCALE
[2019-05-13] MEDS: ENOXAPARIN 30 MG/0.3 ML (LOVENOX) SYR SC SCH (21:38)
[2019-05-14 06:00] VITALS: BP 143/77
[2019-05-14] MEDS: POLYETHYLENE GLYCOL 17 GM (MIRALAX) PACK PO SCH ×2 (07:46→20:40)
[2019-05-14] MEDS: lisINopril 20 MG (PRINIVIL) TABLET PO SCH (07:56)
[2019-05-14] MEDS: ASPIRIN E.C. 325 MG (ECOTRIN) TABLET PO SCH (07:56)
[2019-05-14] MEDS: meTOprolol TARTRATE 25 MG (LOPRESSOR) TABLET PO SCH ×2 (07:56→20:40)
[2019-05-14] MEDS: SENNA W/DOCUSATE (SENOKOT S) TABLET PO SCH ×2 (07:56→20:40)
[2019-05-14] MEDS: PHENAZOPYRIDINE 100 MG (PYRIDIUM) TABLET PO SCH ×3 (07:56→19:01)
[2019-05-14] MEDS: FLUTICASONE NASAL SPRAY (FLONASE) 16 GM BTL NS SCH (07:57)
[2019-05-14] MEDS: PATCH REMOVAL TP SCH (07:58)
[2019-05-14] MEDS: NICOTINE 21 MG (NICODERM) PATCH TD SCH (07:58)
--- NOTE | 2019-05-14 09:01 | Physical Therapy Daily Note ---
PT Daily Note-Current Subjective Pt. very minimally verbal. Minimal eye contact but did follow all requests for activity, shakes head yes and no. Did not know the name of this facility or what yr it is. States that he is 59yr old. Pain Location: No Pain Reported Mental Status Patient Orientation: Confused Transfers SCALE: Activities may be completed with or without assistive devices. 3-Jqxwjicdnd-xeuojeh completes the activity by him/herself with no assistance from a helper. 5-Set-up or Clean-up Assistance-helper sets up or cleans up; patient completes activity. [place] assists only prior to or following the activity. 4-Supervision or Touching Assistance-helper provides verbal cues and/or touching/steadying and/or contact guard assistance as patient completes activity. Assistance may be provided throughout the activity or intermittently. 3-Partial/Moderate Assistance-helper does LESS THAN HALF the effort. [place] lifts, holds or supports trunk or limbs, but provides less than half the effort. 2-Substantial/Maximal Assistance-helper does MORE THAN HALF the effort. [place] lifts or holds trunk or limbs and provides more than half the effort. 5-Bkfordnry-wqmxyq does ALL the effort. Patient does none of the effort to complete the activity. Or, the assistance of 2 or more helpers is required for the patient to complete the activity. If activity was not attempted, code reason: 7-Patient Refused. 9-Not Applicable-not attempted and the patient did not perform the activity before the current illness, exacerbation or injury. 10-Not Attempted due to Environmental Limitations-(lack of equipment, weather restraints, etc.). 88-Not Attempted due to Medical Conditions or Safety Concerns. Roll Left & Right (QC): 6 Sit to Lying (QC): 6 Lying to Sitting/Side of Bed(Q: 6 Sit to Stand (QC): 5 Chair/Mhr-qo-Wbnwv Xfer(QC): 5 Pt. abandons FWW walks backwards and begins to sit before reaching the goal destination. does respond to instruction for safety after several cues Gait Training Does the Patient Walk?: Yes Walk 10 feet (QC): 4 Walk 50 ft with 2 Turns(QC): 4 Walk 150 ft (QC): 4 Gait Persons Needed: 1 Gait Assistive Device: FWW pt. has poor tending to left and needs cues much of the time to bring LLE/foot up in to FWW appropriatley and to use FWW safely, consistently and effectively. Decreased left step length . Much gait and balance work on fig 8s and retro gait and awareness around objects Stair Training Stair Training: Handrails/: 2 handrails #of Steps: 4 4 Steps (QC): 4 Stairs: Pattern: Reciprocal Pt. requires much instruction for step sequence as well as railing and care and safety for turning at landing. Pt. also only has partial foot on step and needs warning to have safe footing Exercises Seated Therapy Exercises: Ankle pumps, Sit to stand, Long arc quads, Hip flexion Seated Reps: 20 NuStep Minutes: 10 NuStep Workload: 5 Neuromuscular standing balance static and dyn with min to CGA to maintain Assessment Current Status: Good Progress cooperative this date, needs instructed left and right and steered for proper direction etc PT Short Term Goals Short Term Goals Time Frame: May 08, 2019 Roll Left & Right: 6 Sit to lyin Lying to sitting on side of be: 6 Sit to stand: 4 Chair/ubf-wg-xjtyp transfer: 4 Toilet transfer: 4 Car transfer: 4 Walk 10 feet: 4 Walk 50 feet with two turns: 4 Walk 150 feet: 4 PT Polymerization Oven Operator Goals Assisted Goals PT Assisted Goals Time Frame: May 22, 2019 Roll Left & Right (QC): 6 Sit to Lying (QC): 6 Lying-Sitting on Side/Bed(QC): 6 Sit to Stand (QC): 4 (SBA) Chair/Gsf-na-Tjsgg Xfer(QC): 4 (SBA) Toilet Transfer (QC): 4 (SBA) Car Transfer (QC): 4 (SBA) Walk 10 feet (QC): 4 (SBA) Walk 50ft with 2 Turns (QC): 4 (SBA) Walk 150 ft (QC): 4 (SBA) Walking 10ft on Uneven Surface: 4 (SBA) 1 Step (curb) (QC): 4 (CGA) 4 Steps (QC): 4 (CGA) 12 Steps (QC): 88 Picking up an Object (QC): 88 Does the Pt use WC or Scooter?: No Type: N/A Type: N/A PT Plan Treatment/Plan Treatment Plan: Continue Plan of Care Treatment Plan: Bed Mobility, Concurrent Therapy, Education, Functional Act ivity Flory, Functional Strength, Group Therapy, Gait, Safety, Therapeutic Exercise, Transfers Treatment Duration: May 22, 2019 Frequency: At least 5 of 7 days/Wk (IRF) Estimated Hrs Per Day: 1.5 hours per day Patient and/or Family Agrees t: Yes Safety Risks/Education Patient Education: Gait Training, Transfer Techniques, Steps, Correct Positioning, Disease Process, Safety Issues Teaching Recipient: Patient Teaching Methods: Demonstration, Discussion Response to Teaching: Verbalize Understanding, Return Demonstration, Reinforcement Needed Time/GCodes Time In: 800 Time Out: 900 Total Billed Treatment Time: 60 Total Billed Treatment 1,EX20m,FA10m,GT20m,NM10 [employer] TEACHER May 14, 2019 09:01
--- NOTE | 2019-05-14 10:05 | PM&R Progress Note ---
Subjective HPI/CC On Admission Date Seen by Provider: May 14, 2019 Time Seen by Provider: 09:00 Subjective/Events-last exam Sister of patient may be able to take him home with her Needs 27/11 supervision Last bowel movement was 05/12/19 so meds will be given Continues to be a fall risk, he is very impulsive Conferred with major gifts director therapy notes Checked meds and labs Review of Systems Neurological: Weakness, Numbness, Incoordination, Confusion Objective Exam Vital Signs Vital Signs Date Time Temp Pulse Resp B/P (MAP) Pulse Ox O2 Delivery O2 Flow Rate FiO2 05/14/19 08:00 Room Air 05/14/19 06:00 36.1 98 18 143/77 (99) 97 Capillary Refill : Less Than 3 Seconds General Appearance: No Apparent Distress, WD/WN, Chronically ill, Thin HEENT: PERRL/EOMI, Normal ENT Inspection, Pharynx Normal Neck: Full Range of Motion, Normal Inspection, Non Tender, Supple, Carotid Bruit Respiratory: Chest Non Tender, Lungs Clear, Normal Breath Sounds, No Accessory Muscle Use, No Respiratory Distress Cardiovascular: Regular Rate, Rhythm, No Edema, No Gallop, No JVD, Normal Peripheral Pulses, Systolic Murmur Gastrointestinal: Normal Bowel Sounds, No Organomegaly, No Pulsatile Mass, Non Tender, Soft Back: Normal Inspection, No CVA Tenderness, No Vertebral Tenderness Extremity: Normal Capillary Refill, Normal Inspection, Normal Range of Motion, Non Tender, No Calf Tenderness, No Pedal Edema Neurologic/Psychiatric: Alert, Oriented x3, carpenter streetcar II-XII Norm as Tested, Abnormal Gait, Aphasia, Depressed Affect, Disoriented, Motor Weakness (generalized right greater than left upper and lower manzanares maneuvers) Skin: Normal Color, Warm/Dry Lymphatic: No Adenopathy Results/Procedures Lab Patient resulted labs reviewed. FIM Transfers Therapy Code Descriptions/Definitions Functional [place] Measure: 0=Not Assessed/NA 4=Minimal Assistance 1=Total Assistance 5=Supervision or Setup 2=Maximal Assistance 6=Modified [place] 3=Moderate Assistance 7=Complete IndependenceSCALE: Activities may be completed with or without assistive devices. 4-Xmlpkjxayg-dahtvri completes the activity by him/herself with no assistance from a helper. 5-Set-up or Clean-up Assistance-helper sets up or cleans up; patient completes activity. Sula assists only prior to or following the activity. 4-Supervision or Touching Assistance-helper provides verbal cues and/or touch ing/steadying and/or contact guard assistance as patient completes activity. Assistance may be provided throughout the activity or intermittently. 3-Partial/Moderate Assistance-helper does LESS THAN HALF the effort. Sula lifts, holds or supports trunk or limbs, but provides less than half the effort. 2-Substantial/Maximal Assistance-helper does MORE THAN HALF the effort. Sula lifts or holds trunk or limbs and provides more than half the effort. 9-Pfxotiswt-lyotqb does ALL the effort. Patient does none of the effort to complete the activity. Or, the assistance of 2 or more helpers is required for the patient to complete the activity. If activity was not attempted, code reason: 7-Patient Refused. 9-Not Applicable-not attempted and the patient did not perform the activity before the current illness, exacerbation or injury. 10-Not Attempted due to Environmental Limitations-(lack of equipment, weather restraints, etc.). 88-Not Attempted due to Medical Conditions or Safety Concerns. Roll Left to Right (QC): 6 Sit to Lying (QC): 6 Sit to Stand (QC): 5 Chair/Gxj-ko-Evypy Xfer(QC): 5 Car Transfer (QC): 3 Gait Training Does the Patient Walk?: Yes Distance: 200'x2 Walk 10 feet (QC): 4 Walk 50 ft with 2 Turns(QC): 4 Walk 150 ft (QC): 4 Walking 10ft/uneven surface-QC: 3 Gait Persons Needed: 1 Gait Assistive Device: FWW Wheelchair Training Does the Pt Use a Wheelchair?: No Type of Wheelchair: N/A Stair Training Stair Training: Handrails/: 2 handrails #of Steps: 4 1 Step (curb) (QC): 88 4 Steps (QC): 4 12 Steps (QC): 88 Stairs: Pattern: Reciprocal Balance Picking up an Object (QC): 88 ADL-Treatment Eating (QC): 6 Oral Hygiene (QC): 7 Bathing Location: L Arm, R Arm, L Upper Leg, R Upper Leg, L Lower Leg (including foot), R Lower Leg (including foot), Chest, Abdomen, Perineal Area Shower/Bathe Self (QC): 4 (Pt completes sponge bath with wipes, able to reach all areas excluding back, completes with CGA in stance and cues for sequencing.) Upper Body Dressing (QC): 5 (s/u and cues for initation.) Lower Body Dressing (QC): 4 (cues for safety as pt begins to don while in stance, pt dons in recliner chair post-cueing, able to complete with CGA.) On/Off Footwear (QC): 6 (self-corrects wrong foot) Toileting Hygiene (QC): 7 Toilet Transfer (QC): 7 Assessment/Plan Assessment and Plan Assess & Plan/Chief Complaint Assessment: Subacute stroke presented 5 days after neurological deficit Smoker Cachexia Cognitive deficit Plan: Incentive spirometer Mat protocol Statin Aspirin CT scan reviewed Cardiology evaluation is appreciated Inpatient rehabilitation protocol Needs senior living at discharge or lives with sister with 27/11 supervision (1) Left pontine cerebrovascular accident Status: Acute (2) Aphasia (3) Smoker (4) Cognitive deficit as late effect of cerebrovascular accident (CVA) (5) Intellectual disability CHRISTOPHER DANIELS DO May 14, 2019 10:05
--- NOTE | 2019-05-14 10:45 | Occupational Ther Daily Note ---
OT Current Status-Daily Note Subjective Pt seen in recliner chair, agreeable to OT tx session. Pt increased conversations on this date. Pt denies pain. Pt states he is going home with sister "Cortney," states she will take care of him; Cortney has a time study engineer job per pt and pt denies that he will receive assist when sister out of the house. Pt educated on safety awareness and pt's forgetfulness when it comes to walker usage. Pt educated on current balance status and need to use FWW to prevent falls at home, pt acknowledges and states he will not need anyone's assist. Pt leaves walker 3x during session, reminded of safety. ADL-Treatment Therapy Code Descriptions/Definitions Functional [place] Measure: 0=Not Assessed/NA 4=Minimal Assistance 1=Total Assistance 5=Supervision or Setup 2=Maximal Assistance 6=Modified [place] 3=Moderate Assistance 7=Complete IndependenceSCALE: Activities may be completed with or without assistive devices. 0-Bsafyxvenz-ajewnky completes the activity by him/herself with no assistance from a helper. 5-Set-up or Clean-up Assistance-helper sets up or cleans up; patient completes activity. [place] assists only prior to or following the activity. 4-Supervision or Touching Assistance-helper provides verbal cues and/or touching/steadying and/or contact guard assistance as patient completes activity. Assistance may be provided throughout the activity or intermittently. 3-Partial/Moderate Assistance-helper does LESS THAN HALF the effort. [place] lifts, holds or supports trunk or limbs, but provides less than half the effort. 2-Substantial/Maximal Assistance-helper does MORE THAN HALF the effort. [place] lifts or holds trunk or limbs and provides more than half the effort. 2-Wmepkszjr-jbrghb does ALL the effort. Patient does none of the effort to complete the activity. Or, the assistance of 2 or more helpers is required for the patient to complete the activity. If activity was not attempted, code reason: 7-Patient Refused. 9-Not Applicable-not attempted and the patient did not perform the activity before the current illness, exacerbation or injury. 10-Not Attempted due to Environmental Limitations-(lack of equipment, weather restraints, etc.). 88-Not Attempted due to Medical Conditions or Safety Concerns. Eating (QC): 6 Oral Hygiene (QC): 7 Shower/Bathe Self (QC): 4 (CGA in stance. Pt requires cues for initiation, perseverates on one arm pit and legs. ) Upper Body Dressing (QC): 6 Lower Body Dressing (QC): 4 (CGA in stance. Cues to maintain seated position when threading breif as pt desires to stand to put on. Pt does not retain safety measures when donning pants, requires cues to sit.) On/Off Footwear: 6 Toileting Hygiene (QC): 4 (CGA- pt able to reach bottom. Acknowledges does not have balance while reaching back and is hesitant to wash bottom. Pt encouraged to wash while OT present to practice home environment. Pt able to complete with CGA.) Toilet Transfer (QC): 4 (SBA in stance during toileting.) Other Treatment Pt seen in recliner chair, pt completes toileting 2x during session. SBA in stance and CGA in transfer from stance to FWW. Pt goes slow and completes with SBA to ambulate to recliner chair. Pt encouraged to complete sponge bath without cues for next step or initiation to resemble home environment; pt requires cues ~2/3 of time to initiate next step or complete steps with safety. At end of session pt in recliner chair, all needs met, chair alarm on. Education OT Patient Education: Correct positioning, Modified ADL techniques, Purpose of tx/functional activities, Safety issues Teaching Recipient: Patient Teaching Methods: Demonstration, Discussion Response to Teaching: Verbalize Understanding, Return Demonstration, Reinforcement Needed OT Short Term Goals Short Term Goals Upper body dressin (met) Lower body dressin (met) OT Integrity Manager Goals Integrity Manager Goals Time Frame: May 15, 2019 Eating (QC): 6 (met) Oral Hygiene (QC): 6 Toileting Hygiene (QC): 6 Shower/Bathe Self (QC): 6 Upper Body Dressing (QC): 6 (met) Lower Body Dressing (QC): 6 On/Off Footwear (QC): 6 (met) Additional Goals: 1-Demonstrate ADL Tasks, 2-Verbalize Understanding, 3- ImproveStrength/Flory 1=Demonstrate adherence to instructed precautions during ADL tasks. 2=Patient will verbalize/demonstrate understanding of assistive devices/modifications for ADL. 3=Patient will improve strength/tolerance for activity to enable patient to perform ADL's. OT Education/Plan Problem List/Assessment Assessment: Decreased Activ Tolerance, Decreased Safety Aware, Dependent Transfers, Impaired Cognition, Impaired Funct Balance, Impaired I ADL's, Impaired Self-Care Skills Discharge Recommendations Plan/Recommendations: Continue POC Therapy Discharge Recommendati: 24 Hour Supervision Treatment Plan/Plan of Care Treatment,Training & Education: Yes Patient would benefit from OT for education, treatment and training to promote independence in ADL's, mobility, safety and/or upper extremity function for ADL's. Plan of Care: ADL Retraining, Caregiver Training, Cognitive Retraining, Concurrent Therapy, Functional Mobility, Group Exercise/Act as Ind, UE Funct Exercise/Act, UE Neuromus Re-Ed/Coord Treatment Duration: May 15, 2019 Frequency: At least 5 of 7 days/Wk (IRF) Estimated Hrs Per Day: 1.5 hours per day Agreement: Yes Rehab Potential: Fair Time/GCodes Start Time: 09:15 Stop Time: 10:30 Total Time Billed (hr/min): 75 Billed Treatment Time 1, ADL 5 (75) LIS MARTINEZ OTR May 14, 2019 10:45
--- NOTE | 2019-05-14 10:48 | NUR ---
Care Assumed, Agree with previous assessments.
--- NOTE | 2019-05-14 13:31 | Physical Therapy Daily Note ---
PT Daily Note-Current Subjective Pt. wants to stand to use toilet for urination in bathroom. Pain Location: No Pain Reported Transfers SCALE: Activities may be completed with or without assistive devices. 9-Fbfeaoolrq-vwxubup completes the activity by him/herself with no assistance from a helper. 5-Set-up or Clean-up Assistance-helper sets up or cleans up; patient completes activity. Star assists only prior to or following the activity. 4-Supervision or Touching Assistance-helper provides verbal cues and/or touc brenda/steadying and/or contact guard assistance as patient completes activity. Assistance may be provided throughout the activity or intermittently. 3-Partial/Moderate Assistance-helper does LESS THAN HALF the effort. Star lifts, holds or supports trunk or limbs, but provides less than half the effort. 2-Substantial/Maximal Assistance-helper does MORE THAN HALF the effort. Star lifts or holds trunk or limbs and provides more than half the effort. 1-Hnpdazhwc-xfucrl does ALL the effort. Patient does none of the effort to complete the activity. Or, the assistance of 2 or more helpers is required for the patient to complete the activity. If activity was not attempted, code reason: 7-Patient Refused. 9-Not Applicable-not attempted and the patient did not perform the activity before the current illness, exacerbation or injury. 10-Not Attempted due to Environmental Limitations-(lack of equipment, weather restraints, etc.). 88-Not Attempted due to Medical Conditions or Safety Concerns. TRF stand to sit in recliner Gait Training Gait Assistive Device: FWW 30 ft 50 ft CGA assist to turn FWW once for a turn as pt. has feet outside of device Balance Special Test Comments pt. stood at toilet for urination no LOB, managed pants up CGA. needed assist after in supine for retrieving sipper as it goes too far down in pants, this was done Exercises Supine Ex: Ankle pumps, Heel Slides, Straight leg raise, Hip abd/add Supine Reps: 12 Treatments up in recliner after above Rx, call redd at hand, alarm insitu Assessment Current Status: Good Progress PT Short Term Goals Short Term Goals Time Frame: May 08, 2019 Roll Left & Right: 6 Sit to lyin Lying to sitting on side of be: 6 Sit to stand: 4 Chair/tqw-zt-kivfk transfer: 4 Toilet transfer: 4 Car transfer: 4 Walk 10 feet: 4 Walk 50 feet with two turns: 4 Walk 150 feet: 4 PT Retirement Goals Rehabilitation Liaison Goals PT Retirement Goals Time Frame: May 22, 2019 Roll Left & Right (QC): 6 Sit to Lying (QC): 6 Lying-Sitting on Side/Bed(QC): 6 Sit to Stand (QC): 4 (SBA) Chair/Qbc-qb-Lsjsy Xfer(QC): 4 (SBA) Toilet Transfer (QC): 4 (SBA) Car Transfer (QC): 4 (SBA) Walk 10 feet (QC): 4 (SBA) Walk 50ft with 2 Turns (QC): 4 (SBA) Walk 150 ft (QC): 4 (SBA) Walking 10ft on Uneven Surface: 4 (SBA) 1 Step (curb) (QC): 4 (CGA) 4 Steps (QC): 4 (CGA) 12 Steps (QC): 88 Picking up an Object (QC): 88 Does the Pt use WC or Scooter?: No Type: N/A Type: N/A PT Plan Treatment/Plan Treatment Plan: Continue Plan of Care Treatment Plan: Bed Mobility, Concurrent Therapy, Education, Functional Activity Flory, Functional Strength, Group Therapy, Gait, Safety, Therapeutic Exercise, Transfers Treatment Duration: May 22, 2019 Frequency: At least 5 of 7 days/Wk (IRF) Estimated Hrs Per Day: 1.5 hours per day Patient and/or Family Agrees t: Yes Safety Risks/Education Patient Education: Gait Training, Transfer Techniques, Safety Issues Teaching Recipient: Patient Time/GCodes Time In: 1310 Time Out: 1325 Total Billed Treatment Time: 15 Total Billed Treatment 1,FA15m GASTON PEOPLES PORTER HEAD May 14, 2019 13:31
--- NOTE | 2019-05-14 13:37 | Cardiology Progress Note ---
Cardiology SOAP Progress Note Subjective: No cardiac complaints Objective: I&O/Vital Signs 05/14/19 05/14/19 06:00 08:00 Temp 36.1 Pulse 98 Resp 18 B/P (MAP) 143/77 (99) Pulse Ox 97 O2 Delivery Room Air Room Air 05/14/19 00:00 Intake Total 1137 ml Balance 1137 ml Constitutional: AAO x 3 Respiratory: chest is bilaterally symmetric, lungs clear to auscultation Cardiovascular: regular rate-rhythm, S1 and S2, systolic murmur Gastrointestional: soft, audible bowel sounds Extremities: normal inspection, no lower extremity edema bilateral Neurologic/Psychiatric: no motor/sensory deficits, alert, oriented x 3 Skin: normal color A/P: Assessment/Dx: Acute CVA, LVH, hypertensive heart disease. Active smoking, Cardiomyopathy. Abnormal nuclear stress test. Occluded right subclavian artery. Plan: Plan: Acute CVA, unclear etiology. Negative carotid ultrasound for significant carotid disease. Echocardiogram shows mildly reduce LV systolic function with no clear evidence of intracardiac shunting. Telemetry for 24 hours is negative for atrial fibrillation. Continue telemetry for total of 48 hours if no atrial fibrillation consider implantable loop recorder. Due to mildly reduce LV systolic function, coronary evaluation is recommended however due to recent stroke, invasive cardiac procedures are deferred for at least 1 month. We can proceed with nuclear stress testing for risk stratification. Nuclear stress test was done on 05/01/2019 which showed small area of apical ischemia. Patient will likely require coronary angiography probably in a month from the stroke; stroke was on 04/29/2019. For now continue aspirin. OT/PT. Cardiomyopathy, unclear whether ischemic or nonischemic. Coronary angiography cannot be done in the setting of an acute stroke for at least 30 days. Treat with lisinopril and beta brad. Active smoking: Smoking cessation is strongly recommended. The patient told me very clearly that as soon as he is out of the hospital he will start smoking again. LVH, likely due to hypertensive heart disease. On lisinopril. Right UE systolic BP 95mmhg, Left UE systolic BP 165 mmhg -CTA chest showed occluded right subclavian artery. Significant disease in the left subclavian artery as well. I discussed with the patient and recommended peripheral angiogram and possible intervention. This will be done in addition to the coronary angiography which has been delayed to one month after his initial stroke. Patient is not to keen for the procedure. Since it's not urgent I have not emphasized a lot. Thank you for your consultation. Please call me if you have any questions. Spenser Rhodes MD, FACP, FACC, FSCAI, FHRS, CCDS Interventional Cardiology Cardiac Electrophysiology Vascular Medicine and Endovascular Interventions Ramandeep RHODES MD May 14, 2019 13:37
--- NOTE | 2019-05-14 14:01 | Speech Therapy Daily Note ---
Speech Daily Progress Note Subjective Date Seen by Provider: May 16, 2019 Time Seen by Provider: 00:30 Patient was in a happier mood today. Objective Patient was given portions of the MOCA with max verbal and/or visual cuing. Assessment Assessment Current Status: Fair Progress Treatment Plan Continue Plan of Care Speech Short Term Goals Short Term Goals Short Term Goals 1) Patient will complete memory tasks related to his daily needs at 80% or gr eater with minimal cues. 2) Patient will complete safety awareness tasks related to his daily needs at 80% or greater with minimal cues. 3) Patient will complete problem solving tasks related to his daily needs at 80% or greater with minimal cues. 4) Patient will complete speech production tasks to increase intelligibility at 80% or greater with minimal cues. Speech Attendant Coin Operated Laundry Goals Snf Goals Patient will improve cognitive-communication necessary for safety and daily l iving tasks with minimal assist. Patient will increase his speech intelligibility to be an effective communicator of wants/needs. Speech-Plan Patient/Family Goals Patient/Family Goals: Patient is scheduled to discharge to his sister's house in . Treatment Plan Speech Therapy Treatment Plan: Continue Plan of Care Patient wants to go home. Treatment Duration: May 16, 2019 Frequency: 5 times per week Estimated Hrs Per Day: .5 hour per day Rehab Potential: Fair Barriers to Learning: Patient's cognitive deficits Pt/Family Agrees to Plan: Yes Safety Risks/Education Teaching Recipient: Patient Teaching Methods: Demonstration, Discussion Response to Teaching: Verbalize Understanding, Return Demonstration Education Topics Provided: Communication of wants/needs Time Speech Therapy Time In: 10:30 Speech Therapy Time Out: 11:00 Total Billed Time: 30 Billed Treatment Time 1, COGN TEST, MINGODECHRIS D[place] May 14, 2019 14:01
--- NOTE | 2019-05-14 15:02 | NUR ---
WEEKLY TEAM CONFERENCE SUMMARY and SS DISCHARGE PLANNING Patient's sister Cortney Hwang and her daughter will be traveling here Sunday from [facility] for family education regarding patient care plan and needs. Therapy team members are aware and will be available to participate. Cortney will then take patient home with her to provide for him while he continues to recover. Cortney indicates they are the only two family members remaining and it is important to her to have him with her. She indicates she understands the consistent message that patient requires 24/7 oversight for safety. She and her daughter reside in very close proximity and indicate committment to provide safe environments. DME: Patient will need FWW. He is uninsured, Medicaid pursued/pending. [facility] in order to maximize patient carlyn care umbrella benefits within our system. PCP: Cortney understands to go ahead and explore potential PCP for patient up in her area. She also understands that being uninsured will create a challenge regarding this matter until a Medicaid decision has been confirmed. Updated patient of all new developments. He seems pleased to be able to go with Cortney and said "maybe we can figure some things out." Cognitively overall, however, he does present as impaired which emphasizes the need for 24/7. Courtroom Deputy inquired with Cortney about patient's work history regarding SSI or disability. She indicates he has not worked for at least 25 years and that he more than likely did not work 10 years overall in his lifetime. Cortney intends to explore through Social Security office. Continue final discharge planning. Addendum: 05/14/19 at 1521 by DEDRICK DUGGAN CONTACTS: Cortney Jaiden, Sister [id number] [facility] [id number]
[2019-05-14] MEDS: ACETAMINOPHEN 500 MG TAB (TYLENOL) PO PRN (16:11)
[2019-05-14 18:00] VITALS: BP 110/76
--- NOTE | 2019-05-14 19:09 | NUR ---
bedside report received from JOJO SONG, assume care of pt
[2019-05-14 20:40] VITALS: BP 137/77
[2019-05-14] MEDS: MELATONIN 3 MG TABLET PO PRN (20:40)
[2019-05-14] MEDS: HYDROcodone/APAP 5 MG/325 MG (LORTAB) TAB PO PRN (20:41)
--- NOTE | 2019-05-14 20:41 | NUR ---
c/o headache pain level 6/10 on numeric scale, Lortab 5 1 tab given, v/s 97-20-97%-137/77- 10/14, pt has been up & down tochair to lobby area & back to bed bed/chair alarm on tele sitter in place
--- NOTE | 2019-05-14 21:20 | NUR ---
pain level 3/10 on flacc scale
[2019-05-14] MEDS: ENOXAPARIN 30 MG/0.3 ML (LOVENOX) SYR SC SCH (22:19)
[2019-05-15 05:45] VITALS: BP 103/73
[2019-05-15 08:14] VITALS: BP 91/61
[2019-05-15] MEDS: NICOTINE 21 MG (NICODERM) PATCH TD SCH (08:15)
[2019-05-15] MEDS: PATCH REMOVAL TP SCH (08:15)
[2019-05-15] MEDS: PHENAZOPYRIDINE 100 MG (PYRIDIUM) TABLET PO SCH ×3 (08:16→18:06)
[2019-05-15] MEDS: ASPIRIN E.C. 325 MG (ECOTRIN) TABLET PO SCH (08:16)
[2019-05-15] MEDS: POLYETHYLENE GLYCOL 17 GM (MIRALAX) PACK PO SCH ×2 (08:16→21:20)
[2019-05-15] MEDS: SENNA W/DOCUSATE (SENOKOT S) TABLET PO SCH ×2 (08:16→21:21)
[2019-05-15] MEDS: FLUTICASONE NASAL SPRAY (FLONASE) 16 GM BTL NS SCH (08:16)
--- NOTE | 2019-05-15 08:47 | PM&R Progress Note ---
Subjective HPI/CC On Admission Date Seen by Provider: May 15, 2019 Time Seen by Provider: 09:00 Subjective/Events-last exam DC as planned tomorrow with sister Last BM was 05/12/19 will initiate suppository if needed Systolic BP was 91 so holding BP medication Conferred with academic counselor therapy notes Checked meds and labs Review of Systems Neurological: Confusion Objective Exam Vital Signs Vital Signs Date Time Temp Pulse Resp B/P (MAP) Pulse Ox O2 Delivery O2 Flow Rate FiO2 05/16/19 13:30 05/16/19 08:15 Room Air 05/16/19 05:34 36.4 8 20 95 Capillary Refill : Less Than 3 Seconds General Appearance: No Apparent Distress, WD/WN, Chronically ill, Thin HEENT: PERRL/EOMI, Normal ENT Inspection, Pharynx Normal Neck: Full Range of Motion, Normal Inspection, Non Tender, Supple, Carotid Bruit Respiratory: Chest Non Tender, Lungs Clear, Normal Breath Sounds, No Accessory Muscle Use, No Respiratory Distress Cardiovascular: Regular Rate, Rhythm, No Edema, No Gallop, No JVD, Normal Peripheral Pulses, Systolic Murmur Gastrointestinal: Normal Bowel Sounds, No Organomegaly, No Pulsatile Mass, Non Tender, Soft Back: Normal Inspection, No CVA Tenderness, No Vertebral Tenderness Extremity: Normal Capillary Refill, Normal Inspection, Normal Range of Motion, Non Tender, No Calf Tenderness, No Pedal Edema Neurologic/Psychiatric: Alert, Oriented x3, advertising production manager II-XII Norm as Tested, Abnormal Gait, Aphasia, Depressed Affect, Disoriented, Motor Weakness (generalized right greater than left upper and lower manzanares maneuvers) Skin: Normal Color, Warm/Dry Lymphatic: No Adenopathy Results/Procedures Lab Patient resulted labs reviewed. FIM Transfers Therapy Code Descriptions/Definitions Functional [place] Measure: 0=Not Assessed/NA 4=Minimal Assistance 1=Total Assistance 5=Supervision or Setup 2=Maximal Assistance 6=Modified [place] 3=Moderate Assistance 7=Complete IndependenceSCALE: Activities may be completed with or without assistive devices. 4-Wrvxhwdbtf-ritcpbi completes the activity by him/herself with no assistance from a helper. 5-Set-up or Clean-up Assistance-helper sets up or cleans up; patient completes activity. [place] assists only prior to or following the activity. 4-Supervision or Touching Assistance-helper provides verbal cues and/or touching/steadying and/or contact guard assistance as patient completes a ctivity. Assistance may be provided throughout the activity or intermittently. 3-Partial/Moderate Assistance-helper does LESS THAN HALF the effort. [place] lifts, holds or supports trunk or limbs, but provides less than half the effort. 2-Substantial/Maximal Assistance-helper does MORE THAN HALF the effort. [place] lifts or holds trunk or limbs and provides more than half the effort. 8-Bsxfmpnbh-rwlgie does ALL the effort. Patient does none of the effort to complete the activity. Or, the assistance of 2 or more helpers is required for the patient to complete the activity. If activity was not attempted, code reason: 7-Patient Refused. 9-Not Applicable-not attempted and the patient did not perform the activity before the current illness, exacerbation or injury. 10-Not Attempted due to Environmental Limitations-(lack of equipment, weather restraints, etc.). 88-Not Attempted due to Medical Conditions or Safety Concerns. Roll Left to Right (QC): 6 Sit to Lying (QC): 6 Sit to Stand (QC): 5 Chair/Hvp-ak-Vsvkf Xfer(QC): 5 Car Transfer (QC): 3 Gait Training Does the Patient Walk?: Yes Distance: 200'x2 Walk 10 feet (QC): 4 Walk 50 ft with 2 Turns(QC): 4 Walk 150 ft (QC): 4 Walking 10ft/uneven surface-QC: 3 Gait Persons Needed: 1 Gait Assistive Device: FWW Wheelchair Training Does the Pt Use a Wheelchair?: No Type of Wheelchair: N/A Stair Training Stair Training: Handrails/: 2 handrails #of Steps: 4 1 Step (curb) (QC): 88 4 Steps (QC): 4 12 Steps (QC): 88 Stairs: Pattern: Reciprocal Balance Picking up an Object (QC): 88 ADL-Treatment Eating (QC): 6 Oral Hygiene (QC): 7 Bathing Location: L Arm, R Arm, L Upper Leg, R Upper Leg, L Lower Leg (including foot), R Lower Leg (including foot), Chest, Abdomen, Perineal Area Shower/Bathe Self (QC): 4 (CGA in stance. Pt requires cues for initiation, perseverates on one arm pit and legs. ) Upper Body Dressing (QC): 6 Lower Body Dressing (QC): 4 (CGA in stance. Cues to maintain seated position when threading breif as pt desires to stand to put on. Pt does not retain safety measures when donning pants, requires cues to sit.) On/Off Footwear (QC): 6 Toileting Hygiene (QC): 4 (CGA- pt able to reach bottom. Acknowledges does not have balance while reaching back and is hesitant to wash bottom. Pt encouraged to wash while OT present to practice home environment. Pt able to complete with CGA.) Toilet Transfer (QC): 4 (SBA in stance during toileting.) Assessment/Plan Assessment and Plan Assess & Plan/Chief Complaint Assessment: Subacute stroke presented 5 days after neurological deficit Smoker Cachexia Cognitive deficit Plan: Incentive spirometer Mat protocol Statin Aspirin CT scan reviewed Cardiology evaluation is appreciated Inpatient rehabilitation protocol Needs retirement at discharge or lives with sister with 24/7 supervision (1) Left pontine cerebrovascular accident Status: Acute (2) Aphasia (3) Smoker (4) Cognitive deficit as late effect of cerebrovascular accident (CVA) (5) Intellectual disability CHRISTOPHER DANIELS DO May 15, 2019 08:47
[2019-05-15] MEDS ORDERED: METO-333 PO (08:50)
[2019-05-15] MEDS ORDERED: ASPI325T32 PO (08:50)
[2019-05-15] MEDS ORDERED: NICO1PAT34 TD (08:50)
[2019-05-15] MEDS ORDERED: ATOR80TA76 PO (08:50)
[2019-05-15] MEDS ORDERED: LISI-552 PO (08:50)
--- NOTE | 2019-05-15 08:51 | D/C HH Face to Face Order ---
D/C Face to Face Orders Reconcile Patient Problems Problems Reviewed?: Yes Instructions for Patient Home Health Patient Instructions/FollowUp: PCP 2 weeks Physician to follow Patient: PCP Discharge Diet for Home: Cardiac Diet Patient Problems: CVA Smoker Goals for Patient: [place] Patient Data-Allergies,Ht & Wt Patient Allergies: Coded Allergies: No Known Drug Allergies (Unverified , 04/28/19) Home Health Need/Face to Face Date of Face to Face: May 15, 2019 Clinical Findings: Generalized weakness and fatigue, Instability, Muscle weakness, Shortness of breath I have seen Pt zddt-sr-tisv: Yes Discharged To: Home Diagnosis/Conditions: CVA Smoker Patient is Homebound due to: CognItive deficits, Kaitlynn fall risk due to instabilty Homebound Status Due to the above stated illness, injury or surgical procedure (medical condition or diagnosis) and associated clinical findings, the patient is homebound because of his/her inability to leave home except with aid of a supportive device and/or person AND leaving the home requires a considerable and taxing effort or is medically contraindicated. Pt req the following assistanc: [place] [facility] Nursing Orders Home Health Services Order: Nursing Services, Crm Administrator-Evaluate & Treat, Physical Therapy-Evaluate & Treat Certify Stmt I certify that this patient is under my care and that I, a nurse practitioner or a physician; a accounting administrative assistant working with me, had a face to face encounter that - meets the physician face to face encounter requirements with this patient as dated. CHRISTOPHER DANIELS DO May 15, 2019 08:51
[2019-05-15] MEDS: meTOprolol TARTRATE 25 MG (LOPRESSOR) TABLET PO SCH ×2 (09:32→21:21)
[2019-05-15] MEDS: lisINopril 20 MG (PRINIVIL) TABLET PO SCH (09:32)
--- NOTE | 2019-05-15 09:33 | Occupational Ther Daily Note ---
OT Current Status-Daily Note Subjective Pt seen in recliner chair, PT/ OT co-treat on this date due to higher level activities addressed. OT addressed ADL activities, problem solving; PT addressed functional mobility, transfers, and FWW safety. Pt agreeable to co-treat, denies pain. ADL-Treatment Therapy Code Descriptions/Definitions Functional [place] Measure: 0=Not Assessed/NA 4=Minimal Assistance 1=Total Assistance 5=Supervision or Setup 2=Maximal Assistance 6=Modified [place] 3=Moderate Assistance 7=Complete IndependenceSCALE: Activities may be completed with or without assistive devices. 0-Xzalramcdg-fcdvzjp completes the activity by him/herself with no assistance from a helper. 5-Set-up or Clean-up Assistance-helper sets up or cleans up; patient completes activity. [place] assists only prior to or following the activity. 4-Supervision or Touching Assistance-helper provides verbal cues and/or touching/steadying and/or contact guard assistance as patient completes activity. Assistance may be provided throughout the activity or intermittently. 3-Partial/Moderate Assistance-helper does LESS THAN HALF the effort. [place] lifts, holds or supports trunk or limbs, but provides less than half the effort. 2-Substantial/Maximal Assistance-helper does MORE THAN HALF the effort. [place] lifts or holds trunk or limbs and provides more than half the effort. 6-Jirksyhbo-vhxhcg does ALL the effort. Patient does none of the effort to complete the activity. Or, the assistance of 2 or more helpers is required for the patient to complete the activity. If activity was not attempted, code reason: 7-Patient Refused. 9-Not Applicable-not attempted and the patient did not perform the activity before the current illness, exacerbation or injury. 10-Not Attempted due to Environmental Limitations-(lack of equipment, weather restraints, etc.). 88-Not Attempted due to Medical Conditions or Safety Concerns. Eating (QC): 6 Oral Hygiene (QC): 7 (Pt denies on this date.) Shower/Bathe Self (QC): 7 Upper Body Dressing (QC): 6 (cues for initiation.) Lower Body Dressing (QC): 4 (cues for initation and safety. Pt questioned whether standing up or sitting was safer for threading BLE, pt agrees sitting. Pt stands to begin threading, sits back down to complete.) On/Off Footwear: 6 Toileting Hygiene (QC): 4 (SBA toilet hygiene) Toilet Transfer (QC): 4 (SBA-CGA, use of FWW for urination- utilizes grab bars while in stance. Pt completes toilet transfer, education of use of FWW during transfer, pt does not utilize FWW but utilizes grab bars, utilizes FWW to sit to stand from toilet.) Other Treatment OT/ PT co-treat. Pt completes UB/ LB dressing tasks with cues for initiation and safety. Pt requires cues for FWW usage and safety. Pt completes climbing stairs with BUE on hand rails with good pace and endurance, fair safety. Pt completes picking items off of floor with SUP within chair, discussion of small items on floor in standing with emphasis of asking for assist or getting chair to gather items from floor. Pt verbalizes understanding and answers "Would this be safe?" correctly 2x. Pt gathers 6" cone from floor with CGA, smaller items pt educated to receive assist with. Pt completes kitchen mob task, gathers 9 cones from high/ low cabinets, microwave and fridge. Pt requires moderate cues for safe positioning and FWW use. Pt completes coffee prep with tactile cues for shoulder positioning for success. Pt returns to room with request of bathroom. Pt completes urination in standing, completes walk in shower transfer and toilet transfer. Pt returns to recliner chair, call light in reach, all needs met, chair alarm on. Pt educated content strategist light button, pt educated on family meeting tomorrow with sister and what will be discussed- OT will address home environment of sister and safety within. Pt nods. Education OT Patient Education: Correct positioning, Modified ADL techniques, Safety issues, Transfer techniques, Use of adapted equipment Teaching Recipient: Patient Teaching Methods: Demonstration, Discussion Response to Teaching: Verbalize Understanding, Return Demonstration OT Short Term Goals Short Term Goals Upper body dressin (met) Lower body dressin (met) OT Chcf Goals Chcf Goals Time Frame: May 15, 2019 Eating (QC): 6 (met) Oral Hygiene (QC): 6 Toileting Hygiene (QC): 6 Shower/Bathe Self (QC): 6 Upper Body Dressing (QC): 6 (met) Lower Body Dressing (QC): 6 On/Off Footwear (QC): 6 (met) Additional Goals: 1-Demonstrate ADL Tasks, 2-Verbalize Understanding, 3- ImproveStrength/Flory 1=Demonstrate adherence to instructed precautions during ADL tasks. 2=Patient will verbalize/demonstrate understanding of assistive devices/modifications for ADL. 3=Patient will improve strength/tolerance for activity to enable patient to perform ADL's. OT Education/Plan Problem List/Assessment Assessment: Decreased Activ Tolerance, Decreased Safety Aware, Decreased UE Strength, Dependent Transfers, Impaired Cognition, Impaired Funct Balance, Impaired I ADL's, Impaired Self-Care Skills Discharge Recommendations Plan/Recommendations: Continue POC Therapy Discharge Recommendati: 24 Hour Supervision, Home & Family Treatment Plan/Plan of Care Treatment,Training & Education: Yes Patient would benefit from OT for education, treatment and training to promote independence in ADL's, mobility, safety and/or upper extremity function for A DL's. Plan of Care: ADL Retraining, Caregiver Training, Cognitive Retraining, Concurrent Therapy, Functional Mobility, Group Exercise/Act as Ind, UE Funct Exercise/Act, UE Neuromus Re-Ed/Coord Treatment Duration: May 15, 2019 Frequency: At least 5 of 7 days/Wk (IRF) Estimated Hrs Per Day: 1.5 hours per day Agreement: Yes Rehab Potential: Fair Time/GCodes Start Time: 08:15 Stop Time: 09:30 Total Time Billed (hr/min): 75 Billed Treatment Time PT/ OT co-treat on this date due to higher level activities addressed. OT addressed ADL activities, problem solving; PT addressed functional mobility, transfers, and FWW safety. 1, ADL 2 (30), FA 3 (45)= 75 LIS MARTINEZ OTR May 15, 2019 09:33
[2019-05-15 09:34] VITALS: BP 136/86
--- NOTE | 2019-05-15 09:39 | Physical Therapy Daily Note ---
PT Daily Note-Current Subjective Pt sitting in recliner upon arrival. Pt agrees to PT/OT co-treat. PT/ OT co- treat on this date due to higher level activities addressed. OT addressed ADL activities, problem solving; PT addressed functional mobility, transfers, and FWW safety. Pt agreeable to co-treat, denies pain. Pain Location: No Pain Reported Mental Status Patient Orientation: Person, Confused Pt has flat affect. Pt needs redirection to complete tasks. Transfers SCALE: Activities may be completed with or without assistive devices. 7-Ufhwwbotbr-ogahyqi completes the activity by him/herself with no assistance from a helper. 5-Set-up or Clean-up Assistance-helper sets up or cleans up; patient completes activity. [place] assists only prior to or following the activity. 4-Supervision or Touching Assistance-helper provides verbal cues and/or touching/steadying and/or contact guard assistance as patient completes activity. Assistance may be provided throughout the activity or intermittently. 3-Partial/Moderate Assistance-helper does LESS THAN HALF the effort. [place] lifts, holds or supports trunk or limbs, but provides less than half the effort. 2-Substantial/Maximal Assistance-helper does MORE THAN HALF the effort. [place] lifts or holds trunk or limbs and provides more than half the effort. 2-Gsqmdfrxf-okcrnu does ALL the effort. Patient does none of the effort to complete the activity. Or, the assistance of 2 or more helpers is required for the patient to complete the activity. If activity was not attempted, code reason: 7-Patient Refused. 9-Not Applicable-not attempted and the patient did not perform the activity before the current illness, exacerbation or injury. 10-Not Attempted due to Environmental Limitations-(lack of equipment, weather restraints, etc.). 88-Not Attempted due to Medical Conditions or Safety Concerns. Roll Left & Right (QC): 6 Sit to Lying (QC): 6 Lying to Sitting/Side of Bed(Q: 6 Sit to Stand (QC): 5 Chair/Stq-kw-Lzydx Xfer(QC): 5 Toilet Transfer (QC): 5 Car Transfer (QC): 5 Pt needs VC throughout activities for safety as well as sequencing. Weight Bearing Full Weight Bearing Full Weight Bearing Gait Training Does the Patient Walk?: Yes Distance: 300' Walk 10 feet (QC): 5 Walk 50 ft with 2 Turns(QC): 5 Walk 150 ft (QC): 5 Walking 10ft/uneven surface-QC: 5 Gait Persons Needed: 1 Gait Assistive Device: FWW Pt needs VC to keep FWW close while ambulating. Pt continues to need redirection and VC to use FWW while upright. Wheelchair Training Does the Pt Use a Wheelchair?: No Stair Training Stair Training: Handrails/: 2 handrails #of Steps: 12 1 Step (curb) (QC): 5 4 Steps (QC): 5 12 Steps (QC): 5 Stairs: Pattern: Reciprocal Balance Picking up an Object (QC): 5 Treatments OT/ PT co-treat. Pt completes UB/ LB dressing tasks with cues for initiation and safety. Pt requires cues for FWW usage and safety. Pt completes climbing stairs with BUE on hand rails with good pace and endurance, fair safety. Pt completes picking items off of floor with SUP within chair, discussion of small items on floor in standing with emphasis of asking for assist or getting chair to gather items from floor. Pt verbalizes understanding and answers "Would this be safe?" correctly 2x. Pt gathers 6" cone from floor with CGA, smaller items pt educated to receive assist with. Pt completes kitchen mob task, gathers 9 cones from high/ low cabinets, microwave and fridge. Pt requires moderate cues for safe positioning and FWW use. Pt completes coffee prep with tactile cues for shoulder positioning for success. Pt returns to room with request of bathroom. Pt completes urination in standing, completes walk in shower transfer and toilet transfer. Pt returns to recliner chair, call light in reach, all needs met, chair alarm on. Pt educated systems applications programming lead light button, pt educated on family meeting tomorrow with sister and what will be discussed- OT will address home environment of sister and safety within. Pt nods. Assessment Current Status: Fair Progress Pt needs constant VC for safety to use FWW properly as well as for problem solving. PT Short Term Goals Short Term Goals Time Frame: May 08, 2019 Roll Left & Right: 6 Sit to lyin Lying to sitting on side of be: 6 Sit to stand: 4 Chair/stc-lf-pqipi transfer: 4 Toilet transfer: 4 Car transfer: 4 Walk 10 feet: 4 Walk 50 feet with two turns: 4 Walk 150 feet: 4 PT Boiler Operator Helper Goals Alf Goals PT Alf Goals Time Frame: May 22, 2019 Roll Left & Right (QC): 6 Sit to Lying (QC): 6 Lying-Sitting on Side/Bed(QC): 6 Sit to Stand (QC): 4 (SBA) Chair/Ovh-rv-Wuouz Xfer(QC): 4 (SBA) Toilet Transfer (QC): 4 (SBA) Car Transfer (QC): 4 (SBA) Walk 10 feet (QC): 4 (SBA) Walk 50ft with 2 Turns (QC): 4 (SBA) Walk 150 ft (QC): 4 (SBA) Walking 10ft on Uneven Surface: 4 (SBA) 1 Step (curb) (QC): 4 (CGA) 4 Steps (QC): 4 (CGA) 12 Steps (QC): 88 Picking up an Object (QC): 88 Does the Pt use WC or Scooter?: No Type: N/A Type: N/A PT Plan Problem List Problem List: Activity Tolerance, Safety, Balance, Gait Treatment/Plan Treatment Plan: Continue Plan of Care Treatment Plan: Bed Mobility, Concurrent Therapy, Education, Functional Activity Flory, Functional Strength, Group Therapy, Gait, Safety, Therapeutic Exercise, Transfers Treatment Duration: May 22, 2019 Frequency: At least 5 of 7 days/Wk (IRF) Estimated Hrs Per Day: 1.5 hours per day Patient and/or Family Agrees t: Yes Safety Risks/Education Patient Education: Gait Training, Steps, Correct Positioning, Safety Issues Teaching Methods: Discussion Response to Teaching: Reinforcement Needed Time/GCodes Time In: 815 Time Out: 930 Total Billed Treatment Time: 75 Total Billed Treatment 1, GT x2 (30m) & FA x3 (45m) Co-treat w/OT for 75m RADHAJORGESERA BUSINESS OPERATIONS SPECIALIST May 15, 2019 09:39
--- NOTE | 2019-05-15 11:58 | NUR ---
Patient is very restless this shift. Frequently up and down without asking for assistance. Patient has been wanting to sit in common area with staff. Patient frequently gets up without alerting staff to walk around unit and often wants to go through kitchen cabinets. Patient has to be constantly re-directed and reminded to use walker for assistance, as he continues to be unsteady. Patient is taken to bathroom frequently, per requests, has fresh water, food, and fresh coffee. Patient denies pain and discomfort. Various staff members have taken turns sitting with patient. casting supervisor notified of change in status for patient requiring 1 on 1 staff care.
--- NOTE | 2019-05-15 12:14 | Cardiology Progress Note ---
Cardiology SOAP Progress Note Subjective: No chronic complaints. Objective: I&O/Vital Signs 05/15/19 05/15/19 05/15/19 05/15/19 05:45 08:14 09:00 09:34 Temp 36.7 Pulse 85 116 125 Resp 18 B/P (MAP) 103/73 (83) 91/61 (71) 136/86 (103) Pulse Ox 97 O2 Delivery Room Air Room Air 05/15/19 00:00 Intake Total 1560 ml Balance 1560 ml Constitutional: AAO x 3 Respiratory: chest is bilaterally symmetric, lungs clear to auscultation Cardiovascular: regular rate-rhythm, S1 and S2, systolic murmur Gastrointestional: soft, audible bowel sounds Extremities: normal inspection, no lower extremity edema bilateral Neurologic/Psychiatric: no motor/sensory deficits, alert, oriented x 3 Skin: normal color A/P: Assessment/Dx: Acute CVA, LVH, hypertensive heart disease. Active smoking, Cardiomyopathy. Abnormal nuclear stress test. Occluded right subclavian artery. Plan: Plan: Acute CVA, unclear etiology. Negative carotid ultrasound for significant carotid disease. Echocardiogram shows mildly reduce LV systolic function with no clear evidence of intracardiac shunting. Telemetry for 24 hours is negative for atrial fibrillation. Continue telemetry for total of 48 hours if no atrial fibrillation consider implantable loop recorder. Due to mildly reduce LV systolic function, coronary evaluation is recommended however due to recent stroke, invasive cardiac procedures are deferred for at least 1 month. We can proceed with nuclear stress testing for risk stratification. Nuclear stress test was done on 05/01/2019 which showed small area of apical ischemia. Patient will likely require coronary angiography probably in a month from the stroke; stroke was on 04/29/2019. For now continue aspirin. OT/PT. Cardiomyopathy, unclear whether ischemic or nonischemic. Coronary angiography cannot be done in the setting of an acute stroke for at least 30 days. Treat with lisinopril and beta brad. Active smoking: Smoking cessation is strongly recommended. The patient told me very clearly that as soon as he is out of the hospital he will start smoking again. LVH, likely due to hypertensive heart disease. On lisinopril. Right UE systolic BP 95mmhg, Left UE systolic BP 165 mmhg -CTA chest showed occluded right subclavian artery. Significant disease in the left subclavian artery as well. I discussed with the patient and recommended peripheral angiogram and possible intervention. This will be done in addition to the coronary angiography which has been delayed to one month after his initial stroke. Patient is not to keen for the procedure. Since it's not urgent I have not emphasized a lot. Dr. Barrera to take over cardiology care tomorrow. Thank you for your consultation. Please call me if you have any questions. Spenser Rhodes MD, FACP, FACC, FSCAI, FHRS, CCDS Interventional Cardiology Cardiac Electrophysiology Vascular Medicine and Endovascular Interventions Ramandeep RHODES MD May 15, 2019 12:14
[2019-05-15] MEDS: ALPRAZolam 0.25 MG (XANAX) TAB PO PRN ×2 (12:46→21:21)
--- NOTE | 2019-05-15 14:00 | Speech Therapy Daily Note ---
Speech Daily Progress Note Subjective Date Seen by Provider: May 15, 2019 Time Seen by Provider: 11:00 Patient was alert and cooperative for all therapy tasks. Today's therapy session took place in the lobby of the rehab area while the patient enjoyed coffee. Objective Patient completed memory, problem solving, and safety awareness tasks pertaining to his scheduled discharge and home environment with 80% accuracy with minimal cues. Assessment Assessment Current Status: Good Progress Treatment Plan Discontinue ST, Goals Met Speech Short Term Goals Short Term Goals Short Term Goals 1) Patient will complete memory tasks related to his daily needs at 80% or greater with minimal cues. 2) Patient will complete safety awareness tasks related to his daily needs at 80% or greater with minimal cues. 3) Patient will complete problem solving tasks related to his daily needs at 80% or greater with minimal cues. 4) Patient will complete speech production tasks to increase intelligibility at 80% or greater with minimal cues. Speech Regional Office Coordinator Goals Retirement Goals Patient will improve cognitive-communication necessary for safety and daily living tasks with minimal assist. Patient will increase his speech intelligibility to be an effective communicator of wants/needs. Speech-Plan Patient/Family Goals Patient/Family Goals: Patient is scheduled to be discharged from [facility] to living with his sister tomorrow 05/16. Treatment Plan Speech Therapy Treatment Plan: Discontinue ST, Goals Met Treatment Duration: May 16, 2019 Frequency: 5 times per week Estimated Hrs Per Day: .5 hour per day Rehab Potential: Fair Barriers to Learning: Decreased cognitive-communication due to CVA, some deficits have resolved. Pt/Family Agrees to Plan: Yes Safety Risks/Education Teaching Recipient: Patient Teaching Methods: Demonstration, Discussion Response to Teaching: Reinforcement Needed Education Topics Provided: Continued safety within his new home environment. Time Speech Therapy Time In: 11:00 Speech Therapy Time Out: 11:30 Total Billed Time: 30 Billed Treatment Time 30 No QUALITY CODES EXPRESSION OF IDEAS/WANTS: 4 UNDERSTANDING VERBAL CONTENT: 4 BRIEF INTERVIEW MENTAL STATUS: YES REPETITION OF 3 WORDS: 3 TEMPORAL ORIENTATION YEAR:INCORRECT, MONTH: INCORRECT, DAY: INCORRECT RECALL SOCK: INCORRECT, COLOR: INCORRECT, BED: INCORRECT MEMORY/RECALL ABILITY OF LOCATION OF ROOM AND THAT HE IS IN THE HOSPITAL CHRIS ENGEL May 15, 2019 14:00
--- NOTE | 2019-05-15 14:02 | NUR ---
"RD ASSESSMENT PMHx: CVA PT INTERACTION: Pt was awake and pleasant during nutrition follow-up. Pt states he has been eating well since last assessment. Note avg PO intake of 92% x5d, per chart review. Pt states no recent issues with n/v/c/d since last assessment. Note last BM was 05/12, and pt currently on bowel regimen of miralax BID; and senna BID, per chart review. ABNORMAL NUTRITION-RELATED LAB VALUES LOW: Na 133 HIGH: Est. kcal needs: 5559-0598 kcal | 30-35 kcal/kg Est. Pro needs: 58-67 g Pro | 1.2-1.4 g Pro/kg PES STATEMENT: Given pt PO intake, no nutrition diagnosis at this time (NO-1.1) INTERVENTION: Continue with current diet order of Regular diet. Will continue to follow and reassess as pt needs and status change. MONITOR/EVALUATE: PO Intake; Plan of Care; Hydration Status; Weight Status; Lab Values Matthew Sethi, MS, RD, LD"
--- NOTE | 2019-05-15 15:17 | NUR ---
CM/SS FINAL DISCHARGE PLANNING DME: FWW ordered through [facility], [facility]/pending Medicaid. Spoke with nursery manager, requested delivery to patient hospital room by 1000 05/16/19 so it is available for family training session prior to his release. Patient is ready to leave hospital [facility], he appears bored in the confinement of his room. With his cognition impairment and current impulsiveness, is is not able to consistently follow instructions about not getting up without summoning staff for assist. HHC is recommended but will not be able to be set up until patient has a PCP in [place]. Finalize overall arrangements with family in person tomorrow.
[2019-05-15 17:04] VITALS: BP 112/65
--- NOTE | 2019-05-15 19:25 | NUR ---
bedside report received from JOJO SONG, assume care of pt
[2019-05-15 21:20] VITALS: BP 117/69
[2019-05-15] MEDS: MELATONIN 3 MG TABLET PO PRN (21:21)
[2019-05-15] MEDS: HYDROcodone/APAP 5 MG/325 MG (LORTAB) TAB PO PRN (21:24)
--- NOTE | 2019-05-15 21:24 | NUR ---
c/o headache & anxiety pain level 5/10 on flacc scale, Lortab 5 1 tab & Xanax 0.25mg given, bed/chair alarm side rails up x4, sitter at bedside
[2019-05-15] MEDS: ENOXAPARIN 30 MG/0.3 ML (LOVENOX) SYR SC SCH (21:28)
--- NOTE | 2019-05-15 22:03 | NUR ---
resting quietly in bed, pain level 0/10 on flacc scale
[2019-05-16 05:34] VITALS: BP 103/74
[2019-05-16] MEDS: meTOprolol TARTRATE 25 MG (LOPRESSOR) TABLET PO SCH (09:16)
[2019-05-16] MEDS: POLYETHYLENE GLYCOL 17 GM (MIRALAX) PACK PO SCH (09:17)
[2019-05-16] MEDS: ASPIRIN E.C. 325 MG (ECOTRIN) TABLET PO SCH (09:17)
[2019-05-16] MEDS: PATCH REMOVAL TP SCH (09:17)
[2019-05-16] MEDS: lisINopril 20 MG (PRINIVIL) TABLET PO SCH (09:17)
[2019-05-16] MEDS: PHENAZOPYRIDINE 100 MG (PYRIDIUM) TABLET PO SCH ×2 (09:17→13:00)
[2019-05-16] MEDS: NICOTINE 21 MG (NICODERM) PATCH TD SCH (09:17)
[2019-05-16] MEDS: SENNA W/DOCUSATE (SENOKOT S) TABLET PO SCH (09:17)
--- NOTE | 2019-05-16 09:22 | Discharge Summary ---
Diagnosis/Chief Complaint Date of Admission May 01, 2019 at 11:10 Date of Discharge Discharge Date: May 16, 2019 Discharge Diagnosis Assessment: Subacute stroke presented 5 days after neurological deficit Smoker Cachexia Cognitive deficit Plan: Incentive spirometer Mat protocol Statin Aspirin CT scan reviewed Cardiology evaluation is appreciated Inpatient rehabilitation protocol Needs retirement at discharge or lives with sister with 24/7 supervision (1) Left pontine cerebrovascular accident Status: Acute (2) Aphasia (3) Smoker (4) Cognitive deficit as late effect of cerebrovascular accident (CVA) (5) Intellectual disability Discharge Summary Discharge Physical Examination Allergies: Coded Allergies: No Known Drug Allergies (Unverified , 04/28/19) Vitals & I&Os Vital Signs Date Time Temp Pulse Resp B/P (MAP) Pulse Ox O2 Delivery O2 Flow Rate FiO2 05/16/19 13:30 05/16/19 08:15 Room Air 05/16/19 05:34 36.4 8 20 95 General Appearance: Alert, Cooperative Respiratory: Clear to Auscultation Cardiovascular: Regular Rate Neuro: Normal Gait, Normal Speech, Strength at 5/5 X4 Ext Psych/Mental Status: Mental Status NL Hospital Course Was the Problem List Reviewed?: Yes Hospital course: Pt had an uneventful hospital course for over two weeks after suffering a stroke and chronic learning disability, low functioning status was very difficult to manage since he remained a 1 on 1, remained with a telesitter, continued to be a fall risk and required 24/7 supervision. His sister will take him home from . Family education was provided and Pt was discharged in improved condition on all stroke protocol medications with close follow-up requested and smoking cessation counseled. Labs (last 24 hrs) Laboratory Tests 05/01/19 17:20: Urine Color YELLOW, Urine Clarity CLEAR, Urine pH 6.0, Urine Specific [place] 1.020, Urine Protein NEGATIVE, Urine Glucose (UA) NEGATIVE, Urine Ketones NEGATIVE, Urine Nitrite NEGATIVE, Urine Bilirubin NEGATIVE, Urine Urobilinogen 0.2, Urine Leukocyte Esterase NEGATIVE, Urine RBC (Auto) 1+H, Urine RBC 2-5H, Urine WBC NONE, Urine Crystals NONE, Urine Bacteria TRACE, Urine Casts NONE, Urine Mucus NEGATIVE, Urine Culture Indicated NO 05/02/19 05:35: White Blood Count 6.6, Red Blood Count 3.99L, Hemoglobin 11.4L, Hematocrit 35L, Mean Corpuscular Volume 87, Mean Corpuscular Hemoglobin 29, Mean Corpuscular Hemoglobin Concent 33, Red Cell Distribution Width 15.5H, Platelet Count 254, Mean Platelet Volume 10.4, Neutrophils (%) (Auto) 56, Lymphocytes (%) (Auto) 28, Monocytes (%) (Auto) 11, Eosinophils (%) (Auto) 4, Basophils (%) (Auto) 1, Neutrophils # (Auto) 3.7, Lymphocytes # (Auto) 1.8, Monocytes # (Auto) 0.7, Eosinophils # (Auto) 0.3, Basophils # (Auto) 0.1, Sodium Level 137, Potassium Level 3.2L, Chloride Level 104, Carbon Dioxide Level 21, Anion Gap 12, Blood Urea Nitrogen 10, Creatinine 0.75, Estimat Glomerular Filtration Rate > 60, BUN/Creatinine Ratio 13, Glucose Level 92, Calcium Level 9.2, Corrected Calcium 9.7, Total Bilirubin 0.5, Aspartate Amino Transf (AST/SGOT) 16, Alanine Aminotransferase (ALT/SGPT) 8, Alkaline Phosphatase 51, Total Protein 5.8L, Albumin 3.4 05/05/19 06:52: White Blood Count 5.9, Red Blood Count 4.29L, Hemoglobin 12.2L, Hematocrit 37L, Mean Corpuscular Volume 86, Mean Corpuscular Hemoglobin 28, Mean Corpuscular Hemoglobin Concent 33, Red Cell Distribution Width 15.5H, Platelet Count 269, Mean Platelet Volume 11.0H, Neutrophils (%) (Auto) 59, Lymphocytes (%) (Auto) 26, Monocytes (%) (Auto) 10, Eosinophils (%) (Auto) 5, Basophils (%) (Auto) 1, Neutrophils # (Auto) 3.5, Lymphocytes # (Auto) 1.5, Monocytes # (Auto) 0.6, Eosinophils # (Auto) 0.3, Basophils # (Auto) 0.0, Sodium Level 136, Potassium Level 3.9, Chloride Level 103, Carbon Dioxide Level 21, Anion Gap 12, Blood Urea Nitrogen 21H, Creatinine 0.79, Estimat Glomerular Filtration Rate > 60, BUN/Creatinine Ratio 27, Glucose Level 97, Calcium Level 9.3, Corrected Calcium 9.5, Total Bilirubin 0.3, Aspartate Amino Transf (AST/SGOT) 19, Alanine Aminotransferase (ALT/SGPT) 21, Alkaline Phosphatase 55, Total Protein 6.5, Albumin 3.7 05/12/19 05:03: White Blood Count 9.4, Red Blood Count 4.30L, Hemoglobin 12.1L, Hematocrit 37L, Mean Corpuscular Volume 87, Mean Corpuscular Hemoglobin 28, Mean Corpuscular Hemoglobin Concent 32, Red Cell Distribution Width 15.8H, Platelet Count 393, Mean Platelet Volume 10.6H, Neutrophils (%) (Auto) 56, Lymphocytes (%) (Auto) 27, Monocytes (%) (Auto) 14H, Eosinophils (%) (Auto) 3, Basophils (%) (Auto) 1, Neutrophils # (Auto) 5.3, Lymphocytes # (Auto) 2.5, Monocytes # (Auto) 1.3H, Eosinophils # (Auto) 0.3, Basophils # (Auto) 0.1, Sodium Level 133L, Potassium Level 4.5, Chloride Level 100, Carbon Dioxide Level 21, Anion Gap 12, Blood Urea Nitrogen 15, Creatinine 0.75, Estimat Glomerular Filtration Rate > 60, BUN/Creatinine Ratio 20, Glucose Level 92, Calcium Level 9.5, Corrected Calcium 9.7, Total Bilirubin 0.2, Aspartate Amino Transf (AST/SGOT) 17, Alanine Aminotransferase (ALT/SGPT) 20, Alkaline Phosphatase 56, Total Protein 6.6, Albumin 3.7 Pending Labs Laboratory Tests 05/01/19 17:20: Urine Color YELLOW, Urine Clarity CLEAR, Urine pH 6.0, Urine Specific [place] 1.020, Urine Protein NEGATIVE, Urine Glucose (UA) NEGATIVE, Urine Ketones NEGATIVE, Urine Nitrite NEGATIVE, Urine Bilirubin NEGATIVE, Urine Urobilinogen 0.2, Urine Leukocyte Esterase NEGATIVE, Urine RBC (Auto) 1+, Urine RBC 2-5, Urine WBC NONE, Urine Crystals NONE, Urine Bacteria TRACE, Urine Casts NONE, Urine Mucus NEGATIVE, Urine Culture Indicated NO 05/02/19 05:35: White Blood Count 6.6, Red Blood Count 3.99, Hemoglobin 11.4, Hematocrit 35, Mean Corpuscular Volume 87, Mean Corpuscular Hemoglobin 29, Mean Corpuscular Hemoglobin Concent 33, Red Cell Distribution Width 15.5, Platelet Count 254, Mean Platelet Volume 10.4, Neutrophils (%) (Auto) 56, Lymphocytes (%) (Auto) 28, Monocytes (%) (Auto) 11, Eosinophils (%) (Auto) 4, Basophils (%) (Auto) 1, Neutrophils # (Auto) 3.7, Lymphocytes # (Auto) 1.8, Monocytes # (Auto) 0.7, Eosinophils # (Auto) 0.3, Basophils # (Auto) 0.1, Sodium Level 137, Potassium Level 3.2, Chloride Level 104, Carbon Dioxide Level 21, Anion Gap 12, Blood Urea Nitrogen 10, Creatinine 0.75, Estimat Glomerular Filtration Rate > 60, BUN/Creatinine Ratio 13, Glucose Level 92, Calcium Level 9.2, Corrected Calcium 9.7, Total Bilirubin 0.5, Aspartate Amino Transf (AST/SGOT) 16, Alanine Aminotransferase (ALT/SGPT) 8, Alkaline Phosphatase 51, Total Protein 5.8, Albumin 3.4 05/05/19 06:52: White Blood Count 5.9, Red Blood Count 4.29, Hemoglobin 12.2, Hematocrit 37, Mean Corpuscular Volume 86, Mean Corpuscular Hemoglobin 28, Mean Corpuscular Hemoglobin Concent 33, Red Cell Distribution Width 15.5, Platelet Count 269, Mean Platelet Volume 11.0, Neutrophils (%) (Auto) 59, Lymphocytes (%) (Auto) 26, Monocytes (%) (Auto) 10, Eosinophils (%) (Auto) 5, Basophils (%) (Auto) 1, Neutrophils # (Auto) 3.5, Lymphocytes # (Auto) 1.5, Monocytes # (Auto) 0.6, Eosinophils # (Auto) 0.3, Basophils # (Auto) 0.0, Sodium Level 136, Potassium Level 3.9, Chloride Level 103, Carbon Dioxide Level 21, Anion Gap 12, Blood Urea Nitrogen 21, Creatinine 0.79, Estimat Glomerular Filtration Rate > 60, BUN/Creatinine Ratio 27, Glucose Level 97, Calcium Level 9.3, Corrected Calcium 9.5, Total Bilirubin 0.3, Aspartate Amino Transf (AST/SGOT) 19, Alanine Aminotransferase (ALT/SGPT) 21, Alkaline Phosphatase 55, Total Protein 6.5, Albumin 3.7 05/12/19 05:03: White Blood Count 9.4, Red Blood Count 4.30, Hemoglobin 12.1, Hematocrit 37, Mean Corpuscular Volume 87, Mean Corpuscular Hemoglobin 28, Mean Corpuscular Hemoglobin Concent 32, Red Cell Distribution Width 15.8, Platelet Count 393, Mean Platelet Volume 10.6, Neutrophils (%) (Auto) 56, Lymphocytes (%) (Auto) 27, Monocytes (%) (Auto) 14, Eosinophils (%) (Auto) 3, Basophils (%) (Auto) 1, Neutrophils # (Auto) 5.3, Lymphocytes # (Auto) 2.5, Monocytes # (Auto) 1.3, Eosinophils # (Auto) 0.3, Basophils # (Auto) 0.1, Sodium Level 133, Potassium Level 4.5, Chloride Level 100, Carbon Dioxide Level 21, Anion Gap 12, Blood Urea Nitrogen 15, Creatinine 0.75, Estimat Glomerular Filtration Rate > 60, BUN/Creatinine Ratio 20, Glucose Level 92, Calcium Level 9.5, Corrected Calcium 9.7, Total Bilirubin 0.2, Aspartate Amino Transf (AST/SGOT) 17, Alanine Aminotransferase (ALT/SGPT) 20, Alkaline Phosphatase 56, Total Protein 6.6, Albumin 3.7 Discharge Home Medications: Active Scripts Active Aspirin EC (Aspirin) 325 Mg Tablet.dr 325 Mg PO DAILY Lisinopril 20 Mg Tablet 20 Mg PO DAILY@0900 Metoprolol Tartrate 25 Mg Tablet 12.5 Mg PO BID Atorvastatin Calcium 80 Mg Tablet 80 Mg PO HS Nicoderm Cq (Nicotine) 1 Each Patch.td24 21 Mg TD DAILY@0900 Reported Tylenol Extra Strength (Acetaminophen) 500 Mg Tablet 1,500 Mg PO Q6H PRN Instructions to patient/family Please see electronic discharge instructions given to patient. Diagnosis/Problems Diagnosis/Problems (1) Left pontine cerebrovascular accident Status: Acute (2) Aphasia (3) Smoker (4) Cognitive deficit as late effect of cerebrovascular accident (CVA) (5) Intellectual disability Clinical Quality Measures DVT/VTE Risk/Contraindication: Risk Factor Score Per Nursin RFS Level Per Nursing on Admit: 1=Low/No VTE PPX CHRISTOPHER DANIELS DO May 16, 2019 09:22
[2019-05-16] MEDS: FLUTICASONE NASAL SPRAY (FLONASE) 16 GM BTL NS SCH (11:05)
--- NOTE | 2019-05-16 11:08 | Progress Note ---
[facility] 05/16/19 1108: Progress Note Patient is a 54 year old male that suffered a stroke and presented 5 days after with neurological deficit. He was admitted to the rehab floor on 05/02/2019. Patient has cachexia. He will require 24/7 care and at time of discharge will have his sister for support. He is being discharged with aspirin, lisinopril, metoprolol and atorvastatin Since patient smokes, he is also being discharged with a nicoderm patch for cessation. He participated in 10 days of occupational and physical therapy. TERRIE DANIELS DO 05/17/19 1359: Supervisory-Addendum Brief Verification & Attestation Participated in pt care: history, MDM, physical Personally performed: exam, history, MDM, supervision of care Care discussed with: Medical Student Procedures: n/a Results interpretation: Verified all documentation Verification and Attestation of Medical Student E/M Service A medical student performed and documented this service in my presence. I reviewed and verified all information documented by the medical student and made modifications to such information, when appropriate. I personally performed the physical exam and medical decision making. Terrie Daniels, May 17, 2019,13:59 [facility] May 16, 2019 11:08 TERRIE DANIELS DO May 17, 2019 13:59
--- NOTE | 2019-05-16 11:51 | Therapy Team Discharge Summary ---
Therapy Discharge Summary Discharge Recommendations Date of Discharge Occupational Therapy Decreased Activ Tolerance, Decreased Safety Aware, Decreased UE Strength, Dependent Transfers, Impaired Cognition, Impaired Funct Balance, Impaired I ADL's, Impaired Self-Care Skills Speech-Language Pathology Patient was admitted to the ARU s/p CVA. Patient was given the SLUMS and was found to be in the moderate level of function. Patient received skilled ST for cognitive improvement for a safer return home. Patient has met ST goals at 80%. Patient will be discharging to live with his sister in today. He is discharging from ST as well. PT Doubler Operator Goals Care Home Goals PT Care Home Goals Time Frame: May 22, 2019 Roll Left to Right (QC): 6 Sit to Lying (QC): 6 Lying-Sitting on Side/Bed(QC): 6 Sit to Stand (QC): 4 (SBA) Chair/Scc-jf-Sxlfq Xfer(QC): 4 (SBA) Car Transfer (QC): 4 (SBA) Walk 10 feet (QC): 4 (SBA) Walk 10ft-Uneven Surface(QC): 4 (SBA) Walk 50ft with 2 Turns (QC): 4 (SBA) Walk 150 ft (QC): 4 (SBA) Does the Pt use WC or Scooter?: No 1 Step (curb) (QC): 4 (CGA) 4 Steps (QC): 4 (CGA) 12 Steps (QC): 88 Picking up an Object (QC): 88 OT Care Home Goals Doubler Operator Goals Time Frame: May 15, 2019 Eating (QC): 6 (met) Oral Hygiene (QC): 6 Shower/Bathe Self (QC): 6 Upper Body Dressing (QC): 6 (met) Lower Body Dressing (QC): 6 On/Off Footwear (QC): 6 (met) Toileting Hygiene (QC): 6 Toilet/Commode Transfer (QC): 4 (SBA) Additional Goals: 1-Demonstrate ADL Tasks, 2-Verbalize Understanding, 3- ImproveStrength/Flory 1=Demonstrate adherence to instructed precautions during ADL tasks. 2=Patient will verbalize/demonstrate understanding of assistive devices/modifications for ADL. 3=Patient will improve strength/tolerance for activity to enable patient to perform ADL's. Speech Care Home Goals Doubler Operator Goals Patient will improve cognitive-communication necessary for safety and daily living tasks with minimal assist. Patient will increase his speech intelligibility to be an effective communicator of wants/needs. Met CHRIS ENGEL May 16, 2019 11:50
--- NOTE | 2019-05-16 13:12 | Occupational Ther Daily Note ---
OT Current Status-Daily Note Subjective Family training planned on this date. Pt seen in ARU triny, family present from [phone]. Pt and family agreeable to family training. Pt more alert/ talkative/ high spirited on this date. Family educated on goals of family training session. ADL-Treatment Therapy Code Descriptions/Definitions Functional [place] Measure: 0=Not Assessed/NA 4=Minimal Assistance 1=Total Assistance 5=Supervision or Setup 2=Maximal Assistance 6=Modified [place] 3=Moderate Assistance 7=Complete IndependenceSCALE: Activities may be completed with or without assistive devices. 4-Ngrrnvzxtm-qexlxdb completes the activity by him/herself with no assistance from a helper. 5-Set-up or Clean-up Assistance-helper sets up or cleans up; patient completes activity. [place] assists only prior to or following the activity. 4-Supervision or Touching Assistance-helper provides verbal cues and/or touching/steadying and/or contact guard assistance as patient completes activity. Assistance may be provided throughout the activity or intermittently. 3-Partial/Moderate Assistance-helper does LESS THAN HALF the effort. [place] lifts, holds or supports trunk or limbs, but provides less than half the effort. 2-Substantial/Maximal Assistance-helper does MORE THAN HALF the effort. [place] lifts or holds trunk or limbs and provides more than half the effort. 4-Jyhertnkl-vhzobn does ALL the effort. Patient does none of the effort to complete the activity. Or, the assistance of 2 or more helpers is required for the patient to complete the activity. If activity was not attempted, code reason: 7-Patient Refused. 9-Not Applicable-not attempted and the patient did not perform the activity before the current illness, exacerbation or injury. 10-Not Attempted due to Environmental Limitations-(lack of equipment, weather restraints, etc.). 88-Not Attempted due to Medical Conditions or Safety Concerns. Eating (QC): 6 Toileting Hygiene (QC): 4 (CGA) Other Treatment OT/PT co-treat session for family training. Pt completes sit to stand from chair with FWW in place. Pt utilizes new FWW to ambulate to room. Pt requires SBA for safety during mobility. Pt completes toileting with SBA-CGA in stance with FWW placed to side. Pt's family notified of pt's urination stance and need for grab bars by toilet. Pt completes shower transfer with walk in shower, completes with cues for grab bar usage with SBA. Pt sits on shower bench. Pt's sister educated on benefits of gb placement for her tub/ shower. Pt's sister has shower chair within tub/shower. Pt returns to recliner chair with SBA. Family educated on need for 24 hour assist/ eyes on pt due to decreased safety awareness and tendency to not utilize walker. Education of SUP during ADLs for safety; pt is physically capable of completing tasks but for safety pt requires cues for redirection/ initiation/ safety. Pt and family deny any further questions, pt's sister plans to have pt live with her and also live within separate house of pt's erickson as they will "take turns" caring for pt. Additional emphasis of 24 hour assist. Family agrees, pt begins to get up from chair, sister redirects pt to return to sit and that they would stay with him; pt and family left in room. Education OT Patient Education: Correct positioning, Instructions to caregiver, Safety issues, Transfer techniques, Other (environment and DME) Teaching Recipient: Patient, Family Teaching Methods: Demonstration, Discussion Response to Teaching: Verbalize Understanding, Return Demonstration, Reinforcement Needed OT Short Term Goals Short Term Goals Upper body dressin (met) Lower body dressin (met) OT Chcf Goals Chcf Goals Time Frame: May 15, 2019 Eating (QC): 6 (met) Oral Hygiene (QC): 6 Toileting Hygiene (QC): 6 Shower/Bathe Self (QC): 6 Upper Body Dressing (QC): 6 (met) Lower Body Dressing (QC): 6 On/Off Footwear (QC): 6 (met) Additional Goals: 1-Demonstrate ADL Tasks, 2-Verbalize Understanding, 3-ImproveStrength/Flory 1=Demonstrate adherence to instructed precautions during ADL tasks. 2=Patient will verbalize/demonstrate understanding of assistive devices/modifications for ADL. 3=Patient will improve strength/tolerance for activity to enable patient to perform ADL's. OT Education/Plan Problem List/Assessment Assessment: Decreased Activ Tolerance, Decreased Safety Aware, Decreased UE Strength, Dependent Transfers, Impaired Cognition, Impaired Funct Balance, Impaired I ADL's, Impaired Self-Care Skills Discharge Recommendations Plan/Recommendations: Discontinue OT Therapy Discharge Recommendati: 24 Hour Supervision Equpiment Recommendations-D/C: Rails on Tub/Shower, Rails on Toilet (near toilet) Treatment Plan/Plan of Care Treatment,Training & Education: Yes Patient would benefit from OT for education, treatment and training to promote independence in ADL's, mobility, safety and/or upper extremity function for ADL's. Plan of Care: ADL Retraining, Caregiver Training, Cognitive Retraining, Concurrent Therapy, Functional Mobility, Group Exercise/Act as Ind, UE Funct Exercise/Act, UE Neuromus Re-Ed/Coord Treatment Duration: May 15, 2019 Frequency: At least 5 of 7 days/Wk (IRF) Estimated Hrs Per Day: 1.5 hours per day Agreement: Yes Rehab Potential: Fair Time/GCodes Start Time: 12:45 Stop Time: 13:00 Total Time Billed (hr/min): 15 Billed Treatment Time 1, FA (15) LIS MARTINEZ OTR May 16, 2019 13:12
--- NOTE | 2019-05-16 13:20 | Therapy Team Discharge Summary ---
Therapy Discharge Summary Discharge Recommendations Date of Discharge Occupational Therapy Pt admits with CVA dx. Pt admits with UB mod A, showering mod A, LB min A-CGA, footwear SBA, and toileting mod A. Pt demonstrates decreased safety awareness, decreased balance, impulsive, and decreased strength. Pt and OT work towards highest functional IND through ADL tasks, strengthening, safety training, family training session with sister and nieces. Pt limited by impulsiveness and motivation. Pt d/c's with sister to receive 24 hour care by sister and niece. Pt d/c's with all ADL tasks with SBA-SUP for cues for initiation, safety, and reminders for use of FWW. Pt d/c OT services at this time with recommendations of grab bars in both sister and niece's tub/showers and near toilet with 24 hour care. Decreased Activ Tolerance, Decreased Safety Aware, Decreased UE Strength, Dependent Transfers, Impaired Cognition, Impaired Funct Balance, Impaired I ADL's, Impaired Self-Care Skills PT Growth Hacker Goals Snf Goals PT Snf Goals Time Frame: May 22, 2019 Roll Left to Right (QC): 6 Sit to Lying (QC): 6 Lying-Sitting on Side/Bed(QC): 6 Sit to Stand (QC): 4 (SBA) Chair/Adr-fj-Ofjsv Xfer(QC): 4 (SBA) Car Transfer (QC): 4 (SBA) Walk 10 feet (QC): 4 (SBA) Walk 10ft-Uneven Surface(QC): 4 (SBA) Walk 50ft with 2 Turns (QC): 4 (SBA) Walk 150 ft (QC): 4 (SBA) Does the Pt use WC or Scooter?: No 1 Step (curb) (QC): 4 (CGA) 4 Steps (QC): 4 (CGA) 12 Steps (QC): 88 Picking up an Object (QC): 88 OT Growth Hacker Goals Growth Hacker Goals Time Frame: May 15, 2019 Eating (QC): 6 (met) Oral Hygiene (QC): 6 Shower/Bathe Self (QC): 6 Upper Body Dressing (QC): 6 (met) Lower Body Dressing (QC): 6 On/Off Footwear (QC): 6 (met) Toileting Hygiene (QC): 6 Toilet/Commode Transfer (QC): 4 (SBA) Additional Goals: 1-Demonstrate ADL Tasks, 2-Verbalize Understanding, 3-ImproveStrength/Flory 1=Demonstrate adherence to instructed precautions during ADL tasks. 2=Patient will verbalize/demonstrate understanding of assistive devices/modifications for ADL. 3=Patient will improve strength/tolerance for activity to enable patient to perform ADL's. Speech Growth Hacker Goals Growth Hacker Goals Patient will improve cognitive-communication necessary for safety and daily living tasks with minimal assist. Patient will increase his speech intelligibility to be an effective communicator of wants/needs. Met LIS MARTINEZ OTR May 16, 2019 13:20
--- NOTE | 2019-05-16 14:17 | NUR ---
CM/SS DISCHARGE Patient discharged with his sister Cortney Hwang to her home in [facility]. Cortney and two other family members participated in a session with therapists regarding education about patient care needs, monitor, and assistance. FWW: Delivered from [facility]. DISABILITY: Cortney informed that our FS/Mita had completed a disability application on patient behalf. Mita needed patient contact information, provided Cortney's address for mailing and phone for calls. Anticipate disability process will move forward now that contact can be made from Social [employer]. PCP: Cortney to follow through on getting patient a primary care physician in her area. Regarding HHC, services can not be set up until patient has a PCP per Medicare requirements.
--- NOTE | 2019-05-16 14:28 | Therapy Team Discharge Summary ---
Therapy Discharge Summary Discharge Recommendations Date of Discharge May 16, 2019 at 13:30 Physical Therapy Patient came to rehab following a CVA. Upon evaluation patient performed bed mobility with independence, supine <-> sit with independence, sit <-> stand min assist, transfers min assist, car transfer min assist, ambulated 200' with a rolling walker with min assist (including 50' with at least 2 turns of 90 degrees and 10' over an uneven surface), no stairs. Patient has been performing bed mobility and transfer training, balance and endurance training, functional strengthening, stair training, gait training, and education. Patient has made fair progress and has met all of his long-term goals. Now, patient performs bed mobility with independence, transfers with SBA, car transfer SBA, ambulates 300' with a rolling walker with SBA (including 50' with at least 2 turns of 90 degrees and 10' over an uneven surface), can metal pickling equipment operator an object from the floor with SBA, and can go up and down 12 steps using 2 handrails with SBA. Patient has been discharged from this facility today and will be discharged from PT at this time. Occupational Therapy Decreased Activ Tolerance, Decreased Safety Aware, Decreased UE Strength, Dependent Transfers, Impaired Cognition, Impaired Funct Balance, Impaired I ADL's, Impaired Self-Care Skills PT Software Controls Engineer Goals Software Controls Engineer Goals PT Software Controls Engineer Goals Time Frame: May 22, 2019 Roll Left to Right (QC): 6 Sit to Lying (QC): 6 Lying-Sitting on Side/Bed(QC): 6 Sit to Stand (QC): 4 (SBA) Chair/Jrp-zt-Mkykw Xfer(QC): 4 (SBA) Car Transfer (QC): 4 (SBA) Walk 10 feet (QC): 4 (SBA) Walk 10ft-Uneven Surface(QC): 4 (SBA) Walk 50ft with 2 Turns (QC): 4 (SBA) Walk 150 ft (QC): 4 (SBA) Does the Pt use WC or Scooter?: No 1 Step (curb) (QC): 4 (CGA) 4 Steps (QC): 4 (CGA) 12 Steps (QC): 88 Picking up an Object (QC): 88 OT Mcfp Goals Mcfp Goals Time Frame: May 15, 2019 Eating (QC): 6 (met) Oral Hygiene (QC): 6 Shower/Bathe Self (QC): 6 Upper Body Dressing (QC): 6 (met) Lower Body Dressing (QC): 6 On/Off Footwear (QC): 6 (met) Toileting Hygiene (QC): 6 Toilet/Commode Transfer (QC): 4 (SBA) Additional Goals: 1-Demonstrate ADL Tasks, 2-Verbalize Understanding, 3- ImproveStrength/Flory 1=Demonstrate adherence to instructed precautions during ADL tasks. 2=Patient will verbalize/demonstrate understanding of assistive devices/modifications for ADL. 3=Patient will improve strength/tolerance for activity to enable patient to perform ADL's. Speech Mcfp Goals Mcfp Goals Patient will improve cognitive-communication necessary for safety and daily living tasks with minimal assist. Patient will increase his speech intelligibility to be an effective communicator of wants/needs. Met SHANNA HARMON PT May 16, 2019 14:28
== END 2019-05-16 13:30 | disposition home or self-care (01) | DRG 57 ==
PROVIDERS: ADMIT Internal Medicine; ATTEND Internal Medicine
DX: I69.320 Aphasia following cerebral infarction (principal); I69.398 Other sequelae of cerebral infarction; R53.1 Weakness; I69.315 Cognitive social or emotional deficit following cerebral infarction; Z91.81 History of falling; R64 Cachexia; I11.9 Hypertensive heart disease without heart failure; I42.9 Cardiomyopathy, unspecified; I70.8 Atherosclerosis of other arteries; F17.210 Nicotine dependence, cigarettes, uncomplicated; R35.0 Frequency of micturition; Z95.1 Presence of aortocoronary bypass graft
CPT/HCPCS: 36415; 71275; 80053; 81000; 85025; 94010; 94640